=== PATIENT | female | born 1935 | race Caucasian/White ===

== ENCOUNTER 2017-11-13 00:43 | Emergency (ER) | payer MEDICARE, BC ==
[~2017-11-13] VITALS: Ht 162.6 cm; Wt 59.0 kg
[~2017-11-13 00:43] MED LIST: ALLOPURINOL100 MG PO; ALPRAZOLAM0.5 MG PO; AMLODIPINE BESYL5 MG PO; ARMOUR THYROID60 MG PO; ATORVASTATIN CA10 MG PO; CALCIUM ACETAT667 M1 PO; CALCIUM-MAGNES1 EACH PO; CARVEDILOL25 MG PO; COENZYME Q10 21 EACH PO; COLACE100 MG PO; COQ-10100 MG PO; FIBER SMART PO; FUROSEMIDE20 MG PO; HYDROCORTISONE10 MG PO; MAGNESIUM500 MG PO; MANGANESE PO; MELATONIN10 M1 PO; MULTIVITAMINS1 EAC6 PO; NIFEDIPINE10 MG PO; OS-CAL 500+D T1 EACH; POTASSIUM CHLO10 ME1 PO; POTASSIUM CHLOR8 MEQ PO; STEVIA; TRAMADOL HCL100 MG PO; TYLENOL WITH C1 EACH PO; ULTRAM50 MG PO; VITAMIN D250000 UNIT PO; [UNRECOGNIZED DRUG - OTHER]; [UNRECOGNIZED DRUG - OTHER]; [UNRECOGNIZED DRUG - OTHER]; colloidal silver PO; essential enzymes
--- OUTSIDE RECORDS SUMMARY | 2017-11-13 00:46 | XMS REPORT ---
Author Author [facility] Address Unknown Phone Unavailable Care Team Providers Care Knitter Helper Name Role Phone JENI JOYNER Unavailable Unavailable Problems This patient has no known problems. Allergies, Adverse Reactions, Alerts This patient has no known allergies or adverse reactions. Medications This patient has no known medications. Results Test Description Test Time Test Comments Text Results Atomic Results Result Comments CBC W/PLT COUNT & AUTO DIFFERENTIAL 2017-03-10 07:15:00 WHITE BLOOD CELL COUNT (BEAKER) (test mvbb=829) 8.0 K/ L 4.0-10.0 RED BLOOD CELL COUNT (BEAKER) (test reom=015) 3.84 M/ L 4.00-5.00 HEMOGLOBIN (BEAKER) (test wmba=064) 11.0 GM/DL 12.0-15.0 HEMATOCRIT (BEAKER) (test goet=868) 34.5 % 36.0-45.0 MEAN CORPUSCULAR VOLUME (BEAKER) (test gkoo=338) 89.7 fL 82.0-99.0 MEAN CORPUSCULAR HEMOGLOBIN (BEAKER) (test udpl=691) 28.8 pg 27.0-33.0 MEAN CORPUSCULAR HEMOGLOBIN CONC (BEAKER) (test fbob=561) 32.0 GM/DL 32.0- 36.0 RED CELL DISTRIBUTION WIDTH (BEAKER) (test edyx=848) 18.2 % 10.3-14.2 PLATELET COUNT (BEAKER) (test lxdm=126) 248 K/CU MM 150-430 MEAN PLATELET VOLUME (BEAKER) (test apch=632) 9.3 fL 6.5-10.5 NUCLEATED RED BLOOD CELLS (BEAKER) (test rssy=398) 0 /100 WBC 0-0 NEUTROPHILS RELATIVE PERCENT (BEAKER) (test wcfs=393) 53 % LYMPHOCYTES RELATIVE PERCENT (BEAKER) (test sehn=062) 33 % MONOCYTES RELATIVE PERCENT (BEAKER) (test itmr=876) 10 % EOSINOPHILS RELATIVE PERCENT (BEAKER) (test rrfk=010) 3 % BASOPHILS RELATIVE PERCENT (BEAKER) (test xrfb=716) 1 % NEUTROPHILS ABSOLUTE COUNT (BEAKER) (test ezgn=413) 4.21 K/ L 1.80-8.00 LYMPHOCYTES ABSOLUTE COUNT (BEAKER) (test kaqo=290) 2.63 K/ L 1.48-4.50 MONOCYTES ABSOLUTE COUNT (BEAKER) (test rwjc=524) 0.81 K/ L 0.00-1.30 EOSINOPHILS ABSOLUTE COUNT (BEAKER) (test laix=030) 0.28 K/ L 0.00-0.50 BASOPHILS ABSOLUTE COUNT (BEAKER) (test bafr=209) 0.07 K/ L 0.00-0.20 0.00BASIC METABOLIC [id number] 06:47:00* Test Item Value Reference Range Comments SODIUM (BEAKER) (test ahni=919) 139 meq/L 136-145 POTASSIUM (BEAKER) (test jhdm=889) 4.2 meq/L 3.5-5.1 Specimen slightly hemolyzed CHLORIDE (BEAKER) (test bgaa=304) 103 meq/L 98-107 CO2 (BEAKER) (test wozo=154) 26 meq/L 22-29 BLOOD UREA NITROGEN (BEAKER) (test gikz=729) 48 mg/dL 7-21 CREATININE (BEAKER) (test cgrj=835) 2.10 mg/dL 0.57-1.25 Specimen slightly hemolyzed GLUCOSE RANDOM (BEAKER) (test ekfi=071) 91 mg/dL 70-105 CALCIUM (BEAKER) (test eybq=912) 10.3 mg/dL 8.4-10.2 EGFR (BEAKER) (test hynw=0473) 23 mL/min/1.73 sq m ESTIMATED GFR IS NOT ACCURATE CREATININE CLEARANCE IN PREDICTING GLOMERULAR FILTRATION RATE. ESTIMATED GFR IS NOT APPLICABLE FOR DIALYSIS PATIENTS. [id number] 06:44:00* Test Item Value Reference Range Comments MAGNESIUM (BEAKER) (test yrgp=890) 2.0 mg/dL 1.6-2.6 Specimen slightly hemolyzed BASIC METABOLIC [id number] 14:46:00* Test Item Value Reference Range Comments SODIUM (BEAKER) (test jnsw=185) 139 meq/L 136-145 POTASSIUM (BEAKER) (test kbgi=204) 4.4 meq/L 3.5-5.1 CHLORIDE (BEAKER) (test iqtu=461) 103 meq/L 98-107 CO2 (BEAKER) (test xmoo=018) 23 meq/L 22-29 BLOOD UREA NITROGEN (BEAKER) (test hcyd=637) 49 mg/dL 7-21 CREATININE (BEAKER) (test cmdu=909) 1.98 mg/dL 0.57-1.25 GLUCOSE RANDOM (BEAKER) (test yjyp=626) 101 mg/dL 70-105 CALCIUM (BEAKER) (test brmd=618) 10.7 mg/dL 8.4-10.2 EGFR (BEAKER) (test rwmz=1404) 24 mL/min/1.73 sq m ESTIMATED GFR IS NOT ACCURATE CREATININE CLEARANCE IN PREDICTING GLOMERULAR FILTRATION RATE. ESTIMATED GFR IS NOT APPLICABLE FOR DIALYSIS PATIENTS. [id number] 14:46:00* Test Item Value Reference Range Comments MAGNESIUM (BEAKER) (test ddhv=705) 2.0 mg/dL 1.6-2.6 CBC W/PLT COUNT & AUTO [id number] 09:09:00* Test Item Value Reference Range Comments WHITE BLOOD CELL COUNT (BEAKER) (test acjx=539) 10.4 K/ L 4.0-10.0 RED BLOOD CELL COUNT (BEAKER) (test oqqn=575) 4.44 M/ L 4.00-5.00 HEMOGLOBIN (BEAKER) (test smrl=956) 12.3 GM/DL 12.0-15.0 HEMATOCRIT (BEAKER) (test ygss=373) 40.1 % 36.0-45.0 MEAN CORPUSCULAR VOLUME (BEAKER) (test ivzc=590) 90.4 fL 82.0-99.0 MEAN CORPUSCULAR HEMOGLOBIN (BEAKER) (test jlde=921) 27.6 pg 27.0-33.0 MEAN CORPUSCULAR HEMOGLOBIN CONC (BEAKER) (test jajj=694) 30.5 GM/DL 32.0- 36.0 RED CELL DISTRIBUTION WIDTH (BEAKER) (test xera=402) 17.6 % 10.3-14.2 PLATELET COUNT (BEAKER) (test sjjc=913) 278 K/CU MM 150-430 MEAN PLATELET VOLUME (BEAKER) (test bwgu=319) 10.2 fL 6.5-10.5 NUCLEATED RED BLOOD CELLS (BEAKER) (test hgsu=590) 0 /100 WBC 0-0 NEUTROPHILS RELATIVE PERCENT (BEAKER) (test lkuk=469) 53 % LYMPHOCYTES RELATIVE PERCENT (BEAKER) (test zgwx=843) 36 % MONOCYTES RELATIVE PERCENT (BEAKER) (test nvkr=227) 7 % EOSINOPHILS RELATIVE PERCENT (BEAKER) (test aeym=800) 3 % BASOPHILS RELATIVE PERCENT (BEAKER) (test sxjd=267) 1 % NEUTROPHILS ABSOLUTE COUNT (BEAKER) (test pcug=661) 5.52 K/ L 1.80-8.00 LYMPHOCYTES ABSOLUTE COUNT (BEAKER) (test nsnn=599) 3.68 K/ L 1.48-4.50 MONOCYTES ABSOLUTE COUNT (BEAKER) (test jjwa=914) 0.75 K/ L 0.00-1.30 EOSINOPHILS ABSOLUTE COUNT (BEAKER) (test ozfk=580) 0.34 K/ L 0.00-0.50 BASOPHILS ABSOLUTE COUNT (BEAKER) (test ulmf=419) 0.06 K/ L 0.00-0.20 CBC W/PLT COUNT & AUTO [id number] 05:40:00* Test Item Value Reference Range Comments WHITE BLOOD CELL COUNT (BEAKER) (test gmdc=311) 7.5 K/ L 4.0-10.0 RED BLOOD CELL COUNT (BEAKER) (test xmno=246) 3.78 M/ L 4.00-5.00 HEMOGLOBIN (BEAKER) (test bjva=799) 10.9 GM/DL 12.0-15.0 HEMATOCRIT (BEAKER) (test sgvz=035) 34.3 % 36.0-45.0 MEAN CORPUSCULAR VOLUME (BEAKER) (test ydlx=612) 90.8 fL 82.0-99.0 MEAN CORPUSCULAR HEMOGLOBIN (BEAKER) (test obco=111) 28.9 pg 27.0-33.0 MEAN CORPUSCULAR HEMOGLOBIN CONC (BEAKER) (test cixv=266) 31.8 GM/DL 32.0- 36.0 RED CELL DISTRIBUTION WIDTH (BEAKER) (test gkka=324) 16.1 % 10.3-14.2 PLATELET COUNT (BEAKER) (test huls=697) 249 K/CU MM 150-430 MEAN PLATELET VOLUME (BEAKER) (test ickx=706) 8.7 fL 6.5-10.5 NUCLEATED RED BLOOD CELLS (BEAKER) (test vlnb=718) 0 /100 WBC 0-0 NEUTROPHILS RELATIVE PERCENT (BEAKER) (test abqo=515) 57 % LYMPHOCYTES RELATIVE PERCENT (BEAKER) (test nmff=524) 29 % MONOCYTES RELATIVE PERCENT (BEAKER) (test ysxc=891) 10 % EOSINOPHILS RELATIVE PERCENT (BEAKER) (test ppph=981) 4 % BASOPHILS RELATIVE PERCENT (BEAKER) (test mtqn=545) 1 % NEUTROPHILS ABSOLUTE COUNT (BEAKER) (test sgbf=040) 4.22 K/ L 1.80-8.00 LYMPHOCYTES ABSOLUTE COUNT (BEAKER) (test gkdk=145) 2.16 K/ L 1.48-4.50 MONOCYTES ABSOLUTE COUNT (BEAKER) (test cseu=506) 0.74 K/ L 0.00-1.30 EOSINOPHILS ABSOLUTE COUNT (BEAKER) (test rqtb=732) 0.29 K/ L 0.00-0.50 BASOPHILS ABSOLUTE COUNT (BEAKER) (test txgw=376) 0.06 K/ L 0.00-0.20 0.00BASIC METABOLIC [id number] 05:32:00* Test Item Value Reference Range Comments SODIUM (BEAKER) (test yadq=751) 140 meq/L 136-145 POTASSIUM (BEAKER) (test qnuo=325) 4.2 meq/L 3.5-5.1 CHLORIDE (BEAKER) (test gexv=424) 107 meq/L 98-107 CO2 (BEAKER) (test ouxh=023) 24 meq/L 22-29 BLOOD UREA NITROGEN (BEAKER) (test xqgv=486) 46 mg/dL 7-21 CREATININE (BEAKER) (test svju=362) 1.93 mg/dL 0.57-1.25 GLUCOSE RANDOM (BEAKER) (test nrxa=302) 115 mg/dL 70-105 CALCIUM (BEAKER) (test vnxy=919) 9.5 mg/dL 8.4-10.2 EGFR (BEAKER) (test ripf=4010) 25 mL/min/1.73 sq m ESTIMATED GFR IS NOT ACCURATE CREATININE CLEARANCE IN PREDICTING GLOMERULAR FILTRATION RATE. ESTIMATED GFR IS NOT APPLICABLE FOR DIALYSIS PATIENTS. [id number] 05:31:00* Test Item Value Reference Range Comments MAGNESIUM (BEAKER) (test zuve=663) 2.1 mg/dL 1.6-2.6 CBC W/PLT COUNT & AUTO [id number] 08:33:00* Test Item Value Reference Range Comments WHITE BLOOD CELL COUNT (BEAKER) (test caor=139) 7.0 K/ L 4.0-10.0 RED BLOOD CELL COUNT (BEAKER) (test zoyn=242) 4.05 M/ L 4.00-5.00 HEMOGLOBIN (BEAKER) (test jxht=366) 11.2 GM/DL 12.0-15.0 HEMATOCRIT (BEAKER) (test ehob=996) 36.5 % 36.0-45.0 MEAN CORPUSCULAR VOLUME (BEAKER) (test ifuh=466) 90.0 fL 82.0-99.0 MEAN CORPUSCULAR HEMOGLOBIN (BEAKER) (test ydua=647) 27.6 pg 27.0-33.0 MEAN CORPUSCULAR HEMOGLOBIN CONC (BEAKER) (test mnpq=898) 30.7 GM/DL 32.0- 36.0 RED CELL DISTRIBUTION WIDTH (BEAKER) (test zjtw=174) 16.2 % 10.3-14.2 PLATELET COUNT (BEAKER) (test fwwn=987) 273 K/CU MM 150-430 MEAN PLATELET VOLUME (BEAKER) (test ivba=352) 9.0 fL 6.5-10.5 NUCLEATED RED BLOOD CELLS (BEAKER) (test vtpr=709) 0 /100 WBC 0-0 NEUTROPHILS RELATIVE PERCENT (BEAKER) (test ofoz=538) 50 % LYMPHOCYTES RELATIVE PERCENT (BEAKER) (test zyzu=432) 35 % MONOCYTES RELATIVE PERCENT (BEAKER) (test qzrf=691) 11 % EOSINOPHILS RELATIVE PERCENT (BEAKER) (test spvd=045) 4 % BASOPHILS RELATIVE PERCENT (BEAKER) (test vqoy=113) 1 % NEUTROPHILS ABSOLUTE COUNT (BEAKER) (test qeay=534) 3.45 K/ L 1.80-8.00 LYMPHOCYTES ABSOLUTE COUNT (BEAKER) (test pavi=013) 2.46 K/ L 1.48-4.50 MONOCYTES ABSOLUTE COUNT (BEAKER) (test wdku=569) 0.75 K/ L 0.00-1.30 EOSINOPHILS ABSOLUTE COUNT (BEAKER) (test hrgm=582) 0.26 K/ L 0.00-0.50 BASOPHILS ABSOLUTE COUNT (BEAKER) (test vile=529) 0.04 K/ L 0.00-0.20 [id number] 06:50:00* Test Item Value Reference Range Comments MAGNESIUM (BEAKER) (test hoiu=123) 2.0 mg/dL 1.6-2.6 BASIC METABOLIC [id number] 06:50:00* Test Item Value Reference Range Comments SODIUM (BEAKER) (test lhrz=678) 139 meq/L 136-145 POTASSIUM (BEAKER) (test zpci=831) 4.1 meq/L 3.5-5.1 CHLORIDE (BEAKER) (test xrov=541) 107 meq/L 98-107 CO2 (BEAKER) (test fznh=587) 23 meq/L 22-29 BLOOD UREA NITROGEN (BEAKER) (test oqdq=944) 41 mg/dL 7-21 CREATININE (BEAKER) (test sseb=671) 2.04 mg/dL 0.57-1.25 GLUCOSE RANDOM (BEAKER) (test vvhr=733) 92 mg/dL 70-105 CALCIUM (BEAKER) (test piie=838) 9.3 mg/dL 8.4-10.2 EGFR (BEAKER) (test ougq=1865) 23 mL/min/1.73 sq m ESTIMATED GFR IS NOT ACCURATE CREATININE CLEARANCE IN PREDICTING GLOMERULAR FILTRATION RATE. ESTIMATED GFR IS NOT APPLICABLE FOR DIALYSIS PATIENTS. DIGOXIN [id number] 06:45:00* Test Item Value Reference Range Comments DIGOXIN LEVEL (BEAKER) (test dmmi=892) 1.6 ng/mL 0.8-2.0 BASIC METABOLIC [id number] 23:57:00* Test Item Value Reference Range Comments SODIUM (BEAKER) (test mgnp=567) 137 meq/L 136-145 POTASSIUM (BEAKER) (test jxgl=737) 4.6 meq/L 3.5-5.1 CHLORIDE (BEAKER) (test ucxm=112) 102 meq/L 98-107 CO2 (BEAKER) (test gihx=862) 24 meq/L 22-29 BLOOD UREA NITROGEN (BEAKER) (test amnl=559) 44 mg/dL 7-21 CREATININE (BEAKER) (test mgkg=245) 2.47 mg/dL 0.57-1.25 GLUCOSE RANDOM (BEAKER) (test fvaj=125) 118 mg/dL 70-105 CALCIUM (BEAKER) (test hxzi=785) 9.6 mg/dL 8.4-10.2 EGFR (BEAKER) (test afpt=1405) 19 mL/min/1.73 sq m ESTIMATED GFR IS NOT ACCURATE CREATININE CLEARANCE IN PREDICTING GLOMERULAR FILTRATION RATE. ESTIMATED GFR IS NOT APPLICABLE FOR DIALYSIS PATIENTS. [id number] 23:36:00* Test Item Value Reference Range Comments MAGNESIUM (BEAKER) (test naei=360) 2.1 mg/dL 1.6-2.6 CBC W/PLT COUNT & AUTO [id number] 23:14:00* Test Item Value Reference Range Comments WHITE BLOOD CELL COUNT (BEAKER) (test aibx=504) 8.1 K/ L 4.0-10.0 RED BLOOD CELL COUNT (BEAKER) (test ckgl=351) 4.26 M/ L 4.00-5.00 HEMOGLOBIN (BEAKER) (test cdmw=898) 12.5 GM/DL 12.0-15.0 HEMATOCRIT (BEAKER) (test lhnj=131) 38.3 % 36.0-45.0 MEAN CORPUSCULAR VOLUME (BEAKER) (test gbvi=416) 90.1 fL 82.0-99.0 MEAN CORPUSCULAR HEMOGLOBIN (BEAKER) (test aukx=616) 29.4 pg 27.0-33.0 MEAN CORPUSCULAR HEMOGLOBIN CONC (BEAKER) (test pbrr=729) 32.6 GM/DL 32.0- 36.0 RED CELL DISTRIBUTION WIDTH (BEAKER) (test cvao=233) 15.9 % 10.3-14.2 PLATELET COUNT (BEAKER) (test oloo=661) 318 K/CU MM 150-430 MEAN PLATELET VOLUME (BEAKER) (test oemj=607) 8.1 fL 6.5-10.5 NUCLEATED RED BLOOD CELLS (BEAKER) (test ypvj=399) 0 /100 WBC 0-0 NEUTROPHILS RELATIVE PERCENT (BEAKER) (test ntvd=118) 54 % LYMPHOCYTES RELATIVE PERCENT (BEAKER) (test qpxe=712) 32 % MONOCYTES RELATIVE PERCENT (BEAKER) (test yqxi=509) 12 % EOSINOPHILS RELATIVE PERCENT (BEAKER) (test uudt=580) 2 % BASOPHILS RELATIVE PERCENT (BEAKER) (test umxz=261) 0 % NEUTROPHILS ABSOLUTE COUNT (BEAKER) (test qaap=342) 4.32 K/ L 1.80-8.00 LYMPHOCYTES ABSOLUTE COUNT (BEAKER) (test cegv=039) 2.55 K/ L 1.48-4.50 MONOCYTES ABSOLUTE COUNT (BEAKER) (test xhve=633) 0.98 K/ L 0.00-1.30 EOSINOPHILS ABSOLUTE COUNT (BEAKER) (test tgac=684) 0.18 K/ L 0.00-0.50 BASOPHILS ABSOLUTE COUNT (BEAKER) (test mgxd=943) 0.04 K/ L 0.00-0.20 0.00BASIC METABOLIC [id number] 01:29:00* Test Item Value Reference Range Comments SODIUM (BEAKER) (test zuqa=142) 140 meq/L 136-145 POTASSIUM (BEAKER) (test inlb=536) 3.9 meq/L 3.5-5.1 CHLORIDE (BEAKER) (test gjjn=287) 104 meq/L 98-107 CO2 (BEAKER) (test rank=987) 25 meq/L 22-29 BLOOD UREA NITROGEN (BEAKER) (test kmkw=941) 38 mg/dL 7-21 CREATININE (BEAKER) (test aspm=106) 1.69 mg/dL 0.57-1.25 GLUCOSE RANDOM (BEAKER) (test cbpv=983) 199 mg/dL 70-105 CALCIUM (BEAKER) (test orbm=302) 9.4 mg/dL 8.4-10.2 EGFR (BEAKER) (test pilc=3181) 29 mL/min/1.73 sq m ESTIMATED GFR IS NOT ACCURATE CREATININE CLEARANCE IN PREDICTING GLOMERULAR FILTRATION RATE. ESTIMATED GFR IS NOT APPLICABLE FOR DIALYSIS PATIENTS. [id number] 01:22:00* Test Item Value Reference Range Comments MAGNESIUM (BEAKER) (test eljq=430) 2.3 mg/dL 1.6-2.6 CBC W/PLT COUNT & AUTO [id number] 01:00:00* Test Item Value Reference Range Comments WHITE BLOOD CELL COUNT (BEAKER) (test mmar=099) 7.9 K/ L 4.0-10.0 RED BLOOD CELL COUNT (BEAKER) (test uofi=553) 4.13 M/ L 4.00-5.00 HEMOGLOBIN (BEAKER) (test jowd=574) 11.5 GM/DL 12.0-15.0 HEMATOCRIT (BEAKER) (test zrie=556) 36.7 % 36.0-45.0 MEAN CORPUSCULAR VOLUME (BEAKER) (test tdqx=858) 88.8 fL 82.0-99.0 MEAN CORPUSCULAR HEMOGLOBIN (BEAKER) (test rduo=336) 27.9 pg 27.0-33.0 MEAN CORPUSCULAR HEMOGLOBIN CONC (BEAKER) (test grem=181) 31.4 GM/DL 32.0- 36.0 RED CELL DISTRIBUTION WIDTH (BEAKER) (test chmv=206) 17.3 % 10.3-14.2 PLATELET COUNT (BEAKER) (test piry=290) 267 K/CU MM 150-430 MEAN PLATELET VOLUME (BEAKER) (test bpbk=827) 8.3 fL 6.5-10.5 NUCLEATED RED BLOOD CELLS (BEAKER) (test tpis=606) 0 /100 WBC 0-0 NEUTROPHILS RELATIVE PERCENT (BEAKER) (test blry=227) 66 % LYMPHOCYTES RELATIVE PERCENT (BEAKER) (test ybrh=263) 22 % MONOCYTES RELATIVE PERCENT (BEAKER) (test lnio=795) 9 % EOSINOPHILS RELATIVE PERCENT (BEAKER) (test ooxv=645) 2 % BASOPHILS RELATIVE PERCENT (BEAKER) (test fdlb=805) 1 % NEUTROPHILS ABSOLUTE COUNT (BEAKER) (test zemm=104) 5.19 K/ L 1.80-8.00 LYMPHOCYTES ABSOLUTE COUNT (BEAKER) (test errx=270) 1.72 K/ L 1.48-4.50 MONOCYTES ABSOLUTE COUNT (BEAKER) (test bwpa=798) 0.75 K/ L 0.00-1.30 EOSINOPHILS ABSOLUTE COUNT (BEAKER) (test ypir=191) 0.18 K/ L 0.00-0.50 BASOPHILS ABSOLUTE COUNT (BEAKER) (test gavi=054) 0.07 K/ L 0.00-0.20 0.00CBC W/PLT COUNT & AUTO [id number] 07:01:00* Test Item Value Reference Range Comments WHITE BLOOD CELL COUNT (BEAKER) (test bxvx=975) 6.8 K/ L 4.0-10.0 RED BLOOD CELL COUNT (BEAKER) (test zzzj=677) 3.77 M/ L 4.00-5.00 HEMOGLOBIN (BEAKER) (test homi=062) 11.1 GM/DL 12.0-15.0 HEMATOCRIT (BEAKER) (test oolw=096) 33.7 % 36.0-45.0 MEAN CORPUSCULAR VOLUME (BEAKER) (test tfnj=934) 89.5 fL 82.0-99.0 MEAN CORPUSCULAR HEMOGLOBIN (BEAKER) (test bttg=227) 29.4 pg 27.0-33.0 MEAN CORPUSCULAR HEMOGLOBIN CONC (BEAKER) (test lbvo=410) 32.9 GM/DL 32.0- 36.0 RED CELL DISTRIBUTION WIDTH (BEAKER) (test kmmy=639) 17.0 % 10.3-14.2 PLATELET COUNT (BEAKER) (test jcxc=251) 261 K/CU MM 150-430 MEAN PLATELET VOLUME (BEAKER) (test aplb=988) 8.5 fL 6.5-10.5 NUCLEATED RED BLOOD CELLS (BEAKER) (test zjfs=628) 0 /100 WBC 0-0 NEUTROPHILS RELATIVE PERCENT (BEAKER) (test nsaf=942) 51 % LYMPHOCYTES RELATIVE PERCENT (BEAKER) (test okki=526) 34 % MONOCYTES RELATIVE PERCENT (BEAKER) (test ykpi=165) 10 % EOSINOPHILS RELATIVE PERCENT (BEAKER) (test pvuy=464) 5 % BASOPHILS RELATIVE PERCENT (BEAKER) (test nkit=820) 1 % NEUTROPHILS ABSOLUTE COUNT (BEAKER) (test xatq=902) 3.49 K/ L 1.80-8.00 LYMPHOCYTES ABSOLUTE COUNT (BEAKER) (test mznx=357) 2.31 K/ L 1.48-4.50 MONOCYTES ABSOLUTE COUNT (BEAKER) (test sewf=631) 0.66 K/ L 0.00-1.30 EOSINOPHILS ABSOLUTE COUNT (BEAKER) (test sndo=729) 0.31 K/ L 0.00-0.50 BASOPHILS ABSOLUTE COUNT (BEAKER) (test vtiq=006) 0.07 K/ L 0.00-0.20 0.00BASI METABOLIC [id number] 06:04:00* Test Item Value Reference Range Comments SODIUM (BEAKER) (test wcmt=017) 140 meq/L 136-145 POTASSIUM (BEAKER) (test nakg=113) 3.8 meq/L 3.5-5.1 CHLORIDE (BEAKER) (test ieqt=549) 107 meq/L 98-107 CO2 (BEAKER) (test tecq=673) 22 meq/L 22-29 BLOOD UREA NITROGEN (BEAKER) (test oneb=597) 41 mg/dL 7-21 CREATININE (BEAKER) (test oszy=502) 1.76 mg/dL 0.57-1.25 GLUCOSE RANDOM (BEAKER) (test dhdz=982) 95 mg/dL 70-105 CALCIUM (BEAKER) (test umny=360) 8.9 mg/dL 8.4-10.2 EGFR (BEAKER) (test pfkj=4526) 28 mL/min/1.73 sq m ESTIMATED GFR IS NOT ACCURATE CREATININE CLEARANCE IN PREDICTING GLOMERULAR FILTRATION RATE. ESTIMATED GFR IS NOT APPLICABLE FOR DIALYSIS PATIENTS. [id number] 05:57:00* Test Item Value Reference Range Comments MAGNESIUM (BEAKER) (test txoq=606) 1.6 mg/dL 1.6-2.6 [id number] 05:36:00* Test Item Value Reference Range Comments MAGNESIUM (BEAKER) (test ehwd=215) 1.9 mg/dL 1.6-2.6 BASIC METABOLIC [id number] 05:36:00* Test Item Value Reference Range Comments SODIUM (BEAKER) (test aurw=004) 140 meq/L 136-145 POTASSIUM (BEAKER) (test nlkm=574) 3.8 meq/L 3.5-5.1 CHLORIDE (BEAKER) (test peef=292) 108 meq/L 98-107 CO2 (BEAKER) (test zjux=489) 23 meq/L 22-29 BLOOD UREA NITROGEN (BEAKER) (test qrad=503) 35 mg/dL 7-21 CREATININE (BEAKER) (test zkwp=283) 1.60 mg/dL 0.57-1.25 GLUCOSE RANDOM (BEAKER) (test pylq=686) 91 mg/dL 70-105 CALCIUM (BEAKER) (test igpd=324) 8.4 mg/dL 8.4-10.2 EGFR (BEAKER) (test ulyb=6103) 31 mL/min/1.73 sq m ESTIMATED GFR IS NOT ACCURATE CREATININE CLEARANCE IN PREDICTING GLOMERULAR FILTRATION RATE. ESTIMATED GFR IS NOT APPLICABLE FOR DIALYSIS PATIENTS. [id number] 05:36:00* Test Item Value Reference Range Comments ALBUMIN (BEAKER) (test ypis=7830) 3.1 g/dL 3.5-5.0 CBC W/PLT COUNT & AUTO [id number] 05:35:00* Test Item Value Reference Range Comments WHITE BLOOD CELL COUNT (BEAKER) (test doso=468) 6.6 K/ L 4.0-10.0 RED BLOOD CELL COUNT (BEAKER) (test paii=706) 3.82 M/ L 4.00-5.00 HEMOGLOBIN (BEAKER) (test bhee=697) 10.7 GM/DL 12.0-15.0 HEMATOCRIT (BEAKER) (test zkfq=822) 34.2 % 36.0-45.0 MEAN CORPUSCULAR VOLUME (BEAKER) (test rygl=146) 89.4 fL 82.0-99.0 MEAN CORPUSCULAR HEMOGLOBIN (BEAKER) (test aqfr=254) 27.9 pg 27.0-33.0 MEAN CORPUSCULAR HEMOGLOBIN CONC (BEAKER) (test pigj=241) 31.2 GM/DL 32.0- 36.0 RED CELL DISTRIBUTION WIDTH (BEAKER) (test mxok=260) 17.1 % 10.3-14.2 PLATELET COUNT (BEAKER) (test pmmg=044) 252 K/CU MM 150-430 MEAN PLATELET VOLUME (BEAKER) (test zntg=459) 8.3 fL 6.5-10.5 NUCLEATED RED BLOOD CELLS (BEAKER) (test ghsn=432) 0 /100 WBC 0-0 NEUTROPHILS RELATIVE PERCENT (BEAKER) (test obob=920) 48 % LYMPHOCYTES RELATIVE PERCENT (BEAKER) (test sisy=768) 37 % MONOCYTES RELATIVE PERCENT (BEAKER) (test dvtw=032) 9 % EOSINOPHILS RELATIVE PERCENT (BEAKER) (test gtix=687) 5 % BASOPHILS RELATIVE PERCENT (BEAKER) (test hufe=058) 1 % NEUTROPHILS ABSOLUTE COUNT (BEAKER) (test wixr=095) 3.15 K/ L 1.80-8.00 LYMPHOCYTES ABSOLUTE COUNT (BEAKER) (test xocr=784) 2.44 K/ L 1.48-4.50 MONOCYTES ABSOLUTE COUNT (BEAKER) (test zwfi=072) 0.60 K/ L 0.00-1.30 EOSINOPHILS ABSOLUTE COUNT (BEAKER) (test ocby=615) 0.32 K/ L 0.00-0.50 BASOPHILS ABSOLUTE COUNT (BEAKER) (test qqjw=124) 0.06 K/ L 0.00-0.20 0.00BASIC METABOLIC [id number] 04:23:00* Test Item Value Reference Range Comments SODIUM (BEAKER) (test lbgs=609) 143 meq/L 136-145 POTASSIUM (BEAKER) (test hbmj=781) 3.7 meq/L 3.5-5.1 CHLORIDE (BEAKER) (test wcrm=823) 108 meq/L 98-107 CO2 (BEAKER) (test oxbb=745) 24 meq/L 22-29 BLOOD UREA NITROGEN (BEAKER) (test juys=806) 39 mg/dL 7-21 CREATININE (BEAKER) (test agxd=420) 1.75 mg/dL 0.57-1.25 GLUCOSE RANDOM (BEAKER) (test tccq=132) 100 mg/dL 70-105 CALCIUM (BEAKER) (test ccmf=231) 8.2 mg/dL 8.4-10.2 EGFR (BEAKER) (test mouf=5931) 28 mL/min/1.73 sq m ESTIMATED GFR IS NOT ACCURATE CREATININE CLEARANCE IN PREDICTING GLOMERULAR FILTRATION RATE. ESTIMATED GFR IS NOT APPLICABLE FOR DIALYSIS PATIENTS. [id number] 03:33:00* Test Item Value Reference Range Comments MAGNESIUM (BEAKER) (test ucpl=887) 1.9 mg/dL 1.6-2.6 CBC W/PLT COUNT & AUTO [id number] 03:00:00* Test Item Value Reference Range Comments WHITE BLOOD CELL COUNT (BEAKER) (test uvdb=722) 6.9 K/ L 4.0-10.0 RED BLOOD CELL COUNT (BEAKER) (test vnpo=001) 3.88 M/ L 4.00-5.00 HEMOGLOBIN (BEAKER) (test lzit=615) 11.6 GM/DL 12.0-15.0 HEMATOCRIT (BEAKER) (test usyv=898) 34.8 % 36.0-45.0 MEAN CORPUSCULAR VOLUME (BEAKER) (test cmgn=906) 89.9 fL 82.0-99.0 MEAN CORPUSCULAR HEMOGLOBIN (BEAKER) (test rvzn=235) 29.9 pg 27.0-33.0 MEAN CORPUSCULAR HEMOGLOBIN CONC (BEAKER) (test jtlk=267) 33.2 GM/DL 32.0- 36.0 RED CELL DISTRIBUTION WIDTH (BEAKER) (test xnca=727) 15.3 % 10.3-14.2 PLATELET COUNT (BEAKER) (test nssj=603) 251 K/CU MM 150-430 MEAN PLATELET VOLUME (BEAKER) (test cagh=074) 8.1 fL 6.5-10.5 NUCLEATED RED BLOOD CELLS (BEAKER) (test aymy=912) 0 /100 WBC 0-0 NEUTROPHILS RELATIVE PERCENT (BEAKER) (test qiqi=091) 51 % LYMPHOCYTES RELATIVE PERCENT (BEAKER) (test wqav=088) 34 % MONOCYTES RELATIVE PERCENT (BEAKER) (test ybtn=357) 10 % EOSINOPHILS RELATIVE PERCENT (BEAKER) (test wbse=419) 5 % BASOPHILS RELATIVE PERCENT (BEAKER) (test okol=537) 1 % NEUTROPHILS ABSOLUTE COUNT (BEAKER) (test ouad=375) 3.51 K/ L 1.80-8.00 LYMPHOCYTES ABSOLUTE COUNT (BEAKER) (test pefc=742) 2.32 K/ L 1.48-4.50 MONOCYTES ABSOLUTE COUNT (BEAKER) (test ddrn=746) 0.69 K/ L 0.00-1.30 EOSINOPHILS ABSOLUTE COUNT (BEAKER) (test nckf=905) 0.32 K/ L 0.00-0.50 BASOPHILS ABSOLUTE COUNT (BEAKER) (test uunl=516) 0.05 K/ L 0.00-0.20 0.00T4, [id number] 06:23:00* Test Item Value Reference Range Comments FREE T4 (BEAKER) (test modr=532) 0.61 ng/dL 0.70-1.48 TSH/FREE T4 IF [id number] 04:35:00* Test Item Value Reference Range Comments THYROID STIMULATING HORMONE (BEAKER) (test cvmo=565) 14.13 uIU/mL 0.35-4.94 BASIC METABOLIC [id number] 01:35:00* Test Item Value Reference Range Comments SODIUM (BEAKER) (test apae=961) 142 meq/L 136-145 POTASSIUM (BEAKER) (test ylge=338) 3.6 meq/L 3.5-5.1 CHLORIDE (BEAKER) (test bktj=057) 104 meq/L 98-107 CO2 (BEAKER) (test eyim=867) 30 meq/L 22-29 BLOOD UREA NITROGEN (BEAKER) (test wkpl=182) 37 mg/dL 7-21 CREATININE (BEAKER) (test ipyk=622) 1.80 mg/dL 0.57-1.25 GLUCOSE RANDOM (BEAKER) (test udkk=164) 100 mg/dL 70-105 CALCIUM (BEAKER) (test ftyz=153) 7.6 mg/dL 8.4-10.2 EGFR (BEAKER) (test ntsu=5796) 27 mL/min/1.73 sq m ESTIMATED GFR IS NOT ACCURATE CREATININE CLEARANCE IN PREDICTING GLOMERULAR FILTRATION RATE. ESTIMATED GFR IS NOT APPLICABLE FOR DIALYSIS PATIENTS. [id number] 01:33:00* Test Item Value Reference Range Comments MAGNESIUM (BEAKER) (test adcf=298) 2.2 mg/dL 1.6-2.6 CBC W/PLT COUNT & AUTO [id number] 01:19:00* Test Item Value Reference Range Comments WHITE BLOOD CELL COUNT (BEAKER) (test womn=447) 5.9 K/ L 4.0-10.0 RED BLOOD CELL COUNT (BEAKER) (test ygbz=029) 3.78 M/ L 4.00-5.00 HEMOGLOBIN (BEAKER) (test lifa=840) 11.2 GM/DL 12.0-15.0 HEMATOCRIT (BEAKER) (test njny=598) 34.1 % 36.0-45.0 MEAN CORPUSCULAR VOLUME (BEAKER) (test rfpp=378) 90.4 fL 82.0-99.0 MEAN CORPUSCULAR HEMOGLOBIN (BEAKER) (test ggmz=475) 29.6 pg 27.0-33.0 MEAN CORPUSCULAR HEMOGLOBIN CONC (BEAKER) (test rjfm=116) 32.7 GM/DL 32.0- 36.0 RED CELL DISTRIBUTION WIDTH (BEAKER) (test lhdv=824) 15.2 % 10.3-14.2 PLATELET COUNT (BEAKER) (test cvbi=769) 215 K/CU MM 150-430 MEAN PLATELET VOLUME (BEAKER) (test wztl=176) 7.9 fL 6.5-10.5 NUCLEATED RED BLOOD CELLS (BEAKER) (test gyij=970) 0 /100 WBC 0-0 NEUTROPHILS RELATIVE PERCENT (BEAKER) (test acow=204) 51 % LYMPHOCYTES RELATIVE PERCENT (BEAKER) (test mear=267) 31 % MONOCYTES RELATIVE PERCENT (BEAKER) (test btly=490) 12 % EOSINOPHILS RELATIVE PERCENT (BEAKER) (test lnhq=847) 6 % BASOPHILS RELATIVE PERCENT (BEAKER) (test cegn=157) 0 % NEUTROPHILS ABSOLUTE COUNT (BEAKER) (test fbss=651) 3.05 K/ L 1.80-8.00 LYMPHOCYTES ABSOLUTE COUNT (BEAKER) (test wzjl=954) 1.82 K/ L 1.48-4.50 MONOCYTES ABSOLUTE COUNT (BEAKER) (test ecmz=599) 0.69 K/ L 0.00-1.30 EOSINOPHILS ABSOLUTE COUNT (BEAKER) (test tqac=994) 0.37 K/ L 0.00-0.50 BASOPHILS ABSOLUTE COUNT (BEAKER) (test mpgo=139) 0.03 K/ L 0.00-0.20 0.00BASI METABOLIC [id number] 05:08:00* Test Item Value Reference Range Comments SODIUM (BEAKER) (test ovkz=907) 143 meq/L 136-145 POTASSIUM (BEAKER) (test mamu=540) 3.6 meq/L 3.5-5.1 CHLORIDE (BEAKER) (test kcvi=817) 104 meq/L 98-107 CO2 (BEAKER) (test rybf=427) 29 meq/L 22-29 BLOOD UREA NITROGEN (BEAKER) (test gtbv=420) 35 mg/dL 7-21 CREATININE (BEAKER) (test szrf=882) 1.69 mg/dL 0.57-1.25 GLUCOSE RANDOM (BEAKER) (test tdci=949) 105 mg/dL 70-105 CALCIUM (BEAKER) (test hape=583) 7.4 mg/dL 8.4-10.2 EGFR (BEAKER) (test xjng=6252) 29 mL/min/1.73 sq m ESTIMATED GFR IS NOT ACCURATE CREATININE CLEARANCE IN PREDICTING GLOMERULAR FILTRATION RATE. ESTIMATED GFR IS NOT APPLICABLE FOR DIALYSIS PATIENTS. [id number] 04:41:00* Test Item Value Reference Range Comments MAGNESIUM (BEAKER) (test euuw=835) 1.8 mg/dL 1.6-2.6 CBC W/PLT COUNT & AUTO [id number] 04:19:00* Test Item Value Reference Range Comments WHITE BLOOD CELL COUNT (BEAKER) (test xxdv=285) 7.5 K/ L 4.0-10.0 RED BLOOD CELL COUNT (BEAKER) (test kial=096) 3.69 M/ L 4.00-5.00 HEMOGLOBIN (BEAKER) (test jbro=600) 10.8 GM/DL 12.0-15.0 HEMATOCRIT (BEAKER) (test kgat=135) 33.2 % 36.0-45.0 MEAN CORPUSCULAR VOLUME (BEAKER) (test cygn=902) 90.2 fL 82.0-99.0 MEAN CORPUSCULAR HEMOGLOBIN (BEAKER) (test roen=941) 29.3 pg 27.0-33.0 MEAN CORPUSCULAR HEMOGLOBIN CONC (BEAKER) (test hqpd=843) 32.4 GM/DL 32.0- 36.0 RED CELL DISTRIBUTION WIDTH (BEAKER) (test ymag=474) 16.9 % 10.3-14.2 PLATELET COUNT (BEAKER) (test ejpe=907) 202 K/CU MM 150-430 MEAN PLATELET VOLUME (BEAKER) (test tkhd=035) 8.6 fL 6.5-10.5 NUCLEATED RED BLOOD CELLS (BEAKER) (test iosu=900) 0 /100 WBC 0-0 NEUTROPHILS RELATIVE PERCENT (BEAKER) (test rahp=089) 53 % LYMPHOCYTES RELATIVE PERCENT (BEAKER) (test iyoy=944) 32 % MONOCYTES RELATIVE PERCENT (BEAKER) (test ftwg=250) 10 % EOSINOPHILS RELATIVE PERCENT (BEAKER) (test kgga=662) 5 % BASOPHILS RELATIVE PERCENT (BEAKER) (test sash=206) 1 % NEUTROPHILS ABSOLUTE COUNT (BEAKER) (test gtgt=291) 3.95 K/ L 1.80-8.00 LYMPHOCYTES ABSOLUTE COUNT (BEAKER) (test fcud=160) 2.38 K/ L 1.48-4.50 MONOCYTES ABSOLUTE COUNT (BEAKER) (test dnfn=469) 0.78 K/ L 0.00-1.30 EOSINOPHILS ABSOLUTE COUNT (BEAKER) (test ssbn=731) 0.35 K/ L 0.00-0.50 BASOPHILS ABSOLUTE COUNT (BEAKER) (test bjhh=782) 0.07 K/ L 0.00-0.20 0.00TROPONIN [id number] 12:18:00* Test Item Value Reference Range Comments TROPONIN I (BEAKER) (test lkkh=035) 0.03 ng/mL 0.00-0.03 Effective 08/16/2014: Reference Range ChangeNew: 0.00-0.03 Previous 0.00- 0.15Troponin I (TnI) levels must be interpreted in the context of the presenting symptoms and the clinical findings. Elevated TnI levels indicate myocardial damage, but are not specific for ischemic heart disease. Elevated TnI levels are seen in patients with other cardiac conditions (including myocarditis and congestive heart failure), and slight TnI elevations occur in patients with other conditions, including sepsis, renal failure, acidosis, acute neurological disease, and persistent tachyarrhythmia.CREATINE KINASE (CK) , TOTAL AND [id number] 07:05:00* Test Item Value Reference Range Comments CREATINE KINASE TOTAL (BEAKER) (test qkdg=873) 98 U/L 29-200 CREATINE KINASE-MB (BEAKER) (test nmca=588) 0.7 ng/mL 0.0-6.6 CREATINE KINASE-MB INDEX (BEAKER) (test htqq=945) 0.7 % Effective 08/16/2014: CK-MB Reference Range ChangeNew: 0.0-6.6 Previous: 0.0- 4.9CK-MB Reference Range:<6.7 Normal6.7-10.0 Borderline>10.0 AbnormalTROPONIN [id number] 07:00:00* Test Item Value Reference Range Comments TROPONIN I (BEAKER) (test lssw=070) 0.03 ng/mL 0.00-0.03 Effective 08/16/2014: Reference Range ChangeNew: 0.00-0.03 Previous 0.00- 0.15Troponin I (TnI) levels must be interpreted in the context of the presenting symptoms and the clinical findings. Elevated TnI levels indicate myocardial damage, but are not specific for ischemic heart disease. Elevated TnI levels are seen in patients with other cardiac conditions (including myocarditis and congestive heart failure), and slight TnI elevations occur in patients with other conditions, including sepsis, renal failure, acidosis, acute neurological disease, and persistent tachyarrhythmia.CREATINE KINASE (CK) , TOTAL AND [id number] 00:20:00* Test Item Value Reference Range Comments CREATINE KINASE TOTAL (BEAKER) (test dipj=115) 97 U/L 29-200 CREATINE KINASE-MB (BEAKER) (test riik=336) 0.8 ng/mL 0.0-6.6 CREATINE KINASE-MB INDEX (BEAKER) (test whed=441) 0.8 % Effective 08/16/2014: CK-MB Reference Range ChangeNew: 0.0-6.6 Previous: 0.0- 4.9CK-MB Reference Range:<6.7 Normal6.7-10.0 Borderline>10.0 AbnormalTROPONIN [id number] 00:20:00* Test Item Value Reference Range Comments TROPONIN I (BEAKER) (test ixtf=268) 0.02 ng/mL 0.00-0.03 Effective 08/16/2014: Reference Range ChangeNew: 0.00-0.03 Previous 0.00- 0.15Troponin I (TnI) levels must be interpreted in the context of the presenting symptoms and the clinical findings. Elevated TnI levels indicate myocardial damage, but are not specific for ischemic heart disease. Elevated TnI levels are seen in patients with other cardiac conditions (including myocarditis and congestive heart failure), and slight TnI elevations occur in patients with other conditions, including sepsis, renal failure, acidosis, acute neurological disease, and persistent tachyarrhythmia.B-TYPE NATRIURETIC FACTOR (BNP)2017-02-28 00:17:00* Test Item Value Reference Range Comments B-TYPE NATRIURETIC PEPTIDE (BEAKER) (test glmn=310) 233 pg/mL 0-100 BASIC METABOLIC [id number] 00:16:00* Test Item Value Reference Range Comments SODIUM (BEAKER) (test eadf=791) 141 meq/L 136-145 POTASSIUM (BEAKER) (test ugdq=752) 3.8 meq/L 3.5-5.1 CHLORIDE (BEAKER) (test qxcg=616) 103 meq/L 98-107 CO2 (BEAKER) (test jziy=611) 24 meq/L 22-29 BLOOD UREA NITROGEN (BEAKER) (test wfvp=072) 31 mg/dL 7-21 CREATININE (BEAKER) (test hoki=012) 1.79 mg/dL 0.57-1.25 GLUCOSE RANDOM (BEAKER) (test jzjx=004) 87 mg/dL 70-105 CALCIUM (BEAKER) (test mlkn=311) 8.1 mg/dL 8.4-10.2 EGFR (BEAKER) (test oibh=3590) mL/min/1.73 sq m INSUFFICIENT CLINICAL DATA TO CALCULATE ESTIMATED GFR. [id number] 00:13:00* Test Item Value Reference Range Comments MAGNESIUM (BEAKER) (test eiqa=710) 1.9 mg/dL 1.6-2.6 [id number] 00:00:00* Test Item Value Reference Range Comments PROTIME (BEAKER) (test mcmd=489) 15.5 seconds 11.7-14.7 INR (BEAKER) (test hckr=932) 1.2 <=5.9 PARTIAL THROMBOPLASTIN TIME (BEAKER) (test gywy=151) 36.5 seconds 22.5-36.0 RECOMMENDED COUMADIN/WARFARIN INR THERAPY RANGESSTANDARD DOSE: 2.0 - 3.0 Includes: PROPHYLAXIS for venous thrombosis, systemic embolization; TREATMENT for venous thrombosis and/or pulmonary embolus.HIGH RISK: Target INR is 2.5-3.5 for patients with mechanical heart valves.CBC W/PLT COUNT & AUTO [id number] 23:48:00* Test Item Value Reference Range Comments WHITE BLOOD CELL COUNT (BEAKER) (test edla=722) 8.5 K/ L 4.0-10.0 RED BLOOD CELL COUNT (BEAKER) (test ulxj=024) 4.19 M/ L 4.00-5.00 HEMOGLOBIN (BEAKER) (test marj=930) 12.1 GM/DL 12.0-15.0 HEMATOCRIT (BEAKER) (test spee=958) 37.7 % 36.0-45.0 MEAN CORPUSCULAR VOLUME (BEAKER) (test dqiv=630) 90.2 fL 82.0-99.0 MEAN CORPUSCULAR HEMOGLOBIN (BEAKER) (test ndwi=149) 29.0 pg 27.0-33.0 MEAN CORPUSCULAR HEMOGLOBIN CONC (BEAKER) (test aouv=751) 32.2 GM/DL 32.0- 36.0 RED CELL DISTRIBUTION WIDTH (BEAKER) (test nqyi=813) 15.8 % 10.3-14.2 PLATELET COUNT (BEAKER) (test ousp=787) 220 K/CU MM 150-430 MEAN PLATELET VOLUME (BEAKER) (test mwth=428) 8.4 fL 6.5-10.5 NUCLEATED RED BLOOD CELLS (BEAKER) (test krfx=663) 0 /100 WBC 0-0 NEUTROPHILS RELATIVE PERCENT (BEAKER) (test jctp=194) 62 % LYMPHOCYTES RELATIVE PERCENT (BEAKER) (test jvmw=431) 27 % MONOCYTES RELATIVE PERCENT (BEAKER) (test nlsv=633) 9 % EOSINOPHILS RELATIVE PERCENT (BEAKER) (test rlhz=551) 2 % BASOPHILS RELATIVE PERCENT (BEAKER) (test tmdo=008) 0 % NEUTROPHILS ABSOLUTE COUNT (BEAKER) (test ynxo=732) 5.29 K/ L 1.80-8.00 LYMPHOCYTES ABSOLUTE COUNT (BEAKER) (test otnq=428) 2.25 K/ L 1.48-4.50 MONOCYTES ABSOLUTE COUNT (BEAKER) (test qiab=991) 0.79 K/ L 0.00-1.30 EOSINOPHILS ABSOLUTE COUNT (BEAKER) (test nepp=021) 0.14 K/ L 0.00-0.50 BASOPHILS ABSOLUTE COUNT (BEAKER) (test snup=250) 0.03 K/ L 0.00-0.20 0.00
--- OUTSIDE RECORDS SUMMARY | 2017-11-13 00:46 | XMS REPORT | Clinical Summary ---
Author Author FÉLIX [facility] Address Unknown Phone Unavailable Care Team Providers Care Property Field Inspector Name Role Phone PCP Unavailable Allergies Active Allergy Reactions Severity Noted Date Comments Diltiazem Itching, Rash High 02/27/2017 Clarithromycin 02/28/2017 Patient couldn't remember the reaction. Diltiazem Hcl 02/28/2017 Patient doesn't remember what reaction. Codeine Nausea Only 02/28/2017 Lisinopril Nausea And Vomiting 02/28/2017 Cough all day long. Morphine Nausea Only 02/28/2017 Penicillins 02/28/2017 Patient doesn't remember the reaction. Prednisone Swelling 02/28/2017 Makes my legs swell. Cefpodoxime 02/28/2017 Patient doesn't remember the reaction. Current Medications Prescription Sig. Disp. Refills Start End Date Status Date atorvastatin (LIPITOR) 10 Take 10 mg by mouth Active MG tablet daily. allopurinol (ZYLOPRIM) Take 100 mg by mouth Active 100 MG tablet daily. calcium acetate (PHOSLO) Take 1,334 mg by mouth 3 Active 667 mg capsule (three) times daily with meals . ergocalciferol (VITAMIN Take 50,000 Units by Active D2) 50,000 unit capsule mouth once a week Every Friday. potassium chloride Take 8 mEq by mouth daily Active (KLOR-CON) 8 MEQ CR Only takes 5x/week. Skip tabletIndications: take every Fri and Friday.. dose 5 days out of the week calcium carbonate Take 600 mg by mouth 2 Active (OS-SYED) 600 mg (1,500 (two) times daily with mg) Tab breakfast and dinner. melatonin 10 mg Cap Take 10 mg by mouth every Active night as needed. thyroid, pork, 90 mg Tab Take 1 tablet (90 mg 30 tablet 1 03/10/20 Active total) by mouth daily 17 Brand necessary. flecainide (TAMBOCOR) 50 Take 1 tablet (50 mg 60 tablet 1 03/10/20 03/10/20 Active MG tablet total) by mouth every 12 17 18 (twelve) hours. metoprolol (TOPROL-XL) 25 Take 1 tablet (25 mg 30 tablet 1 03/10/20 03/10/20 Active MG 24 hr tablet total) by mouth nightly. 17 18 furosemide (LASIX) 20 MG Take 20 mg by mouth daily 03/05/20 Discontin tabletIndications: take Takes 5x/week. Skip every 17 ued medication 5 days out of Friday and Friday.. the week thyroid, pork, 60 mg Tab Take 60 mg by mouth 03/05/20 Discontin daily. 17 ued metoprolol (TOPROL-XL) 25 Take 25 mg by mouth 03/05/20 Discontin MG 24 hr tablet daily. 17 ued colchicine (COLCRYS) 0.6 Take 0.6 mg by mouth 3 03/10/20 Discontin mg tablet (three) times daily. 17 ued calcium carbonate-vitamin Take 1,000 mg by mouth 2 03/05/20 Discontin D3 (CALCIUM 500 WITH D) (two) times daily. 17 ued 500 mg(1,250mg) -400 unit Tab thyroid, pork, 90 mg Tab Take 1 tablet (90 mg 30 tablet 1 03/05/20 03/05/20 Discontin total) by mouth daily. 17 17 ued thyroid, pork, 90 mg Tab Take 1 tablet (90 mg 30 tablet 1 03/05/20 03/10/20 Discontin total) by mouth daily. 17 17 ued Active Problems Problem Noted Date Paroxysmal atrial tachycardia (HCC) 03/08/2017 First degree heart block 03/08/2017 Transient complete heart block (HCC) 03/08/2017 Dementia 03/08/2017 Orthostatic hypotension 03/08/2017 Autonomic dysfunction 03/08/2017 Hypertension 03/08/2017 Chest pain 02/28/2017 Encounters Date Type Specialty Care Team Description 02/28/2017 [facility] pain, unspecified - Encounter Quentin Ny MD type (Primary Dx);Chest 03/10/2017 pain on breathing 02/27/2017 Orders Only General Internal Medicine after 11/12/2016 Social History Tobacco Use Types Packs/Day Years Used Date Never Smoker Alcohol Use Drinks/Week oz/Week Comments No Sex Assigned at Date Recorded Not on file Last Filed Vital Signs Vital Sign Reading Time Taken Blood Pressure 141/69 03/10/2017 7:32 PM CDT Pulse 73 03/10/2017 7:32 PM CDT Temperature 36.6 C (97.9 F) 03/10/2017 3:50 PM CDT Respiratory Rate 18 03/10/2017 7:32 PM CDT Oxygen Saturation 96% 03/10/2017 7:32 PM CDT Inhaled Oxygen - - Concentration Weight 59.1 kg (130 lb 6.4 oz) 03/10/2017 7:26 AM CDT Height 162.6 cm (5' 4.02") 02/28/2017 5:00 AM CDT Body Mass Index 22.37 03/10/2017 7:26 AM CDT Plan of Treatment Not on file Results * RHYTHM STRIP - SCAN (03/12/2017 1:20 PM) Only the most recent of 2 results within the time period is included. * CBC with platelet count + automated diff (03/10/2017 6:06 AM) Only the most recent of 12 results within the time period is included. Component Value Ref Range WBC 8.0 4.0 - 10.0 K/ L RBC 3.84 (L) 4.00 - 5.00 M/ L Hemoglobin 11.0 (L) 12.0 - 15.0 GM/DL Hematocrit 34.5 (L) 36.0 - 45.0 % MCV 89.7 82.0 - 99.0 fL MCH 28.8 27.0 - 33.0 pg MCHC 32.0 32.0 - 36.0 GM/DL RDW 18.2 (H) 10.3 - 14.2 % Platelets 248 150 - 430 K/CU MM MPV 9.3 6.5 - 10.5 fL nRBC 0 0 - 0 /100 WBC % Neutros 53 % % Lymphs 33 % % Monos 10 % % Eos 3 % % Baso 1 % # Neutros 4.21 1.80 - 8.00 K/ L # Lymphs 2.63 1.48 - 4.50 K/ L # Monos 0.81 0.00 - 1.30 K/ L # Eos 0.28 0.00 - 0.50 K/ L # Baso 0.07 0.00 - 0.20 K/ L Specimen Performing Laboratory Blood - Arm, [address] [address] Narrative 0.00 * CBC with platelet count + automated diff (03/10/2017 6:06 AM) Only the most recent of 12 results within the time period is included. Specimen Performing Laboratory Blood Narrative The following orders were created for panel order CBC with platelet count + automated diff. Procedure Abnormality Status --------- - ------ CBC with platelet count ...[[id number]]AbnormalFinal result Please view results for these tests on the individual orders. * Magnesium (03/10/2017 6:06 AM) Only the most recent of 12 results within the time period is included. Component Value Ref Range Magnesium 2.0Comment: Specimen slightly hemolyzed 1.6 - 2.6 mg/dL Specimen Performing Laboratory Blood - Arm, [address] [address] * Basic Metabolic Panel (03/10/2017 6:06 AM) Only the most recent of 12 results within the time period is included. Component Value Ref Range Sodium 139 136 - 145 meq/L Potassium 4.2Comment: Specimen slightly hemolyzed 3.5 - 5.1 meq/L Chloride 103 98 - 107 meq/L CO2 26 22 - 29 meq/L BUN 48 (H) 7 - 21 mg/dL Creatinine 2.10 (H)Comment: Specimen slightly hemolyzed 0.57 - 1.25 mg/dL Glucose 91 70 - 105 mg/dL Calcium 10.3 (H) 8.4 - 10.2 mg/dL EGFR 23Comment: ESTIMATED GFR IS NOT ACCURATE mL/min/1.73 sq m CREATININE CLEARANCE IN PREDICTING GLOMERULAR FILTRATION RATE. ESTIMATED GFR IS NOT APPLICABLE FOR DIALYSIS PATIENTS. Specimen Performing Laboratory Blood - Arm, [address] [address] * Digoxin level (03/07/2017 5:53 AM) Component Value Ref Range Digoxin Lvl 1.6 0.8 - 2.0 ng/mL Specimen Performing Laboratory Blood [address] [address] * ECG 12 lead (03/06/2017 9:56 PM) Only the most recent of 6 results within the time period is included. Specimen Performing Laboratory [facility] MUSE Narrative Ventricular Rate 42 BPM Atrial Rate 75 BPM P-R Interval 326 ms QRS Duration 72 ms Q-T Interval 414 ms QTC Calculation(Bazett) 345 ms P [place] 62 degrees R [place] -2 degrees T [place] 257 degrees Complete heart block ST & T wave abnormality, consider inferolateral ischemia Abnormal ECG When compared with ECG of 05-MAR-2017 20:46, Serial changes of Septal infarct Present Confirmed by MD TATUM PATRICK J ([id number]) on 03/08/2017 10:29:14 AM Procedure Note Interface, External Ris In - 03/10/2017 4:40 AM CDT Ventricular Rate 42 BPM Atrial Rate 75 BPM P-R Interval 326 ms QRS Duration 72 ms Q-T Interval 414 ms QTC Calculation(Bazett) 345 ms P [place] 62 degrees R [place] -2 degrees T [place] 257 degrees Complete heart block ST & T wave abnormality, consider inferolateral ischemia Abnormal ECG When compared with ECG of 05-MAR-2017 20:46, Serial changes of Septal infarct Present Confirmed by MD TATUM PATRICK J ([id number]) on 03/08/2017 10:29:14 AM * CT brain without IV contrast (03/06/2017 1:21 PM) Specimen Performing Laboratory [facility] RIS Narrative FINAL REPORT CT head without contrast 03/06/2017 1:15 PM CLINICAL HISTORY: left arm numbness TECHNIQUE: Axial noncontrast CT images through the head were obtained. This examination was performed according to our departmental dose optimization program, which includes automated exposure control, adjustment of the mA and/or kV according to patient size, and/or use of iterated reconstruction technique. COMPARISON: None available FINDINGS: There is no hemorrhage, extra-axial collection, mass, hydrocephalus, or midline shift. There is mild microvascular ischemia in the supratentorial white matter and heather. 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 There is atherosclerotic calcification of the intracranial arterial vasculature. There is generalized parenchymal volume loss. The visualized paranasal sinuses and mastoid air cells are well aerated. The skull is intact. IMPRESSION: No intracranial hemorrhage or mass effect. Chronic appearing ischemic and involutional changes. If concern for acute pathology persists, further evaluation with MRI is recommended. Signed: Ryan Reyes MD Report Verified Date/Time:03/06/2017 13:28:05 Reading Location: [address] Neuro Reading Room Procedure Note Interface, External Ris In - 03/06/2017 1:30 PM CDT FINAL REPORT CT head without contrast 03/06/2017 1:15 PM CLINICAL HISTORY: left arm numbness TECHNIQUE: Axial noncontrast CT images through the head were obtained. This examination was performed according to our departmental dose optimization program, which includes automated exposure control, adjustment of the mA and/or kV according to patient size, and/or use of iterated reconstruction technique. COMPARISON: None available FINDINGS: There is no hemorrhage, extra-axial collection, mass, hydrocephalus, or midline shift. There is mild microvascular ischemia in the supratentorial white matter and heather. 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 There is atherosclerotic calcification of the intracranial arterial vasculature. There is generalized parenchymal volume loss. The visualized paranasal sinuses and mastoid air cells are well aerated. The skull is intact. IMPRESSION: No intracranial hemorrhage or mass effect. Chronic appearing ischemic and involutional changes. If concern for acute pathology persists, further evaluation with MRI is recommended. Signed: Ryan Reyes MD Report Verified Date/Time: 03/06/2017 13:28:05 Reading Location: [address] Neuro Reading Room * 2D Echo W/Doppler(CW/PW/Color) (03/04/2017 2:32 PM) Specimen Performing Laboratory DIGISONICS Narrative Echocardiography Laboratory [address] [place] [address] Voice:[phone] Transthoracic Echocardiogram Pat.Name:PATITO JAQUEZ.ID:[id number] .Date: 03/04/2017Refer.MD:SURINDER MONCADA Exam Time: 2:32:00 PMStudy Type:Echo Complete Height:64inWeight:131lb BSA: 1.64 m2 DOBAge:1935 ,81Y Sex: FEMALEBP: 144/65 HR:68 bpmSonogrphr: Max Pinzon [facility] [[email or web address]] Pat. Stat.:Inpatient Room:1447 Reason for Study:Routine F/U of significant valve regurgitation History / Clinical:Cancer, Hyperlipidemia, Hypertension, Mitral valve prolapse Procedures:2D ECHO W/ DOPPLER (CW/PW/COLOR) SUMMARY: Left ventricular chamber size (by PSLAX dimension) is normal (female - LVIDd 3.8-5.2 cm). Mild concentric LV hypertrophy. Global LV systolic function is hyperdynamic. LVEF by quantitative assessment is increased (>70%). Mitral Valve Systolic Anterior Motion (MIRIAM) is present. Resting dynamic LVOT obstructive gradient due to MIRIAM is in the range of 60 mmHg. Mild mitral regurgitation. MV gradients are moderately increased in part due to mitral annular calcification. Estimated Peak systolic pressure is at least 40-45 mmHg. Peak systolic PA pressure may be underestimated; partial TR signal. The pericardial effusion is circumferential. It is moderate ( 1.2cm) posteriorly and small elsewhere. FINDINGS: LV: All of the LV segments appear hyperkinetic. Global LV systolicfunction is hyperdynamic. Mild concentric LV hypertrophy.LVEF by quantitative assessment is increased (>70%).Left ventricular chamber size (by PSLAX dimension ) isnormal (female -LVIDd 3.8-5.2 cm). LA: LA size is severely enlarged. RV: The right ventricular chamber size and systolic function are withinnormal limits. RA: RA cavity size is normal. AV: Mild AoV cusp thickening. MV: Mild MV leaflet thickening. Mild mitral regurgitation. Uikkipqz-iu-okhhksucubry annular calcification. MV gradientsare moderately increased in part due to mitral annularcalcification. Mitral Valve Systolic Anterior Motion(MIRIAM) is present. Resting dynamic LVOT obstructive gradientdue to MIRIAM is in the range of 60 mmHg. TV: A trace of tricuspid regurgitation. Estimated Peak systolic pressureis at least 40-45 mmHg. Peak systolic PA pressure maybe underestimated; partial TR signal. PV: Normal PV structure appears normal by available views. AO: Aortic root size (Sinus of Valsalva diameter) is normal. Pericard: The pericardial effusion is circumferential. It is moderate (1.2cm) posteriorly and small elsewhere. Systemic Veins: The estimated RA pressure by IVC dynamics 5-10 mmHg. MEASUREMENTS: 2D LA Sng Plane LA Vol96 mlIndex 58.5 ml/m2 LA Area 26.1 cm2(8.8-23.4)* Parasternal Long [place] Ao An 1.91 cm (1.4-2.6) LV%fs 52.6 %(25-46)* Ao Rtd2.92 cmLVPWd 1.24 cm IVSd1.16 cm LA Ds 3.47 cm (2.3-3.8) LVIDd 3.44 cm (4.3-5.1)* LV Wmn 1.2 cm LVIDs 1.63 cm (2-4)* DOPPLER MV Forward Flow MV pkVel 181 cm/sMV VTI 63 cm (10-13)* MV mnVel 145 cm/sMV P1/2t 106 msec (30-60)* MV pkPG 13.1 mmHgMV AP1/2t 2.07 cm2(4-6)* MV mnPG8.9 mmHgMV DeTm 362 msec Velocity PG 59.1 mmHg Signed 03/04/2017 04:55 PM David Lujan M.D. Procedure Note Interface, External Ris In - 03/04/2017 4:55 PM CDT Echocardiography Laboratory [address] [place] [id number] Voice: [phone] Transthoracic Echocardiogram Pat.Name: PATITO JAQUEZ Pat.ID: [id number] .Date: 03/04/2017 Refer.MD: SURINDER MONCADA Exam Time: 2:32:00 PM Study Type:Echo Complete Height: 64in Weight: 131lb BSA: 1.64 m2 Age: 4 1935,81Y Sex: FEMALE BP: 144/65 HR: 68 bpm Sonogrphr: Mxa Pinzon [facility] [[email or web address]] Pat. Stat.:Inpatient Room: [facility] Reason for Study:Routine F/U of significant valve regurgitation History / Clinical:Cancer, Hyperlipidemia, Hypertension, Mitral valve prolapse Procedures:2D ECHO W/ DOPPLER (CW/PW/COLOR) SUMMARY: Left ventricular chamber size (by PSLAX dimension) is normal (female - LVIDd 3.8-5.2 cm). Mild concentric LV hypertrophy. Global LV systolic function is hyperdynamic. LVEF by quantitative assessment is increased (>70%). Mitral Valve Systolic Anterior Motion (MIRIAM) is present. Resting dynamic LVOT obstructive gradient due to MIRIAM is in the range of 60 mmHg. Mild mitral regurgitation. MV gradients are moderately increased in part due to mitral annular calcification. Estimated Peak systolic pressure is at least 40-45 mmHg. Peak systolic PA pressure may be underestimated; partial TR signal. The pericardial effusion is circumferential. It is moderate ( 1.2cm) posteriorly and small elsewhere. FINDINGS: LV: All of the LV segments appear hyperkinetic. Global LV systolic function is hyperdynamic. Mild concentric LV hypertrophy. LVEF by quantitative assessment is increased (>70%). Left ventricular chamber size (by PSLAX dimension) is normal (female - LVIDd 3.8-5.2 cm). LA: LA size is severely enlarged. RV: The right ventricular chamber size and systolic function are within normal limits. RA: RA cavity size is normal. AV: Mild AoV cusp thickening. MV: Mild MV leaflet thickening. Mild mitral regurgitation. Xmaovbja-qj-sumpnf mitral annular calcification. MV gradients are moderately increased in part due to mitral annular calcification. Mitral Valve Systolic Anterior Motion (MIRIAM) is present. Resting dynamic LVOT obstructive gradient due to MIRIAM is in the range of 60 mmHg. TV: A trace of tricuspid regurgitation. Estimated Peak systolic pressure is at least 40-45 mmHg. Peak systolic PA pressure may be underestimated; partial TR signal. PV: Normal PV structure appears normal by available views. AO: Aortic root size (Sinus of Valsalva diameter) is normal. Pericard: The pericardial effusion is circumferential. It is moderate ( 1.2cm) posteriorly and small elsewhere. Systemic Veins: The estimated RA pressure by IVC dynamics 5-10 mmHg. MEASUREMENTS: 2D LA Sng Plane LA Vol 96 ml Index 58.5 ml/m2 LA Area 26.1 cm2 (8.8-23.4)* Parasternal Long [place] Ao An 1.91 cm (1.4-2.6) LV%fs 52.6 % (25-46)* Ao Rtd 2.92 cm LVPWd 1.24 cm IVSd 1.16 cm LA Ds 3.47 cm (2.3-3.8) LVIDd 3.44 cm (4.3-5.1)* LV Wmn 1.2 cm LVIDs 1.63 cm (2-4)* DOPPLER MV Forward Flow MV pkVel 181 cm/s MV VTI 63 cm (10-13)* MV mnVel 145 cm/s MV P1/2t 106 msec (30-60)* MV pkPG 13.1 mmHg MV AP1/2t 2.07 cm2 (4-6)* MV mnPG 8.9 mmHg MV DeTm 362 msec Velocity PG 59.1 mmHg Signed 03/04/2017 04:55 PM David Lujan M.D. * Albumin (03/04/2017 4:54 AM) Component Value Ref Range Albumin 3.1 (L) 3.5 - 5.0 g/dL Specimen Performing Laboratory Blood - Arm, Right [address] [address] * TSH/Free T4 If Indicated (03/02/2017 1:10 AM) Component Value Ref Range TSH 14.13 (H) 0.35 - 4.94 uIU/mL Specimen Performing Laboratory Blood [address] [address] * T4, free (03/02/2017 1:10 AM) Component Value Ref Range Free T4 0.61 (L) 0.70 - 1.48 ng/dL Specimen Performing Laboratory Blood [address] [address] * Troponin I (02/28/2017 11:36 AM) Only the most recent of 3 results within the time period is included. Component Value Ref Range Troponin I 0.03 0.00 - 0.03 ng/mL Specimen Performing Laboratory Blood - Arm, Left [address] [address] Narrative Effective 08/16/2014: Reference Range Change New: 0.00-0.03 Previous 0.00-0.15 Troponin I (TnI) levels must be interpreted in [...] failure, acidosis, acute neurological disease, and persistent tachyarrhythmia. * Creatine Kinase (CK), Total and MB (02/28/2017 6:06 AM) Only the most recent of 2 results within the time period is included. Component Value Ref Range Total CK 98 29 - 200 U/L CK-MB 0.7 0.0 - 6.6 ng/mL MB Relative Index 0.7 % Specimen Performing Laboratory Blood - Arm, Right [address] [address] Narrative Effective 08/16/2014: CK-MB Reference Range Change New: 0.0-6.6Previous: 0.0-4.9 CK-MB Reference Range: <6.7Normal 6.7-10.0Borderline >10.0 Abnormal * ED ECG Interpretation (02/28/2017 3:35 AM) Narrative Jeni Joyner MD 02/28/20173:35 AM ECG/EKG Interpretation Date/Time: 02/28/2017 3:12 AM Performed by: JENI JOYNER Authorized by: JENI JOYNER The ECG was interpreted by ED physician. This ECG was not compared with previous ECG(s).The ECG is interpreted as sinus rhythm. Rate is normal rate. [place] is normal. Clinical Impression: non-specific ECGECG reviewed and does not meet STEMI criteria. Patient tolerance: Patient tolerated the procedure well with no immediate complications * PT/PTT (02/27/2017 11:35 PM) Component Value Ref Range Protime 15.5 (H) 11.7 - 14.7 seconds INR 1.2 <=5.9 PTT 36.5 (H) 22.5 - 36.0 seconds Specimen [place] [address] Narrative RECOMMENDED COUMADIN/WARFARIN INR THERAPY RANGES STANDARD DOSE: 2.0 - 3.0 Includes: PROPHYLAXIS for venous thrombosis, systemic embolization; TREATMENT for venous thrombosis and/or pulmonary embolus. HIGH RISK: Target INR is 2.5-3.5 for patients with mechanical heart valves. * B-type Natriuretic Factor (BNP) (02/27/2017 11:35 PM) Component Value Ref Range BNP 233 (H) 0 - 100 pg/mL Specimen Performing Laboratory Blood [address] [address] * XR chest 2 views (02/27/2017 8:30 PM) Specimen Performing Laboratory GE RIS Impressions : There are chronic appearing emphysematous and bronchiectatic changes in both lungs. There is no acute-appearing airspace opacity, pleural effusion, or pneumothorax. Cardiomediastinal contours are within normal limits. The central pulmonary vasculature is not engorged. There are no acute-appearing skeletal abnormalities. Signed: Ryan Reyes MD Report Verified Date/Time:02/27/2017 20:33:46 Reading Location: [address] Neuro Reading Room Narrative FINAL REPORT Chest 2 views 02/27/2017 8:33 PM CLINICAL HISTORY: SHORTNESS OF BREATH NEAR SYNCOPE COMPARISON: 10/15/2014 Procedure Note Interface, External Ris In - 02/27/2017 9:00 PM CDT FINAL REPORT Chest 2 views 02/27/2017 8:33 PM CLINICAL HISTORY: SHORTNESS OF BREATH NEAR SYNCOPE COMPARISON: 10/15/2014 IMPRESSION : There are chronic appearing emphysematous and bronchiectatic changes in both lungs. There is no acute-appearing airspace opacity, pleural effusion, or pneumothorax. Cardiomediastinal contours are within normal limits. The central pulmonary vasculature is not engorged. There are no acute-appearing skeletal abnormalities. Signed: Ryan Reyes MD Report Verified Date/Time: 02/27/2017 20:33:46 Reading Location: [address] Neuro Reading Room after 11/12/2016
[2017-11-13] MEDS ORDERED: ACETAMINOPHEN 325 MG TAB PO ONE (01:00)
[2017-11-13 01:18] LABS: BILIRUBIN,URINE NEGATIVE (NEGATIVE); CLARITY,URINE CLEAR (CLEAR); COLOR,URINE YELLOW (YELLOW); KETONES,URINE NEGATIVE (NEGATIVE); LEUKOCYTE ESTERASE ,URINE TRACE (NEGATIVE); NITRITE,URINE NEGATIVE (NEGATIVE); PROTEIN,URINE DIPSTICK 2+ (NEGATIVE); URINE UROBILINOGEN 0.2 mg/dL (0.2 - 1)
[2017-11-13 01:28] LABS: BACTERIA,URINE MODERATE /HPF; EPITHELIAL CELLS,URINE FEW /LPF
[2017-11-13] MEDS ORDERED: LEVOFLOXACIN 500 MG TAB PO ONE (02:00)
[2017-11-13 02:05] VITALS: BP 139/86
[2017-11-21] MEDS ORDERED: ISOSORBIDE DINI20 MG PO (06:26)
[2017-11-21] MEDS ORDERED: HYDRALAZINE HCL25 MG PO (06:26)
[2017-11-21] MEDS ORDERED: NITROFURANTOIN100 MG PO (06:26)
== END 2017-11-13 02:37 | disposition home or self-care (01) ==
LOC: ER 00:43
DX: R53.1 Weakness (principal); R30.0 Dysuria; N30.91 Cystitis, unspecified with hematuria; F03.90 Unspecified dementia, unspecified severity, without behavioral disturbance, psychotic disturbance, mood disturbance, and anxiety
CPT/HCPCS: 81001; 87086; 99283

== ENCOUNTER 2017-11-19 03:28 | Inpatient (IN) | payer MEDICARE, BC ==
[~2017-11-19] VITALS: Ht 162.6 cm; Wt 56.4 kg
--- OUTSIDE RECORDS SUMMARY | 2017-11-19 03:31 | XMS REPORT | Clinical Summary ---
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 Name Role Phone PCP Unavailable Allergies Active [...] Date Type Specialty Care Team Description 02/28/2017 [facility] Chest pain, unspecified - Encounter Quentin Ny MD type (Primary Dx);Chest 03/10/2017 pain on breathing 02/27/2017 Orders Only General Internal Medicine after 11/18/2016 Social History Tobacco Use Types Packs/Day Years [...] L Specimen Performing Laboratory Blood - Arm, [address] [address] Narrative 0.00 * CBC with platelet count + automated diff (03/10/2017 6:06 AM) Only the most recent of 12 results within the time period is included. Specimen Performing Laboratory Blood Narrative The following orders were created for panel order CBC with platelet count + automated diff. Procedure Abnormality Status --------- - ------ CBC with platelet count ...[[id number]]AbnormalFinal result Please view results for these tests on the individual orders. * Magnesium (03/10/2017 6:06 AM) Only the most recent of 12 results within the time period is included. Component Value Ref Range Magnesium 2.0Comment: Specimen slightly hemolyzed 1.6 - 2.6 mg/dL Specimen Performing Laboratory Blood - Arm, [address] [address] * Basic Metabolic Panel (03/10/2017 6:06 AM) [...] PATIENTS. Specimen Performing Laboratory Blood - Arm, [address] [address] * Digoxin level (03/07/2017 5:53 AM) Component Value Ref Range Digoxin Lvl 1.6 0.8 - 2.0 ng/mL Specimen Performing Laboratory Blood [address] [address] * ECG 12 lead (03/06/2017 9:56 PM) Only the most recent of 6 results within the time period is included. Specimen Performing Laboratory DLC MUSE Narrative Ventricular Rate 42 BPM Atrial Rate 75 BPM P-R Interval 326 ms QRS Duration 72 ms Q-T Interval 414 ms QTC Calculation(Bazett) 345 ms P [place] 62 degrees R [place] -2 degrees T [place] 257 degrees Complete heart block ST & [...] 414 ms QTC Calculation(Bazett) 345 ms P [place] 62 degrees R [place] -2 degrees T [place] 257 degrees Complete heart block ST & T wave abnormality, consider inferolateral ischemia Abnormal ECG When compared with ECG of 05-MAR-2017 20:46, Serial changes of Septal infarct Present Confirmed by MD TATUM PATRICK J ([id number]) on 03/08/2017 10:29:14 AM * CT brain without IV contrast (03/06/2017 1:21 PM) Specimen Performing Laboratory DLC RIS Narrative FINAL REPORT CT head without [...] MD Report Verified Date/Time:03/06/2017 13:28:05 Reading Location: [address] Neuro Reading Room Procedure Note Interface, [...] Report Verified Date/Time: 03/06/2017 13:28:05 Reading Location: [address] Neuro Reading Room * 2D Echo W/Doppler(CW/PW/Color) (03/04/2017 2:32 PM) Specimen Performing Laboratory DIGISONICS Narrative Echocardiography Laboratory [address] [place] [address] Voice:[phone] Transthoracic Echocardiogram Pat.Name:PATITO JAQUEZ.ID:[id number] .Date: 03/04/2017Refer.MD:SURINDER MONCADA Exam Time: 2:32:00 PMStudy Type:Echo Complete Height:64inWeight:131lb BSA: 1.64 m2 DOBAge:1935 ,81Y Sex: FEMALEBP: 144/65 HR:68 bpmSonogrphr: Max Pinzon RUST Pat. Stat.:Inpatient Room:1447 Reason for Study:Routine F/U [...] Mild MV leaflet thickening. Mild mitral regurgitation. Eurvchrg-mk-olqmpdibmmlf annular calcification. MV gradientsare moderately increased in [...] ml/m2 LA Area 26.1 cm2(8.8-23.4)* Parasternal Long [place] Ao An 1.91 cm (1.4-2.6) LV%fs 52.6 [...] - 03/04/2017 4:55 PM CDT Echocardiography Laboratory [address] [place] [address] Voice: [phone] Transthoracic Echocardiogram Pat.Name: PATITO JAQUEZ Pat.ID: [id number] .Date: 03/04/2017 Refer.MD: SURINDER MONCADA Exam Time: 2:32:00 PM Study Type:Echo Complete Height: 64in Weight: 131lb BSA: 1.64 m2 Age: 3 1935,81Y Sex: FEMALE BP: 144/65 HR: 68 bpm Sonogrphr: Max Pinzon RUST Pat. Stat.:Inpatient Room: [facility] Reason for Study:Routine F/U of significant valve [...] Mild MV leaflet thickening. Mild mitral regurgitation. Sutoihwn-ax-hxqyhs mitral annular calcification. MV gradients are moderately [...] LA Area 26.1 cm2 (8.8-23.4)* Parasternal Long [place] Ao An 1.91 cm (1.4-2.6) LV%fs 52.6 [...] Specimen Performing Laboratory Blood - Arm, Right [address] [address] * TSH/Free T4 If Indicated (03/02/2017 1:10 AM) Component Value Ref Range TSH 14.13 (H) 0.35 - 4.94 uIU/mL Specimen Performing Laboratory Blood [address] [address] * T4, free (03/02/2017 1:10 AM) Component Value Ref Range Free T4 0.61 (L) 0.70 - 1.48 ng/dL Specimen Performing Laboratory Blood [address] [address] * Troponin I (02/28/2017 11:36 AM) Only the most recent of 3 results within the time period is included. Component Value Ref Range Troponin I 0.03 0.00 - 0.03 ng/mL Specimen Performing Laboratory Blood - Arm, Left [address] [address] Narrative Effective 08/16/2014: Reference Range Change New: [...] Specimen Performing Laboratory Blood - Arm, Right [address] [address] Narrative Effective 08/16/2014: CK-MB Reference Range Change [...] as sinus rhythm. Rate is normal rate. [place] is normal. Clinical Impression: non-specific ECGECG reviewed and does not meet STEMI criteria. Patient tolerance: Patient tolerated the procedure well with no immediate complications * PT/PTT (02/27/2017 11:35 PM) Component Value Ref Range Protime 15.5 (H) 11.7 - 14.7 seconds INR 1.2 <=5.9 PTT 36.5 (H) 22.5 - 36.0 seconds Specimen [place] [address] Narrative RECOMMENDED COUMADIN/WARFARIN INR THERAPY RANGES STANDARD DOSE: 2.0 - 3.0 Includes: PROPHYLAXIS for venous thrombosis, systemic embolization; TREATMENT for venous thrombosis and/or pulmonary embolus. HIGH RISK: Target INR is 2.5-3.5 for patients with mechanical heart valves. * B-type Natriuretic Factor (BNP) (02/27/2017 11:35 PM) Component Value Ref Range BNP 233 (H) 0 - 100 pg/mL Specimen Performing Laboratory Blood [address] [address] * XR chest 2 views (02/27/2017 8:30 [...] MD Report Verified Date/Time:02/27/2017 20:33:46 Reading Location: [address] Neuro Reading Room Narrative FINAL REPORT [...] Report Verified Date/Time: 02/27/2017 20:33:46 Reading Location: [address] Neuro Reading Room after 11/18/2016
--- OUTSIDE RECORDS SUMMARY | 2017-11-19 03:32 | XMS REPORT | Continuity of Care Document ---
Author Author [facility] Organization [facility] Address [address] [place] [address] Phone Unavailable Care Team Providers Care Tufter Name Role Phone POLI HAMMONDS PCP Insurance Providers Guarantor Sergio Jaquez Address [address] [place] [address] Email NONE Payer Medicare A & B Policy Number [id number] Subscriber's Name Sergio Jaquez Relationship 18 Self / Same As Patient Group Name RETIRED Effective Date 01 Payer [facility] Policy Number [id number] Subscriber's Name Sergio Jaquez Relationship 18 Self / Same As Patient Group Number [id number] Group Name RETIRED Effective Date 01 Advance Directives Directive Response Recorded Date/Time Does the patient have an advance directive? No 02/25/17 3:13am If yes, is advance directive on file with [facility]? No 02/25/17 3:13am If not on file with [facility] will patient provide a copy? Yes 02/25/17 3:13am Do you have a Directive to Physician? No 11/13/17 2:10am Do you have a Medical Power of Air Pollution Inspector? No 11/13/17 2:10am Do you have an out of hospital Do Not Resuscitate Order? No 11/13/17 2:10am Do you have any special needs we should be aware of? No 11/13/17 2:10am Do you have a support person here with you today? Yes 11/13/17 2:10am Did patient receive Notice of Privacy Practices? Yes 11/13/17 2:10am Did patient receive patient rights and responsibilities? Yes 11/13/17 2:10am Problems Medical Problem Onset Date Status Back pain 04/01/2016 Acute CKD (chronic kidney disease) Unknown Chest pain Unknown Chronic renal disease 04/01/2016 Acute Elevated lipase 04/01/2016 Acute Elevated sedimentation rate Unknown Hyperglycemia 04/01/2016 Acute Hypocalcemia 04/01/2016 Acute Hypocalcemia Unknown SVT (supraventricular tachycardia) Unknown TIA (transient ischemic attack) Unknown UTI (urinary tract infection) 04/01/2016 Acute UTI (urinary tract infection) Unknown Medications Current Home Medications Medication Dose Units Route Directions Days Qty Instructions Start Date Alprazolam 0.5 Mg Tablet 0.5 Mg Oral Three Times A Day 90 Tab Atorvastatin Calcium 10 Mg Tablet 10 Mg Oral Today At 9:00PM 30 Tab Calcium Acetate 667 Mg Capsule 2 Cap Oral Three Times Daily With Meals Calcium Carbonate/Vitamin D3 (Os-Jarred 500+D Tablet) 1 Each Tablet 1 Tab Daily 30 Tab Calcium/Magnesium/Zinc (Ptbyxgd-Wsgihpmrz-Gafi Tab) 1 Each Tablet 1 Ea Oral As Needed Ergocalciferol (Vitamin D2) (Vitamin D2) 50,000 Unit Capsule 50,000 Units Oral Q7days Furosemide 20 Mg Tablet 20 Mg Oral Daily x5 days a week- fri,fri, ,fri,sun Hydrocortisone 10 Mg Tablet 10 Mg Oral Daily Magnesium Oxide (Magnesium) 500 Mg Capsule 500 Mg Oral Daily Melatonin 10 Mg Tablet 10 Mg Oral Bedtime Multivitamin With Minerals (Multivitamins With Minerals) 1 Each Tablet 1 Tab Oral Daily Potassium Chloride 8 Meq Capsule.er 8 Meq Oral Daily x5 days a week - fri,fri,th,fri,sun Thyroid,Pork ([place] Thyroid) 60 Mg Tablet 60 Mg Oral Daily 30 Tab Tramadol Hcl (Ultram) 50 Mg Tablet 50 Mg Oral Every 6 Hours as needed for Pain Ubidecarenone/Vitamin E Mixed (Coenzyme Q10 200 Mg Caps) 1 Each Capsule 1 Each Oral Daily takes at midday Past Home Medications Medication Directions Ordered Status Acetaminophen With Codeine (Tylenol With Codeine #3 Tablet) 1 Each Tablet, 300 Mg Oral Four Times Daily as needed for Pain Discontinued Allopurinol 100 Mg Tablet, 100 Mg Oral Daily Discontinued Bio Chem Tissue , Discontinued Colloidal Silver , 50 Mcg Oral Every 4 Hours Discontinued Leeds Cream , Use As Directed as needed for Pain Discontinued Cumerin , As Needed Discontinued Docusate Sodium (Colace) 100 Mg Cap, 100 Mg Oral Twice A Day 04/08/16 Discontinued Essential Enzymes , Discontinued Fiber Smart , 1 Tsp Oral Daily Discontinued Manganese Chloride (Manganese) 0.1 Mg/1 Ml Vial, 34 Mg Oral Daily Discontinued Nifedipine 10 Mg Cap, 30 Mg Oral Every 12 Hours 04/08/16 Discontinued Potassium Chloride 10 Meq Tab.er.prt, 8 Meq Oral Weekly Discontinued Stevioside (Stevia) 25 Gm Powder, Discontinued Tramadol Hcl 100 Mg Tab.er.24h, 50 Mg Oral Daily Discontinued Ubidecarenone (Coq-10) 100 Mg Capsule, 100 Mg Oral Daily Discontinued Social History Social History Problem Response Recorded Date/Time Onset Date Status Hx Psychiatric Problems Yes 02/25/2017 3:13am Not Applicable Not Applicable Hx Eating Disorder No 02/25/2017 3:13am Not Applicable Not Applicable Hx Substance Use Disorder No 02/25/2017 3:13am Not Applicable Not Applicable Hx Depression Yes 02/25/2017 3:13am Not Applicable Not Applicable Hx Alcohol Use Y - Quit 10+ years ago 02/25/2017 3:13am Not Applicable Not Applicable Hx Substance Use Treatment No 02/25/2017 3:13am Not Applicable Not Applicable Hx Physical Abuse No 02/25/2017 3:13am Not Applicable Not Applicable Smoking Status Start Date Stop Date Never Smoker Hospital Discharge Instructions No hospital discharge instruction information available. Plan of Care Discharge Date 11/13/17 2:37am Disposition HOME, SELF-CARE Condition at Discharge Stable Instructions/Education Provided Urinary Tract Infection - Women Forms Provided Work/School Excuse Prescriptions See Medication Section Additional Instructions/Education FOLLOW UP WITH PRIMARY CARE PHYSICIAN ON FRIDAY TAKE MEDICATIONS PRESCRIBED ALTERNATE TYLENOL AND MOTRIN FOR FEVER/PAIN PRESCRIBED Functional Status No functional status information available. Allergies, Adverse Reactions, Alerts Allergen Type Severity Reaction Status Last Updated Lisinopril Allergy Unknown Active 02/03/17 Morphine Allergy Unknown Active 02/03/17 Codeine Allergy Unknown Active 02/07/17 Prednisone Allergy Unknown Active 02/03/17 Clarithromycin Allergy Unknown Active 02/03/17 Cefpodoxime Allergy Unknown Active 02/03/17 Diltiazem Allergy Unknown Active 02/03/17 penicillin Allergy Unknown Active 02/03/17 Immunizations No immunization information available. Vital Signs Acute Vital Signs Vital Response Date/Time Temperature (Fahrenheit) 98.2 degrees F (97.6 - 99.5) 11/13/2017 2:05am Pulse Pulse Rate (adult) 67 bpm (60 - 90) 11/13/2017 2:05am Respiratory Rate 17 bpm (12 - 24) 11/13/2017 2:05am Blood Pressure 139/86 mm Hg 11/13/2017 2:05am Height 5 ft 4 in 11/13/2017 12:46am Weight 130 lb 11/13/2017 12:46am Body Mass Index 22.3 kg/m^2 11/13/2017 12:46am Results Laboratory Results Test Name Result Units Flags Reference Collection Date/Time Result Date/ Time Comments B-Type Natriuretic Peptide 181.1 pg/mL H 0-100 02/03/2017 8:37pm 2016 9:47pm Erythrocyte Sedimentation Rate 97 mm/hr H 0-20 02/06/2017 9:15pm 2016 10:11pm Urine Transitional Epithelial Cells FEW H NONE 02/06/2017 6:55pm 02/06 7:50pm Urine Renal Epithelial Cells FEW H NONE 02/06/2017 6:55pm 02/06/2017 7 :50pm Urine Mucus FEW H RARE 02/06/2017 6:55pm 02/06/2017 7:50pm Uric Acid 7.4 mg/dL H 2.6-6.0 02/07/2017 3:05am 02/07/2017 7:32am Magnesium Level 1.9 MG/DL 1.3-2.1 02/07/2017 3:05am 02/07/2017 3:38am Triglycerides Level 118 MG/DL 0-149 02/07/2017 3:05am 02/07/2017 3: 38am Cholesterol Level 160 MD/DL 0-199 02/07/2017 3:05am 02/07/2017 3:38am Less than 200 mg/dL Low Risk 201 - 239 mg/dL Borderline Risk 240 mg/dl and greater High Risk LDL Cholesterol 98 MG/DL 60-130 02/07/2017 3:02/07/2017 3:38am HDL Cholesterol 38 MG/DL L 40-60 02/07/2017 3:02/07/2017 3:38am Cholesterol/HDL Ratio 4.2 H 3.0-3.6 02/07/2017 3:02/07/2017 3: 38am Thyroid Stimulating Hormone (TSH) 8.182 uIU/mL H 0.350-4.940 02/06/2017 7 :10pm 02/06/2017 8:31pm White Blood Count 8.61 x10e3/uL 4.8-10.8 02/26/2017 6:02/26/2017 6 :27am Red Blood Count 3.77 x10e6/uL 3.6-5.1 02/26/2017 6:02/26/2017 6: 27am Hemoglobin 10.6 g/dL L 12.0-16.0 02/26/2017 6:02/26/2017 6:27am Hematocrit 33.0 % L 34.2-44.1 02/26/2017 6:02/26/2017 6:27am Mean Corpuscular Volume 87.5 fL # 81-99 02/26/2017 6:02/26/2017 6: 27am Mean Corpuscular Hemoglobin 28.1 pg 28-32 02/26/2017 6:02/26/2017 6:27am Mean Corpuscular Hemoglobin Concent 32.1 g/dL 31-35 02/26/2017 6:02/26/2017 6:27am Red Cell Distribution Width 16.5 % H 11.7-14.4 02/26/2017 6:2016 6:27am Platelet Count 214 x10e3/uL 140-360 02/26/2017 6:02/26/2017 6: 27am Neutrophils (%) (Auto) 59.0 % 38.7-80.0 02/26/2017 6:02/26/2017 6: 27am Lymphocytes (%) (Auto) 28.7 % 18.0-39.1 02/26/2017 6:02/26/2017 6: 27am Monocytes (%) (Auto) 8.7 % 4.4-11.3 02/26/2017 6:02/26/2017 6: 27am Eosinophils (%) (Auto) 3.1 % 0.0-6.0 02/26/2017 6:02/26/2017 6: 27am Basophils (%) (Auto) 0.3 % 0.0-1.0 02/26/2017 6:02/26/2017 6:27am IM GRANULOCYTES % 0.2 % 0.0-1.0 02/26/2017 6:02/26/2017 6:27am Neutrophils # (Auto) 5.1 2.1-6.9 02/26/2017 6:02/26/2017 6:27am Lymphocytes # (Auto) 2.5 1.0-3.2 02/26/2017 6:02/26/2017 6:27am Monocytes # (Auto) 0.8 0.2-0.8 02/26/2017 6:02/26/2017 6:27am Eosinophils # (Auto) 0.3 0.0-0.4 02/26/2017 6:02/26/2017 6:27am Basophils # (Auto) 0.0 0.0-0.1 02/26/2017 6:02/26/2017 6:27am Absolute Immature Granulocyte (auto 0.02 x10e3/uL 0-0.1 02/26/2017 6: 02/26/2017 6:27am Prothrombin Time 13.6 seconds 11.9-14.5 02/25/2017 1:02/25/2017 1: 40am Prothromb Time International Ratio 0.99 02/25/2017 1:2016 1:40am Oral Anticoagulant Therapy INR Values: 1. Low Intensity Therapy 1.5 - 2.0 2. Moderate Intensity Therapy 2.0 - 3.0 3. High Intensity Therapy(1) 2.5 - 3.5 4. High Intensity Therapy(2) 3.0 - 4.0 5. Panic Value INR > 5.0 Activated Partial Thromboplast Time 34.5 seconds 23.8-35.5 02/25/2017 1: 02/25/2017 1:40am Sodium Level 140 mmol/L 136-145 02/26/2017 6:02/26/2017 6:56am Potassium Level 3.3 mmol/L L 3.5-5.1 02/26/2017 6:02/26/2017 6: 56am Chloride Level 101 mmol/L 98-107 02/26/2017 6:02/26/2017 6:56am Carbon Dioxide Level 25 mmol/L 22-29 02/26/2017 6:02/26/2017 6: 56am Anion Gap 17.3 mmol/L H 8-16 02/26/2017 6:02/26/2017 6:56am Blood Urea Nitrogen 27 mg/dL H 7-02/26/2017 6:02/26/2017 6:56am Creatinine 1.60 mg/dL H 0.57-1.11 02/26/2017 6:02/26/2017 6:56am BUN/Creatinine Ratio 17 6-02/26/2017 6:02/26/2017 6:56am Estimat Glomerular Filtration Rate 31 ML/MIN L 60- 02/26/2017 6: 6:56am Ranges were taken from the National Kidney Disease Education Program and the National Kid[employer] Foundation literature. Reference ranges: 60 or greater: Normal 16-59 (for 3 consecutive months): Chronic kidney disease 15 or less: Kidney failure Glucose Level 99 mg/dL 74-118 02/26/2017 6:02/26/2017 6:56am Calcium Level 7.9 mg/dL # L 8.4-10.2 02/26/2017 6:02/26/2017 6:56am Bedside Glucose 89 mg/dL 70-120 02/25/2017 7:52am 02/25/2017 8:00am Meter ID: [id number] Total Bilirubin 0.6 mg/dL 0.2-1.2 02/26/2017 6:02/26/2017 6:56am Aspartate Amino Transf (AST/SGOT) 21 IU/L 5-34 02/26/2017 6:2016 6:56am Alanine Aminotransferase (ALT/SGPT) 20 IU/L 0-55 02/26/2017 6: 6:56am Total Protein 6.5 g/dL 6.5-8.1 02/26/2017 6:10am 02/26/2017 6:56am Albumin 2.8 g/dL L 3.5-5.0 02/26/2017 6:10am 02/26/2017 6:56am Globulin 3.7 g/dL H 2.3-3.5 02/26/2017 6:10am 02/26/2017 6:56am Albumin/Globulin Ratio 0.8 0.8-2.0 02/26/2017 6:10am 02/26/2017 6: 56am Alkaline Phosphatase 56 IU/L 40-150 02/26/2017 6:10am 02/26/2017 6: 56am Creatine Kinase 192 IU/L H 29-168 02/25/2017 6:25pm 02/25/2017 7:09pm Creatine Kinase MB 1.20 ng/mL 0.00-5.00 02/25/2017 6:25pm 02/25/2017 7: 19pm Troponin I 0.032 ng/mL 0-0.300 02/25/2017 6:25pm 02/25/2017 7:19pm Urine Color YELLOW YELLOW 11/13/2017 1:05am 11/13/2017 1:18am Urine Clarity CLEAR CLEAR 11/13/2017 1:0511/13/2017 1:18am Urine Specific [place] 1.010 1.010-1.025 11/13/2017 1:05am 2017 1:18am Urine pH 5 5 - 7 11/13/2017 1:05am 11/13/2017 1:18am Urine Leukocyte Esterase TRACE H NEGATIVE 11/13/2017 1:05am 2017 1:18am Urine Nitrite NEGATIVE NEGATIVE 11/13/2017 1:05am 11/13/2017 1:18am Urine Protein 2+ H NEGATIVE 11/13/2017 1:05am 11/13/2017 1:18am Urine Glucose (UA) NEGATIVE NEGATIVE 11/13/2017 1:05am 11/13/2017 1: 18am Urine Ketones NEGATIVE NEGATIVE 11/13/2017 1:05am 11/13/2017 1:18am Urine Urobilinogen 0.2 mg/dL 0.2 - 1 11/13/2017 1:05am 11/13/2017 1: 18am Urine Bilirubin NEGATIVE NEGATIVE 11/13/2017 1:05am 11/13/2017 1: 18am Urine Blood 3+ H NEGATIVE 11/13/2017 1:05am 11/13/2017 1:18am Urine WBC 11-20 /HPF H 0-5 11/13/2017 1:05am 11/13/2017 1:29am Urine RBC 6-10 /HPF H 0-5 11/13/2017 1:05am 11/13/2017 1:29am Urine Bacteria MODERATE /HPF H NONE 11/13/2017 1:05am 11/13/2017 1:29am Urine Epithelial Cells FEW /LPF NONE 11/13/2017 1:05am 11/13/2017 1: 29am Procedures Procedure Status Date Provider(s) Computed tomography of brain without radiopaque contrast Active 02/06/17 SHERRIE COPE MD Magnetic resonance imaging of brain without contrast Active 02/06/17 SHAWNEE FELICIANO MD Magnetic resonance angiography of head without contrast Active 02/06/17 SHAWNEE FELICIANO MD X-ray of chest, two views Active 02/24/17 KYREE HUERTA MD Encounters Encounter Location Arrival/Admit Date Discharge/Depart Date Attending Provider Departed Emergency Room [facility] 11/13/17 12:43am 11/13 2:37am SHAWNEE FELICIANO MD Discharged Inpatient (obs) [facility] 02/25/17 2:24am 9:55pm ÁNGELA LANTIGUA MD Departed Emergency Room [facility] 02/24/17 9:56pm 11:17pm KYREE HUERTA MD Discharged Inpatient [facility] 02/06/17 11:15pm 9:04pm ÁNGELA LANTIGUA MD Discharged Inpatient (obs) [facility] 02/03/17 11:22pm 8:48pm KALYN LOUIS MD
[2017-11-19 04:23] LABS: BASOPHILS % 0.4 % (0.0-1.0); EOSINOPHILS # (AUTO) 0.3 (0.0-0.4); EOSINOPHILS % 2.8 % (0.0-6.0); HEMATOCRIT 37.1 % (34.2-44.1); HEMOGLOBIN 11.7 g/dL (12.0-16.0); LYMPHOCYTES # (AUTO) 2.5 (1.0-3.2); LYMPHOCYTES % 24.5 % (18.0-39.1); MEAN CORPUSCULAR HGB CONC 31.5 g/dL (31-35); MEAN CORPUSCULAR VOLUME 88.8 fL (81-99); MONOCYTES % 9.8 % (4.4-11.3); NEUTROPHILS # (AUTO) 6.2 (2.1-6.9); NEUTROPHILS % 62.1 % (38.7-80.0); PLATELET COUNT 293 x10e3/uL (140-360); RED BLOOD COUNT 4.18 x10e6/uL (3.6-5.1); RED CELL DISTRIBUTION WIDTH 16.8 % (11.7-14.4)
[2017-11-19 04:31] LABS: INR 1.08; PROTHROMBIN TIME 13.2 seconds (11.9-14.5)
[2017-11-19 04:32] LABS: PARTIAL THROMBOPLASTIN TIME 31.9 seconds (23.8-35.5)
[2017-11-19 04:41] LABS: ALBUMIN 3.7 g/dL (3.5-5.0); ANION GAP 18.6 mmol/L (8-16); CALCIUM 7.5 mg/dL (8.4-10.2); CREATININE, SERUM 2.35 mg/dL (0.57-1.11); MAGNESIUM 2.1 MG/DL (1.3-2.1); POTASSIUM 4.6 mmol/L (3.5-5.1)
[2017-11-19 04:43] LABS: B-TYPE NATRIURETIC PEPTIDE2 433.9 pg/mL (0-100)
[2017-11-19 05:00] LABS: BILIRUBIN,URINE 1+ (NEGATIVE); KETONES,URINE TRACE (NEGATIVE); LEUKOCYTE ESTERASE ,URINE 1+ (NEGATIVE); NITRITE,URINE NEGATIVE (NEGATIVE); URINE UROBILINOGEN 1 mg/dL (0.2 - 1)
[2017-11-19 05:01] LABS: THYROID STIMULATING HORMONE 1.081 uIU/mL (0.350-4.940)
[2017-11-19 05:02] LABS: CLARITY,URINE CLEAR (CLEAR); COLOR,URINE YELLOW (YELLOW); PROTEIN,URINE DIPSTICK 2+ (NEGATIVE)
[2017-11-19 05:06] LABS: BACTERIA,URINE FEW /HPF; EPITHELIAL CELLS,URINE FEW /LPF; RBC,URINE 0-5 /HPF (0-5)
--- NOTE | 2017-11-19 05:17 | Diagnostic Imaging Report ---
EXAMINATION: CHEST SINGLE (PORTABLE) INDICATION: Bradycardia COMPARISON: None FINDINGS: TUBES and LINES: None. LUNGS: Lungs are well inflated. Lungs are clear. There is no evidence of pneumonia or pulmonary edema. PLEURA: No pleural effusion or pneumothorax. HEART AND MEDIASTINUM: The cardiomediastinal silhouette is unremarkable. There are atherosclerotic calcifications within the aorta. BONES AND SOFT TISSUES: No acute osseous lesion. Soft tissues are unremarkable. UPPER ABDOMEN: No free air under the diaphragm. IMPRESSION: No acute thoracic abnormality. Signed by: Dr. Ernie Gill M.D. on 11/19/2017 5:13 AM
--- NOTE | 2017-11-19 05:24 | Diagnostic Imaging Report ---
Exam: Head CT without contrast History: Headache Comparison studies: Head CT of 02/06/2017. Brain MRI 02/07/2017. Technique: Axial images were obtained from the skull base to the vertex. Coronal and sagittal images reconstructed from the axial data. Intravenous contrast: None Findings: Scalp: No abnormalities. Bones: No fractures, blastic or lytic lesions. Brain sulci: Moderately prominent. Ventricles: Moderate compensatory dilatation. No hydrocephalus. Extra-axial spaces: No masses, no fluid collection. Parenchyma: No mass, acute hemorrhage or acute cortical vascular insults. Scattered hypodensities in the supratentorial white matter are nonspecific and most compatible with chronic small vessel ischemic changes. There are chronic lacunar infarcts in the right ventral thalamus and left rohdes radiata. Sellar/suprasellar region: No abnormalities. Craniocervical junction: Patent foramen magnum. No Chiari one malformation. Incidental findings: Atherosclerotic calcifications in the carotid siphons. Chronic inflammatory changes in the left mastoids which are partially opacified. IMPRESSION: No acute intracranial abnormalities. No changes from the previous head CT of 02/06/2017. Chronic findings: 1. Moderate generalized volume loss. 2. Mild chronic microvascular ischemic changes. 3. Chronic lacunar infarcts in the right thalamus and left frontal centrum semiovale. Signed by: Dr. Liban Smalls M.D. on 11/19/2017 5:20 AM
[2017-11-19] MEDS ORDERED: MEROPENEM 500MG 500 MG in SODIUM CHLORIDE 0.9% 50ML 50 ML IV SCH (06:15)
[2017-11-19] MEDS: MEROPENEM 500 MG VIAL IV SCH ×2 (06:25→18:30)
[2017-11-19] MEDS ORDERED: FAMOTIDINE 20 MG/2 ML VIAL IV SCH (06:45)
[2017-11-19] MEDS ORDERED: ONDANSETRON HCL INJ 2 MG/ML VIAL IV PRN (06:45)
--- OUTSIDE RECORDS SUMMARY | 2017-11-19 07:04 | XMS REPORT | Clinical Summary ---
Author Author FÉLIX [facility] Address Unknown Phone Unavailable Care Team Providers Care Trouble Operator Name Role Phone PCP Unavailable Allergies Active [...] Description 02/28/2017 [facility] Chest pain, unspecified - Encounter [...] L Specimen Performing Laboratory Blood - Arm, [address] [address] Narrative 0.00 * CBC with platelet count + automated diff (03/10/2017 6:06 AM) Only the most recent of 12 results within the time period is included. Specimen Performing Laboratory Blood Narrative The following orders were created for panel order CBC with platelet count + automated diff. Procedure Abnormality Status --------- - ------ CBC with platelet count ...[[id number]]AbnormalFinal result Please view results for these tests on the individual orders. * Magnesium (03/10/2017 6:06 AM) Only the most recent of 12 results within the time period is included. Component Value Ref Range Magnesium 2.0Comment: Specimen slightly hemolyzed 1.6 - 2.6 mg/dL Specimen Performing Laboratory Blood - Arm, [address] [address] * Basic Metabolic Panel (03/10/2017 6:06 AM) [...] PATIENTS. Specimen Performing Laboratory Blood - Arm, [address] [address] * Digoxin level (03/07/2017 5:53 AM) Component Value Ref Range Digoxin Lvl 1.6 0.8 - 2.0 ng/mL Specimen Performing Laboratory Blood [address] [address] * ECG 12 lead (03/06/2017 9:56 PM) Only the most recent of 6 results within the time period is included. Specimen Performing Laboratory [facility] MUSE Narrative Ventricular Rate 42 BPM Atrial Rate 75 BPM P-R Interval 326 ms QRS Duration 72 ms Q-T Interval 414 ms QTC Calculation(Bazett) 345 ms P O'Brien 62 degrees R O'Brien -2 degrees T O'Brien 257 degrees Complete heart block ST & [...] 414 ms QTC Calculation(Bazett) 345 ms P O'Brien 62 degrees R O'Brien -2 degrees T O'Brien 257 degrees Complete heart block ST & T wave abnormality, consider inferolateral ischemia Abnormal ECG When compared with ECG of 05-MAR-2017 20:46, Serial changes of Septal infarct Present Confirmed by MD TATUM PATRICK J ([id number]) on 03/08/2017 10:29:14 AM * CT brain without IV contrast (03/06/2017 1:21 PM) Specimen Performing Laboratory [facility] RIS Narrative FINAL REPORT CT head without [...] MD Report Verified Date/Time:03/06/2017 13:28:05 Reading Location: [address] Neuro Reading Room Procedure Note Interface, [...] Report Verified Date/Time: 03/06/2017 13:28:05 Reading Location: [address] Neuro Reading Room * 2D Echo W/Doppler(CW/PW/Color) (03/04/2017 2:32 PM) Specimen Performing Laboratory [facility] Narrative Echocardiography Laboratory [address] [place] [address] Voice:[phone] Transthoracic Echocardiogram Pat.Name:PATITO JAQUEZ.ID:[id number] .Date: 03/04/2017Refer.MD:SURINDER MONCADA Exam Time: 2:32:00 PMStudy Type:Echo Complete Height:64inWeight:131lb BSA: 1.64 m2 DOBAge:1935 ,81Y Sex: FEMALEBP: 144/65 HR:68 bpmSonogrphr: Max Pinzon [facility] Pat. Stat.:Inpatient Room:1447 Reason for Study:Routine F/U [...] Mild MV leaflet thickening. Mild mitral regurgitation. Unextvkb-zu-olpounlxncre annular calcification. MV gradientsare moderately increased in [...] ml/m2 LA Area 26.1 cm2(8.8-23.4)* Parasternal Long O'Brien Ao An 1.91 cm (1.4-2.6) LV%fs 52.6 [...] - 03/04/2017 4:55 PM CDT Echocardiography Laboratory [address] [place] [address] Voice: [phone] Transthoracic Echocardiogram Pat.Name: PATITO JAQUEZ Pat.ID: [id number] .Date: 03/04/2017 Refer.MD: SURINDER MONCADA Exam Time: 2:32:00 PM Study Type:Echo Complete Height: 64in Weight: 131lb BSA: 1.64 m2 Age: 4 1935,81Y Sex: FEMALE BP: 144/65 HR: 68 bpm Sonogrphr: Max Pinzon [facility] Pat. Stat.:Inpatient Room: [facility] Reason for Study:Routine F/U of significant [...] Mild MV leaflet thickening. Mild mitral regurgitation. Ocbchcgk-cp-lmokym mitral annular calcification. MV gradients are moderately [...] LA Area 26.1 cm2 (8.8-23.4)* Parasternal Long O'Brien Ao An 1.91 cm (1.4-2.6) LV%fs 52.6 [...] Specimen Performing Laboratory Blood - Arm, Right [address] [address] * TSH/Free T4 If Indicated (03/02/2017 1:10 AM) Component Value Ref Range TSH 14.13 (H) 0.35 - 4.94 uIU/mL Specimen Performing Laboratory Blood [address] [address] * T4, free (03/02/2017 1:10 AM) Component Value Ref Range Free T4 0.61 (L) 0.70 - 1.48 ng/dL Specimen Performing Laboratory Blood [address] [address] * Troponin I (02/28/2017 11:36 AM) Only the most recent of 3 results within the time period is included. Component Value Ref Range Troponin I 0.03 0.00 - 0.03 ng/mL Specimen Performing Laboratory Blood - Arm, Left [address] [address] Narrative Effective 08/16/2014: Reference Range Change New: [...] Specimen Performing Laboratory Blood - Arm, Right [address] [address] Narrative Effective 08/16/2014: CK-MB Reference Range Change [...] as sinus rhythm. Rate is normal rate. O'Brien is normal. Clinical Impression: non-specific ECGECG reviewed and does not meet STEMI criteria. Patient tolerance: Patient tolerated the procedure well with no immediate complications * PT/PTT (02/27/2017 11:35 PM) Component Value Ref Range Protime 15.5 (H) 11.7 - 14.7 seconds INR 1.2 <=5.9 PTT 36.5 (H) 22.5 - 36.0 seconds Specimen [place] [address] Narrative RECOMMENDED COUMADIN/WARFARIN INR THERAPY RANGES STANDARD DOSE: 2.0 - 3.0 Includes: PROPHYLAXIS for venous thrombosis, systemic embolization; TREATMENT for venous thrombosis and/or pulmonary embolus. HIGH RISK: Target INR is 2.5-3.5 for patients with mechanical heart valves. * B-type Natriuretic Factor (BNP) (02/27/2017 11:35 PM) Component Value Ref Range BNP 233 (H) 0 - 100 pg/mL Specimen Performing Laboratory Blood [address] [address] * XR chest 2 views (02/27/2017 8:30 [...] MD Report Verified Date/Time:02/27/2017 20:33:46 Reading Location: [address] Neuro Reading Room Narrative FINAL REPORT [...] Report Verified Date/Time: 02/27/2017 20:33:46 Reading Location: [address] Neuro Reading Room after 11/18/2016
[2017-11-19] MEDS ORDERED: TRAMADOL HCL 50 MG TAB PO PRN (07:45)
[2017-11-19 07:48] VITALS: BP 178/75
[2017-11-19 08:18] LABS: CHOL/HDL RATIO 4.5 (3.0-3.6)
[2017-11-19] MEDS: HYDROCORTISONE 10 MG TAB PO SCH (09:00)
[2017-11-19] MEDS: THYROID 60 MG TAB PO SCH (09:00)
[2017-11-19] MEDS: FUROSEMIDE 20 MG TAB PO SCH (09:00)
[2017-11-19] MEDS: ALPRAZOLAM 0.5 MG TAB PO SCH ×3 (09:00→21:00)
[2017-11-19] MEDS: MULTIVITAMINS/MINERALS TAB PO SCH (09:00)
[2017-11-19] MEDS: FAMOTIDINE 20 MG/2 ML VIAL IV SCH ×2 (09:00→20:00)
[2017-11-19] MEDS: HEPARIN SOD (PORCINE) 5,000 UNIT/ML VIAL SC SCH ×2 (09:01→21:00)
[2017-11-19 09:19] VITALS: BP 178/75
[2017-11-19 12:14] LABS: CREATINE KINASE MB 0.8 ng/mL (0-5.0)
--- NOTE | 2017-11-19 12:22 | History and Physical ---
PRIMARY CARE PHYSICIAN: Dr. Rubaclava WATCH MANUFACTURING SUPERVISOR: Dr. Moe FEED RESEARCH TECHNICIAN: Dr. Rose CHIEF COMPLAINT: Dizziness and chest palpitations. HISTORY OF PRESENT ILLNESS: This is an 81-year-old woman with a history of supraventricular tachycardia, now developing chest palpitations at home. The patient was attempting to get out of bed to go to the bathroom when she became dizzy. She sat down again. Again, getting up she started with chest palpitations, dizziness and fatigue. Therefore, daughter checked her heart rate. It was 29. She called the facility and was asked to come to the hospital. She denies any chest pain. Denies any shortness of breath. She has been having intermittent cough. PAST MEDICAL HISTORY: Supraventricular tachycardia, moderate aortic stenosis, prediabetes, chronic kidney disease, stage 4, dementia, bone disease, hypertension, hyperlipidemia, mitral valve prolapse, thyroid cancer in 1960, status post radical neck dissection and radiation therapy, congestive heart failure, type unknown, likely adrenal insufficiency, on hydrocortisone. PAST SURGICAL HISTORY: Radical neck dissection in 1960 for thyroid cancer, kidney stone management, appendectomy, heel bone spur. ALLERGIES: PER ELECTRONIC MEDICAL RECORDS. FAMILY HISTORY/SOCIAL HISTORY: Patient is . She has 3 children. Remote history of smoking. No alcohol or illicits. MEDICATIONS: Per electronic medical records. REVIEW OF SYSTEMS: Denies any chest pain. PHYSICAL EXAMINATION VITAL SIGNS: Have been reviewed. GENERAL: A tired-appearing woman resting in bed. HEENT: Anicteric. Pupils respond to light. No oral lesions. She has an older surgical scar. CARDIOVASCULAR: Normal S1 and S2. Normal heart rate. LUNGS: Moderate breath sounds. ABDOMEN: Soft, nontender and nondistended. EXTREMITIES: No edema or calf tenderness. NEUROLOGICAL: She is alert and oriented times 3. She moves all extremities. SKIN: Dry. PSYCHIATRIC: Flat affect. LABS: Reviewed. MEDICATIONS: Reviewed. ASSESSMENT AND PLAN: An 81-year-old woman with: 1. Bradyarrhythmia: Will admit to telemetry here. Cardiology consultation. She does have a history of supraventricular tachycardia. At home, the patient apparently was not on intravenous blocking agents based on the MAR. Will continue with telemetry. The patient will benefit from an echocardiogram. 2. History of moderate aortic stenosis: Defer to cardiology. 3. Urinary tract infection: Will treat with antibiotics and follow up cultures. Patient has multiple allergies. Therefore, she has been placed on meropenem. Will follow up cultures. 4. Chronic kidney disease, stage 4: GFR here is 20. She appears to be at baseline. Will monitor closely. Consult nephrology if needed. 5. Elevated BNP of 433: The patient also mentions she has been told she has a history of seizure. Will obtain a 2-D echocardiogram. 6. Imaging shows chronic lacunar infarcts in the right thalamus and left frontal semi-ovale. 7. Hypothyroidism: Will continue Synthroid. TSH is normal. 8. Normocytic anemia, mild: Will follow. 9. Anxiety disorder: Continue alprazolam. 10. Hyperlipidemia: Continue statin. Obtain lipid panel. 11. Likely adrenal insufficiency: On hydrocortisone. Will resume hydrocortisone. 12. Prophylaxis: Will use heparin and Pepcid. 13. Disposition: Follow up echocardiogram. Follow up cardiology recommendations. Job#: [id number] BRIDGET
[2017-11-19 16:00] VITALS: BP 161/70
[2017-11-19] MEDS: FAMOTIDINE 20 MG TAB PO SCH (16:30)
--- NOTE | 2017-11-19 19:45 | Consultation ---
DATE OF CONSULTATION: November 19, 2017 REQUESTING PHYSICIAN: Dr. Wellington Stewart. REASON FOR CONSULTATION: Bradycardia. HISTORY OF PRESENT ILLNESS: This is an 81-year-old woman with history of supraventricular tachycardia, hypertension, hyperlipidemia, prediabetes, moderate aortic stenosis, chronic kidney disease, stage 4, and thyroid cancer, status post thyroidectomy who presented with complaints of palpitations and weakness. The patient reports that she has been having palpitations and weakness for the last few days. This morning when she stood up to go to the bathroom she felt like she was about to pass out. The daughter checked her vitals and noted that the patient's heart rate was 29. They were, therefore, instructed to come to the ER for further evaluation. The patient denies chest pain, shortness of breath, orthopnea or PND. She does endorse lower extremity edema at the ankles, which is longstanding. PAST MEDICAL HISTORY: 1. History of supraventricular tachycardia. 2. Moderate aortic stenosis. 3. Hypertension. 4. Hyperlipidemia. 5. Chronic kidney disease stage 4. 6. Thyroid cancer, status post radical neck dissection and radiation therapy in 195. 7. History of mitral valve prolapse. PAST SURGICAL HISTORY: 1. Radical neck dissection. 2. Hysterectomy. 3. Thyroidectomy. 4. Back surgery. 5. Lumbar laminectomy. 6. Tonsillectomy. SOCIAL HISTORY: No tobacco, alcohol or illicit drugs. FAMILY HISTORY: Pertinent for father who of a myocardial infarction at the age of 93. MEDICATIONS: Please see medication list. PHYSICAL EXAMINATION VITAL SIGNS: Temperature 97.4 degrees, pulse 66, respiratory rate 18, blood pressure 178/75, oxygen saturation 93% on room air. GENERAL: An elderly woman in no acute distress. . HEENT: Normocephalic, atraumatic. Pupils are equal. No scleral icterus. NECK: Supple. No thyromegaly or cervical lymphadenopathy. No carotid bruits. LUNGS: Clear to auscultation bilaterally. No wheezes or crackles. CARDIOVASCULAR: Normal rate, regular rhythm. A 2/6 systolic murmur at the left sternal border. ABDOMEN: Soft and nontender. EXTREMITIES: No edema. NEUROLOGIC: Nonfocal exam. LABORATORY DATA: WBC 10.03, hemoglobin 11.7, hematocrit 37.1, platelets 293,000, sodium 146, potassium 4.6, chloride 102, CO2 of 30, BUN 36, creatinine 2.35. BNP 434. Troponin 0.015. EKG: Sinus bradycardia. IMPRESSION 1. Symptomatic sinus bradycardia. 2. History of moderate aortic stenosis. 3. History of supraventricular tachycardia. 4. Chronic kidney disease, stage 4. 5. Hypertension. 6. Hyperlipidemia. 7. History of thyroid cancer, status post radical neck dissection and radiation therapy. 8. Urinary tract infection based on urinalysis. RECOMMENDATIONS: In view of the patient's EKG demonstrates significant sinus bradycardia, suspect her symptoms are due to this. Will consult electrophysiology for permanent pacemaker placement. There is no evidence of reversible etiologies. The patient was not on any AV verónica blocking agents at home, and her TSH is normal. Ejection fraction is normal. However, it appears she does have moderate mitral stenosis. Continue home cardiac medications otherwise. Will have the patient follow up with her primary line pilot regarding her valvular disease. Stress test done less than 1 year prior was without evidence of ischemia. Thank you for this consult. We will continue to follow. Job#: [id number]
[2017-11-19 20:00] VITALS: BP 125/60
[2017-11-19] MEDS: ATORVASTATIN 10 MG TAB PO SCH (21:37)
[2017-11-19 21:56] LABS: CREATINE KINASE MB 0.6 ng/mL (0-5.0)
[2017-11-20] VITALS: BP 164/72
[2017-11-20 04:00] VITALS: BP 160/77
[2017-11-20] MEDS: MEROPENEM 500 MG VIAL IV SCH ×2 (06:39→18:33)
[2017-11-20 06:50] LABS: BASOPHILS % 0.4 % (0.0-1.0); EOSINOPHILS # (AUTO) 0.3 (0.0-0.4); EOSINOPHILS % 3.6 % (0.0-6.0); HEMATOCRIT 32.3 % (34.2-44.1); HEMOGLOBIN 10.5 g/dL (12.0-16.0); LYMPHOCYTES # (AUTO) 2.8 (1.0-3.2); LYMPHOCYTES % 28.9 % (18.0-39.1); MEAN CORPUSCULAR HEMOGLOBIN 28.2 pg (28-32); MEAN CORPUSCULAR HGB CONC 32.5 g/dL (31-35); MEAN CORPUSCULAR VOLUME 86.6 fL (81-99); MONOCYTES # (AUTO) 0.9 (0.2-0.8); MONOCYTES % 9.5 % (4.4-11.3); NEUTROPHILS # (AUTO) 5.5 (2.1-6.9); NEUTROPHILS % 57.2 % (38.7-80.0); PLATELET COUNT 287 x10e3/uL (140-360); RED BLOOD COUNT 3.73 x10e6/uL (3.6-5.1); RED CELL DISTRIBUTION WIDTH 16.5 % (11.7-14.4)
[2017-11-20 07:13] LABS: ALBUMIN 2.9 g/dL (3.5-5.0); ALBUMIN/GLOBULIN RATIO 0.9 (0.8-2.0); ANION GAP 15.1 mmol/L (8-16); CHOL/HDL RATIO 4.5 (3.0-3.6); CREATININE, SERUM 2.08 mg/dL (0.57-1.11); POTASSIUM 4.1 mmol/L (3.5-5.1)
[2017-11-20] MEDS: FAMOTIDINE 20 MG TAB PO SCH ×2 (07:30→15:24)
[2017-11-20] MEDS: HYDRALAZINE HCL 25 MG TAB PO SCH ×3 (07:30→22:24)
[2017-11-20 07:32] LABS: CALCIUM 6.9 mg/dL (8.4-10.2)
--- NOTE | 2017-11-20 07:43 | Progress Note ---
DATE: November 20, 2017 TIME: 6:40 a.m. OVERNIGHT: Feeling a little better. REVIEW OF SYSTEMS: Denies any dizziness or chest pain. PHYSICAL EXAMINATION VITAL SIGNS: Have been reviewed. GENERAL: A tired-appearing woman resting in bed. HEENT: Anicteric. CARDIOVASCULAR: Normal S1 and S2. LUNGS: Moderate breath sounds. ABDOMEN: Soft, nontender and nondistended. EXTREMITIES: No edema or calf tenderness. NEUROLOGICAL: Alert and oriented times 3. Moving all extremities. SKIN: Dry. PSYCHIATRIC: Flat affect. LABS: Reviewed. MEDICATIONS: Reviewed. ASSESSMENT: An 81-year-old woman with: 1. Bradyarrhythmia. 2. History of mild aortic stenosis. 3. Urinary tract infection. 4. Chronic kidney disease, stage 4. 5. Elevated BNP. 6. Chronic lacunar infarction in the right thalamus and left frontal semi-ovale. 7. Hypothyroidism. 8. Normocytic anemia, mild. 9. Anxiety disorder. 10. Likely adrenal insufficiency. 11. Pericardial effusion. PLAN 1. Echocardiogram showed normal left ventricular ejection fraction, but did show a pericardial effusion. 2. Renal function remaining stable. 3. LDL is 115 and triglycerides 174. 4. Continue antibiotics for urinary tract infection. Blood cultures remain negative. 5. Heart rate currently controlled. Heart rate is somewhat low at 57. 6. Elevated blood pressure. Will add hydralazine to improve the blood pressure. Avoid MARIA DOLORES inhibitor and ARB in the setting of chronic kidney disease. Job#: [id number] BRIDGET
[2017-11-20] MEDS: FAMOTIDINE 20 MG/2 ML VIAL IV SCH (08:00)
[2017-11-20] MEDS: HEPARIN SOD (PORCINE) 5,000 UNIT/ML VIAL SC SCH ×2 (08:49→21:00)
[2017-11-20] MEDS: ALPRAZOLAM 0.5 MG TAB PO SCH ×3 (08:49→21:00)
[2017-11-20] MEDS ORDERED: CALCIUM GLUCONATE 10% INJ 9.3 MEQ in SODIUM CHLORIDE 0.9% 100 ML 100 ML IV ONE (09:00)
[2017-11-20 09:15] VITALS: BP 171/70
[2017-11-20] MEDS: MULTIVITAMINS/MINERALS TAB PO SCH (09:22)
[2017-11-20] MEDS: FUROSEMIDE 20 MG TAB PO SCH (09:22)
[2017-11-20] MEDS: HYDROCORTISONE 10 MG TAB PO SCH (09:22)
[2017-11-20] MEDS: THYROID 60 MG TAB PO SCH (09:22)
[2017-11-20 12:00] VITALS: BP 135/65
[2017-11-20] MEDS ORDERED: AMLODIPINE BESYL5 MG PO (14:36)
[2017-11-20] MEDS ORDERED: METOPROLOL SUCC50 MG PO (14:36)
--- NOTE | 2017-11-20 15:39 | Consultation ---
DATE OF CONSULTATION: November 19, 2017 REFERRING PHYSICIAN: Dr. Goldman REASON FOR CONSULT: Bradycardia, consider pacemaker. HISTORY OF PRESENT ILLNESS: This is an 81-year-old woman with history of hypertension, history of dementia, who presented with episodes of weakness and near-syncope, also lightheadedness, she was found to be very bradycardic with the heart rate in the 30s and 40s with significant sinus bradycardia, episodes of junctional rhythm, she is currently having heart rate mostly in the 50s; however, the heart rate drops to the 35-40 and is when she feels more lightheaded, she feels more somnolent. There is no syncope, no chest pain. The patient lives with daughter and a sitter and she has had these episodes frequently over the last 6-8 months. REVIEW OF SYSTEMS: Unable to obtain at this time. Patient is slightly somnolent and due to dementia, she does not answer to any questions specifically. PAST MEDICAL HISTORY: Hypertension. SURGICAL HISTORY: Negative. FAMILY HISTORY: No premature coronary artery disease. SOCIAL HISTORY: No smoking, alcohol. PHYSICAL EXAM VITAL SIGNS: Blood pressure 100/60, pulse 48, respirations 20, O2 sat 98%. GENERAL: In no acute distress. HEENT: Moist mucous membranes. CARDIOVASCULAR: Regular rhythm. RESPIRATORY: Clear to auscultation. GASTROINTESTINAL: Abdomen soft, nontender. MUSCULOSKELETAL: 2+ distal pulses. NEUROLOGIC: No focal deficits. SKIN: No lesions. PSYCHIATRIC: Not oriented. EKG: Sinus bradycardia, long 1st-degree AV block. IMPRESSION: Sinus node dysfunction with symptomatic bradycardia, near-syncope episodes and profound bradycardia down to the 30s with some junctional escape rhythm. No reversible causes. RECOMMENDATIONS: I had a long discussion with patient and the patient's daughter. Explained that she will benefit from a pacemaker. The procedure was explained in detail with benefits and risks. Also discussed the possible alternatives of being conservative, however this time recommendation is clear to undergo pacemaker placement. The patient's daughter states she voices understanding. However, she declines the procedure for her mother at this time. She would like to hold off and wait until she does follow up with her primary cripple cutter, we provided with our office contact information should she develop any questions or she wants to follow up with us. Thank you for letting us participate in Mrs. Jean's health care. Job#: [id number] CQ MTDD
[2017-11-20 15:52] VITALS: BP 138/62
--- NOTE | 2017-11-20 17:39 | Progress Note ---
DATE: November 20, 2017 CARDIOLOGY PROGRESS NOTE SUBJECTIVE: Patient denies chest pain or shortness of breath. After extensive discussion with the patient and her daughter, they do not wish to proceed with pacemaker implantation at this time. Risks and benefits of pacemaker were discussed including risk of fall and injury if she were to have symptomatic bradycardia again. They understand but would wish to speak to their outpatient unbundler first. OBJECTIVE VITAL SIGNS: Temperature 98.7 degrees, pulse 59, respiratory rate 20, blood pressure 135/65, oxygen saturation 95% on room air. GENERAL: Elderly woman in no acute distress. LUNGS: Clear to auscultation bilaterally. No wheezes or crackles. CARDIOVASCULAR: Normal rate, regular rhythm. A 2/6 systolic murmur at the left sternal border. ABDOMEN: Soft, nontender. EXTREMITIES: No edema. CARDIAC MEDICATIONS 1. Hydralazine 20 mg p.o. q.8 h. 2. Furosemide 20 mg p.o. daily. 3. Atorvastatin 10 mg p.o. nightly. LABS: WBC 9.57, hemoglobin 10.5, hematocrit 32.3, platelets 287. Sodium 145, potassium 4.1, chloride 106, CO2 28, BUN 36, creatinine 2.08. TELEMETRY: Sinus bradycardia. IMPRESSION 1. Symptomatic sinus bradycardia. 2. History of moderate aortic stenosis. 3. Moderate mitral stenosis on echocardiogram. 4. History of supraventricular tachycardia. 5. Chronic kidney disease stage 4. 6. Hypertension. 7. Hyperlipidemia. 8. History of thyroid cancer status post radical neck dissection and radiation therapy. 9. Urinary tract infection based on urinalysis. RECOMMENDATIONS: Discussed risks and benefits of pacemaker implantation with the patient and her daughter. They do not wish to proceed at this time. Hold all AV verónica blocking agents. The patient's TSH is normal. Continue current cardiac medications. No further cardiac evaluation is indicated at this time. Thank you for this consult. We will continue to follow. Job#: [id number] HASEEB
[2017-11-20 20:00] VITALS: BP 150/68
[2017-11-20] MEDS: ATORVASTATIN 10 MG TAB PO SCH (22:23)
[2017-11-21] VITALS: BP 180/77
[2017-11-21 04:00] VITALS: BP 163/71
[2017-11-21] MEDS: MEROPENEM 500 MG VIAL IV SCH (05:56)
[2017-11-21] MEDS ORDERED: HYDRALAZINE HCL 25 MG TAB PO SCH (06:00)
[2017-11-21] MEDS ORDERED: HYDRALAZINE HCL25 MG PO (06:26)
[2017-11-21] MEDS ORDERED: ISOSORBIDE DINI20 MG PO (06:26)
[2017-11-21] MEDS ORDERED: NITROFURANTOIN100 MG PO (06:26)
[2017-11-21] MEDS: FAMOTIDINE 20 MG TAB PO SCH (07:30)
[2017-11-21 07:55] VITALS: BP 163/71
[2017-11-21 08:28] VITALS: BP 153/71
[2017-11-21] MEDS ORDERED: ISOSORBIDE DINITRATE 20 MG TAB PO SCH (09:00)
[2017-11-21] MEDS: ALPRAZOLAM 0.5 MG TAB PO SCH (09:00)
[2017-11-21] MEDS: HEPARIN SOD (PORCINE) 5,000 UNIT/ML VIAL SC SCH (09:00)
[2017-11-21] MEDS: THYROID 60 MG TAB PO SCH (09:23)
[2017-11-21] MEDS: MULTIVITAMINS/MINERALS TAB PO SCH (09:23)
[2017-11-21] MEDS: HYDROCORTISONE 10 MG TAB PO SCH (09:23)
[2017-11-21] MEDS: FUROSEMIDE 20 MG TAB PO SCH (09:23)
[2017-11-21 11:24] VITALS: BP 14/51
--- NOTE | 2017-11-21 12:11 | Discharge Summary ---
PRINCIPAL DIAGNOSES 1. Bradyarrhythmia secondary to atrioventricular blocking agents. 2. Urinary tract infection. 3. Anxiety disorder. 4. Pericardial effusion. SECONDARY DIAGNOSES 1. Aortic stenosis, which is mild. 2. Chronic kidney disease, stage 4. CHIEF COMPLAINT: Chest palpitation. HISTORY OF PRESENT ILLNESS: This is an 81-year-old woman with chest palpitation. Please refer to the H and P for further details. HOSPITAL COURSE: The patient had chest palpitation and found to have severe bradyrhythmia. Calcium channel kev and beta-kev were discontinued. Patient had elevated blood pressure, started on hydralazine and also added isosorbide dinitrate. Heart rate has improved. Blood pressure is improved and patient is doing good. She was evaluated by cardiology. Patient is currently appropriate for discharge. DISCHARGE MEDICATIONS: Per electronic medical record. CONDITION ON DISCHARGE: Stable and improving. DISCHARGE LOCATION: Home. FOLLOW-UP 1. Primary care doctor in 1 week. 2. Cardiology in 2 weeks. BRENT KELLEY MD Job#: [id number] VAS
--- NOTE | 2017-11-21 19:39 | Progress Note ---
DATE: November 21, 2017 CARDIOLOGY PROGRESS NOTE SUBJECTIVE: The patient denies chest pain, shortness of breath or lightheadedness. Review of her home medications reveals that she was on flecainide. OBJECTIVE VITAL SIGNS: Temperature 98.3 degrees, pulse 64, respiratory rate 16, blood pressure 153/71, oxygen saturation 94% on room air. GENERAL: Elderly woman in no acute distress. LUNGS: Clear to auscultation bilaterally. No wheezes or crackles. CARDIOVASCULAR: Normal rate, regular rhythm. A 2/6 systolic murmur at the left sternal border. ABDOMEN: Soft, nontender. EXTREMITIES: No edema. CARDIAC MEDICATIONS 1. Isosorbide dinitrate 10 mg p.o. t.i.d. 1. Hydralazine 50 mg p.o. q.8 h. 2. Furosemide 20 mg p.o. daily. 3. Atorvastatin 10 mg p.o. nightly. LABS: None today. TELEMETRY: Normal sinus rhythm. IMPRESSION 1. Symptomatic sinus bradycardia. 2. History of moderate aortic stenosis. 3. Moderate mitral stenosis on echocardiogram. 4. History of supraventricular tachycardia. 5. Chronic kidney disease stage 4. 6. Hypertension. 7. Hyperlipidemia. 8. History of thyroid cancer status post radical neck dissection and radiation therapy. 9. Urinary tract infection. RECOMMENDATIONS: The patient and her daughter do not wish to proceed with permanent pacemaker placement. Review of a hand written list of medications reveals that the patient was actually on flecainide as an outpatient. Suspect this explains her symptomatic sinus bradycardia. Hold flecainide upon discharge. They will follow up with outpatient veneer slicing machine operator, Dr. Moe, for further management given her symptomatic sinus bradycardia as well as history of SVT. Continue current cardiac medications otherwise. No further cardiac evaluation is indicated at this time. Thank you for this consult. We will continue to follow. Job#: [id number]
--- NOTE | 2017-11-27 14:38 | Consultation ---
DATE OF CONSULTATION: November 27, 2017 CARDIOLOGY CONSULTATION REQUESTING PHYSICIAN: Dr. Wellington Stewart. REASON FOR CONSULTATION: Chest pain. HISTORY OF PRESENT ILLNESS: This is an 81-year-old woman with history of supraventricular tachycardia, hypertension, hyperlipidemia, moderate aortic and mitral stenosis, chronic kidney disease stage 4, and thyroid cancer, status post thyroidectomy, who presented with complaints of chest pain. The patient reports that she developed chest pain/tightness yesterday that was associated with shortness of breath. The pain was described as constricting and 10/10 in severity. There was no nausea, diaphoresis, or radiation. The pain lasted approximately 10 minutes and the daughter brought the patient to the ER for further evaluation. The pain had resolved by the time she arrived to ER. REVIEW OF SYSTEMS: Negative except as per HPI. PAST MEDICAL HISTORY 1. History of supraventricular tachycardia. 2. Recent admission for bradycardia, likely iatrogenic due to medications. 3. Hypertension. 4. Hyperlipidemia. 5. Chronic kidney disease stage 4. 6. Thyroid cancer, status post radical neck dissection and radiation therapy in 195. 7. Moderate aortic and mitral stenosis. PAST SURGICAL HISTORY: 1. Radical neck dissection. 2. Hysterectomy. 3. Thyroidectomy. 4. Back surgery. 5. Lumbar laminectomy. 6. Tonsillectomy. SOCIAL HISTORY: No tobacco, alcohol, or illicit drugs. FAMILY HISTORY: Pertinent for father who of a myocardial infarction at the age of 93. ALLERGIES: PLEASE SEE EMR. MEDICATIONS: Please see medication list. PHYSICAL EXAMINATION VITAL SIGNS: Temperature 98.5 degrees, pulse 83, respiratory rate 16, blood pressure 143/66, and oxygen saturation 94% on room air. GENERAL: An elderly woman, in no acute distress, thin, but well developed. HEENT: Normocephalic, atraumatic. Pupils are equal. No scleral icterus. NECK: Supple. No thyromegaly or cervical lymphadenopathy. Prior neck dissection. LUNGS: Clear to auscultation bilaterally. No wheezes or crackles. CARDIOVASCULAR: Normal rate. Regular rhythm. A 3/6 systolic murmur. ABDOMEN: Soft and nontender. EXTREMITIES: No edema. NEUROLOGIC: Nonfocal exam. LABORATORY DATA: WBC 8.4, hemoglobin 12, hematocrit 38.3, and platelets 356. Sodium 144, potassium 4.3, chloride 103, CO2 27, BUN 41, and creatinine 1.99. BNP 392. Creatinine 0.034. Cholesterol 177, LDL 115, HDL 47, and triglycerides 77. DIAGNOSTIC DATA: EKG: Sinus arrhythmia with first-degree AV block, possible anteroseptal infarct, age undetermined. IMPRESSION 1. Chest pain. 2. History of supraventricular tachycardia. 3. Recent admission for symptomatic bradycardia secondary to antiarrhythmic therapy. 4. Moderate mitral and aortic stenosis. 5. Chronic kidney stage 4. 6. Hypertension. 7. Hyperlipidemia. 8. History of thyroid cancer, status post radical neck dissection and radiation therapy. RECOMMENDATIONS: Patient has ruled out for myocardial infarction with serial cardiac biomarkers. Her last nuclear stress test was in January 2017 and was without evidence of ischemia. Given patient's comorbid conditions and family reluctance to pursue invasive evaluation, we recommend medical therapy. They do not wish to go on to aspirin. We will increase the patient's atorvastatin. No further cardiac evaluation is indicated at this time. If she continues to have chest pain, we would proceed with repeat nuclear stress test at that time. Thank you for this consult. We will continue to follow. Job#: [id number] BRANDY CASTELLON
[2018-06-01] MEDS ORDERED: CLONIDINE HCL0.1 MG PO (04:57)
[2018-06-01] MEDS ORDERED: ALLOPURINOL100 MG PO (04:57)
[2018-06-01] MEDS ORDERED: METOPROLOL SUCC50 MG PO (04:57)
[2018-06-01] MEDS ORDERED: RANEXA500 MG PO (04:57)
[2018-06-01] MEDS ORDERED: NITROGLYCERIN0.4 MG SL (04:57)
[2018-06-01] MEDS ORDERED: CALCITRIOL0.25 MCG PO (04:57)
== END 2017-11-21 14:30 | disposition home or self-care (01) | DRG 309 ==
LOC: ER 03:28 → MED/SURG 07:01
PROVIDERS: ADMIT Internal Medicine; ATTEND Internal Medicine
DX: I49.8 Other specified cardiac arrhythmias (principal); N39.0 Urinary tract infection, site not specified; N18.4 Chronic kidney disease, stage 4 (severe); I31.3 Pericardial effusion (noninflammatory); E11.22 Type 2 diabetes mellitus with diabetic chronic kidney disease; I13.10 Hypertensive heart and chronic kidney disease without heart failure, with stage 1 through stage 4 chronic kidney disease, or unspecified chronic kidney disease; E27.40 Unspecified adrenocortical insufficiency; T46.1X5A Adverse effect of calcium-channel blockers, initial encounter; Z53.29 Procedure and treatment not carried out because of patient's decision for other reasons; I08.0 Rheumatic disorders of both mitral and aortic valves; F41.9 Anxiety disorder, unspecified; R94.09 Abnormal results of other function studies of central nervous system
CPT/HCPCS: 36415; 51700; 70450; 71045; 80053; 80061; 81001; 82550; 82553; 83605; 83735; 83880; 84443; 84484; 85025; 85610; 85730; 87040; 87086; 93005; 93306; 96374; 97139; 99284; J0610; J1644; J2185

== ENCOUNTER 2017-11-22 23:36 | Emergency (ER) | payer MEDICARE, BC ==
[~2017-11-22] VITALS: Ht 162.6 cm; Wt 56.2 kg
[~2017-11-22 23:36] MED LIST changes: +HYDRALAZINE HCL25 MG PO; +ISOSORBIDE DINI20 MG PO; +METOPROLOL SUCC50 MG PO; +NITROFURANTOIN100 MG PO
--- OUTSIDE RECORDS SUMMARY | 2017-11-22 23:39 | XMS REPORT | Continuity of Care Document ---
Author Author [facility] Organization [facility] Address [address] [place] [address] Phone Unavailable Care Team Providers Care Petal Shaper Hand Name Role Phone POLI HAMMONDS PCP Insurance Providers Guarantor Sergio Jaquez Address [address] [place] [address] Email [email or web address] Payer Medicare A & B Policy Number [id number] Subscriber's Name Sergio Jaquez Relationship 18 Self / Same As Patient Group Name RETIRED Effective Date 01 [facility] Policy Number [id number] Subscriber's Name Sergio Jaquez Relationship 18 Self / Same As Patient Group Number [id number] Group Name RETIRED Effective Date 01 Advance Directives Directive Response Recorded Date/Time Does the patient have an advance directive? Yes 11/19/17 7:48am If yes, is advance directive on file with [facility]? No 11/19/17 7:48am If not on file with [facility] will patient provide a copy? No 11/19/17 7:48am Do you have a Directive to Physician? No 11/19/17 5:30am Do you have a Medical Power of Building Construction Teacher? No 11/19/17 5:30am Do you have an out of hospital Do Not Resuscitate Order? No 11/19/17 5:30am Do you have any special needs we should be aware of? No 11/19/17 5:30am Do you have a support person here with you today? Yes 11/19/17 5:30am Did patient receive Notice of Privacy Practices? Yes 11/19/17 5:30am Did patient receive patient rights and responsibilities? Yes 11/19/17 5:30am Problems Medical Problem Onset Date Status Back pain 04/01/2016 Acute Bradycardia Unknown CKD (chronic kidney disease) Unknown Chest pain Unknown Chronic renal disease 04/01/2016 Acute Elevated lipase 04/01/2016 Acute Elevated sedimentation rate Unknown Hyperglycemia 04/01/2016 Acute Hypocalcemia 04/01/2016 Acute Hypocalcemia Unknown SVT (supraventricular tachycardia) Unknown TIA (transient ischemic attack) Unknown UTI (urinary tract infection) 04/01/2016 Acute UTI (urinary tract infection) Unknown UTI (urinary tract infection) Unknown Weakness Unknown Medications Current Home Medications Medication Dose [...] Tablet 1 Tab Daily 30 Tab Calcium/Magnesium/Zinc (Zsuspjs-Fyqhyoblc-Qopa Tab) 1 Each Tablet 1 Ea Oral As Needed Ergocalciferol (Vitamin D2) (Vitamin D2) 50,000 Unit Capsule 50,000 Units Oral Q7days Furosemide 20 Mg Tablet 20 Mg Oral Daily x5 days a week- mon,wed, th,fri,sun Hydralazine Hcl 25 Mg Tab 50 Mg Oral Every 8 Hours 30 Days 11/21/17 Hydrocortisone 10 Mg Tablet 10 Mg Oral Daily Isosorbide Dinitrate 20 Mg Tablet 10 Mg Oral Three Times A Day 30 Days 11/21/17 Magnesium Oxide (Magnesium) 500 Mg Capsule 500 Mg Oral Daily Melatonin 10 Mg Tablet 10 Mg Oral Bedtime Multivitamin With Minerals (Multivitamins With Minerals) 1 Each Tablet 1 Tab Oral Daily Nitrofurantoin Macrocrystal (Nitrofurantoin) 100 Mg Capsule 100 Mg Oral Twice A Day 3 Days 11/21/17 Potassium Chloride 8 Meq Capsule.er 8 Meq Oral Daily x5 days a week - mon,wed,thurs,fri,sun Thyroid,Pork ([place] Thyroid) 60 Mg Tablet 60 Mg Oral [...] Mg Tablet, 100 Mg Oral Daily Discontinued Amlodipine Besylate 5 Mg Tablet, 5 Mg Oral Bedtime Discontinued Bio Chem Tissue , Discontinued Colloidal Silver , 50 Mcg Oral Every 4 Hours Discontinued Harmony Cream , Use As Directed as needed for Pain Discontinued Cumerin , As Needed Discontinued Docusate Sodium (Colace) 100 Mg Cap, 100 Mg Oral Twice A Day 04/08/16 Discontinued Essential Enzymes , Discontinued Fiber Smart , 1 Tsp Oral Daily Discontinued Manganese Chloride (Manganese) 0.1 Mg/1 Ml Vial, 34 Mg Oral Daily Discontinued Metoprolol Succinate 50 Mg Tab.er.24h, 50 Mg Oral Daily Discontinued Nifedipine 10 Mg [...] Date/Time Onset Date Status Hx Psychiatric Problems No 11/19/2017 7:48am Not Applicable Not Applicable Hx Eating Disorder No 11/19/2017 7:48am Not Applicable Not Applicable Hx Substance Use Disorder No 11/19/2017 7:48am Not Applicable Not Applicable Hx Depression Yes 11/19/2017 7:48am Not Applicable Not Applicable Hx Alcohol Use No 11/19/2017 7:48am Not Applicable Not Applicable Hx Substance Use Treatment No 11/19/2017 7:48am Not Applicable Not Applicable Hx Physical Abuse No 11/19/2017 7:48am Not Applicable Not Applicable Smoking Status Start Date Stop Date Never Smoker Hospital Discharge Instructions No hospital discharge instruction information available. Plan of Care Discharge Date 11/21/17 2:30pm Disposition HOME, SELF-CARE Instructions/Education Provided Bradycardia Urinary Tract Infection - Women Prescriptions See Medication Section Referrals pcp (Internal Medicine) Order Date: 5-7 Days Entered Date: 11/21/2017 6:27am HERNANDEZ ROMAN MD (Cardiology) Order Date: 2 Weeks Entered Date: 11/21/2017 6:27am Address: [address] [place] [id number] Additional Instructions/Education Please do Not take: 1.Metoprolol 2.Amlodipine 3.Flecainide Functional Status Query Response Date Recorded Assistive Devices Straight Cane Standard Walker November 19, 2017 7:48am Ambulation Ability Standby Assistance November 19, 2017 7:48am Toileting Ability Minimum Assistance November 21, 2017 12:11pm Allergies, Adverse Reactions, Alerts Allergen Type Severity [...] Vital Signs Vital Response Date/Time Temperature (Fahrenheit) 97.1 degrees F (97.6 - 99.5) 11/21/2017 11:24am Pulse Pulse Rate (adult) 67 bpm (60 - 90) 11/21/2017 11:24am Respiratory Rate 16 bpm (12 - 24) 11/21/2017 11:24am Blood Pressure 14/51 mm Hg 11/21/2017 11:24am Height 5 ft 4 in 11/19/2017 3:36am Weight 124.44 lb 11/21/2017 8:29am Body Mass Index 21.4 kg/m^2 11/21/2017 8:29am Results Laboratory Results Test Name Result Units Flags Reference Collection Date/Time Result Date/ Time Comments Erythrocyte Sedimentation Rate 97 mm/hr H 0-20 02/06/2017 9:15pm 2016 10:11pm Urine Transitional Epithelial Cells FEW H NONE 02/06/2017 6:55pm 02/06 7:50pm Urine Renal Epithelial Cells FEW H NONE 02/06/2017 6:55pm 02/06/2017 7 :50pm Urine Mucus FEW H RARE 02/06/2017 6:55pm 02/06/2017 7:50pm Uric Acid 7.4 mg/dL H 2.6-6.0 02/07/2017 3:05am 02/07/2017 7:32am Bedside Glucose 89 mg/dL 70-120 02/25/2017 7:52am 02/25/2017 8:00am Meter ID: [id number] White Blood Count 9.57 x10e3/uL 4.8-10.8 11/20/2017 6:40am 11/20/2017 6 :56am Red Blood Count 3.73 x10e6/uL 3.6-5.1 11/20/2017 6:40am 11/20/2017 6: 56am Hemoglobin 10.5 g/dL L 12.0-16.0 11/20/2017 6:40am 11/20/2017 6:56am Hematocrit 32.3 % L 34.2-44.1 11/20/2017 6:40am 11/20/2017 6:56am Mean Corpuscular Volume 86.6 fL 81-99 11/20/2017 6:40am 11/20/2017 6: 56am Mean Corpuscular Hemoglobin 28.2 pg 28-32 11/20/2017 6:40am 11/20/2017 6:56am Mean Corpuscular Hemoglobin Concent 32.5 g/dL 31-35 11/20/2017 6:40am 11/20/2017 6:56am Red Cell Distribution Width 16.5 % H 11.7-14.4 11/20/2017 6:40am 2017 6:56am Platelet Count 287 x10e3/uL 140-360 11/20/2017 6:40am 11/20/2017 6: 56am Neutrophils (%) (Auto) 57.2 % 38.7-80.0 11/20/2017 6:40am 11/20/2017 6: 56am Lymphocytes (%) (Auto) 28.9 % 18.0-39.1 11/20/2017 6:40am 11/20/2017 6: 56am Monocytes (%) (Auto) 9.5 % 4.4-11.3 11/20/2017 6:40am 11/20/2017 6: 56am Eosinophils (%) (Auto) 3.6 % 0.0-6.0 11/20/2017 6:40am 11/20/2017 6: 56am Basophils (%) (Auto) 0.4 % 0.0-1.0 11/20/2017 6:40am 11/20/2017 6:56am IM GRANULOCYTES % 0.4 % 0.0-1.0 11/20/2017 6:40am 11/20/2017 6:56am Neutrophils # (Auto) 5.5 2.1-6.9 11/20/2017 6:40am 11/20/2017 6:56am Lymphocytes # (Auto) 2.8 1.0-3.2 11/20/2017 6:40am 11/20/2017 6:56am Monocytes # (Auto) 0.9 H 0.2-0.8 11/20/2017 6:40am 11/20/2017 6:56am Eosinophils # (Auto) 0.3 0.0-0.4 11/20/2017 6:40am 11/20/2017 6:56am Basophils # (Auto) 0.0 0.0-0.1 11/20/2017 6:40am 11/20/2017 6:56am Absolute Immature Granulocyte (auto 0.04 x10e3/uL 0-0.1 11/20/2017 6: 40am 11/20/2017 6:56am Prothrombin Time 13.2 seconds 11.9-14.5 11/19/2017 3:51am 11/19/2017 4: 32am Prothromb Time International Ratio 1.08 11/19/2017 3:51am 2017 4:32am Oral Anticoagulant Therapy INR Values: 1. Low Intensity Therapy 1.5 - 2.0 2. Moderate Intensity Therapy 2.0 - 3.0 3. High Intensity Therapy(1) 2.5 - 3.5 4. High Intensity Therapy(2) 3.0 - 4.0 5. Panic Value INR > 5.0 Activated Partial Thromboplast Time 31.9 seconds 23.8-35.5 11/19/2017 3: 51am 11/19/2017 4:34am Urine Color YELLOW YELLOW 11/19/2017 3:51am 11/19/2017 5:02am Urine Clarity CLEAR CLEAR 11/19/2017 3:51am 11/19/2017 5:02am Urine Specific [place] 1.005 L 1.010-1.025 11/19/2017 3:51am 2017 5:02am Urine pH 7 5 - 7 11/19/2017 3:51am 11/19/2017 5:02am Urine Leukocyte Esterase 1+ H NEGATIVE 11/19/2017 3:51am 11/19/2017 5: 02am Urine Nitrite NEGATIVE NEGATIVE 11/19/2017 3:51am 11/19/2017 5:02am Urine Protein 2+ H NEGATIVE 11/19/2017 3:51am 11/19/2017 5:02am Urine Glucose (UA) NEGATIVE NEGATIVE 11/19/2017 3:51am 11/19/2017 5: 02am Urine Ketones TRACE H NEGATIVE 11/19/2017 3:51am 11/19/2017 5:02am Urine Urobilinogen 1 mg/dL 0.2 - 1 11/19/2017 3:51am 11/19/2017 5:02am Urine Bilirubin 1+ H NEGATIVE 11/19/2017 3:51am 11/19/2017 5:02am Urine Blood NEGATIVE NEGATIVE 11/19/2017 3:51am 11/19/2017 5:02am Urine WBC 11-20 /HPF H 0-5 11/19/2017 3:51am 11/19/2017 5:06am Urine RBC 0-5 /HPF 0-5 11/19/2017 3:51am 11/19/2017 5:06am Urine Bacteria FEW /HPF NONE 11/19/2017 3:51am 11/19/2017 5:06am Urine Epithelial Cells FEW /LPF NONE 11/19/2017 3:51am 11/19/2017 5: 06am Sodium Level 145 mmol/L 136-145 11/20/2017 6:40am 11/20/2017 7:15am Potassium Level 4.1 mmol/L 3.5-5.1 11/20/2017 6:40am 11/20/2017 7:15am Chloride Level 106 mmol/L 98-107 11/20/2017 6:40am 11/20/2017 7:15am Carbon Dioxide Level 28 mmol/L -11/20/2017 6:40am 11/20/2017 7: 15am Anion Gap 15.1 mmol/L 8-16 11/20/2017 6:40am 11/20/2017 7:15am Blood Urea Nitrogen 36 mg/dL H 7-11/20/2017 6:40am 11/20/2017 7:15am Creatinine 2.08 mg/dL H 0.57-1.11 11/20/2017 6:40am 11/20/2017 7:15am BUN/Creatinine Ratio 17 6-11/20/2017 6:40am 11/20/2017 7:15am Estimat Glomerular Filtration Rate 23 ML/MIN L 60- 11/20/2017 6:40am 7:15am Ranges were taken from the National Kidney Disease Education Program and the National Kidney Foundation literature. Reference ranges: 60 or greater: Normal 16-59 (for 3 consecutive months): Chronic kidney disease 15 or less: Kidney failure Glucose Level 85 mg/dL 74-118 11/20/2017 6:40am 11/20/2017 7:15am Calcium Level 6.9 mg/dL *L 8.4-10.2 11/20/2017 6:40am 11/20/2017 7:32am Results called to nina theodore at 0731 on 11/20/17 by Augustine Waldrop. RB OK. Lactic Acid Level 12.9 MG/DL 4.5-19.8 11/19/2017 3:51am 11/19/2017 4: 37am Magnesium Level 2.1 MG/DL 1.3-2.1 11/19/2017 3:51am 11/19/2017 4:43am Total Bilirubin 0.4 mg/dL 0.2-1.2 11/20/2017 6:40am 11/20/2017 7:15am Aspartate Amino Transf (AST/SGOT) 35 IU/L H 5-34 11/20/2017 6:40am 11/20 7:15am Alanine Aminotransferase (ALT/SGPT) 38 IU/L 0-55 11/20/2017 6:40am 7:15am Total Protein 6.1 g/dL L 6.5-8.1 11/20/2017 6:40am 11/20/2017 7:15am Albumin 2.9 g/dL L 3.5-5.0 11/20/2017 6:40am 11/20/2017 7:15am Globulin 3.2 g/dL 2.3-3.5 11/20/2017 6:40am 11/20/2017 7:15am Albumin/Globulin Ratio 0.9 0.8-2.0 11/20/2017 6:40am 11/20/2017 7: 15am Alkaline Phosphatase 82 IU/L 40-150 11/20/2017 6:40am 11/20/2017 7: 15am Triglycerides Level 165 MG/DL H 0-149 11/20/2017 6:40am 11/20/2017 7: 15am Cholesterol Level 165 MD/DL 0-199 11/20/2017 6:40am 11/20/2017 7:15am Less than 200 mg/dL Low Risk 201 - 239 mg/dL Borderline Risk 240 mg/dl and greater High Risk LDL Cholesterol 95 MG/DL 60-130 11/20/2017 6:40am 11/20/2017 7:15am HDL Cholesterol 37 MG/DL L 40-60 11/20/2017 6:40am 11/20/2017 7:15am Cholesterol/HDL Ratio 4.5 H 3.0-3.6 11/20/2017 6:40am 11/20/2017 7: 15am B-Type Natriuretic Peptide 433.9 pg/mL H 0-100 11/19/2017 3:51am 2017 4:47am Creatine Kinase 101 IU/L 29-168 11/19/2017 8:35pm 11/19/2017 9:47pm Creatine Kinase MB 0.60 ng/mL 0-5.0 11/19/2017 8:35pm 11/19/2017 10: 00pm Troponin I 0.015 ng/mL 0-0.300 11/19/2017 8:35pm 11/19/2017 10:00pm Thyroid Stimulating Hormone (TSH) 1.081 uIU/mL 0.350-4.940 11/19/2017 3: 51am 11/19/2017 5:01am Microbiology Results Procedure Source Organism/Result Collection Date/Time Result Date/Time Result Status Blood Culture Blood NO GROWTH AFTER 48 HOURS 3:51am 11/21/2017 4:20am Preliminary Procedures Procedure Status Date Provider(s) Computed tomography of brain without radiopaque contrast Active 02/06/17 SHERRIE COPE MD Magnetic resonance imaging of brain without contrast Active 02/06/17 SHAWNEE FELICIANO MD Magnetic resonance angiography of head without contrast Active 02/06/17 SHAWNEE FELICIANO MD X-ray of chest, two views Active 02/24/17 KYREE HUERTA MD Computed tomography of brain without radiopaque contrast Active 11/19/17 SHAWNEE FELICIANO MD Encounters Encounter Location Arrival/Admit Date Discharge/Depart Date Attending Provider Discharged Inpatient [facility] 11/19/17 7:01am 11/21/17 2:30pm BRENT KELLEY MD Departed Emergency Room [facility] 11/13/17 12:43am 11/13 2:37am SHAWNEE FELICIANO MD Discharged Inpatient (obs) [facility] 02/25/17 2:24am 9:55pm ÁNGELA LANTIGUA MD Departed Emergency Room [facility] 02/24/17 9:56pm 11:17pm KYREE UHERTA MD Discharged Inpatient [facility] 02/06/17 11:15pm 9:04pm ÁNGELA LANTIGUA MD Discharged Inpatient (obs) [facility] 02/03/17 11:22pm 8:48pm KALYN LOUIS MD
[2017-11-23 01:42] LABS: ALANINE AMINOTRANSFERASE 34 IU/L (0-55); ALBUMIN 3.4 g/dL (3.5-5.0); ALBUMIN/GLOBULIN RATIO 0.9 (0.8-2.0); ALKALINE PHOSPHATASE 83 IU/L (40-150); ANION GAP 20.4 mmol/L (8-16); BLOOD UREA NITROGEN 44 mg/dL (7-26); BUN/CREATININE RATIO 20 (6-25); CALCIUM 7.6 mg/dL (8.4-10.2); CARBON DIOXIDE 25 mmol/L (22-29); CHLORIDE 101 mmol/L (98-107); CREATINE KINASE 121 IU/L (29-168); CREATININE, SERUM 2.15 mg/dL (0.57-1.11); EST GLOMERULAR FILTRATION RATE 22 ML/MIN (60-); GLUCOSE 92 mg/dL (74-118); POTASSIUM 4.4 mmol/L (3.5-5.1); SODIUM 142 mmol/L (136-145)
[2017-11-23 01:47] LABS: BASOPHILS # (AUTO) 0.1 (0.0-0.1); BASOPHILS % 0.5 % (0.0-1.0); EOSINOPHILS # (AUTO) 0.2 (0.0-0.4); EOSINOPHILS % 1.2 % (0.0-6.0); HEMATOCRIT 36.2 % (34.2-44.1); HEMOGLOBIN 11.6 g/dL (12.0-16.0); LYMPHOCYTES # (AUTO) 2.5 (1.0-3.2); LYMPHOCYTES % 19.2 % (18.0-39.1); MEAN CORPUSCULAR HEMOGLOBIN 28.2 pg (28-32); MEAN CORPUSCULAR VOLUME 88.1 fL (81-99); MONOCYTES # (AUTO) 1.3 (0.2-0.8); MONOCYTES % 9.8 % (4.4-11.3); NEUTROPHILS # (AUTO) 8.8 (2.1-6.9); NEUTROPHILS % 68.7 % (38.7-80.0); PLATELET COUNT 361 x10e3/uL (140-360); RED BLOOD COUNT 4.11 x10e6/uL (3.6-5.1)
--- NOTE | 2017-11-23 02:49 | Diagnostic Imaging Report ---
EXAMINATION: CHEST 2 VIEWS INDICATION: Chest pain. COMPARISON: 11/19/2017 FINDINGS: TUBES and LINES: None. LUNGS: Lungs are well inflated. Lungs are clear. There is no evidence of pneumonia or pulmonary edema. PLEURA: No pleural effusion or pneumothorax. HEART AND MEDIASTINUM: The cardiomediastinal silhouette is unremarkable. BONES AND SOFT TISSUES: No acute osseous lesion. Soft tissues are unremarkable. UPPER ABDOMEN: No free air under the diaphragm. IMPRESSION: No acute thoracic abnormality. Signed by: Dr. Ernie Gill M.D. on 11/23/2017 2:45 AM
== END 2017-11-23 02:52 | disposition home or self-care (01) ==
LOC: ER 23:36
DX: R07.89 Other chest pain (principal); I10 Essential (primary) hypertension; Z82.49 Family history of ischemic heart disease and other diseases of the circulatory system
CPT/HCPCS: 36415; 71046; 80053; 82550; 82553; 84484; 85025; 93005; 99283

== ENCOUNTER 2017-11-26 15:02 | Observation (INO) | payer MEDICARE, BC ==
[~2017-11-26] VITALS: Ht 162.6 cm; Wt 56.2 kg
--- OUTSIDE RECORDS SUMMARY | 2017-11-26 15:04 | XMS REPORT | Clinical Summary ---
Author Author [facility] Address Unknown Phone Unavailable Care Team Providers Care Barrel Bander Name Role Phone PCP Unavailable Allergies Active [...] Date Type Specialty Care Team Description 02/28/2017 [facility] pain, unspecified - Encounter Quentin Ny MD type (Primary Dx);Chest 03/10/2017 pain on breathing 02/27/2017 Orders Only General Internal Medicine after 11/25/2016 Social History Tobacco Use Types Packs/Day Years [...] L Specimen Performing Laboratory Blood - Arm, [address] [address] Narrative 0.00 * CBC with platelet count + automated diff (03/10/2017 6:06 AM) Only the most recent of 12 results within the time period is included. Specimen Performing Laboratory Blood Narrative The following orders were created for panel order CBC with platelet count + automated diff. Procedure Abnormality Status --------- - ------ CBC with platelet count ...[[id number]]AbnormalFinal result Please view results for these tests on the individual orders. * Magnesium (03/10/2017 6:06 AM) Only the most recent of 12 results within the time period is included. Component Value Ref Range Magnesium 2.0Comment: Specimen slightly hemolyzed 1.6 - 2.6 mg/dL Specimen Performing Laboratory Blood - Arm, [address] [address] * Basic Metabolic Panel (03/10/2017 6:06 AM) [...] PATIENTS. Specimen Performing Laboratory Blood - Arm, [address] [address] * Digoxin level (03/07/2017 5:53 AM) Component Value Ref Range Digoxin Lvl 1.6 0.8 - 2.0 ng/mL Specimen Performing Laboratory Blood [address] [address] * ECG 12 lead (03/06/2017 9:56 PM) Only the most recent of 6 results within the time period is included. Specimen Performing Laboratory [facility] MUSE Narrative Ventricular Rate 42 BPM Atrial Rate 75 BPM P-R Interval 326 ms QRS Duration 72 ms Q-T Interval 414 ms QTC Calculation(Bazett) 345 ms P [place] 62 degrees R [place] -2 degrees T [place] 257 degrees Complete heart block ST & [...] 414 ms QTC Calculation(Bazett) 345 ms P [place] 62 degrees R [place] -2 degrees T [place] 257 degrees Complete heart block ST & T wave abnormality, consider inferolateral ischemia Abnormal ECG When compared with ECG of 05-MAR-2017 20:46, Serial changes of Septal infarct Present Confirmed by MD TATUM PATRICK J ([id number]) on 03/08/2017 10:29:14 AM * CT brain without IV contrast (03/06/2017 1:21 PM) Specimen Performing Laboratory [facility] RIS Narrative FINAL REPORT CT head without [...] MD Report Verified Date/Time:03/06/2017 13:28:05 Reading Location: [address] Neuro Reading Room Procedure Note Interface, [...] Report Verified Date/Time: 03/06/2017 13:28:05 Reading Location: [address] Neuro Reading Room * 2D Echo W/Doppler(CW/PW/Color) (03/04/2017 2:32 PM) Specimen Performing Laboratory [facility] Narrative Echocardiography Laboratory [address] [place] [address] Voice:[phone] Transthoracic Echocardiogram Pat.Name:PATITO JAQUEZ.ID:[id number] .Date: 03/04/2017Refer.MD:SURINDER MONCADA Exam Time: 2:32:00 PMStudy Type:Echo Complete Height:64inWeight:131lb BSA: 1.64 m2 DOBAge:1935 ,81Y Sex: FEMALEBP: 144/65 HR:68 bpmSonogrphr: Max Pinzon [facility] Pat. Stat.:Inpatient Room:1447 Reason for Study:Routine F/U [...] Mild MV leaflet thickening. Mild mitral regurgitation. Zoijeoon-fg-qsqsuqnpgrqz annular calcification. MV gradientsare moderately increased in [...] ml/m2 LA Area 26.1 cm2(8.8-23.4)* Parasternal Long [place] Ao An 1.91 cm (1.4-2.6) LV%fs 52.6 [...] - 03/04/2017 4:55 PM CDT Echocardiography Laboratory [address] [place] [address] Voice: [phone] Transthoracic Echocardiogram Pat.Name: PATITO JAQUEZ Pat.ID: [id number] .Date: 03/04/2017 Refer.MD: SURINDER MONCADA Exam Time: 2:32:00 PM Study Type:Echo Complete Height: 64in Weight: 131lb BSA: 1.64 m2 Age: 4 1935,81Y Sex: FEMALE BP: 144/65 HR: 68 bpm Sonogrphr: Max Pinzon [facility] Pat. Stat.:Inpatient Room: [facility] Reason for Study:Routine F/U of significant valve [...] Mild MV leaflet thickening. Mild mitral regurgitation. Vezvwzqy-ye-hiuudw mitral annular calcification. MV gradients are moderately [...] LA Area 26.1 cm2 (8.8-23.4)* Parasternal Long [place] Ao An 1.91 cm (1.4-2.6) LV%fs 52.6 [...] Specimen Performing Laboratory Blood - Arm, Right [address] [address] * TSH/Free T4 If Indicated (03/02/2017 1:10 AM) Component Value Ref Range TSH 14.13 (H) 0.35 - 4.94 uIU/mL Specimen Performing Laboratory Blood [address] [address] * T4, free (03/02/2017 1:10 AM) Component Value Ref Range Free T4 0.61 (L) 0.70 - 1.48 ng/dL Specimen Performing Laboratory Blood [address] [address] * Troponin I (02/28/2017 11:36 AM) Only the most recent of 3 results within the time period is included. Component Value Ref Range Troponin I 0.03 0.00 - 0.03 ng/mL Specimen Performing Laboratory Blood - Arm, Left [address] [address] Narrative Effective 08/16/2014: Reference Range Change New: [...] Specimen Performing Laboratory Blood - Arm, Right [address] [address] Narrative Effective 08/16/2014: CK-MB Reference Range Change [...] as sinus rhythm. Rate is normal rate. [place] is normal. Clinical Impression: non-specific ECGECG reviewed and does not meet STEMI criteria. Patient tolerance: Patient tolerated the procedure well with no immediate complications * PT/PTT (02/27/2017 11:35 PM) Component Value Ref Range Protime 15.5 (H) 11.7 - 14.7 seconds INR 1.2 <=5.9 PTT 36.5 (H) 22.5 - 36.0 seconds Specimen [place] [address] Narrative RECOMMENDED COUMADIN/WARFARIN INR THERAPY RANGES STANDARD DOSE: 2.0 - 3.0 Includes: PROPHYLAXIS for venous thrombosis, systemic embolization; TREATMENT for venous thrombosis and/or pulmonary embolus. HIGH RISK: Target INR is 2.5-3.5 for patients with mechanical heart valves. * B-type Natriuretic Factor (BNP) (02/27/2017 11:35 PM) Component Value Ref Range BNP 233 (H) 0 - 100 pg/mL Specimen Performing Laboratory Blood [address] [address] * XR chest 2 views (02/27/2017 8:30 [...] MD Report Verified Date/Time:02/27/2017 20:33:46 Reading Location: [address] Neuro Reading Room Narrative FINAL REPORT [...] Report Verified Date/Time: 02/27/2017 20:33:46 Reading Location: [address] Neuro Reading Room after 11/25/2016
--- OUTSIDE RECORDS SUMMARY | 2017-11-26 15:04 | XMS REPORT | Continuity of Care Document ---
Author Author [facility] Organization [facility] Address [address] [place] [address] Phone Unavailable Care Team Providers Care Lease Operator Name Role Phone POLI HAMMONDS PCP Insurance Providers Guarantor Sergio Jaquez Address [address] [place] [address] Email [email or web address] Payer Medicare A & B Policy Number [id number] Subscriber's Name Sergio Jaquze Relationship 18 Self / Same As Patient Group Name RETIRED Effective Date 01 [facility] Policy Number [id number] Subscriber's Name Sergio Jaquez Relationship 18 Self / Same As Patient Group Number [id number] Group Name RETIRED Effective Date 01 Advance Directives Directive Response Recorded Date/Time Does the patient have an advance directive? Yes 11/19/17 7:48am If yes, is advance directive on file with [facility]? No 11/19/17 7:48am If not on file with [facility] will patient provide a copy? Yes 11/22/17 11:38pm Do you have a Directive to Physician? No 11/22/17 11:38pm Do you have a Medical Power of Rotor Pilot? No 11/22/17 11:38pm Do you have an out of hospital Do Not Resuscitate Order? No 11/22/17 11:38pm Do you have any special needs we should be aware of? No 11/22/17 11:38pm Do you have a support person here with you today? Yes 11/22/17 11:38pm Did patient receive Notice of Privacy Practices? Yes 11/22/17 11:38pm Did patient receive patient rights and responsibilities? Yes 11/22/17 11:38pm Problems Medical Problem Onset Date Status Back [...] Tablet 1 Tab Daily 30 Tab Calcium/Magnesium/Zinc (Almlezs-Akypxaere-Twuq Tab) 1 Each Tablet 1 Ea Oral As Needed Ergocalciferol (Vitamin D2) (Vitamin D2) 50,000 Unit Capsule 50,000 Units Oral Q7days Furosemide 20 Mg Tablet 20 Mg Oral Daily x5 days a week- fri,fri, ,fri,fri Hydralazine Hcl 25 Mg Tab 50 Mg [...] x5 days a week - mon,wed,thurs,fri,sun Thyroid,Pork ([place] Thyroid) 60 Mg Tablet 60 Mg Oral [...] 50 Mcg Oral Every 4 Hours Discontinued [place] Cream , Use As Directed as needed [...] information available. Plan of Care Discharge Date 11/23/17 2:52am Disposition HOME, SELF-CARE Condition at Discharge Stable Instructions/Education Provided Chest Pain - Noncardiac Forms Provided Work/School Excuse Prescriptions See Medication Section Additional Instructions/Education FOLLOW UP WITH HYDRO GENERATION SUPERVISOR AND PRIMARY CARE ON FRIDAY CALL FOR APPT Functional Status No functional status information available. [...] 11/21/2017 11:24am Height 5 ft 4 in 11/22/2017 11:38pm Weight 124 lb 11/22/2017 11:38pm Body Mass Index 21.3 kg/m^2 11/22/2017 11:38pm Results Laboratory Results Test Name Result Units [...] 70-120 02/25/2017 7:52am 02/25/2017 8:00am Meter ID: [id number] Prothrombin Time 13.2 seconds 11.9-14.5 11/19/2017 3:51am [...] CLEAR 11/19/2017 3:51am 11/19/2017 5:02am Urine Specific [place] 1.005 L 1.010-1.025 11/19/2017 3:51am 2017 5:02am [...] /LPF NONE 11/19/2017 3:51am 11/19/2017 5: 06am Lactic Acid Level 12.9 MG/DL 4.5-19.8 11/19/2017 3:51am 11/19/2017 4: 37am Magnesium Level 2.1 MG/DL 1.3-2.1 11/19/2017 3:51am 11/19/2017 4:43am Triglycerides Level 165 MG/DL H 0-149 11/20/2017 [...] pg/mL H 0-100 11/19/2017 3:51am 2017 4:47am Thyroid Stimulating Hormone (TSH) 1.081 uIU/mL 0.350-4.940 11/19/2017 3: 51am 11/19/2017 5:01am White Blood Count 12.85 x10e3/uL H 4.8-10.8 11/23/2017 12:05am 2017 1:50am Red Blood Count 4.11 x10e6/uL 3.6-5.1 11/23/2017 12:05am 11/23/2017 1: 50am Hemoglobin 11.6 g/dL L 12.0-16.0 11/23/2017 12:05am 11/23/2017 1:50am Hematocrit 36.2 % 34.2-44.1 11/23/2017 12:05am 11/23/2017 1:50am Mean Corpuscular Volume 88.1 fL 81-99 11/23/2017 12:0511/23/2017 1: 50am Mean Corpuscular Hemoglobin 28.2 pg 28-32 11/23/2017 12:052017 1:50am Mean Corpuscular Hemoglobin Concent 32.0 g/dL 31-35 11/23/2017 12:0511/23/2017 1:50am Red Cell Distribution Width 17.0 % H 11.7-14.4 11/23/2017 12:052017 1:50am Platelet Count 361 x10e3/uL H 140-360 11/23/2017 12:0511/23/2017 1: 50am Neutrophils (%) (Auto) 68.7 % 38.7-80.0 11/23/2017 12:11/23/2017 1 :50am Lymphocytes (%) (Auto) 19.2 % 18.0-39.1 11/23/2017 12:0511/23/2017 1 :50am Monocytes (%) (Auto) 9.8 % 4.4-11.3 11/23/2017 12:0511/23/2017 1: 50am Eosinophils (%) (Auto) 1.2 % 0.0-6.0 11/23/2017 12:11/23/2017 1: 50am Basophils (%) (Auto) 0.5 % 0.0-1.0 11/23/2017 12:0511/23/2017 1: 50am IM GRANULOCYTES % 0.6 % 0.0-1.0 11/23/2017 12:0511/23/2017 1:50am Neutrophils # (Auto) 8.8 H 2.1-6.9 11/23/2017 12:0511/23/2017 1: 50am Lymphocytes # (Auto) 2.5 1.0-3.2 11/23/2017 12:0511/23/2017 1: 50am Monocytes # (Auto) 1.3 H 0.2-0.8 11/23/2017 12:0511/23/2017 1:50am Eosinophils # (Auto) 0.2 0.0-0.4 11/23/2017 12:0511/23/2017 1: 50am Basophils # (Auto) 0.1 0.0-0.1 11/23/2017 12:05am 11/23/2017 1:50am Absolute Immature Granulocyte (auto 0.08 x10e3/uL 0-0.1 11/23/2017 12: 0511/23/2017 1:50am Sodium Level 142 mmol/L 136-145 11/23/2017 12:05am 11/23/2017 1:53am Potassium Level 4.4 mmol/L 3.5-5.1 11/23/2017 12:0511/23/2017 1: 53am Chloride Level 101 mmol/L 98-107 11/23/2017 12:05am 11/23/2017 1:53am Carbon Dioxide Level 25 mmol/L 22-29 11/23/2017 12:05am 11/23/2017 1: 53am Anion Gap 20.4 mmol/L H 8-16 11/23/2017 12:05am 11/23/2017 1:53am Blood Urea Nitrogen 44 mg/dL H 7-26 11/23/2017 12:05am 11/23/2017 1: 53am Creatinine 2.15 mg/dL H 0.57-1.11 11/23/2017 12:05am 11/23/2017 1:53am BUN/Creatinine Ratio 20 6-25 11/23/2017 12:05am 11/23/2017 1:53am Estimat Glomerular Filtration Rate 22 ML/MIN L 60- 11/23/2017 12:05am 1:53am Ranges were taken from the National Kidney Disease Education Program and the National Kidney Foundation literature. Reference ranges: 60 or greater: Normal 16-59 (for 3 consecutive months): Chronic kidney disease 15 or less: Kidney failure Glucose Level 92 mg/dL 74-118 11/23/2017 12:05am 11/23/2017 1:53am Calcium Level 7.6 mg/dL L 8.4-10.2 11/23/2017 12:05am 11/23/2017 1:53am Total Bilirubin 0.4 mg/dL 0.2-1.2 11/23/2017 12:05am 11/23/2017 1:53am Aspartate Amino Transf (AST/SGOT) 39 IU/L H 5-34 11/23/2017 12:05 1:53am Alanine Aminotransferase (ALT/SGPT) 34 IU/L 0-55 11/23/2017 12:05am 1:53am Total Protein 7.1 g/dL 6.5-8.1 11/23/2017 12:05am 11/23/2017 1:53am Albumin 3.4 g/dL L 3.5-5.0 11/23/2017 12:05am 11/23/2017 1:53am Globulin 3.7 g/dL H 2.3-3.5 11/23/2017 12:05am 11/23/2017 1:53am Albumin/Globulin Ratio 0.9 0.8-2.0 11/23/2017 12:05am 11/23/2017 1: 53am Alkaline Phosphatase 83 IU/L 40-150 11/23/2017 12:05am 11/23/2017 1: 53am Creatine Kinase 121 IU/L 29-168 11/23/2017 12:05am 11/23/2017 1:53am Creatine Kinase MB 2.40 ng/mL 0-4.3 11/23/2017 12:05am 11/23/2017 1: 53am Troponin I < 0.05 ng/mL 0.0-0.40 11/23/2017 12:05am 11/23/2017 1:53am Microbiology Results Procedure Source Organism/Result Collection Date/Time Result Date/Time Result Status Blood Culture Blood NO GROWTH AFTER 72 HOURS 3:51am 11/22/2017 4:20am Preliminary Procedures Procedure Status Date Provider(s) [...] radiopaque contrast Active 11/19/17 SHAWNEE FELICIANO MD X-ray of chest, two views Active 11/23/17 SHAWNEE FELICIANO MD Encounters Encounter Location Arrival/Admit Date Discharge/Depart Date Attending Provider Departed Emergency Room [facility] 11/22/17 11:36pm 11/23 2:52am SHAWNEE FELICIANO MD Discharged Inpatient [facility] 11/19/17 7:01am 11/21/17 2:30pm BRENT KELLEY MD Departed Emergency Room [facility] 11/13/17 12:43am 11/13 2:37am SHAWNEE FELICIANO MD Discharged Inpatient (obs) [facility] 02/25/17 2:24am 9:55pm ÁNGELA LANTIGUA MD Departed Emergency Room [facility] 02/24/17 9:56pm 11:17pm KYREE HUERTA MD Discharged Inpatient [facility] 02/06/17 11:15pm 9:04pm ÁNGELA LANTIGUA MD Discharged Inpatient (obs) [facility] 02/03/17 11:22pm 8:48pm KALYN LOUIS MD
[2017-11-26] MEDS ORDERED: ASPIRIN 81 MG CHEW TAB PO ONE ×2 (16:00→21:15)
--- NOTE | 2017-11-26 16:31 | Diagnostic Imaging Report ---
PROCEDURE:X-RAY CHEST, ONE VIEW COMPARISON:11/23/17. INDICATIONS:Chest pain. FINDINGS: Lungs/tubes: None. Cardiomediastinal silhouette is normal and stable in morphology. Calcifications of the aortic arch are stable. The lungs are clear. Costophrenic angles are sharp. No pneumothorax. Diffuse costochondral calcifications are stable. No focal osseous lesions. Degenerative changes of the right shoulder are stable. CONCLUSION: No acute cardiopulmonary process. Dictated by: Lo Nguyen M.D. on 11/26/2017 at 16:32 Electronically approved by: Lo Nguyen M.D. on 11/26/2017 at 16:32
[2017-11-26 18:47] LABS: BASOPHILS # (AUTO) 0.1 (0.0-0.1); BASOPHILS % 0.8 % (0.0-1.0); EOSINOPHILS # (AUTO) 0.2 (0.0-0.4); EOSINOPHILS % 2.8 % (0.0-6.0); HEMATOCRIT 38.3 % (34.2-44.1); LYMPHOCYTES # (AUTO) 2.1 (1.0-3.2); LYMPHOCYTES % 24.3 % (18.0-39.1); MEAN CORPUSCULAR HEMOGLOBIN 27.7 pg (28-32); MEAN CORPUSCULAR HGB CONC 31.3 g/dL (31-35); MEAN CORPUSCULAR VOLUME 88.5 fL (81-99); MONOCYTES # (AUTO) 0.9 (0.2-0.8); MONOCYTES % 11.1 % (4.4-11.3); NEUTROPHILS # (AUTO) 5.1 (2.1-6.9); NEUTROPHILS % 60.6 % (38.7-80.0); PLATELET COUNT 356 x10e3/uL (140-360); RED BLOOD COUNT 4.33 x10e6/uL (3.6-5.1); RED CELL DISTRIBUTION WIDTH 16.7 % (11.7-14.4)
[2017-11-26 18:58] LABS: INR 1.09; PROTHROMBIN TIME 13.3 seconds (11.9-14.5)
[2017-11-26 18:59] LABS: PARTIAL THROMBOPLASTIN TIME 33.3 seconds (23.8-35.5)
[2017-11-26 19:07] LABS: ALBUMIN 3.7 g/dL (3.5-5.0); ANION GAP 18.3 mmol/L (8-16); CALCIUM 7.8 mg/dL (8.4-10.2); CREATININE, SERUM 1.99 mg/dL (0.57-1.11); POTASSIUM 4.3 mmol/L (3.5-5.1)
[2017-11-26 19:15] LABS: CREATINE KINASE MB 2.3 ng/mL (0-5.0)
[2017-11-26 20:44] LABS: BILIRUBIN,URINE NEGATIVE (NEGATIVE); CLARITY,URINE CLEAR (CLEAR); COLOR,URINE YELLOW (YELLOW); KETONES,URINE NEGATIVE (NEGATIVE); LEUKOCYTE ESTERASE ,URINE NEGATIVE (NEGATIVE); NITRITE,URINE NEGATIVE (NEGATIVE); URINE UROBILINOGEN 0.2 mg/dL (0.2 - 1)
[2017-11-26 20:46] LABS: PROTEIN,URINE DIPSTICK 1+ (NEGATIVE)
[2017-11-26 20:56] LABS: BACTERIA,URINE RARE /HPF; MUCUS,URINE RARE (RARE); RBC,URINE 0-5 /HPF (0-5); WBC,URINE (MAN) 0-5 /HPF (0-5)
[2017-11-26] MEDS ORDERED: ONDANSETRON HCL INJ 2 MG/ML VIAL IV PRN (21:15)
[2017-11-26] MEDS ORDERED: TRAMADOL HCL 50 MG TAB PO PRN (21:15)
[2017-11-26] MEDS ORDERED: ZINC PO SCH (21:15)
[2017-11-26] MEDS ORDERED: SODIUM CHLORIDE FLUSH 10 ML SYR INJ PRN (21:15)
[2017-11-26] MEDS ORDERED: CALCIUM PO SCH (21:15)
[2017-11-26] MEDS ORDERED: MAGNESIUM PO SCH (21:15)
[2017-11-26] MEDS: HYDRALAZINE HCL 25 MG TAB PO SCH (21:38)
[2017-11-26] MEDS ORDERED: ASPIRIN 81 MG ENTERIC COATED PO ONE (21:39)
[2017-11-26] MEDS ORDERED: OYST-CAL-D 500MG TABLET PO PRN (21:45)
--- OUTSIDE RECORDS SUMMARY | 2017-11-26 21:49 | XMS REPORT | Clinical Summary ---
Author Author [facility] Address Unknown Phone Unavailable Care Team Providers Care Stencil Maker Name Role Phone PCP Unavailable Allergies Active [...] Date Type Specialty Care Team Description 02[facility]28[facility]2017 [facility] Chest pain, unspecified - Encounter [...] L Specimen Performing Laboratory Blood - Arm, [address] [address] Narrative 0.00 * CBC with platelet count + automated diff (03/10/2017 6:06 AM) Only the most recent of 12 results within the time period is included. Specimen Performing Laboratory Blood Narrative The following orders were created for panel order CBC with platelet count + automated diff. Procedure Abnormality Status --------- - ------ CBC with platelet count ...[[id number]]AbnormalFinal result Please view results for these tests on the individual orders. * Magnesium (03/10/2017 6:06 AM) Only the most recent of 12 results within the time period is included. Component Value Ref Range Magnesium 2.0Comment: Specimen slightly hemolyzed 1.6 - 2.6 mg/dL Specimen Performing Laboratory Blood - Arm, [address] [address] * Basic Metabolic Panel (03/10/2017 6:06 AM) [...] PATIENTS. Specimen Performing Laboratory Blood - Arm, [address] [address] * Digoxin level (03/07/2017 5:53 AM) Component Value Ref Range Digoxin Lvl 1.6 0.8 - 2.0 ng/mL Specimen Performing Laboratory Blood [address] [address] * ECG 12 lead (03/06/2017 9:56 PM) Only the most recent of 6 results within the time period is included. Specimen Performing Laboratory [facility] MUSE Narrative Ventricular Rate 42 BPM Atrial Rate 75 BPM P-R Interval 326 ms QRS Duration 72 ms Q-T Interval 414 ms QTC Calculation(Bazett) 345 ms P [place] 62 degrees R [place] -2 degrees T [place] 257 degrees Complete heart block ST & [...] 414 ms QTC Calculation(Bazett) 345 ms P [place] 62 degrees R [place] -2 degrees T [place] 257 degrees Complete heart block ST & T wave abnormality, consider inferolateral ischemia Abnormal ECG When compared with ECG of 05-MAR-2017 20:46, Serial changes of Septal infarct Present Confirmed by MD TATUM PATRICK J ([id number]) on 03/08/2017 10:29:14 AM * CT brain without IV contrast (03/06/2017 1:21 PM) Specimen Performing Laboratory [facility] RIS Narrative FINAL REPORT CT head without [...] MD Report Verified Date/Time:03/06/2017 13:28:05 Reading Location: [address] Neuro Reading Room Procedure Note Interface, [...] Report Verified Date/Time: 03/06/2017 13:28:05 Reading Location: [address] Neuro Reading Room * 2D Echo W/Doppler(CW/PW/Color) (03/04/2017 2:32 PM) Specimen Performing Laboratory [facility] Narrative Echocardiography Laboratory [address] [place] [address] Voice:[phone] Transthoracic Echocardiogram Pat.Name:PATITO JAQUEZ.ID:[id number] .Date: 03/04/2017Refer.MD:SURINDER MONCADA Exam Time: 2:32:00 PMStudy Type:Echo Complete Height:64inWeight:131lb BSA: 1.64 m2 DOBAge:1935 ,81Y Sex: FEMALEBP: 144/65 HR:68 bpmSonogrphr: Max Pinzon [facility] Pat. Stat.:Inpatient Room:1447 Reason for Study:Routine F/U [...] Mild MV leaflet thickening. Mild mitral regurgitation. Vyjcgejm-gx-agtxvdqtgvkp annular calcification. MV gradientsare moderately increased in [...] ml/m2 LA Area 26.1 cm2(8.8-23.4)* Parasternal Long [place] Ao An 1.91 cm (1.4-2.6) LV%fs 52.6 [...] - 03/04/2017 4:55 PM CDT Echocardiography Laboratory [address] [place] [id number] Voice: [phone] Transthoracic Echocardiogram Pat.Name: PATITO JAQUEZ Pat.ID: [id number] .Date: 03/04/2017 Refer.MD: SURINDER MONCADA Exam Time: 2:32:00 PM Study Type:Echo Complete Height: 64in Weight: 131lb BSA: 1.64 m2 Age: 4 1935,81Y Sex: FEMALE BP: 144/65 HR: 68 bpm Sonogrphr: Max Pinzon [facility] Pat. Stat.:Inpatient Room: [facility] Reason for Study:Routine F/U of significant [...] Mild MV leaflet thickening. Mild mitral regurgitation. Gjdjdsgb-ag-ygywpj mitral annular calcification. MV gradients are moderately [...] LA Area 26.1 cm2 (8.8-23.4)* Parasternal Long [place] Ao An 1.91 cm (1.4-2.6) LV%fs 52.6 [...] Specimen Performing Laboratory Blood - Arm, Right [address] [address] * TSH/Free T4 If Indicated (03/02/2017 1:10 AM) Component Value Ref Range TSH 14.13 (H) 0.35 - 4.94 uIU/mL Specimen Performing Laboratory Blood [address] [address] * T4, free (03/02/2017 1:10 AM) Component Value Ref Range Free T4 0.61 (L) 0.70 - 1.48 ng/dL Specimen Performing Laboratory Blood [address] [address] * Troponin I (02/28/2017 11:36 AM) Only the most recent of 3 results within the time period is included. Component Value Ref Range Troponin I 0.03 0.00 - 0.03 ng/mL Specimen Performing Laboratory Blood - Arm, Left [address] [address] Narrative Effective 08/16/2014: Reference Range Change New: [...] Specimen Performing Laboratory Blood - Arm, Right [address] [address] Narrative Effective 08/16/2014: CK-MB Reference Range Change [...] as sinus rhythm. Rate is normal rate. [place] is normal. Clinical Impression: non-specific ECGECG reviewed and does not meet STEMI criteria. Patient tolerance: Patient tolerated the procedure well with no immediate complications * PT/PTT (02/27/2017 11:35 PM) Component Value Ref Range Protime 15.5 (H) 11.7 - 14.7 seconds INR 1.2 <=5.9 PTT 36.5 (H) 22.5 - 36.0 seconds Specimen Performing [place] [address] Narrative RECOMMENDED COUMADIN/WARFARIN INR THERAPY RANGES STANDARD DOSE: 2.0 - 3.0 Includes: PROPHYLAXIS for venous thrombosis, systemic embolization; TREATMENT for venous thrombosis and/or pulmonary embolus. HIGH RISK: Target INR is 2.5-3.5 for patients with mechanical heart valves. * B-type Natriuretic Factor (BNP) (02/27/2017 11:35 PM) Component Value Ref Range BNP 233 (H) 0 - 100 pg/mL Specimen Performing Laboratory Blood [address] [address] * XR chest 2 views (02/27/2017 8:30 [...] MD Report Verified Date/Time:02/27/2017 20:33:46 Reading Location: [address] Neuro Reading Room Narrative FINAL REPORT [...] Report Verified Date/Time: 02/27/2017 20:33:46 Reading Location: [address] Neuro Reading Room after 11/25/2016
[2017-11-27] VITALS (7 sets, daily range): BP systolic 143–156; BP diastolic 63–71
[2017-11-27] MEDS: NITROGLYCERIN 2% OINT 1 GM PKT TOP SCH ×3 (00:11→12:13)
[2017-11-27] MEDS: HYDRALAZINE HCL 25 MG TAB PO SCH ×2 (05:00→15:17)
[2017-11-27 06:43] LABS: CHOL/HDL RATIO 3.8 (3.0-3.6)
[2017-11-27 06:53] LABS: CREATINE KINASE MB 1.6 ng/mL (0-5.0)
--- NOTE | 2017-11-27 06:56 | History and Physical ---
PRIMARY CARE PHYSICIAN: Dr. Rubalcava CHIEF COMPLAINT: Chest pain. HISTORY OF PRESENT ILLNESS: This is an 81-year-old woman, recently discharged from the hospital after bradyarrhythmia due to medications, now developing chest pain. Patient had just eaten a large meal, when she subsequently developed chest discomfort described as having discomfort, which was severe. I told her to order that, she would not need to go to the hospital. There was no radiation of the pain. Pain was really in the precordial region. There was some mild shortness of breath and mild dizziness, but the dizziness has been chronic. She denies any nausea, vomiting. Here, when she came to the hospital, the patient's chest pain resolved spontaneously without medications and she has remained chest pain free. Her 1st cardiac enzymes is negative. 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 PAST SURGICAL HISTORY: Radical neck dissection in 1960 for thyroid cancer, kidney stone management, appendectomy, heel bone spur. ALLERGIES: PER ELECTRONIC MEDICAL RECORD. FAMILY HISTORY/SOCIAL HISTORY: Patient is . She has 3 children. Remote history of smoking. No alcohol or illicits. MEDICATIONS: Per electronic medical record. REVIEW OF SYSTEMS: Denies any dizziness or chest pain at this time. PHYSICAL EXAMINATION VITAL SIGNS: Reviewed. GENERAL: A tired-appearing man resting in bed. HEENT: Anicteric. Pupils respond to light. No oral lesions. CARDIOVASCULAR: Normal S1 and S2. She has a 3/6 systolic murmur. LUNGS: Noted breath sounds. ABDOMEN: Soft, nontender, nondistended. EXTREMITIES: No edema or calf tenderness. NEUROLOGIC: Alert, oriented time 3 and moves all extremities. MUSCULOSKELETAL: No tenderness in the chest wall or epigastric region. SKIN: Dry. PSYCHIATRIC: Flat affect. LABS: Reviewed. MEDICATIONS: Reviewed. ASSESSMENT AND PLAN: This is an 81-year-old woman. 1. Chest pain. First cardiac enzymes negative. Will get a 2nd cardiac enzymes. Patient's last stress test was "a long time ago". 2. Chronic kidney disease, stage 4. Currently at baseline. 3. Gastroesophageal reflux disease. Will utilize proton pump inhibitor. 4. Systolic ejection murmur. She does have a history of mitral valve prolapse. 5. Hypothyroidism. She is on Synthroid. Her last thyroid-stimulating hormone early in October of this year was normal at 1.081. 6. Elevated brain natriuretic peptide. Brain natriuretic peptide is 392. 7. Elevated creatine kinase. Will recheck. 8. Hyperlipidemia. Continue atorvastatin. In October low-density lipoprotein was 95 and triglyceride was 165. 9. Prophylaxis. Will utilize heparin and Pepcid, as well as pantoprazole. 10. Disposition. Cardiology evaluation. Job#: [id number] CQ
[2017-11-27] MEDS ORDERED: PANTOPRAZOLE SOD 40 MG TABEC PO SCH (07:30)
[2017-11-27] MEDS: ISOSORBIDE DINITRATE 20 MG TAB PO SCH ×2 (08:34→15:17)
[2017-11-27] MEDS: FAMOTIDINE 20 MG TAB PO SCH ×2 (08:34→16:34)
[2017-11-27] MEDS: NITROFURANTOIN MACROCRYSTALS 100 MG CAP PO SCH ×2 (08:34→16:34)
[2017-11-27] MEDS ORDERED: FUROSEMIDE 20 MG TAB PO SCH (09:00)
[2017-11-27] MEDS ORDERED: THYROID 60 MG TAB PO SCH (09:00)
[2017-11-27] MEDS ORDERED: UBIDECARENONE PO SCH (09:00)
[2017-11-27] MEDS ORDERED: ALPRAZOLAM 0.5 MG TAB PO SCH (09:00)
[2017-11-27] MEDS ORDERED: HEPARIN SOD (PORCINE) 5,000 UNIT/ML VIAL SC SCH (09:00)
[2017-11-27] MEDS ORDERED: POTASSIUM CHLORIDE 10 MEQ TABCR PO SCH (09:00)
[2017-11-27] MEDS ORDERED: NON-FORMULARY MEDICATION (Magnesium Oxide (Magnesium) 500 MG) PO SCH (09:00)
[2017-11-27] MEDS ORDERED: HYDROCORTISONE 10 MG TAB PO SCH (09:00)
[2017-11-27] MEDS ORDERED: [UNRECOGNIZED DRUG - OTHER] PO SCH (09:00)
[2017-11-27] MEDS ORDERED: NON-FORMULARY MEDICATION (Potassium Chloride 8 MEQ) PO SCH (09:00)
[2017-11-27] MEDS ORDERED: ALPRAZOLAM 0.5 MG TAB PO PRN (09:00)
[2017-11-27] MEDS ORDERED: VITAMIN E MIXED PO SCH (09:00)
[2017-11-27] MEDS ORDERED: ASPIRIN 81 MG ENTERIC COATED PO SCH (09:00)
[2017-11-27] MEDS ORDERED: MULTIVITAMINS/MINERALS TAB PO SCH (09:00)
[2017-11-27] MEDS ORDERED: MAGNESIUM OXIDE 400 MG TAB PO SCH (09:00)
[2017-11-27 12:21] LABS: CREATINE KINASE MB 1.6 ng/mL (0-5.0)
[2017-11-27] MEDS ORDERED: NON-FORMULARY MEDICATION (Melatonin 10 MG) PO SCH (21:00)
[2017-11-27] MEDS ORDERED: MELATONIN 5 MG TABLET PO SCH (21:00)
[2017-11-27] MEDS ORDERED: ATORVASTATIN 20 MG TAB PO SCH (21:00)
[2017-11-27] MEDS ORDERED: ATORVASTATIN 10 MG TAB PO SCH ×2 (21:00)
== END 2017-11-27 18:44 | disposition home or self-care (01) ==
LOC: ER 15:02 → EDBEDREQ 21:30 → ERHOLD 21:45 → IMCU 22:59
PROVIDERS: ADMIT Internal Medicine; ATTEND Internal Medicine
DX: R07.2 Precordial pain (principal); N18.4 Chronic kidney disease, stage 4 (severe); E03.9 Hypothyroidism, unspecified; I38 Endocarditis, valve unspecified; E78.5 Hyperlipidemia, unspecified; R94.39 Abnormal result of other cardiovascular function study
CPT/HCPCS: 36415 ×2; 71045; 80053; 80061; 81001; 82550 ×2; 82553 ×2; 83880; 84484 ×2; 85025; 85610; 85730; 93005; 99284; G0378 ×2; J1644

== ENCOUNTER 2018-05-14 22:12 | Emergency (ER) | payer MEDICARE, BC ==
[~2018-05-14] VITALS: Ht 162.6 cm; Wt 56.2 kg
--- NOTE | 2018-05-14 23:03 | Diagnostic Imaging Report ---
Exam: Head CT without contrast History: Status post fall Comparison studies: Head CT of 02/06/2017. Brain MRI 02/07/2017. Technique: Axial images were obtained from the skull base to the vertex. Coronal and sagittal images reconstructed from the axial data. Intravenous contrast: None Findings: Scalp: No abnormalities. Bones: No fractures, blastic or lytic lesions. Brain sulci: Moderately prominent. Ventricles: Moderate compensatory dilatation. No hydrocephalus. Extra-axial spaces: No masses, no fluid collection. Parenchyma: No mass, acute hemorrhage or acute cortical vascular insults. Scattered small hypodensities in the supratentorial white matter are nonspecific and most compatible with chronic small vessel ischemic changes. Stable chronic lacunar infarcts in the right ventral thalamus and left rhodes radiata. Sellar/suprasellar region: No abnormalities. Craniocervical junction: Patent foramen magnum. No Chiari one malformation. Incidental findings: Atherosclerotic calcifications in the carotid siphons. Stable chronic inflammatory changes in the left mastoids which are partially opacified. IMPRESSION: No acute intracranial abnormalities. Chronic findings: 1. Moderate generalized volume loss. 2. Mild chronic microvascular ischemic changes. 3. Chronic lacunar infarcts in the right thalamus and left frontal centrum semiovale. Signed by: DR Rock Balderas M.D. on 05/14/2018 10:59 PM
--- NOTE | 2018-05-14 23:10 | Diagnostic Imaging Report ---
History: Fall Comparison studies: None Technique: Axial images were obtained through the cervical region.. Coronal and sagittal images reconstructed from the axial data.. Intravenous contrast: None Findings: . Fractures: None. Soft tissues: No gross acute abnormalities. Surgical changes in the right neck. Atherosclerotic changes of the carotid bulbs prominent on the left side where heavy plaque seen. Atlantoaxial articulation: No acute abnormality. Degenerative changes. Alignment: Normal lordosis. No scoliosis. Cervicomedullary junction: No abnormalities. The foramen magnum is patent. Vertebrae: No infection or neoplasm. Degenerative changes: Anterior flowing osteophytes from C3 through T1, most likely related to DISH Uncinate process hypertrophy and facet hypertrophy results in mild multilevel foraminal narrowing at the mid cervical spine. IMPRESSION: 1. No acute cervical spine abnormalities. Degenerative changes as described above. 2. Cannot exclude ligament, spinal cord and or vascular abnormalities on the basis of this examination. Signed by: DR Rock Balderas M.D. on 05/14/2018 11:07 PM
== END 2018-05-15 01:04 | disposition home or self-care (01) ==
LOC: ER 22:12
DX: S00.83XA Contusion of other part of head, initial encounter (principal); R51 Headache; W18.39XA Other fall on same level, initial encounter; Y92.008 Other place in unspecified non-institutional (private) residence as the place of occurrence of the external cause; F03.90 Unspecified dementia, unspecified severity, without behavioral disturbance, psychotic disturbance, mood disturbance, and anxiety; E78.5 Hyperlipidemia, unspecified; M10.9 Gout, unspecified; Z85.850 Personal history of malignant neoplasm of thyroid
CPT/HCPCS: 70450; 72125; 99283

== ENCOUNTER 2018-06-21 18:53 | Emergency (ER) | payer MEDICARE, BC ==
[~2018-06-21] VITALS: Ht 162.6 cm; Wt 67.6 kg
[~2018-06-21 18:53] MED LIST changes: +ASPIRIN EC81 MG PO; +CALCITRIOL0.25 MCG PO; +CALCIUM CARBON500 MG PO; +CLONIDINE HCL0.1 MG PO; +MELATONIN 5 MG1 EACH PO; +METOCLOPRAMIDE10 MG PO; +NITROGLYCERIN0.4 MG SL; +NORVASC10 MG PO; +PROTONIX40 MG/ML PO; +RANEXA500 MG PO; +UBIQUINOL100 MG PO; +ULTRAM 50MG50 MG PO
[2018-06-21] MEDS ORDERED: ASPIRIN 81 MG CHEW TAB PO ONE (19:30)
[2018-06-21 19:44] LABS: BILIRUBIN,URINE NEGATIVE (NEGATIVE); CLARITY,URINE CLEAR (CLEAR); COLOR,URINE YELLOW (YELLOW); KETONES,URINE NEGATIVE (NEGATIVE); LEUKOCYTE ESTERASE ,URINE NEGATIVE (NEGATIVE); NITRITE,URINE NEGATIVE (NEGATIVE); PROTEIN,URINE DIPSTICK 2+ (NEGATIVE); URINE UROBILINOGEN 0.2 mg/dL (0.2 - 1)
[2018-06-21 19:47] LABS: EPITHELIAL CELLS,URINE FEW /LPF; MUCUS,URINE FEW (RARE); RBC,URINE 0-5 /HPF (0-5); WBC,URINE (MAN) 0-5 /HPF (0-5)
[2018-06-21 19:59] LABS: ALBUMIN 3.8 g/dL (3.5-5.0); ALBUMIN/GLOBULIN RATIO 1.2 (0.8-2.0); ANION GAP 17.5 mmol/L (8-16); CREATININE, SERUM 2.33 mg/dL (0.57-1.11); POTASSIUM 3.5 mmol/L (3.5-5.1)
[2018-06-21 20:05] LABS: CREATINE KINASE MB 1.7 ng/mL (0-5.0)
--- NOTE | 2018-06-21 20:11 | Diagnostic Imaging Report ---
EXAM: CHEST SINGLE (NOT PORTABLE), AP 1 view INDICATION: Shortness of breath COMPARISON: AP view of the chest June 14, 2018 FINDINGS: LINES/TUBES: None LUNGS: No consolidations or edema. PLEURA: No effusions or pneumothorax. HEART AND MEDIASTINUM: Normal size and contour. BONES AND SOFT TISSUES: No acute findings. IMPRESSION: No evidence of pneumonia. Signed by: Dr. Cindy Win M.D. on 06/21/2018 8:06 PM
[2018-06-21 21:34] LABS: BASOPHILS # (AUTO) 0.1 (0.0-0.1); BASOPHILS % 0.7 % (0.0-1.0); EOSINOPHILS # (AUTO) 0.2 (0.0-0.4); EOSINOPHILS % 2.4 % (0.0-6.0); HEMATOCRIT 36.5 % (34.2-44.1); HEMOGLOBIN 11.4 g/dL (12.0-16.0); LYMPHOCYTES # (AUTO) 1.5 (1.0-3.2); LYMPHOCYTES % 16.9 % (18.0-39.1); MEAN CORPUSCULAR HEMOGLOBIN 29.8 pg (28-32); MEAN CORPUSCULAR HGB CONC 31.2 g/dL (31-35); MEAN CORPUSCULAR VOLUME 95.3 fL (81-99); MONOCYTES % 12.1 % (4.4-11.3); NEUTROPHILS # (AUTO) 5.8 (2.1-6.9); NEUTROPHILS % 67.6 % (38.7-80.0); PLATELET COUNT 247 x10e3/uL (140-360); RED BLOOD COUNT 3.83 x10e6/uL (3.6-5.1); RED CELL DISTRIBUTION WIDTH 17.4 % (11.7-14.4)
== END 2018-06-22 00:30 | disposition home or self-care (01) ==
LOC: ER 18:53
DX: R06.09 Other forms of dyspnea (principal); I10 Essential (primary) hypertension; F03.90 Unspecified dementia, unspecified severity, without behavioral disturbance, psychotic disturbance, mood disturbance, and anxiety; E78.5 Hyperlipidemia, unspecified; M10.9 Gout, unspecified; Z85.850 Personal history of malignant neoplasm of thyroid; Z87.891 Personal history of nicotine dependence
CPT/HCPCS: 36415; 71045; 80053; 81001; 82550; 82553; 83735; 84484; 85025; 93005; 99284

== ENCOUNTER 2018-07-18 03:41 | Observation (INO) | payer MEDICARE, BC ==
[~2018-07-18] VITALS: Ht 162.6 cm; Wt 57.8 kg
--- OUTSIDE RECORDS SUMMARY | 2018-07-18 03:44 | XMS REPORT | Clinical Summary ---
Author Author FÉLIX [facility] Address Unknown Phone Unavailable Care Team Providers Care [employer] Attendant Name Role Phone PCP Unavailable Allergies Active [...] by mouth Active 100 MG tablet daily. ergocalciferol (VITAMIN Take 50,000 Units by Active D2) 50,000 unit capsule mouth once a week Every Friday. melatonin 10 mg Cap Take 10 mg by mouth every Active night as needed. thyroid, pork, (ARMOUR Take 120 mg by mouth Active THYROID) 120 mg Tab daily. amLODIPine (NORVASC) 10 Take 10 mg by mouth Active MG tablet daily. ranolazine (RANEXA) 500 Take 500 mg by mouth 2 Active MG 12 hr tablet (two) times daily. calcitriol (ROCALTROL) Take 0.25 mcg by mouth Active 0.25 MCG capsule daily . furosemide (LASIX) 20 MG Take 20 mg by mouth daily Active tablet Takes only on Friday, Friday, Friday, , and Vitaliy . pantoprazole (PROTONIX) Take 40 mg by mouth 2 Active 40 MG tablet (two) times daily before meals. aspirin 81 MG EC tablet Take 81 mg by mouth Active daily. nitroglycerin (NITROSTAT) Place 0.3 mg under the Active 0.3 MG SL tablet tongue every 5 (five) minutes as needed for Chest pain Put 1 pill under tongue every 5min as needed for chest pain.No more than 3 doses in 15min.Call 911 if pain is unrelieved 5min after 1st dose . cloNIDine HCl (CATAPRES) Take 0.1 mg by mouth Active 0.1 MG tablet every 4 (four) hours as needed (for sbp > 160). metoprolol (LOPRESSOR) 25 Take 0.5 tablets (12.5 mg 30 tablet 0 06/25/20 06/25/20 Active MG tablet total) by mouth 2 (two) 18 19 times daily. sevelamer (RENVELA) 800 Take 1 tablet (800 mg 90 tablet 0 06/25/20 06/25/20 Active mg tablet total) by mouth 3 (three) 18 19 times daily with meals. calcium acetate (PHOSLO) Take 1,334 mg by mouth 3 06/23/20 Discontin 667 mg capsule (three) times daily with 18 ued meals . potassium chloride Take 8 mEq by mouth daily 06/25/20 Discontin (KLOR-CON) 8 MEQ CR Only takes 5x/week. Skip 18 ued tabletIndications: take every Fri and Friday.. dose 5 days out of the week calcium carbonate Take 600 mg by mouth 2 06/25/20 Discontin (OS-SYED) 600 mg (1,500 (two) times daily with 18 ued mg) Tab breakfast and dinner. thyroid, pork, 90 mg Tab Take 1 tablet (90 mg 30 tablet 1 03/10/20 06/23/20 Discontin total) by mouth daily 17 18 ued Brand necessary. flecainide (TAMBOCOR) 50 Take 1 tablet (50 mg 60 tablet 1 03/10/20 03/10/20 MG tablet total) by mouth every 12 17 18 (twelve) hours. metoprolol (TOPROL-XL) 25 Take 1 tablet (25 mg 30 tablet 1 03/10/20 03/10/20 MG 24 hr tablet total) by mouth nightly. 17 18 metoclopramide HCl Take 10 mg by mouth 4 06/25/20 Discontin (REGLAN) 10 MG tablet (four) times daily before 18 ued meals and nightly. cloNIDine HCl (CATAPRES) Take 0.1 mg by mouth 06/25/20 Discontin 0.1 MG tablet every 6 (six) hours as 18 ued needed For sbp >160 . coenzyme Q10 100 mg Take 100 mg by mouth 06/25/20 Discontin capsule daily. 18 ued metoprolol (TOPROL-XL) 50 Take 50 mg by mouth 06/25/20 Discontin MG 24 hr tablet daily. 18 ued metoclopramide HCl Take 10 mg by mouth 4 06/25/20 Discontin (REGLAN) 10 MG tablet (four) times daily. 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) - Encounter Pedro Luis Ya MD (Primary Dx) 06/25/2018 06/23/2018 Orders Only General Internal Medicine after 07/17/2017 Social History Tobacco Use Types Packs/Day Years Used Date Never Smoker Alcohol Use Drinks/Week oz/Week Comments No Sex Assigned at Date Recorded Not on file Last Filed Vital Signs Vital Sign Reading Time Taken Blood Pressure 157/67 06/25/2018 3:14 PM CDT Pulse 65 06/25/2018 3:14 PM CDT Temperature 36.5 C (97.7 F) 06/25/2018 3:14 PM CDT Respiratory Rate 18 06/25/2018 3:14 PM CDT Oxygen Saturation 98% 06/25/2018 3:14 PM CDT Inhaled Oxygen - - Concentration Weight 51.6 kg (113 lb 11.2 oz) 06/25/2018 7:35 AM CDT Height - - Body Mass Index 19.51 06/25/2018 7:35 AM CDT Plan of Treatment Not on file Results * RHYTHM STRIP - SCAN (06/26/2018 2:40 PM) * ECHOCARDIOGRAM REPORT - SCAN (06/25/2018 9:00 AM) * CBC with platelet count + automated diff (06/25/2018 6:24 AM) Only the most recent of 3 results within the time period is included. Component Value Ref Range WBC 8.2 3.5 - 10.5 K/L RBC 3.22 (L) 3.93 - 5.22 M/L Hemoglobin 9.6 (L) 11.2 - 15.7 GM/DL Hematocrit 30.9 (L) 34.1 - 44.9 % MCV 96.0 (H) 79.4 - 94.8 fL MCH 29.8 25.6 - 32.2 pg MCHC 31.1 (L) 32.2 - 35.5 GM/DL RDW 16.8 (H) 11.7 - 14.4 % Platelets 208 150 - 450 K/CU MM MPV 11.1 9.4 - 12.3 fL nRBC 0 0 - 0 /100 WBC % Neutros 65 % % Lymphs 22 % % Monos 10 % % Eos 2 % % Baso 0 % # Neutros 5.34 1.56 - 6.13 K/L # Lymphs 1.82 1.18 - 3.74 K/L # Monos 0.84 (H) 0.24 - 0.36 K/L # Eos 0.19 0.04 - 0.36 K/L # Baso 0.02 0.01 - 0.08 K/L Immature 0 0 - 1 % Granulocytes-Relative Specimen Performing Laboratory Blood - Arm, Right [address] [address] * CBC with platelet count + automated diff (06/25/2018 6:24 AM) Only the most recent of 3 results within the time period is included. Specimen Performing Laboratory Blood Narrative The following orders were created for panel order CBC with platelet count + automated diff. Procedure Abnormality Status --------- ------ CBC with platelet count ...[[id number]]AbnormalFinal result Please view results for these tests on the individual orders. * Basic Metabolic Panel (06/25/2018 6:24 AM) Only the most recent of 2 results within the time period is included. Component Value Ref Range Sodium 142 136 - 145 meq/L Potassium 3.0 (L) 3.5 - 5.1 meq/L Chloride 103 98 - 107 meq/L CO2 29 22 - 29 meq/L BUN 34 (H) 7 - 21 mg/dL Creatinine 1.87 (H) 0.57 - 1.25 mg/dL Glucose 157 (H) 70 - 105 mg/dL Calcium 7.5 (L) 8.4 - 10.2 mg/dL EGFR 26Comment: ESTIMATED GFR IS NOT ACCURATE mL/min/1.73 sq m CREATININE CLEARANCE IN PREDICTING GLOMERULAR FILTRATION RATE. ESTIMATED GFR IS NOT APPLICABLE FOR DIALYSIS PATIENTS. 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 Physician MD Le FellowAlexandTONY Johnson Procedure Type of Study TTE procedure:2DECHO W DOPPLER(CW/PW/COLOR) (EJ) Indications:Acute Chest Pain/ Suspected CAD. Clinical History DEMENTIA;CANCER;HLD;MVP;SUPRA VENT TACHY HGB 9.9 HCT 31.5 % Height: 64 inches Weight: 50.35 kg (111 lbs) BSA: 1.52 m^2 BMI: 19.05 kg/m^2 HR: 67 bpm BP: 155/66 mmHg Summary The left ventricle is chamber size (by vol index) is normal. Clwq-ah-ygvydbrb concentric LV hypertrophy. All of the LV segments contract normally . LVEF by Wallace's method of disk assessment is normal (>60%) . Diastolic function is indeterminate given MAC. There is an intracavitary gradient of up to 70 mmHg. Mild MIRIAM was noted. Moderate aortic stenosis (pkvel 2.8 m/s, mngrad 17 mmHg, BRIGETTE 1.4 cm2, DI 0.51 - small LVOT). There is moderate leaflet thickening. Mean pressure gradient across the MV is approximately 10 mmHg at 60 HR. The gradients are increased at least in part due to MAC. MVA by PHT and planimetry is approximately 1.5 cm2, consistent with moderate to severe mitral stenosis. Gradients across AoV and MV contributed by dynamic state of LV. Estimated peak systolic PA pressure is approximately 45 mmHg. A small pericardial effusion is noted. Previous Study In comparison with the prior exam 03/04/2017 the following changes are noted: gradients across the MV have increased. The size of the pericardial effusion has decreased. Signature Findings Rhythm/BPRegular rhythm during the exam. Left Ventricle The left ventricle is chamber size (by vol index) is normal. Zktg-kz-tytdmewr concentric LV hypertrophy. All of the LV segments contract normally . LVEF by Wallace's method of disk assessment is normal (>60%) . Diastolic function is indeterminate given MAC. There is an intracavitary gradient of up to 70 mmHg. Mild MIRIAM was noted. Left AtriumLA size is severely enlarged (>48 ml/m2) . Right VentricleThe right ventricular chamber size and systolic function are within normal limits. Right Atrium RA size is normal. Aortic Valve Aortic annular calcification noted. Moderate leaflet thickening. Trace-mild AR. Moderate aortic stenosis (pkvel 2.8 m/s, mngrad 17 mmHg, BRIGETTE 1.44 cm2, DI 0.51 - small LVOT). Mitral Valve There is moderate to severe mitral annular calcification (MAC). There is moderate leaflet thickening. Mean pressure gradient across the MV is approximately 10 mmHg at 60 HR. The gradients are increased at least in part due to MAC. MVA by PHT and planimetry is approximately 1.5 cm2, consistent with moderate to severe mitral stenosis. Tricuspid ValveTV structure is normal. A trace of tricuspid regurgitation. Estimated peak systolic PA pressure is approximately 45 mmHg. Pulmonic Valve Mild MD. AortaAortic root size (Sinus of Valsalva di ameter) is normal . PericardiumA small pericardial effusion is noted. IVC/SVC/PA/PV/PleuralThe inferior vena cava size is small . The estimated RA pressure by IVC dynamics 0-5mmHg . Chambers/Structures Left Atrium LA Volume: 75.21 ml LA Area: 23.44 cm^2 LA Vol. Index: 49 ml/m^2 Left Ventricle LVIDd: 3.13 cm LVEDV:43.11 ml LVIDs: 2.54 cm LVESV:15.46 ml LV Septum Diastolic: 1.28 cm LVEF 2D Cube: 55.7 % LV Septum Systolic: 1.84 cm LV PW Diastolic: 1.28 cm LV FS: 18.9 % LV PW Systolic: 1.36 cm LVEDV Wallace's:49.48 ml LVEDVI: 33 ml/m^2 LVESV Wallace's:16.49 ml LVESVI: 11 ml/m^2 LVEF Wallace's: 66.7 % LVOT Diameter: 1.9 cm LVEF: 64.1 % Aorta Ao Root S of Asya.: 2.65 cm Doppler/Quantitative Measurements Mitral Valve MV Peak E-Wave: 1.99 m/s MV Peak A-Wave: 1.47 m/s P1/2t: 147 msecE/A Ratio: 1.35 Peak Gradient: 15.77 mmHg Deceleration Time: 415.3 msec MV Area (PHT): 1.5 cm^2 MV Abel. Peak: Aortic Valve Peak Velocity: 2.79 m/sMean Velocity: 1.86 m/s Peak Gradient: 31.19 mmHgMean Gradient: 16.55 mmHg AV Area (continuity): 1.44 cm^2 AV VTI: 64.94 cm AV DVI: 0.51 LVOT Peak Velocity: 1.45 m/s Peak Gradient: 8.38 mmHg Mean Velocity: 0.86 m/s Mean Gradient: 3.8 mmHg LVOT Diameter: 1.9 cm LVOT VTI: 33.06 cm LVOT Area: 2.84 cm^2LVOT SV:93.69 ml LVOT CO: 6.28 l/min LVOT CI: 4.13 l/min/m^2 Tricuspid Valve TR Velocity: 3.29 m/s TR Gradient: 43.2 mmHg Procedure Note Interface, External Ris In - 06/25/2018 8:17 AM CDT Transthoracic Echocardiography Report (TTE) Demographics Patient Name PATITO JAQUEZ Date of Study 06/24/2018 Gender Female Visit Number [id number] Race Unknown Room Number 1455 Number Date of 1935 Referring SG CARRILLO Physician Age 82 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 Clinical History DEMENTIA;CANCER;HLD;MVP;SUPRA VENT TACHY HGB 9.9 HCT 31.5 % Height: 64 inches Weight: 50.35 kg (111 lbs) BSA: 1.52 m^2 BMI: 19.05 kg/m^2 HR: 67 bpm BP: 155/66 mmHg Summary The left ventricle is chamber size (by vol index) is normal. Nuqy-nw-iswqvaed concentric LV hypertrophy. All of the LV segments contract normally . LVEF by Wallace's method of disk assessment is normal (>60%) . Diastolic function is indeterminate given MAC. There is an intracavitary gradient of up to 70 mmHg. Mild MIRIAM was noted. Moderate aortic stenosis (pkvel 2.8 m/s, mngrad 17 mmHg, BRIGETTE 1.4 cm2, DI 0.51 - small LVOT). There is moderate leaflet thickening. Mean pressure gradient across the MV is approximately 10 mmHg at 60 HR. The gradients are increased at least in part due to MAC. MVA by PHT and planimetry is approximately 1.5 cm2, consistent with moderate to severe mitral stenosis. Gradients across AoV and MV contributed by dynamic state of LV. Estimated peak systolic PA pressure is approximately 45 mmHg. A small pericardial effusion is noted. Previous Study In comparison with the prior exam 03/04/2017 the following changes are noted: gradients across the MV have increased. The size of the pericardial effusion has decreased. Signature Findings Rhythm/BP Regular rhythm during the exam. Left Ventricle The left ventricle is chamber size (by vol index) is normal. Yksl-zr-sklbawzs concentric LV hypertrophy. All of the LV segments contract normally . LVEF by Wallace's method of disk assessment is normal (>60%) . Diastolic function is indeterminate given MAC. There is an intracavitary gradient of up to 70 mmHg. Mild MIRIAM was noted. Left Atrium LA size is severely enlarged (>48 ml/m2) . Right Ventricle The right ventricular chamber size and systolic function are within normal limits. Right Atrium RA size is normal. Aortic Valve Aortic annular calcification noted. Moderate leaflet thickening. Trace-mild AR. Moderate aortic stenosis (pkvel 2.8 m/s, mngrad 17 mmHg, BRIGETTE 1.44 cm2, DI 0.51 - small LVOT). Mitral Valve There is moderate to severe mitral annular calcification (MAC). There is moderate leaflet thickening. Mean pressure gradient across the MV is approximately 10 mmHg at 60 HR. The gradients are increased at least in part due to MAC. MVA by PHT and planimetry is approximately 1.5 cm2, consistent with moderate to severe mitral stenosis. Tricuspid Valve TV structure is normal. A trace of tricuspid regurgitation. Estimated peak systolic PA pressure is approximately 45 mmHg. Pulmonic Valve Mild MD. Aorta Aortic root size (Sinus of Valsalva diameter) is normal . Pericardium A small pericardial effusion is noted. IVC/SVC/PA/PV/Pleural The inferior vena cava size is small . The estimated RA pressure by IVC dynamics 0-5mmHg . Chambers/Structures Left Atrium LA Volume: 75.21 ml LA Area: 23.44 cm^2 LA Vol. Index: 49 ml/m^2 Left Ventricle LVIDd: 3.13 cm LVEDV:43.11 ml LVIDs: 2.54 cm LVESV:15.46 ml LV Septum Diastolic: 1.28 cm LVEF 2D Cube: 55.7 % LV Septum Systolic: 1.84 cm LV PW Diastolic: 1.28 cm LV FS: 18.9 % LV PW Systolic: 1.36 cm LVEDV Wallace's:49.48 ml LVEDVI: 33 ml/m^2 LVESV Wallace's:16.49 ml LVESVI: 11 ml/m^2 LVEF Wallace's: 66.7 % LVOT Diameter: 1.9 cm LVEF: 64.1 % Aorta Ao Root S of Asya.: 2.65 cm Doppler/Quantitative Measurements Mitral Valve MV Peak E-Wave: 1.99 m/s MV Peak A-Wave: 1.47 m/s P1/2t: 147 msec E/A Ratio: 1.35 Peak Gradient: 15.77 mmHg Deceleration Time: 415.3 msec MV Area (PHT): 1.5 cm^2 MV Abel. Peak: Aortic Valve Peak Velocity: 2.79 m/s Mean Velocity: 1.86 m/s Peak Gradient: 31.19 mmHg Mean Gradient: 16.55 mmHg AV Area (continuity): 1.44 cm^2 AV VTI: 64.94 cm AV DVI: 0.51 LVOT Peak Velocity: 1.45 m/s Peak Gradient: 8.38 mmHg Mean Velocity: 0.86 m/s Mean Gradient: 3.8 mmHg LVOT Diameter: 1.9 cm LVOT VTI: 33.06 cm LVOT Area: 2.84 cm^2 LVOT SV:93.69 ml LVOT CO: 6.28 l/min LVOT CI: 4.13 l/min/m^2 Tricuspid Valve TR Velocity: 3.29 m/s TR Gradient: 43.2 mmHg * XR chest 1 view portable / bedside (06/24/2018 7:00 AM) Specimen Performing Laboratory GE RIS Narrative FINAL REPORT CLINICAL HISTORY: sob TECHNIQUE: 1 view of the chest. COMPARISON: 02/27/2017 IMPRESSION: There are no focal infiltrates or effusions. The cardiomediastinal silhouette is magnified by technique. The visualized bones are intact. Signed: Tristan Su MD Report Verified Date/Time:06/24/2018 08:03:40 Reading Location: [facility] Radiology Reading Room Procedure Note Interface, External Ris In - 06/24/2018 8:05 AM CDT FINAL REPORT CLINICAL HISTORY: sob TECHNIQUE: 1 view of the chest. COMPARISON: 02/27/2017 IMPRESSION: There are no focal infiltrates or effusions. The cardiomediastinal silhouette is magnified by technique. The visualized bones are intact. Signed: Tristan Su MD Report Verified Date/Time: 06/24/2018 08:03:40 Reading Location: [facility] Radiology Reading Room * Troponin I (06/24/2018 3:25 AM) Only the most recent of 2 results within the time period is included. Component Value Ref Range Troponin I 0.07 (H) 0.00 - 0.03 ng/mL Specimen Performing Laboratory Blood - Arm, [place] [address] Narrative Troponin I (TnI) levels must be interpreted [...] acute neurological disease, and persistent tachyarrhythmia. * Phosphorus (06/24/2018 2:12 AM) Only the most recent of 2 results within the time period is included. Component Value Ref Range Phosphorus 5.2 (H) 2.3 - 4.7 mg/dL Specimen Performing Laboratory Blood - Line, Venous [address] [address] * Magnesium (06/24/2018 2:12 AM) Only the most recent of 2 results within the time period is included. Component Value Ref Range Magnesium 1.7 1.6 - 2.6 mg/dL Specimen Performing Laboratory Blood - Line, Venous [facility] [address] [address] * ECG 12 lead (06/23/2018 11:14 PM) Specimen Performing Laboratory [employer] MUSE Narrative Ventricular Rate 70 BPM Atrial Rate 70 BPM P-R Interval 262 ms QRS Duration 86 ms Q-T Interval 434 ms QTC Calculation(Bazett) 468 ms P [place] 77 degrees R [place] -24 degrees T [place] 60 degrees Sinus rhythm with 1st degree A-V block Poor R wave progression Cannot rule out Possible Anterior infarct , age undetermined Prolonged QT Abnormal ECG When compared with ECG of 23-JUN-2018 23:07, Sinus rhythm with first degree AV block has replaced complete heart block Confirmed by Daniela MITTAL BASANT ([id number]) on 06/24/2018 10:52:11 AM Procedure Note Interface, External Ris In - 06/24/2018 10:52 AM CDT Ventricular Rate 70 BPM Atrial Rate 70 BPM P-R Interval 262 ms QRS Duration 86 ms Q-T Interval 434 ms QTC Calculation(Bazett) 468 ms P [place] 77 degrees R [place] -24 degrees T [place] 60 degrees Sinus rhythm with 1st degree A-V block Poor R wave progression Cannot rule out Possible Anterior infarct , age undetermined Prolonged QT Abnormal ECG When compared with ECG of 23-JUN-2018 23:07, Sinus rhythm with first degree AV block has replaced complete heart block Confirmed by Daniela MITTAL BASANT ([id number]) on 06/24/2018 10:52:11 AM * CT brain without IV contrast (06/23/2018 9:45 PM) Specimen Performing Laboratory [employer] RIS Narrative FINAL REPORT CT, BRAIN, WITHOUT CONTRAST INDICATION: headache TECHNIQUE: Noncontrast axial imaging was obtained from the vertex to the skull base. Axial images were reconstructed using a bone algorithm. DOSE REDUCTION: Dose modulation, iterative reconstruction, and/or weight-based adjustment of the mA/kV was utilized to reduce the radiation dose to as low as reasonably achievable. COMPARISON: March 06, 2017 FINDINGS: Cerebral parenchyma: Moderate to severe volume loss. Stable deep white matter changes and lacunar infarct in the right basal ganglia. Calcifications in the basal ganglia are likely metabolic/physiologic. No infarct or hemorrhage. Midline structures: Normally positioned. Cerebellum and brainstem: Commensurate volume loss. Ventricles: Passive expansion. Extra-axial spaces: Opacification. Calvarium and skull base: Intact. Paranasal sinuses and mastoid air cells: Visible chambers are clear. Orbital contents: Included portions unremarkable. Additional findings: None. IMPRESSION: Chronic involutional changes without acute intracranial abnormality. If there is persistent clinical concern for intracranial pathology, MR examination is recommended for further characterization. Signed: JR Malcolm Robert MD Report Verified Date/Time:06/23/2018 22:03:44 Reading Location: [facility] C013Y CT Body Reading Room Procedure Note Interface, External Ris In - 06/23/2018 10:08 PM CDT FINAL REPORT CT, BRAIN, WITHOUT CONTRAST INDICATION: headache TECHNIQUE: Noncontrast axial imaging was obtained from the vertex to the skull base. Axial images were reconstructed using a bone algorithm. DOSE REDUCTION: Dose modulation, iterative reconstruction, and/or weight-based adjustment of the mA/kV was utilized to reduce the radiation dose to as low as reasonably achievable. COMPARISON: March 06, 2017 FINDINGS: Cerebral parenchyma: Moderate to severe volume loss. Stable deep white matter changes and lacunar infarct in the right basal ganglia. Calcifications in the basal ganglia are likely metabolic/physiologic. No infarct or hemorrhage. Midline structures: Normally positioned. Cerebellum and brainstem: Commensurate volume loss. Ventricles: Passive expansion. Extra-axial spaces: Opacification. Calvarium and skull base: Intact. Paranasal sinuses and mastoid air cells: Visible chambers are clear. Orbital contents: Included portions unremarkable. Additional findings: None. IMPRESSION: Chronic involutional changes without acute intracranial abnormality. If there is persistent clinical concern for intracranial pathology, MR examination is recommended for further characterization. Signed: JR Malcolm Robert MD Report Verified Date/Time: 06/23/2018 22:03:44 Reading Location: [facility] B1 C013Y CT Body Reading Room * CT chest without IV contrast (06/23/2018 9:45 PM) Specimen Performing Laboratory GE RIS Narrative FINAL REPORT CT of the Chest, abdomen and pelvis dated 06/23/2018 Clinical information: abdominal pain, decreased po intake Comment:Axial images of the chest, abdomen, and pelvis were obtained from thoracic inlet to the pubic symphysis without GI or intravenous contrast. This exam was performed according to our departmental dose-optimization program, which includes automated exposure control, adjustment of the mA and/or kV according to patient size and/or use of interactive reconstruction technique. Heart is normal in size. Atherosclerotic calcification seen in the thoracic aorta and coronary arteries. There is calcification of the mitral valve. Great vessels are unremarkable. No adenopathy in the mediastinum or perihilar region. Trachea and mainstem bronchi are patent. There is ossification of the trachea and bilateral mainstem bronchi. Subsegmental atelectasis is seen in the right lower lobe. The rest of the lungs are clear.No nodular, mass lesion or airspace disease is noted.No interstitial disease or bronchiectasis is present. Areas pleural effusion seen on the right. Liver and spleen are normal in size. A 9 mm calcification granuloma is seen in the segment 4 of the liver. A 3 mm calcified granuloma is seen in the segment 2 of the liver. Gallbladder is contracted. No gallstone or biliary dilatation is noted. Pancreas and adrenals are unremarkable. Both kidneys are normal in size.No hydronephrosis, hydroureter, or urolithiasis is noted. The opacified small and large bowel are suboptimally evaluated secondary to lack of GI and intravenous contrast. No small or large bowel dilatation is seen. Appendix is not visualized. Vascular calcification is seen in the abdominal aorta, splenic, hepatic, superior mesenteric, and bilateral iliac arteries. Degenerative changes are seen in the dorsal spine. No mass, adenopathy or ascites is present in the abdomen or pelvis. Impression: 1. Trace right pleural effusion with right lower lobe subsegmental atelectasis. 2. Vascular calcification in the thoracic and abdominal aorta and branch vessels. 3. No mass or adenopathy in the chest, abdomen, pelvis. 4. No mechanical obstruction or ileus. 5. Degenerative changes in the dorsal spine. Signed: Allie Estrella MD Report Verified Date/Time:06/23/2018 22:41:25 Reading Location: [facility] C0[facility] Consult Reading Room Procedure Note Interface, External Ris In - 06/25/2018 5:21 PM CDT FINAL REPORT CT of the Chest, abdomen and pelvis dated 06/23/2018 Clinical information: abdominal pain, decreased po intake Comment: Axial images of the chest, abdomen, and pelvis were obtained from thoracic inlet to the pubic symphysis without GI or intravenous contrast. This exam was performed according to our departmental dose-optimization program, which includes automated exposure control, adjustment of the mA and/or kV according to patient size and/or use of interactive reconstruction technique. Heart is normal in size. Atherosclerotic calcification seen in the thoracic aorta and coronary arteries. There is calcification of the mitral valve. Great vessels are unremarkable. No adenopathy in the mediastinum or perihilar region. Trachea and mainstem bronchi are patent. There is ossification of the trachea and bilateral mainstem bronchi. Subsegmental atelectasis is seen in the right lower lobe. The rest of the lungs are clear. No nodular, mass lesion or airspace disease is noted. No interstitial disease or bronchiectasis is present. Areas pleural effusion seen on the right. Liver and spleen are normal in size. A 9 mm calcification granuloma is seen in the segment 4 of the liver. A 3 mm calcified granuloma is seen in the segment 2 of the liver. Gallbladder is contracted. No gallstone or biliary dilatation is noted. Pancreas and adrenals are unremarkable. Both kidneys are normal in size. No hydronephrosis, hydroureter, or urolithiasis is noted. The opacified small and large bowel are suboptimally evaluated secondary to lack of GI and intravenous contrast. No small or large bowel dilatation is seen. Appendix is not visualized. Vascular calcification is seen in the abdominal aorta, splenic, hepatic, superior mesenteric, and bilateral iliac arteries. Degenerative changes are seen in the dorsal spine. No mass, adenopathy or ascites is present in the abdomen or pelvis. Impression: 1. Trace right pleural effusion with right lower lobe subsegmental atelectasis. 2. Vascular calcification in the thoracic and abdominal aorta and branch vessels. 3. No mass or adenopathy in the chest, abdomen, pelvis. 4. No mechanical obstruction or ileus. 5. Degenerative changes in the dorsal spine. Signed: Allie Estrella MD Report Verified Date/Time: 06/23/2018 22:41:25 Reading Location: [facility] B1 C013W Consult Reading Room * CT abdomen/pelvis without iv contrast (06/23/2018 9:45 PM) Specimen Performing Laboratory [facility] RIS Narrative FINAL REPORT CT of the Chest, abdomen and pelvis dated 06/23/2018 Clinical information: abdominal pain, decreased po intake Comment:Axial images of the chest, abdomen, and pelvis were obtained from thoracic inlet to the pubic symphysis without GI or intravenous contrast. This exam was performed according to our departmental dose-optimization program, which includes automated exposure control, adjustment of the mA and/or kV according to patient size and/or use of interactive reconstruction technique. Heart is normal in size. Atherosclerotic calcification seen in the thoracic aorta and coronary arteries. There is calcification of the mitral valve. Great vessels are unremarkable. No adenopathy in the mediastinum or perihilar region. Trachea and mainstem bronchi are patent. There is ossification of the trachea and bilateral mainstem bronchi. Subsegmental atelectasis is seen in the right lower lobe. The rest of the lungs are clear.No nodular, mass lesion or airspace disease is noted.No interstitial disease or bronchiectasis is present. Areas pleural effusion seen on the right. Liver and spleen are normal in size. A 9 mm calcification granuloma is seen in the segment 4 of the liver. A 3 mm calcified granuloma is seen in the segment 2 of the liver. Gallbladder is contracted. No gallstone or biliary dilatation is noted. Pancreas and adrenals are unremarkable. Both kidneys are normal in size.No hydronephrosis, hydroureter, or urolithiasis is noted. The opacified small and large bowel are suboptimally evaluated secondary to lack of GI and intravenous contrast. No small or large bowel dilatation is seen. Appendix is not visualized. Vascular calcification is seen in the abdominal aorta, splenic, hepatic, superior mesenteric, and bilateral iliac arteries. Degenerative changes are seen in the dorsal spine. No mass, adenopathy or ascites is present in the abdomen or pelvis. Impression: 1. Trace right pleural effusion with right lower lobe subsegmental atelectasis. 2. Vascular calcification in the thoracic and abdominal aorta and branch vessels. 3. No mass or adenopathy in the chest, abdomen, pelvis. 4. No mechanical obstruction or ileus. 5. Degenerative changes in the dorsal spine. Signed: Allie Estrella MD Report Verified Date/Time:06/23/2018 22:41:25 Reading Location: [facility] C013W Consult Reading Room Procedure Note Interface, External Ris In - 06/23/2018 10:43 PM CDT FINAL REPORT CT of the Chest, abdomen and pelvis dated 06/23/2018 Clinical information: abdominal pain, decreased po intake Comment: Axial images of the chest, abdomen, and pelvis were obtained from thoracic inlet to the pubic symphysis without GI or intravenous contrast. This exam was performed according to our departmental dose-optimization program, which includes automated exposure control, adjustment of the mA and/or kV according to patient size and/or use of interactive reconstruction technique. Heart is normal in size. Atherosclerotic calcification seen in the thoracic aorta and coronary arteries. There is calcification of the mitral valve. Great vessels are unremarkable. No adenopathy in the mediastinum or perihilar region. Trachea and mainstem bronchi are patent. There is ossification of the trachea and bilateral mainstem bronchi. Subsegmental atelectasis is seen in the right lower lobe. The rest of the lungs are clear. No nodular, mass lesion or airspace disease is noted. No interstitial disease or bronchiectasis is present. Areas pleural effusion seen on the right. Liver and spleen are normal in size. A 9 mm calcification granuloma is seen in the segment 4 of the liver. A 3 mm calcified granuloma is seen in the segment 2 of the liver. Gallbladder is contracted. No gallstone or biliary dilatation is noted. Pancreas and adrenals are unremarkable. Both kidneys are normal in size. No hydronephrosis, hydroureter, or urolithiasis is noted. The opacified small and large bowel are suboptimally evaluated secondary to lack of GI and intravenous contrast. No small or large bowel dilatation is seen. Appendix is not visualized. Vascular calcification is seen in the abdominal aorta, splenic, hepatic, superior mesenteric, and bilateral iliac arteries. Degenerative changes are seen in the dorsal spine. No mass, adenopathy or ascites is present in the abdomen or pelvis. Impression: 1. Trace right pleural effusion with right lower lobe subsegmental atelectasis. 2. Vascular calcification in the thoracic and abdominal aorta and branch vessels. 3. No mass or adenopathy in the chest, abdomen, pelvis. 4. No mechanical obstruction or ileus. 5. Degenerative changes in the dorsal spine. Signed: Allie Estrella MD Report Verified Date/Time: 06/23/2018 22:41:25 Reading Location: [facility] B1 C013W Consult Reading Room * TSH/Free T4 If Indicated (06/23/2018 8:55 PM) Component Value Ref Range TSH 2.21 0.35 - 4.94 uIU/mL Specimen Performing Laboratory Blood [address] [address] * Comprehensive metabolic panel (06/23/2018 8:55 PM) Component Value Ref Range Protein, Total 6.5 6.0 - 8.3 gm/dL Albumin 3.7 3.5 - 5.0 g/dL Alkaline Phosphatase 57 40 - 150 U/L Total Bilirubin 0.3 0.2 - 1.2 mg/dL Sodium 144 136 - 145 meq/L Potassium 3.3 (L) 3.5 - 5.1 meq/L Chloride 103 98 - 107 meq/L CO2 29 22 - 29 meq/L BUN 42 (H) 7 - 21 mg/dL Creatinine 2.40 (H) 0.57 - 1.25 mg/dL Glucose 135 (H) 70 - 105 mg/dL Calcium 8.2 (L) 8.4 - 10.2 mg/dL AST 20 5 - 34 U/L ALT 14 6 - 55 U/L EGFR 19Comment: ESTIMATED GFR IS NOT ACCURATE mL/min/1.73 sq m CREATININE CLEARANCE IN PREDICTING GLOMERULAR FILTRATION RATE. ESTIMATED GFR IS NOT APPLICABLE FOR DIALYSIS PATIENTS. Specimen Performing Laboratory Blood [address] [address] after 07/17/2017
[2018-07-18 04:22] LABS: BASOPHILS % 0.2 % (0.0-1.0); EOSINOPHILS # (AUTO) 0.2 (0.0-0.4); EOSINOPHILS % 2.5 % (0.0-6.0); HEMATOCRIT 28.8 % (34.2-44.1); LYMPHOCYTES # (AUTO) 1.5 (1.0-3.2); LYMPHOCYTES % 16.5 % (18.0-39.1); MEAN CORPUSCULAR HGB CONC 31.3 g/dL (31-35); MEAN CORPUSCULAR VOLUME 92.9 fL (81-99); MONOCYTES % 11.3 % (4.4-11.3); NEUTROPHILS # (AUTO) 6.3 (2.1-6.9); PLATELET COUNT 353 x10e3/uL (140-360); RED CELL DISTRIBUTION WIDTH 15.2 % (11.7-14.4)
[2018-07-18 04:37] LABS: INR 1.05; PROTHROMBIN TIME 14.7 seconds (11.9-14.5)
[2018-07-18 04:38] LABS: PARTIAL THROMBOPLASTIN TIME 32.9 seconds (23.8-35.5)
[2018-07-18 04:44] LABS: ALBUMIN 3.3 g/dL (3.5-5.0); ALBUMIN/GLOBULIN RATIO 1.1 (0.8-2.0); ANION GAP 20.3 mmol/L (8-16); CREATININE, SERUM 2.08 mg/dL (0.57-1.11); POTASSIUM 3.3 mmol/L (3.5-5.1)
--- NOTE | 2018-07-18 04:49 | Diagnostic Imaging Report ---
EXAMINATION: CHEST SINGLE (PORTABLE) INDICATION: Shortness of breath COMPARISON: 06/21/2018 FINDINGS: TUBES and LINES: None. LUNGS: Lungs are not well inflated. There are bibasilar atelectasis right greater than left. There is mild prominence of the central pulmonary vasculature, consistent with pulmonary venous congestion. Diffuse interlobular septal thickening PLEURA: Small bilateral pleural effusions HEART AND MEDIASTINUM: The cardiomediastinal silhouette is unremarkable. There are atherosclerotic calcifications within the aorta. BONES AND SOFT TISSUES: No acute osseous lesion. Soft tissues are unremarkable. UPPER ABDOMEN: No free air under the diaphragm. IMPRESSION: 1. Development of central vascular congestion, edema and bilateral pleural effusions suggestive of fluid overload. 2. Right lower lobe with airspace opacity may represent atelectasis or early development of pneumonia Signed by: Dr. Ernie Gill M.D. on 07/18/2018 4:45 AM
[2018-07-18] MEDS ORDERED: FUROSEMIDE INJ 10 MG/ML 4 ML VIAL IV ONE (05:30)
[2018-07-18] MEDS ORDERED: SODIUM CHLORIDE FLUSH 10 ML SYR INJ PRN (06:00)
--- OUTSIDE RECORDS SUMMARY | 2018-07-18 08:13 | XMS REPORT | Clinical Summary ---
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 Specimen Performing Laboratory Blood Narrative The following orders were created for panel order CBC with platelet count + automated diff. Procedure Abnormality Status --------- ------ CBC with platelet count ...[[id number]]AbnormalFinal result Please view results for these tests [...] PATIENTS. 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 Physician MD Le FellowAlexandTONY Johnson Procedure Type of Study TTE procedure:2DECHO W DOPPLER(CW/PW/COLOR) (EJ) Indications:Acute Chest Pain/ Suspected CAD. Clinical History DEMENTIA;CANCER;HLD;MVP;SUPRA VENT TACHY HGB 9.9 HCT 31.5 % Height: 64 inches Weight: 50.35 kg (111 lbs) BSA: 1.52 m^2 BMI: 19.05 kg/m^2 HR: 67 bpm BP: 155/66 mmHg Summary The left ventricle is chamber size (by vol index) is normal. Dgeq-wp-jrnqaejo concentric LV hypertrophy. All of the LV [...] chamber size (by vol index) is normal. Qesy-tn-wupjcbls concentric LV hypertrophy. All of the LV [...] is approximately 45 mmHg. Pulmonic Valve Mild CA. 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 Goku-zk-swaptipb concentric LV hypertrophy. All of the LV [...] chamber size (by vol index) is normal. Xvks-qx-zhfbmqea concentric LV hypertrophy. All of the LV [...] is approximately 45 mmHg. Pulmonic Valve Mild CA. Aorta Aortic root size (Sinus of Valsalva [...] MD Report Verified Date/Time:06/24/2018 08:03:40 Reading Location: [facility] Radiology Reading Room Procedure Note Interface, External Ris In - 06/24/2018 8:05 AM CDT FINAL REPORT CLINICAL HISTORY: sob TECHNIQUE: 1 view of the chest. COMPARISON: 02/27/2017 IMPRESSION: There are no focal infiltrates or effusions. The cardiomediastinal silhouette is magnified by technique. The visualized bones are intact. Signed: Tristan Su MD Report Verified Date/Time: 06/24/2018 08:03:40 Reading Location: [facility] Radiology Reading Room * Troponin I (06/24/2018 3:25 AM) Only the most recent of 2 results within the time period is included. Component Value Ref Range Troponin I 0.07 (H) 0.00 - 0.03 ng/mL Specimen Performing Laboratory Blood - Arm, [place] [address] Narrative Troponin I (TnI) levels must be [...] Specimen Performing Laboratory Blood - Line, Venous [address] [address] * Magnesium (06/24/2018 2:12 AM) Only the most recent of 2 results within the time period is included. Component Value Ref Range Magnesium 1.7 1.6 - 2.6 mg/dL Specimen Performing Laboratory Blood - Line, Venous [facility] [address] [address] * ECG 12 lead (06/23/2018 11:14 PM) Specimen Performing Laboratory [facility] MUSE Narrative Ventricular Rate 70 BPM Atrial Rate 70 BPM P-R Interval 262 ms QRS Duration 86 ms Q-T Interval 434 ms QTC Calculation(Bazett) 468 ms P [place] 77 degrees R [place] -24 degrees T [place] 60 degrees Sinus rhythm with 1st degree [...] 434 ms QTC Calculation(Bazett) 468 ms P [place] 77 degrees R [place] -24 degrees T [place] 60 degrees Sinus rhythm with 1st degree [...] contrast (06/23/2018 9:45 PM) Specimen Performing Laboratory [facility] RIS Narrative FINAL REPORT CT, BRAIN, WITHOUT [...] MD Report Verified Date/Time:06/23/2018 22:03:44 Reading Location: [facility] C013Y CT Body Reading Room Procedure Note [...] Report Verified Date/Time: 06/23/2018 22:03:44 Reading Location: [facility] B1 C013Y CT Body Reading Room * [...] MD Report Verified Date/Time:06/23/2018 22:41:25 Reading Location: [facility] C0[facility] Consult Reading Room Procedure Note Interface, [...] Report Verified Date/Time: 06/23/2018 22:41:25 Reading Location: [facility] B1 C013W Consult Reading Room * CT abdomen/pelvis without iv contrast (06/23/2018 9:45 PM) Specimen Performing Laboratory [facility] RIS Narrative FINAL REPORT CT of the [...] MD Report Verified Date/Time:06/23/2018 22:41:25 Reading Location: [facility] C013W Consult Reading Room Procedure Note Interface, [...] Report Verified Date/Time: 06/23/2018 22:41:25 Reading Location: [facility] B1 C013W Consult Reading Room * TSH/Free T4 If Indicated (06/23/2018 8:55 PM) Component Value Ref Range TSH 2.21 0.35 - 4.94 uIU/mL Specimen Performing Laboratory Blood [address] [address] * Comprehensive metabolic panel (06/23/2018 8:55 PM) [...] FOR DIALYSIS PATIENTS. Specimen Performing Laboratory Blood [address] [address] after 07/17/2017
[2018-07-18] MEDS ORDERED: METOPROLOL TARTRATE 50 MG TAB PO SCH (09:00)
[2018-07-18] MEDS ORDERED: FUROSEMIDE INJ 10 MG/ML 4 ML VIAL IV SCH (09:00)
[2018-07-18] MEDS ORDERED: CLONIDINE HCL 0.1 MG TAB PO PRN ×2 (09:45→10:30)
[2018-07-18] MEDS ORDERED: TRAMADOL HCL 50 MG TAB PO PRN (09:45)
[2018-07-18] MEDS ORDERED: NITROGLYCERIN 0.4 MG SUBL SL PRN (09:45)
[2018-07-18] MEDS ORDERED: ACETAMINOPHEN 325 MG TAB PO PRN (10:00)
[2018-07-18] MEDS ORDERED: ENALAPRILAT IV INJ 1.25 MG/ML VIAL IV PRN (10:00)
[2018-07-18] MEDS ORDERED: ONDANSETRON HCL INJ 2 MG/ML VIAL IV PRN (10:00)
[2018-07-18] MEDS ORDERED: CALCIUM GLUCONATE 10% INJ 9.3 MEQ in SODIUM CHLORIDE 0.9% 100 ML 100 ML IV ONE (10:15)
[2018-07-18] MEDS ORDERED: POTASSIUM CHLORIDE 20 MEQ TAB CR PO NR (10:30)
[2018-07-18] MEDS: METOCLOPRAMIDE HCL 10 MG TAB PO SCH ×3 (12:04→21:00)
[2018-07-18 15:10] VITALS: BP 146/65
[2018-07-18 15:24] VITALS: BP 146/65
[2018-07-18 15:59] VITALS: BP 146/65
[2018-07-18] MEDS ORDERED: CLONIDINE 0.1MG PO PRN ×2 (16:00)
[2018-07-18 16:01] LABS: CREATINE KINASE MB 2.3 ng/mL (0-5.0)
[2018-07-18] MEDS: PANTOPRAZOLE 40MG PO SCH (16:30)
[2018-07-18] MEDS ORDERED: NON-FORMULARY MEDICATION (Pantoprazole Sod (Protonix) 40 MG) PO SCH (16:30)
[2018-07-18] MEDS ORDERED: CALCITRIOL 0.25 MCG CAP PO SCH (17:00)
[2018-07-18] MEDS: METOPROLOL 50MG PO SCH (17:00)
[2018-07-18] MEDS ORDERED: OYST-CAL-D 500MG TABLET PO SCH (17:00)
[2018-07-18] MEDS: CALCITRIOL 0.25 MCG PO SCH (17:00)
[2018-07-18] MEDS: FERROUS SULFATE 325 MG TAB PO SCH (17:50)
[2018-07-18] MEDS: OYST-CAL-D 500MG TABLET PO SCH (17:51)
[2018-07-18] MEDS: FUROSEMIDE INJ 10 MG/ML 4 ML VIAL IV SCH (17:51)
[2018-07-18] MEDS: RANOLAZINE 500 MG TABSR PO SCH (17:51)
[2018-07-18 19:30] VITALS: BP 144/64
[2018-07-18 20:00] VITALS: BP 144/64
[2018-07-18] MEDS ORDERED: ATORVASTATIN 10MG PO SCH (21:00)
[2018-07-18] MEDS ORDERED: AMLODIPINE 10MG PO SCH (21:00)
[2018-07-18] MEDS ORDERED: ATORVASTATIN 10 MG TAB PO SCH (21:00)
[2018-07-18] MEDS ORDERED: MELATONIN PO SCH (21:00)
[2018-07-18] MEDS ORDERED: PYRIDOXINE PO SCH (21:00)
[2018-07-19] VITALS: BP 120/59
[2018-07-19 03:45] VITALS: BP 127/58
[2018-07-19 05:15] LABS: BASOPHILS % 0.2 % (0.0-1.0); EOSINOPHILS # (AUTO) 0.2 (0.0-0.4); EOSINOPHILS % 2.7 % (0.0-6.0); HEMATOCRIT 27.6 % (34.2-44.1); HEMOGLOBIN 8.8 g/dL (12.0-16.0); LYMPHOCYTES # (AUTO) 1.7 (1.0-3.2); LYMPHOCYTES % 21.3 % (18.0-39.1); MEAN CORPUSCULAR HEMOGLOBIN 28.9 pg (28-32); MEAN CORPUSCULAR HGB CONC 31.9 g/dL (31-35); MEAN CORPUSCULAR VOLUME 90.5 fL (81-99); MONOCYTES # (AUTO) 0.8 (0.2-0.8); MONOCYTES % 10.3 % (4.4-11.3); NEUTROPHILS # (AUTO) 5.3 (2.1-6.9); NEUTROPHILS % 65.3 % (38.7-80.0); PLATELET COUNT 319 x10e3/uL (140-360); RED BLOOD COUNT 3.05 x10e6/uL (3.6-5.1); RED CELL DISTRIBUTION WIDTH 14.9 % (11.7-14.4)
--- NOTE | 2018-07-19 05:19 | Consultation ---
DATE OF CONSULTATION: July 18, 2018 CARDIOLOGY CONSULTATION REASON FOR CONSULTATION: Lower extremity swelling and shortness of breath. HISTORY OF PRESENT ILLNESS: Patient is an 82-year-old female who is known to our service. She has history of diastolic heart failure, moderate aortic and mitral stenoses, chronic lower extremity edema, who presents with worsening lower extremity edema and shortness of breath, found to have zhory-[id number]-[id number] diastolic heart failure exacerbation, now feeling better after IV Lasix, had chest pain on admission, however, this chest pain has now resolved. Of note, patient has had several admissions and hospitalizations in the past several months including [facility] where she had a full cardiac workup including a stress test which showed normal perfusion. Patient has never had cardiac catheterization, however, given her frailty and family's reluctance. PAST MEDICAL HISTORY 1. Hypertension. 2. Chronic diastolic heart failure. 3. Moderate aortic stenosis. 4. Moderate mitral stenosis. 5. Thyroid cancer, status post resection. REVIEW OF SYSTEMS: As above. Otherwise, negative. SOCIAL HISTORY: Does not smoke, drink or use illicit drugs. FAMILY HISTORY: No family history of early CAD or sudden cardiac . OUTPATIENT MEDICATIONS: Reviewed. PHYSICAL EXAMINATION VITALS: Temperature 96.4, pulse 70, respiratory rate 18, blood pressure 146/65, satting 95% on 2 liters nasal cannula. GENERAL: Elderly thin white female, in no acute distress. Chronically ill-appearing. CARDIOVASCULAR: Regular rate and rhythm. A 2/6 systolic murmur right upper sternal border. A 1/6 diastolic murmur at the apex. Palpable carotid pulses. Palpable radial pulses. EXTREMITIES: A 3+ lower extremity edema without ulcerations. LUNGS: Clear to auscultation bilaterally. ABDOMEN: Soft, nontender. No masses. NEURO AND PSYCH: Alert and oriented to person, place, and time. Normal affect. INPATIENT MEDICATIONS: Reviewed. LABORATORY DATA: Reviewed. Cardiac enzymes negative times 3. BNP was 461. IMAGING DATA: Reviewed. Chest x-ray shows some pulmonary edema and pleural effusions, right lower lobe atelectasis versus pneumonia. EKG shows normal sinus rhythm with nonspecific ST-T changes in inferior leads, possibly unchanged from previous. ASSESSMENT 1. Gtowl-hi-wgjjhuc diastolic heart failure. 2. Moderate aortic stenosis. 3. Moderate mitral stenosis. 4. Hypertension. 5. History of supraventricular tachycardia. PLAN: Continue IV diuretics. Patient's lungs are not clear to auscultation and feels much better. Can change to oral diuretics starting tomorrow morning. Patient has had a recent cardiac workup including normal stress test at [facility] within the last month or so. Given her frailty and poor renal function, not a good candidate for invasive cardiac studies. We will add beta kev to her regimen if heart rate tolerates. Otherwise, continue her outpatient cardiovascular medicines. Replace potassium p.r.n. Thank you for this consult. We will continue to follow. Job#: [id number] VAS
[2018-07-19 05:34] LABS: ANION GAP 18.3 mmol/L (8-16); CALCIUM 7.1 mg/dL (8.4-10.2); CREATININE, SERUM 1.99 mg/dL (0.57-1.11); MAGNESIUM 1.5 MG/DL (1.3-2.1); POTASSIUM 3.3 mmol/L (3.5-5.1)
[2018-07-19 05:55] LABS: FERRITIN 97.19 ng/mL (4.63-204.00)
[2018-07-19 06:33] LABS: FOLATE 8.4 ng/mL (7.0-15.4)
[2018-07-19] MEDS: FUROSEMIDE INJ 10 MG/ML 4 ML VIAL IV SCH (06:50)
[2018-07-19 06:53] LABS: CREATINE KINASE MB 1.3 ng/mL (0-5.0)
[2018-07-19] MEDS: PANTOPRAZOLE 40MG PO SCH (07:30)
[2018-07-19 08:15] VITALS: BP 118/59
[2018-07-19] MEDS: FERROUS SULFATE 325 MG TAB PO SCH (08:24)
[2018-07-19] MEDS ORDERED: CALCIUM GLUCONATE 10% INJ 9.3 MEQ in SODIUM CHLORIDE 0.9% 100 ML 100 ML IV ONE (08:30)
[2018-07-19] MEDS ORDERED: POTASSIUM CHLORIDE 20 MEQ TAB CR PO SCH ×2 (08:30→09:00)
[2018-07-19] MEDS ORDERED: DEXTROSE 5%/0.225% SOD CHL 1,000 ML IV ONE (08:30)
[2018-07-19] MEDS ORDERED: DEXTROSE 5%/0.225% SOD CHL 1,000 ML IV SCH (08:30)
[2018-07-19] MEDS: METOPROLOL 50MG PO SCH (08:36)
[2018-07-19] MEDS: CALCITRIOL 0.25 MCG PO SCH (08:36)
[2018-07-19] MEDS ORDERED: POTASSIUM CHLORIDE 20 MEQ TAB CR PO NR (08:45)
[2018-07-19] MEDS ORDERED: Calcium Carbonate PO (08:50)
[2018-07-19] MEDS ORDERED: K DUR10 MEQ PO (08:50)
[2018-07-19] MEDS ORDERED: ASCORBIC ACID500 MG PO (08:50)
[2018-07-19] MEDS ORDERED: FERROUS SULFAT325 MG PO (08:50)
[2018-07-19] MEDS ORDERED: FUROSEMIDE20 MG PO (08:50)
[2018-07-19] MEDS ORDERED: CARVEDILOL 3.125 MG TAB PO SCH (09:00)
[2018-07-19] MEDS ORDERED: ASPIRIN 81MG PO SCH (09:00)
[2018-07-19] MEDS ORDERED: ALLOPURINOL 100MG PO SCH (09:00)
[2018-07-19] MEDS ORDERED: UBIQUINOL 100 MG PO SCH (09:00)
[2018-07-19] MEDS ORDERED: METOPROLOL SUCCINATE 50 MG TAB XL PO SCH (09:00)
[2018-07-19] MEDS ORDERED: ASPIRIN 81 MG ENTERIC COATED PO SCH (09:00)
[2018-07-19] MEDS ORDERED: THYROID 60 MG TAB PO SCH (09:00)
[2018-07-19] MEDS ORDERED: FUROSEMIDE 20 MG TAB PO SCH (09:00)
[2018-07-19] MEDS: RANOLAZINE 500 MG TABSR PO SCH (09:20)
[2018-07-19] MEDS: OYST-CAL-D 500MG TABLET PO SCH (09:20)
[2018-07-19 10:23] VITALS: BP 110/59
[2018-07-19 12:38] VITALS: BP 115/56
[2018-07-19] MEDS ORDERED: FUROSEMIDE40 MG PO (13:41)
[2018-07-19] MEDS ORDERED: POTASSIUM CHLO10 ME1 PO (13:45)
--- NOTE | 2018-07-20 02:14 | Discharge Summary ---
ADMISSION DIAGNOSES 1. Congestive heart failure exacerbation with fluid overload. 2. Chronic kidney disease, stage 4. 3. Hypothyroidism. 4. Hypertension. 5. Insomnia. 6. Gout. 7. Hyperlipidemia. 8. Gastroesophageal reflux disease. 9. Hypokalemia. 10. Hypocalcemia. 11. Anemia. 12. Ambulatory dysfunction. DISCHARGE DIAGNOSES 1. Congestive heart failure exacerbation with fluid overload. 2. Chronic kidney disease, stage 4. 3. Hypothyroidism. 4. Hypertension. 5. Insomnia. 6. Gout. 7. Hyperlipidemia. 8. Gastroesophageal reflux disease. 9. Hypokalemia. 10. Hypocalcemia. 11. Anemia. 12. Ambulatory dysfunction. 13. Hypernatremia. 14. Rule out deep venous thrombosis. HISTORY: Patient has a history of chronic kidney disease stage 4; systolic heart murmur, hypothyroidism, hypertension, hyperlipidemia, insomnia, gout, dementia, bladder and bowel incontinence, bone disease, leaky heart disease, and gastroesophageal reflux disease. PAST SURGICAL HISTORY: Patient has a surgical history of radical neck dissection with thyroidectomy, bilateral heel spur removal, appendectomy, hysterectomy, and back surgery. FAMILY HISTORY: Patient's mom had cancer. SOCIAL HISTORY: Patient denies tobacco, alcohol, and illicit drug use. HOSPITAL COURSE: An 82-year-old female who complains of bilateral lower extremity swelling that began 2 days ago. She denies pain, fever, and redness. She also denies recent travel. History and HPI pulled from ER records as the patient has intermittent confusion due to dementia. On admission, patient's BNP was 461. Patient was started on Lasix b.i.d. A venous Doppler was done which was negative. Cardiology was consulted. Patient's chronic kidney disease stage 4 appears to be at baseline on admission. She was resumed on home medicines. After 24 hours of IV Lasix, the patient's legs improved. Chest x-ray was done that showed central vascular congestion, edema, and bilateral pleural effusion. Per cardiology, patient can discharge home. She will increase the Lasix to 40 mg daily and resume all other home medicines. She will also be started on iron, vitamin C, and calcium. She will follow up with Dr. Workman and primary care as discussed. She will discharge home with daughter and have PT at home. Patient and daughter understand discharge instructions and agree to plan. Dictated by: Maria Luz Sullivan NP RANDA SALVADOR MD Job#: [id number] LPA
== END 2018-07-19 14:31 | disposition home or self-care (01) ==
LOC: ER 03:41 → ERHOLD 08:10 → INTOOBSV 08:10 → MED/SURG 14:36
PROVIDERS: ADMIT Internal Medicine; ATTEND Internal Medicine
DX: I13.0 Hypertensive heart and chronic kidney disease with heart failure and stage 1 through stage 4 chronic kidney disease, or unspecified chronic kidney disease (principal); I50.33 Acute on chronic diastolic (congestive) heart failure; N18.4 Chronic kidney disease, stage 4 (severe); E03.9 Hypothyroidism, unspecified; E78.5 Hyperlipidemia, unspecified; M10.9 Gout, unspecified; G47.00 Insomnia, unspecified; K21.9 Gastro-esophageal reflux disease without esophagitis; E87.6 Hypokalemia; E83.51 Hypocalcemia; D64.9 Anemia, unspecified; I08.0 Rheumatic disorders of both mitral and aortic valves; Z85.850 Personal history of malignant neoplasm of thyroid; E87.0 Hyperosmolality and hypernatremia
CPT/HCPCS: 36415 ×2; 51700; 71045; 80048; 80053; 82550 ×2; 82553 ×2; 82607; 82728; 82746; 83540; 83735; 83880; 84466; 84484 ×2; 85025 ×2; 85610; 85730; 93005; 93306; 93970; 96374; 96376; 97116; 97162; 99285; G0378 ×2; J0610 ×2; J1940 ×2

== ENCOUNTER 2018-08-15 00:54 | Observation (INO) | payer MEDICARE, BC ==
[~2018-08-15] VITALS: Ht 162.6 cm; Wt 58.5 kg
[2018-08-15] VITALS (7 sets, daily range): BP systolic 128–154; BP diastolic 63–73
[~2018-08-15 00:54] MED LIST changes: +ASCORBIC ACID500 MG PO; +Calcium Carbonate PO; +FERROUS SULFAT325 MG PO; +FUROSEMIDE40 MG PO; +K DUR10 MEQ PO
--- OUTSIDE RECORDS SUMMARY | 2018-08-15 00:57 | XMS REPORT | Clinical Summary ---
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 Clarithromycin 02/28/2017 Patient doesn't remember what reaction. Diltiazem Hcl 02/28/2017 Codeine Nausea Only 02/28/2017 Diltiazem Itching, Rash High 02/27/2017 Cough all day long. Lisinopril Nausea And 02/28/2017 Vomiting Morphine Nausea Only 02/28/2017 Patient doesn't remember the reaction. Penicillins 02/28/2017 Makes my legs swell. Prednisone Swelling 02/28/2017 Patient doesn't remember the reaction. Cefpodoxime 02/28/2017 Medications End Date Status Medication Sig Dispensed Refills Start Date Active atorvastatin (LIPITOR) 10 Take 10 mg by 0 MG tablet mouth daily. Active allopurinol (ZYLOPRIM) Take 100 mg 0 100 MG tablet by mouth daily. Active ergocalciferol (VITAMIN Take 50,000 0 D2) 50,000 unit capsule Units by mouth once a week Every Friday. Active melatonin 10 mg Cap Take 10 mg by 0 mouth every night as needed. Active thyroid, pork, (ARMOUR Take 120 mg 0 THYROID) 120 mg Tab by mouth daily. Active amLODIPine (NORVASC) 10 Take 10 mg by 0 MG tablet mouth daily. Active ranolazine (RANEXA) 500 Take 500 mg 0 MG 12 hr tablet by mouth 2 (two) times daily. Active calcitriol (ROCALTROL) Take 0.25 mcg 0 0.25 MCG capsule by mouth daily . Active furosemide (LASIX) 20 MG Take 20 mg by 0 tablet mouth daily Takes only on Friday, Friday, Friday, , and Friday . Active pantoprazole (PROTONIX) Take 40 mg by 0 40 MG tablet mouth 2 (two) times daily before meals. Active aspirin 81 MG EC tablet Take 81 mg by 0 mouth daily. Active nitroglycerin (NITROSTAT) Place 0.3 mg 0 0.3 MG SL tablet under the tongue every 5 (five) minutes as needed for Chest pain Put 1 pill under tongue every 5min as needed for chest pain.No more than 3 doses in 15min.Call 911 if pain is unrelieved 5min after 1st dose . Active cloNIDine HCl (CATAPRES) Take 0.1 mg 0 0.1 MG tablet by mouth every 4 (four) hours as needed (for sbp > 160). 06/25/2019 Active metoprolol (LOPRESSOR) 25 Take 0.5 30 tablet 0 06/25/201 MG tablet tablets (12.5 8 mg total) by mouth 2 (two) times daily. 06/25/2019 Active sevelamer (RENVELA) 800 Take 1 tablet 90 tablet 0 mg tablet (800 mg 8 total) by mouth 3 (three) times daily with meals. 06/23/2018 Discontinued calcium acetate (PHOSLO) Take 1,334 mg 0 667 mg capsule by mouth 3 (three) times daily with meals . 06/25/2018 Discontinued potassium chloride Take 8 mEq by 0 (KLOR-CON) 8 MEQ CR mouth daily tabletIndications: take Only takes dose 5 days out of the 5x/week. Skip week every Fri and Friday.. 06/25/2018 Discontinued calcium carbonate Take 600 mg 0 (OS-SYED) 600 mg (1,500 by mouth 2 mg) Tab (two) times daily with breakfast and dinner. 06/23/2018 Discontinued thyroid, pork, 90 mg Tab Take 1 tablet 30 tablet 1 (90 mg total) 7 by mouth daily Brand necessary. 03/10/2018 flecainide (TAMBOCOR) 50 Take 1 tablet 60 tablet 1 MG tablet (50 mg total) 7 by mouth every 12 (twelve) hours. 03/10/2018 metoprolol (TOPROL-XL) 25 Take 1 tablet 30 tablet 1 MG 24 hr tablet (25 mg total) 7 by mouth nightly. 06/25/2018 Discontinued metoclopramide HCl Take 10 mg by 0 (REGLAN) 10 MG tablet mouth 4 (four) times daily before meals and nightly. 06/25/2018 Discontinued cloNIDine HCl (CATAPRES) Take 0.1 mg 0 0.1 MG tablet by mouth every 6 (six) hours as needed For sbp >160 . 06/25/2018 Discontinued coenzyme Q10 100 mg Take 100 mg 0 capsule by mouth daily. 06/25/2018 Discontinued metoprolol (TOPROL-XL) 50 Take 50 mg by 0 MG 24 hr tablet mouth daily. 06/25/2018 Discontinued metoclopramide HCl Take 10 mg by 0 (REGLAN) 10 MG tablet mouth 4 (four) times daily. 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 Last Filed Vital Signs Time Taken Vital Sign Reading 06/25/2018 3:14 PM CDT Blood Pressure 157/67 06/25/2018 3:14 PM CDT Pulse 65 06/25/2018 3:14 PM CDT Temperature 36.5 C (97.7 F) 06/25/2018 3:14 PM CDT Respiratory Rate 18 06/25/2018 3:14 PM CDT Oxygen Saturation 98% - Inhaled Oxygen - Concentration 06/25/2018 7:35 AM CDT Weight 51.6 kg (113 lb 11.2 oz) - Height - 06/25/2018 7:35 AM CDT Body Mass Index 19.51 Plan of Treatment Not on file Procedures Comments Procedure Name Priority Date/Time Associated Diagnosis RHYTHM STRIP - SCAN 06/26/2018 2:40 PM CDT ECHOCARDIOGRAM REPORT - 06/25/2018 SCAN 9:00 AM CDT CBC W/PLT COUNT & AUTO Routine 06/25/2018 DIFFERENTIAL 6:24 AM CDT BASIC METABOLIC PANEL (7) Routine 06/25/2018 6:24 AM CDT CBC W/PLT COUNT & AUTO Routine 06/25/2018 DIFFERENTIAL 6:24 AM CDT 2D ECHO W/ DOPPLER EJ 06/24/2018 (CW/PW/COLOR) 1:48 PM CDT XR CHEST 1 VIEW Routine 06/24/2018 PORTABLE/BEDSIDE 7:00 AM CDT TROPONIN I Routine 06/24/2018 3:25 AM CDT CBC W/PLT COUNT & AUTO Routine 06/24/2018 DIFFERENTIAL 2:12 AM CDT PHOSPHORUS Routine 06/24/2018 2:12 AM CDT MAGNESIUM Routine 06/24/2018 2:12 AM CDT BASIC METABOLIC PANEL (7) Routine 06/24/2018 2:12 AM CDT CBC W/PLT COUNT & AUTO Routine 06/24/2018 DIFFERENTIAL 2:12 AM CDT TROPONIN I Routine 06/24/2018 2:12 AM CDT ECG 12-LEAD Routine 06/23/2018 11:14 PM CDT Procedure Note - Interface, External Ris In - 06/23/2018 11:27 PM CDT Ventricula r Rate 70 BPM Atrial Rate 70 BPM P-R Interval 262 ms QRS Duration 86 ms Q-T Interval 434 ms QTC Calculatio n(Bazett) 468 ms P [place] 77 degrees R [place] -24 degrees T [place] 60 degrees Sinus rhythm with 1st degree A-V block Possible Anterior infarct , age undetermin ed Abnormal ECG When compared with ECG of 8 23:07, Previous ECG has undetermin ed rhythm, needs review ECG 12-LEAD Routine 06/23/2018 11:14 PM CDT ECG 12-LEAD Routine 06/23/2018 11:07 PM CDT Procedure Note - Interface, External Ris In - 06/23/2018 11:27 PM CDT Ventricula r Rate 0 BPM Atrial Rate 0 BPM QRS Duration 0 ms Q-T Interval 0 ms QTC Calculatio n(Bazett) 0 ms R [place] 0 degrees T [place] 0 degrees No QRS complexes found, no ECG analysis possible When compared with ECG of 7 21:56, Current undetermin ed rhythm precludes rhythm comparison , needs review CT ABDOMEN/PELVIS WITHOUT EJ 06/23/2018 IV CONTRAST 9:[address] CHEST WITHOUT IV EJ 06/23/2018 CONTRAST 9:[address] BRAIN WITHOUT IV EJ 06/23/2018 CONTRAST 9:45 PM CDT CBC W/PLT COUNT & AUTO Routine 06/23/2018 DIFFERENTIAL 8:55 PM CDT TSH/FREE T4 IF INDICATED Routine 06/23/2018 8:55 PM CDT PHOSPHORUS Routine 06/23/2018 8:55 PM CDT MAGNESIUM Routine 06/23/2018 8:55 PM CDT COMPREHENSIVE METABOLIC Routine 06/23/2018 PANEL 8:55 PM CDT CBC W/PLT COUNT & AUTO Routine 06/23/2018 DIFFERENTIAL 8:55 PM CDT after 08/14/2017 Results * RHYTHM STRIP - SCAN (06/26/2018 2:40 PM CDT) Narrative Performed At * ECHOCARDIOGRAM REPORT - SCAN (06/25/2018 9:00 AM CDT) Narrative Performed At * CBC with platelet count + automated diff (06/25/2018 6:24 AM CDT) Only the most recent of 3 results within the time period is included. WBC 8.2 3.5 - 10.5 K/L [facility] RBC 3.22 (L) 3.93 - 5.22 M/L [facility] Hemoglobin 9.6 (L) 11.2 - 15.7 GM/DL [facility] Hematocrit 30.9 (L) 34.1 - 44.9 % [facility] MCV 96.0 (H) 79.4 - 94.8 fL [facility] MCH 29.8 25.6 - 32.2 pg [facility] MCHC 31.1 (L) 32.2 - 35.5 GM/DL [facility] RDW 16.8 (H) 11.7 - 14.4 % [facility] Platelets 208 150 - 450 K/CU MM [facility] MPV 11.1 9.4 - 12.3 fL [facility] nRBC 0 0 - 0 /100 WBC [facility] % Neutros 65 % [facility] % Lymphs 22 % [facility] % Monos 10 % [facility] % Eos 2 % [facility] % Baso 0 % [facility] # Neutros 5.34 1.56 - 6.13 K/L [facility] # Lymphs 1.82 1.18 - 3.74 K/L [facility] # Monos 0.84 (H) 0.24 - 0.36 K/L [facility] # Eos 0.19 0.04 - 0.36 K/L [facility] # Baso 0.02 0.01 - 0.08 K/L [facility] Immature 0 0 - 1 % [facility] Granulocytes-Relative [facility] Specimen Blood - Arm, Right Performing Organization Address City/[facility]/Zipcode Phone Number [facility] [address] [place] [address] [facility] * Basic Metabolic Panel (06/25/2018 6:24 AM CDT) Only the most recent of 2 results within the time period is included. Sodium 142 136 - 145 meq/L [facility] Potassium 3.0 (L) 3.5 - 5.1 meq/L [facility] Chloride 103 98 - 107 meq/L [facility] CO2 29 22 - 29 meq/L [facility] BUN 34 (H) 7 - 21 mg/dL [facility] Creatinine 1.87 (H) 0.57 - 1.25 mg/dL [facility] Glucose 157 (H) 70 - 105 mg/dL [facility] Calcium 7.5 (L) 8.4 - 10.2 mg/dL [facility] EGFR 26Comment: ESTIMATED GFR IS mL/min/1.73 sq m [facility] NOT ACCURATE CREATININE [facility] CLEARANCE IN PREDICTING GLOMERULAR FILTRATION RATE. ESTIMATED GFR IS NOT APPLICABLE FOR DIALYSIS PATIENTS. Specimen Blood - Arm, Right Performing Organization Address City/[facility]/Zipcode Phone Number [place] [phone] [place] [address] [facility] * 2D Echo W/Doppler(CW/PW/Color) (06/24/2018 1:48 PM CDT) Ejection Fraction [facility] Narrative Performed At Transthoracic Echocardiography Report (TTE) [facility] Demographics [facility] Patient NameSALSER, PATITO PANTOJADate of Study 06/24/2018 Visit [id number] Unknown Room Number 1455 Number Date of 1935Referring SG CARRILLO 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 Clinical History DEMENTIA;CANCER;HLD;MVP;SUPRA VENT TACHY HGB 9.9 HCT 31.5 % Height: 64 inches Weight: 50.35 kg (111 lbs) BSA: 1.52 m^2 BMI: 19.05 kg/m^2 HR: 67 bpm BP: 155/66 mmHg Summary The left ventricle is chamber size (by vol index) is normal. Jqpz-nt-yprpzxmo concentric LV hypertrophy. All of the LV [...] chamber size (by vol index) is normal. Jdjm-pz-zqcotzup concentric LV hypertrophy. All of the LV [...] is approximately 45 mmHg. Pulmonic Valve Mild NE. AortaAortic root size (Sinus of Valsalva diameter) is normal . 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 Clinical History DEMENTIA;CANCER;HLD;MVP;SUPRA VENT TACHY HGB 9.9 HCT 31.5 % Height: 64 inches Weight: 50.35 kg (111 lbs) BSA: 1.52 m^2 BMI: 19.05 kg/m^2 HR: 67 bpm BP: 155/66 mmHg Summary The left ventricle is chamber size (by vol index) is normal. Xazf-ru-ecdpkbnj concentric LV hypertrophy. All of the LV [...] chamber size (by vol index) is normal. Shsx-ac-wwwvibht concentric LV hypertrophy. All of the LV [...] is approximately 45 mmHg. Pulmonic Valve Mild NE. Aorta Aortic root size (Sinus of Valsalva [...] Velocity: 3.29 m/s TR Gradient: 43.2 mmHg Performing Organization Address [facility] Phone Number [facility] * XR chest 1 view portable / bedside (06/24/2018 7:00 AM CDT) Narrative Performed At FINAL REPORT [employer] CLINICAL HISTORY: sob TECHNIQUE: 1 view of the chest. COMPARISON: 02/27/2017 IMPRESSION: There are no focal infiltrates or effusions. The cardiomediastinal silhouette is magnified by technique. The visualized bones are intact. Signed: Tristan Su MD Report Verified Date/Time:06/24/2018 08:03:40 Reading Location: [facility] Radiology Reading Room Procedure Note Interface, External Ris In - 06/24/2018 8:05 AM CDT FINAL REPORT CLINICAL HISTORY: sob TECHNIQUE: 1 view of the chest. COMPARISON: 02/27/2017 IMPRESSION: There are no focal infiltrates or effusions. The cardiomediastinal silhouette is magnified by technique. The visualized bones are intact. Signed: Tristan Su MD Report Verified Date/Time: 06/24/2018 08:03:40 Reading Location: [facility] Radiology Reading Room Performing Organization Address [facility]/State/Zipcode Phone Number [facility] * Troponin I (06/24/2018 3:25 AM CDT) Only the most recent of 2 results within the time period is included. Troponin I 0.07 (H) 0.00 - 0.03 ng/mL [facility] Specimen Blood - Arm, Right Narrative Performed At Troponin I (TnI) levels must be interpreted in the context of the presenting [facility] symptoms and the clinical findings. Elevated TnI levels indicate myocardial [facility] damage, but are not specific for ischemic heart disease. Elevated TnI levels are seen in patients with other cardiac conditions (including myocarditis and congestive heart failure), and slight TnI elevations occur in patients with other conditions, including sepsis, renal failure, acidosis, acute neurological disease, and persistent tachyarrhythmia. Performing Organization Address [facility]rie Tingley Hospitalcode Phone Number [place] [phone] * Phosphorus (06/24/2018 2:12 AM CDT) Only the most recent of 2 results within the time period is included. Phosphorus 5.2 (H) 2.3 - 4.7 mg/dL [facility] Specimen Blood - Line, Venous Performing Organization Address [facility] [place] [address] [phone] * Magnesium (06/24/2018 2:12 AM CDT) Only the most recent of 2 results within the time period is included. Magnesium 1.7 1.6 - 2.6 mg/dL [facility] Specimen Blood - Line, Venous Performing Organization Address [facility] Phone Number [address] [address] [phone] [place] [address] * ECG 12 lead (06/23/2018 11:14 PM CDT) Narrative Performed At Ventricular Rate 70 BPM [facility] Atrial Rate 70 BPM P-R Interval 262 ms QRS Duration 86 ms Q-T Interval 434 ms QTC Calculation(Bazett) 468 ms P [place] 77 degrees R [place] -24 degrees T [place] 60 degrees Sinus rhythm with 1st degree A-V block Poor R wave progression Cannot rule out Possible Anterior infarct , age undetermined Prolonged QT Abnormal ECG When compared with ECG of 23-JUN-2018 23:07, Sinus rhythm with first degree AV block has replaced complete heart block Confirmed by Daniela MITTAL BASANT ([id number]) on 06/24/2018 10:52:11 AM Procedure Note Interface, External Ris In - 06/24/2018 10:52 AM CDT Ventricular Rate 70 BPM Atrial Rate 70 BPM P-R Interval 262 ms QRS Duration 86 ms Q-T Interval 434 ms QTC Calculation(Bazett) 468 ms P [place] 77 degrees R [place] -24 degrees T [place] 60 degrees Sinus rhythm with 1st degree A-V block Poor R wave progression Cannot rule out Possible Anterior infarct , age undetermined Prolonged QT Abnormal ECG When compared with ECG of 23-JUN-2018 23:07, Sinus rhythm with first degree AV block has replaced complete heart block Confirmed by Daniela MITTAL BASANT ([id number]) on 06/24/2018 10:52:11 AM Performing Organization Address City/State/Zipcode Phone Number [employer] MUSE * CT brain without IV contrast (06/23/2018 9:45 PM CDT) Narrative Performed At FINAL REPORT [employer] CT, BRAIN, WITHOUT CONTRAST INDICATION: headache TECHNIQUE: [...] MD Report Verified Date/Time:06/23/2018 22:03:44 Reading Location: [facility] B1 C013Y CT Body Reading Room Procedure Note [...] Report Verified Date/Time: 06/23/2018 22:03:44 Reading Location: [facility] B1 C013Y CT Body Reading Room Performing Organization Address City/State/Zipcode Phone Number [facility] * CT chest without IV contrast (06/23/2018 9:45 PM CDT) Narrative Performed At FINAL REPORT [employer] CT of the Chest, abdomen and pelvis [...] MD Report Verified Date/Time:06/23/2018 22:41:25 Reading Location: [facility] B1 C013W Consult Reading Room Procedure Note Interface, [...] Report Verified Date/Time: 06/23/2018 22:41:25 Reading Location: [facility] B1 C013W Consult Reading Room Performing Organization Address City/State/Zipcode Phone Number [employer] * CT abdomen/pelvis without iv contrast (06/23/2018 9:45 PM CDT) Narrative Performed At FINAL REPORT [employer] CT of the Chest, abdomen and pelvis [...] MD Report Verified Date/Time:06/23/2018 22:41:25 Reading Location: [facility] B1 C013W Consult Reading Room Procedure Note Interface, [...] Report Verified Date/Time: 06/23/2018 22:41:25 Reading Location: [facility] C013W Consult Reading Room Performing Organization Address City/State/Zipcode Phone Number [facility] * TSH/Free T4 If Indicated (06/23/2018 8:55 PM CDT) TSH 2.21 0.35 - 4.94 uIU/mL [facility] Specimen Blood Performing Organization Address City/State/Zipcode Phone Number [facility] [address] [place] [address] [facility] * Comprehensive metabolic panel (06/23/2018 8:55 PM CDT) Protein, Total 6.5 6.0 - 8.3 gm/dL [facility] Albumin 3.7 3.5 - 5.0 g/dL [facility] Alkaline Phosphatase 57 40 - 150 U/L [facility] Total Bilirubin 0.3 0.2 - 1.2 mg/dL [facility] Sodium 144 136 - 145 meq/L [facility] Potassium 3.3 (L) 3.5 - 5.1 meq/L [facility] Chloride 103 98 - 107 meq/L [facility] CO2 29 22 - 29 meq/L [facility] BUN 42 (H) 7 - 21 mg/dL [facility] Creatinine 2.40 (H) 0.57 - 1.25 mg/dL [facility] Glucose 135 (H) 70 - 105 mg/dL [facility] Calcium 8.2 (L) 8.4 - 10.2 mg/dL [facility] AST 20 5 - 34 U/L [facility] ALT 14 6 - 55 U/L [facility] EGFR 19Comment: ESTIMATED GFR IS mL/min/1.73 sq m [facility] NOT ACCURATE CREATININE [facility] CLEARANCE IN PREDICTING GLOMERULAR FILTRATION RATE. ESTIMATED GFR IS NOT APPLICABLE FOR DIALYSIS PATIENTS. Specimen Blood Performing Organization Address City/State/Zipcode Phone Number [facility] [address] [place], [place] [phone] [facility] after 08/14/2017 Insurance Payer Benefit Subscriber ID Type Phone Address Plan / Group MEDICARE MEDICARE A xxxxxxxxxxx Medicare B BLUE CROSS/BLUE SHIELD BCBS xxxxxxxxxxxx PPO [phone] [address] [place] [address] [place] Advance Directives For more information, please contact: [facility] [address] [place], [place] [phone] Date Inactivated Comments Code Status Date Activated 06/25/2018 9:33 PM Full Code 06/23/2018 6:53 PM This code status was determined by: Patient 06/23/2018 6:53 PM Full Code 06/23/2018 5:18 PM This code status was determined by: Patient 03/10/2017 10:05 PM Full Code 02/28/2017 5:40 AM This code status was determined by: Patient
[2018-08-15 02:13] LABS: BASOPHILS # (AUTO) 0.1 (0.0-0.1); BASOPHILS % 0.3 % (0.0-1.0); EOSINOPHILS # (AUTO) 0.2 (0.0-0.4); EOSINOPHILS % 1.3 % (0.0-6.0); HEMATOCRIT 34.8 % (34.2-44.1); LYMPHOCYTES # (AUTO) 1.6 (1.0-3.2); LYMPHOCYTES % 10.7 % (18.0-39.1); MEAN CORPUSCULAR HGB CONC 31.6 g/dL (31-35); MEAN CORPUSCULAR VOLUME 91.8 fL (81-99); MONOCYTES # (AUTO) 1.4 (0.2-0.8); MONOCYTES % 9.7 % (4.4-11.3); NEUTROPHILS # (AUTO) 11.3 (2.1-6.9); NEUTROPHILS % 77.5 % (38.7-80.0); PLATELET COUNT 375 x10e3/uL (140-360); RED BLOOD COUNT 3.79 x10e6/uL (3.6-5.1); RED CELL DISTRIBUTION WIDTH 15.7 % (11.7-14.4)
[2018-08-15 02:18] LABS: CLARITY,URINE CLEAR (CLEAR); COLOR,URINE YELLOW (YELLOW); LEUKOCYTE ESTERASE ,URINE NEGATIVE (NEGATIVE); NITRITE,URINE NEGATIVE (NEGATIVE)
[2018-08-15 02:19] LABS: BILIRUBIN,URINE NEGATIVE (NEGATIVE); EPITHELIAL CELLS,URINE FEW /LPF; KETONES,URINE NEGATIVE (NEGATIVE); PROTEIN,URINE DIPSTICK TRACE (NEGATIVE); RBC,URINE 0-5 /HPF (0-5); URINE UROBILINOGEN 0.2 mg/dL (0.2 - 1); WBC,URINE (MAN) 0-5 /HPF (0-5)
[2018-08-15 02:22] LABS: INR 0.93; PROTHROMBIN TIME 13.3 seconds (11.9-14.5)
[2018-08-15 02:23] LABS: PARTIAL THROMBOPLASTIN TIME 32.5 seconds (23.8-35.5)
[2018-08-15 02:29] LABS: ALBUMIN 3.7 g/dL (3.5-5.0); ALBUMIN/GLOBULIN RATIO 1.2 (0.8-2.0); ANION GAP 19.1 mmol/L (8-16); CALCIUM 7.5 mg/dL (8.4-10.2); CREATININE, SERUM 2.17 mg/dL (0.57-1.11); POTASSIUM 3.1 mmol/L (3.5-5.1)
[2018-08-15 02:36] LABS: CREATINE KINASE MB 3.4 ng/mL (0-5.0)
[2018-08-15] MEDS ORDERED: POTASSIUM CHLORIDE 20MEQ/100ML 50 ML IV ONE (02:45)
--- NOTE | 2018-08-15 03:00 | Diagnostic Imaging Report ---
EXAM: CHEST 2 VIEWS, PA and lateral INDICATION: Shortness of breath COMPARISON: AP view of the chest July 18, 2018 FINDINGS: LINES/TUBES: None LUNGS: Emphysematous changes and bibasilar atelectasis. PLEURA: Small right and trace left pleural effusion. HEART AND MEDIASTINUM: Normal size and contour. BONES AND SOFT TISSUES: No acute findings. IMPRESSION: Stable appearance of the chest with small right and trace left pleural effusions. Signed by: Dr. Cindy Win M.D. on 08/15/2018 2:57 AM
[2018-08-15] MEDS: FUROSEMIDE INJ 10 MG/ML 4 ML VIAL IV ONE ×2 (03:45→04:18)
[2018-08-15] MEDS ORDERED: MELATONIN3 MG PO (03:54)
[2018-08-15] MEDS ORDERED: NITROSTAT0.3 MG SL (03:56)
[2018-08-15] MEDS ORDERED: RANEXA500 MG PO (03:59)
[2018-08-15] MEDS ORDERED: POTASSIUM CHLORIDE 20MEQ/15ML UDC ONE (04:00)
[2018-08-15] MEDS ORDERED: POTASSIUM CHLORIDE 20MEQ/15ML UDC PO ONE (04:00)
[2018-08-15] MEDS ORDERED: ARICEPT5 MG PO (04:01)
--- OUTSIDE RECORDS SUMMARY | 2018-08-15 05:20 | XMS REPORT | Clinical Summary ---
Author Author FÉLIX [facility] Address Unknown Phone Unavailable Care Team Providers Care Patient Support Associate Name Role Phone Sharpless PCP Allergies Comments [...] ms QTC Calculatio n(Bazett) 468 ms P Morton 77 degrees R Morton -24 degrees T Morton 60 degrees Sinus rhythm with 1st degree [...] ms QTC Calculatio n(Bazett) 0 ms R Morton 0 degrees T Morton 0 degrees No QRS complexes found, no [...] included. WBC 8.2 3.5 - 10.5 K/L [facility] RBC 3.22 (L) 3.93 - 5.22 M/L [facility] Hemoglobin 9.6 (L) 11.2 - 15.7 GM/DL [facility] Hematocrit 30.9 (L) 34.1 - 44.9 % [facility] MCV 96.0 (H) 79.4 - 94.8 fL [facility] MCH 29.8 25.6 - 32.2 pg [facility] MCHC 31.1 (L) 32.2 - 35.5 GM/DL [facility] RDW 16.8 (H) 11.7 - 14.4 % [facility] Platelets 208 150 - 450 K/CU MM [facility] MPV 11.1 9.4 - 12.3 fL [facility] nRBC 0 0 - 0 /100 WBC [facility] % Neutros 65 % [facility] % Lymphs 22 % [facility] % Monos 10 % [facility] % Eos 2 % [facility] % Baso 0 % [facility] # Neutros 5.34 1.56 - 6.13 K/L [facility] # Lymphs 1.82 1.18 - 3.74 K/L [facility] # Monos 0.84 (H) 0.24 - 0.36 K/L [facility] # Eos 0.19 0.04 - 0.36 K/L [facility] # Baso 0.02 0.01 - 0.08 K/L [facility] Immature 0 0 - 1 % [facility] Granulocytes-Relative [facility] Specimen Blood - Arm, Right Performing Organization Address City/[facility]/Zipcode Phone Number [facility] [address] [place] [address] [facility] * Basic Metabolic Panel (06/25/2018 6:24 AM CDT) Only the most recent of 2 results within the time period is included. Sodium 142 136 - 145 meq/L [facility] Potassium 3.0 (L) 3.5 - 5.1 meq/L [facility] Chloride 103 98 - 107 meq/L [facility] CO2 29 22 - 29 meq/L [facility] BUN 34 (H) 7 - 21 mg/dL [facility] Creatinine 1.87 (H) 0.57 - 1.25 mg/dL [facility] Glucose 157 (H) 70 - 105 mg/dL [facility] Calcium 7.5 (L) 8.4 - 10.2 mg/dL [facility] EGFR 26Comment: ESTIMATED GFR IS mL/min/1.73 sq m [facility] NOT ACCURATE CREATININE [facility] CLEARANCE IN PREDICTING GLOMERULAR FILTRATION RATE. ESTIMATED GFR IS NOT APPLICABLE FOR DIALYSIS PATIENTS. Specimen Blood - Arm, Right Performing Organization Address City/[facility]/Zipcode Phone Number [place] [phone] [place] [address] [facility] * 2D Echo W/Doppler(CW/PW/Color) (06/24/2018 1:48 PM CDT) Ejection Fraction [facility] Narrative Performed At Transthoracic Echocardiography Report (TTE) 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 Clinical History DEMENTIA;CANCER;HLD;MVP;SUPRA VENT TACHY HGB 9.9 HCT 31.5 % Height: 64 inches Weight: 50.35 kg (111 lbs) BSA: 1.52 m^2 BMI: 19.05 kg/m^2 HR: 67 bpm BP: 155/66 mmHg Summary The left ventricle is chamber size (by vol index) is normal. Axlh-kw-grlpwscs concentric LV hypertrophy. All of the LV [...] chamber size (by vol index) is normal. Ehxo-wi-fdekpyqb concentric LV hypertrophy. All of the LV [...] is approximately 45 mmHg. Pulmonic Valve Mild OK. 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 Clinical History DEMENTIA;CANCER;HLD;MVP;SUPRA VENT TACHY HGB 9.9 HCT 31.5 % Height: 64 inches Weight: 50.35 kg (111 lbs) BSA: 1.52 m^2 BMI: 19.05 kg/m^2 HR: 67 bpm BP: 155/66 mmHg Summary The left ventricle is chamber size (by vol index) is normal. Oqlc-oc-idoqabev concentric LV hypertrophy. All of the LV [...] chamber size (by vol index) is normal. Hkxw-nf-oamdnzzq concentric LV hypertrophy. All of the LV [...] is approximately 45 mmHg. Pulmonic Valve Mild OK. Aorta Aortic root size (Sinus of Valsalva [...] TR Gradient: 43.2 mmHg Performing Organization Address [facility] [place] Number [facility] MKCKESSON CPACS * XR chest 1 view portable / bedside (06/24/2018 7:00 AM CDT) Narrative Performed At FINAL REPORT [facility] CLINICAL HISTORY: sob TECHNIQUE: 1 view of the chest. COMPARISON: 02/27/2017 IMPRESSION: There are no focal infiltrates or effusions. The cardiomediastinal silhouette is magnified by technique. The visualized bones are intact. Signed: Tristan Su MD Report Verified Date/Time:06/24/2018 08:03:40 Reading Location: [facility] Radiology Reading Room Procedure Note Interface, External Ris In - 06/24/2018 8:05 AM CDT FINAL REPORT CLINICAL HISTORY: sob TECHNIQUE: 1 view of the chest. COMPARISON: 02/27/2017 IMPRESSION: There are no focal infiltrates or effusions. The cardiomediastinal silhouette is magnified by technique. The visualized bones are intact. Signed: Tristan Su MD Report Verified Date/Time: 06/24/2018 08:03:40 Reading Location: [facility] Radiology Reading Room Performing Organization Address [facility]/State/Zipcode Phone Number GE RIS * Troponin I (06/24/2018 3:25 AM CDT) Only the most recent of 2 results within the time period is included. Troponin I 0.07 (H) 0.00 - 0.03 ng/mL [facility] Specimen Blood - Arm, Right Narrative Performed At Troponin I (TnI) levels must be interpreted in the context of the presenting [facility] symptoms and the clinical findings. Elevated TnI levels indicate myocardial [facility] damage, but are not specific for ischemic heart disease. Elevated TnI levels are seen in patients with other cardiac conditions (including myocarditis and congestive heart failure), and slight TnI elevations occur in patients with other conditions, including sepsis, renal failure, acidosis, acute neurological disease, and persistent tachyarrhythmia. Performing Organization Address [facility] Centercode Phone Number [place] [phone] * Phosphorus (06/24/2018 2:12 AM CDT) Only the most recent of 2 results within the time period is included. Phosphorus 5.2 (H) 2.3 - 4.7 mg/dL [facility] Specimen Blood - Line, Venous Performing Organization Address [facility] [place] [address] [phone] [address] * Magnesium (06/24/2018 2:12 AM CDT) Only the most recent of 2 results within the time period is included. Magnesium 1.7 1.6 - 2.6 mg/dL [facility] Specimen Blood - Line, Venous Performing Organization Address [facility] Phone Number [address] [address] [phone] [place] [address] * ECG 12 lead (06/23/2018 11:14 PM CDT) Narrative Performed At Ventricular Rate 70 BPM GE MUSE Atrial Rate 70 BPM P-R Interval 262 ms QRS Duration 86 ms Q-T Interval 434 ms QTC Calculation(Bazett) 468 ms P Morton 77 degrees R Morton -24 degrees T Morton 60 degrees Sinus rhythm with 1st degree [...] 434 ms QTC Calculation(Bazett) 468 ms P Morton 77 degrees R Morton -24 degrees T Morton 60 degrees Sinus rhythm with 1st degree A-V block Poor R wave progression Cannot rule out Possible Anterior infarct , age undetermined Prolonged QT Abnormal ECG When compared with ECG of 23-JUN-2018 23:07, Sinus rhythm with first degree AV block has replaced complete heart block Confirmed by Daniela MITTAL BASANT ([id number]) on 06/24/2018 10:52:11 AM Performing Organization Address City/State/Zipcode Phone Number [facility] * CT brain without IV contrast (06/23/2018 9:45 PM CDT) Narrative Performed At FINAL REPORT [facility] CT, BRAIN, WITHOUT CONTRAST INDICATION: headache TECHNIQUE: [...] MD Report Verified Date/Time:06/23/2018 22:03:44 Reading Location: [facility] B1 C013Y CT Body Reading Room Procedure [...] Report Verified Date/Time: 06/23/2018 22:03:44 Reading Location: [facility] B1 C013Y CT Body Reading Room Performing Organization Address City/State/Zipcode Phone Number GE RIS * CT chest without IV contrast (06/23/2018 9:45 PM CDT) Narrative Performed At FINAL REPORT [facility] CT of the Chest, abdomen and pelvis [...] MD Report Verified Date/Time:06/23/2018 22:41:25 Reading Location: [facility] B1 C013W Consult Reading Room Procedure Note [...] Report Verified Date/Time: 06/23/2018 22:41:25 Reading Location: [facility] B1 C013W Consult Reading Room Performing Organization Address City/State/Zipcode Phone Number [facility] * CT abdomen/pelvis without iv contrast (06/23/2018 9:45 PM CDT) Narrative Performed At FINAL REPORT [facility] CT of the Chest, abdomen and pelvis [...] MD Report Verified Date/Time:06/23/2018 22:41:25 Reading Location: [facility] B1 C013W Consult Reading Room Procedure Note [...] Report Verified Date/Time: 06/23/2018 22:41:25 Reading Location: [facility] C013W Consult Reading Room Performing Organization Address City/State/Zipcode Phone Number GE RIS * TSH/Free T4 If Indicated (06/23/2018 8:55 PM CDT) TSH 2.21 0.35 - 4.94 uIU/mL [facility] Specimen Blood Performing Organization Address City/State/Zipcode Phone Number [facility] [address] [place] [address] [facility] * Comprehensive metabolic panel (06/23/2018 8:55 PM CDT) Protein, Total 6.5 6.0 - 8.3 gm/dL [facility] Albumin 3.7 3.5 - 5.0 g/dL [facility] Alkaline Phosphatase 57 40 - 150 U/L [facility] Total Bilirubin 0.3 0.2 - 1.2 mg/dL [facility] Sodium 144 136 - 145 meq/L [facility] Potassium 3.3 (L) 3.5 - 5.1 meq/L [facility] Chloride 103 98 - 107 meq/L [facility] CO2 29 22 - 29 meq/L [facility] BUN 42 (H) 7 - 21 mg/dL [facility] Creatinine 2.40 (H) 0.57 - 1.25 mg/dL [facility] Glucose 135 (H) 70 - 105 mg/dL [facility] Calcium 8.2 (L) 8.4 - 10.2 mg/dL [facility] AST 20 5 - 34 U/L [facility] ALT 14 6 - 55 U/L [facility] EGFR 19Comment: ESTIMATED GFR IS mL/min/1.73 sq m [facility] NOT ACCURATE CREATININE [facility] CLEARANCE IN PREDICTING GLOMERULAR FILTRATION RATE. ESTIMATED GFR IS NOT APPLICABLE FOR DIALYSIS PATIENTS. Specimen Blood Performing Organization Address City/State/Zipcode Phone Number [facility] [address] [place], [place] [phone] [facility] after 08/14/2017 Insurance Payer Benefit Subscriber ID Type Phone Address Plan / Group MEDICARE MEDICARE A xxxxxxxxxxx Medicare B BLUE CROSS/BLUE SHIELD BCBS xxxxxxxxxxxx PPO [phone] [address] [place] [address] [place] Advance Directives For more information, please contact: [facility] [address] [place], [place] [phone] Date Inactivated Comments Code Status Date Activated 06/25/2018 9:33 PM Full Code 06/23/2018 6:53 PM This code status was determined by: Patient 06/23/2018 6:53 PM Full Code 06/23/2018 5:18 PM This code status was determined by: Patient 03/10/2017 10:05 PM Full Code 02/28/2017 5:40 AM This code status was determined by: Patient
[2018-08-15] MEDS ORDERED: METOPROLOL TARTRATE 25 MG TAB PO SCH (09:00)
[2018-08-15] MEDS ORDERED: FUROSEMIDE INJ 10 MG/ML 4 ML VIAL IV SCH ×2 (09:00→14:30)
[2018-08-15 10:10] LABS: CREATINE KINASE MB 3.2 ng/mL (0-5.0)
[2018-08-15] MEDS ORDERED: ONDANSETRON HCL INJ 2 MG/ML VIAL IV PRN (14:30)
[2018-08-15] MEDS: POTASSIUM CHLORIDE 20 MEQ TAB CR PO SCH ×2 (14:40→16:40)
[2018-08-15] MEDS ORDERED: MELATONIN 1 MG PO PRN (14:45)
--- NOTE | 2018-08-15 16:29 | History and Physical ---
DATE OF SERVICE: August 15, 2018 CHIEF COMPLAINT: Shortness of breath. HPI: This is an 82-year-old female who was here in June of 2018 with underlying shortness of breath and treated for acute exacerbation of CHF, who now presents with similar complaints of orthopnea, dyspnea on exertion, and worsening anasarca. Patient follows up with a dry wall installer [facility], but lives around this area. She reports over the last several days, she has had significant amount of lower extremity edema. She was instructed by her dry wall installer to take diuretic 5 times per week only. She was also instructed by her ammunition and explosives handler to do the same. Patient denies any chest pain, palpitations, nausea, or vomiting. She reports having some shortness of breath as described and her underlying anasarca. Patient was seen and evaluated at bedside on the medical floor, currently doing well with no other complaints at this time. REVIEW OF SYSTEMS: Pertinent positive: Shortness of breath, orthopnea, dyspnea on exertion. Pertinent negative: Denies any chest pain, palpitation, nausea, vomiting, diarrhea, dysuria, hematuria, frequency, urgency, lightheadedness, dizziness, abdominal pain, headache, cough, congestion, fever, or any other complaints. The rest of the 14-point review of systems have been reviewed with the patient and are negative. ALLERGIES: CEFPODOXIME, CLARITHROMYCIN, CODEINE, DILTIAZEM, HYDRALAZINE, ISOSORBIDE MONONITRATE, LISINOPRIL, MORPHINE, PENICILLIN, AND PREDNISONE. HOME MEDICATIONS 1. Allopurinol 100 mg. 2. Amlodipine 10 mg daily. 3. 5 mg p.o. b.i.d. 4. Aspirin 81 mg daily. 5. Lipitor 10 mg at bedtime. 6. Calcitriol 0.25 mcg daily. 7. Clonidine 0.1 mg p.o. b.i.d. p.r.n. systolic blood pressure greater than 160. 8. Vitamin D2 50,000 p.o. weekly. 9. Ferrous sulfate 325 mg p.o. b.i.d. 10. Lasix 40 mg daily. 11. Melatonin 3 mg at bedtime for sleep. 12. Metoprolol 50 mg extended-release daily. 13. Ranexa 500 mg p.o. b.i.d. 14. Thyroid Gridley 120 mg p.o. daily. PAST MEDICAL HISTORY 1. Hypertension. 2. Chronic diastolic heart failure. 3. Moderate aortic stenosis and moderate mitral stenosis. 4. History of thyroid cancer, status post resection. SURGICAL HISTORY: Thyroid cancer, status post resection. FAMILY HISTORY: Hypertension and diabetes. SOCIAL HISTORY: No drugs, No alcohol. Does not smoke. Good social support. LABORATORY FINDINGS: Show white count is 14.6, hemoglobin 11, hematocrit 35, platelets of 375. Coagulation: PT 13.3, INR 0.93, PTT 32. Chemistry: Sodium 143, potassium 3.1, chloride 105, bicarb 25, anion gap of 19, BUN is 43, creatinine is 2.17, glucose 135, calcium 7.5. LFTs were normal. CK is 213, troponins 0.091 and then 0.106, BNP 930. Total protein 6.8, albumin 3.7. Urinalysis was negative. MICROBIOLOGY: None. IMAGING STUDIES: Chest x-ray shows stable appearance of the chest with small right and trace left pleural effusions. PHYSICAL EXAMINATION VITAL SIGNS: Temperature is 96.4, pulse 81, respiratory rate is 16, blood pressure is 136/63, pulse ox 97% on room air. GENERAL: In no acute distress, alert and oriented x3. Cooperative on examination. HEENT: Head; normocephalic, atraumatic. Eyes; pupils are equal, round and reactive to light bilaterally. Extraocular movements are intact bilaterally. Throat; no evidence of any erythema or exudate in the posterior pharynx. Has poor dentition. NECK: Supple with range of motion. PULMONARY: Positive rales. Good inspiratory effort. Positive fine crackles. CARDIOVASCULAR: Positive S1 and S2. No rubs, murmurs, or gallops appreciated. ABDOMEN: Soft, nondistended, and nontender to palpation. Bowel sounds present. MUSCULOSKELETAL: Strength is 5/5 throughout. No evidence of any musculoskeletal deficit on examination. No weakness appreciated. NEUROLOGIC: Cranial nerves II through XII are grossly intact. No evidence of any neurological deficit on exam. SKIN: Intact. Warm to touch. Good cap refill. PSYCHIATRIC: Normal affect and mood. EXTREMITIES: Right lower extremity is more swollen than the left, but also has significant extremity edema. IMPRESSION 1. Chronic diastolic heart failure. 2. Moderate aortic stenosis. 3. Moderate mitral stenosis. 4. History of hypertension. 5. History of thyroid cancer, status post resection. 6. Chronic kidney disease, stage 4. 7. History of supraventricular tachycardia. PLAN: At this time, continue with IV diuretics. Replace potassium. Cardiology consulted. We are going to get a venous Doppler of the right lower extremity as it is actually much more swollen than the left side. We are going to get a.m. labs. Resume same home medications. Get PT and OT to eval. Patient will also be on Lovenox for DVT prophylaxis. Cardiology consulted. Discussed plan of care with nursing staff. Job#: [id number] RAY
[2018-08-15] MEDS: FERROUS SULFATE 325 MG TAB PO SCH (16:40)
[2018-08-15] MEDS: RANOLAZINE 500 MG TABSR PO SCH (16:40)
[2018-08-15] MEDS ORDERED: ENOXAPARIN SOD INJ 40 MG/0.4 ML SYR SC SCH (17:00)
--- NOTE | 2018-08-15 17:22 | Consultation ---
DATE OF CONSULTATION: August 15, 2018 CARDIOLOGY CONSULTATION NOTE INDICATION: Heart failure. HISTORY OF PRESENT ILLNESS: Ms. Jean is well known to our service. She has had a recent admission to this hospital in June as well as multiple prior admissions to [facility]. She comes in with shortness of breath that is progressively worsened. She has had a complete cardiac workup in the recent past including normal perfusion on her stress test as well as moderate aortic and mitral valve stenosis. PAST MEDICAL HISTORY: Hypertension, chronic diastolic heart failure, moderate aortic valve stenosis, moderate mitral valve stenosis, thyroid cancer. SOCIAL HISTORY: Patient does not smoke or drink. She is accompanied by her daughter. FAMILY HISTORY: Not significant. REVIEW OF SYSTEMS: Negative except as dictated in the history of present illness. PHYSICAL EXAMINATION VITAL SIGNS: Afebrile. Heart rate 81, blood pressure is 136/63, O2 sat is 94% on 2 liters nasal cannula. CARDIOVASCULAR: Regular rhythm. Systolic murmur. LUNGS: Fine crackles bilaterally in both lung bases. NECK: Jugular venous pressure is in excess of 15. ABDOMEN: Soft. EXTREMITIES: Trace edema. LABS: WBC count is 14,600, hemoglobin 11, serum creatinine is 2.17. Cardiac enzymes are negative. BNP level is 930. IMAGING: Chest x-ray shows bilateral pleural effusions with pulmonary edema consistent with congestive heart failure. Recent echocardiogram was reviewed, done in June 2018, showing normal LV function and valvular disease as described above. ASSESSMENT: Xnnic-gw-nxqmgxi diastolic heart failure with moderate mitral stenosis as well as aortic valve stenosis. RECOMMENDATIONS: Continue diuresis. Re-initiation of beta-kev. Conservative therapy for now given her frailty as well as comorbid conditions. I thank Dr. Rand for this consultation. Job#: [id number] LPA
[2018-08-15] MEDS: FUROSEMIDE INJ 10 MG/ML 4 ML VIAL IV SCH (17:45)
[2018-08-15 18:27] LABS: CREATINE KINASE MB 2.6 ng/mL (0-5.0)
[2018-08-15] MEDS: ATORVASTATIN 10 MG TAB PO SCH (19:56)
[2018-08-15] MEDS: ACETAMINOPHEN 325 MG TAB PO PRN (21:12)
[2018-08-16] VITALS (8 sets, daily range): BP systolic 99–151; BP diastolic 51–83
[2018-08-16] MEDS: FUROSEMIDE INJ 10 MG/ML 4 ML VIAL IV SCH ×3 (03:06→21:00)
[2018-08-16 04:59] LABS: BASOPHILS % 0.4 % (0.0-1.0); EOSINOPHILS # (AUTO) 0.3 (0.0-0.4); EOSINOPHILS % 3.8 % (0.0-6.0); HEMATOCRIT 31.2 % (34.2-44.1); HEMOGLOBIN 9.9 g/dL (12.0-16.0); LYMPHOCYTES # (AUTO) 1.8 (1.0-3.2); LYMPHOCYTES % 20.2 % (18.0-39.1); MEAN CORPUSCULAR HEMOGLOBIN 28.6 pg (28-32); MEAN CORPUSCULAR HGB CONC 31.7 g/dL (31-35); MEAN CORPUSCULAR VOLUME 90.2 fL (81-99); MONOCYTES % 10.6 % (4.4-11.3); NEUTROPHILS # (AUTO) 5.8 (2.1-6.9); NEUTROPHILS % 64.7 % (38.7-80.0); PLATELET COUNT 290 x10e3/uL (140-360); RED BLOOD COUNT 3.46 x10e6/uL (3.6-5.1); RED CELL DISTRIBUTION WIDTH 15.9 % (11.7-14.4)
[2018-08-16 05:16] LABS: ANION GAP 18.5 mmol/L (8-16); CREATININE, SERUM 2.07 mg/dL (0.57-1.11); POTASSIUM 3.5 mmol/L (3.5-5.1)
[2018-08-16 05:29] LABS: CALCIUM 6.9 mg/dL (8.4-10.2)
[2018-08-16 05:33] LABS: CHOL/HDL RATIO 3.6 (3.0-3.6)
[2018-08-16] MEDS: THYROID 60 MG TAB PO SCH (05:35)
[2018-08-16 05:53] LABS: THYROID STIMULATING HORMONE 14.324 uIU/mL (0.350-4.940)
[2018-08-16] MEDS ORDERED: OYST-CAL-D 500MG TABLET PO ONE (06:00)
[2018-08-16] MEDS: FERROUS SULFATE 325 MG TAB PO SCH ×2 (08:00→16:27)
[2018-08-16] MEDS: CALCITRIOL 0.25 MCG CAP PO SCH (08:40)
[2018-08-16] MEDS: METOPROLOL SUCCINATE 50 MG TAB XL PO SCH (08:40)
[2018-08-16] MEDS: RANOLAZINE 500 MG TABSR PO SCH ×2 (08:40→16:28)
[2018-08-16] MEDS ORDERED: ASPIRIN 81 MG CHEW TAB PO ONE (09:00)
[2018-08-16] MEDS ORDERED: POTASSIUM CHLORIDE 20 MEQ TAB CR PO SCH (10:30)
[2018-08-16] MEDS: POTASSIUM CHLORIDE 20 MEQ TAB CR PO SCH (10:42)
--- NOTE | 2018-08-16 11:31 | Progress Note ---
DATE: August 16, 2018 CARDIOLOGY PROGRESS NOTE SUBJECTIVE: Ms. Jean's symptoms have improved. She has less shortness of breath. She is able to lie flat in bed. OBJECTIVE VITAL SIGNS: Afebrile. Heart rate 64, blood pressure 138/62, O2 sat is 98% on 2 liters nasal cannula. CARDIOVASCULAR: Regular rhythm. Systolic and diastolic murmur are heard. LUNGS: Decreased breath sounds. Occasional fine crackles at both lung bases. LABS: Hemoglobin is 9.9. TSH is 14, creatinine 2.07. TELEMETRY: Shows sinus rhythm as well as paroxysmal atrial fibrillation. ASSESSMENT 1. Fsmer-lf-gghhpwg diastolic heart failure with multivalvular heart disease. 2. New-onset atrial fibrillation. RECOMMENDATIONS: Anticoagulation with renal dose adjusted Eliquis along with continuation of beta kev. We will stop her Lovenox. Overall prognosis is guarded. No evidence of DVT by ultrasound. Job#: [id number] KEI
[2018-08-16] MEDS: ACETAMINOPHEN 325 MG TAB PO PRN (12:05)
[2018-08-16] MEDS: CALCIUM CARBONATE 500 MG CHEWABLE TABS PO SCH (13:45)
--- NOTE | 2018-08-16 14:52 | Progress Note ---
DATE: August 16, 2018 MEDICINE PROGRESS NOTE SUBJECTIVE: Patient is doing much better today. She is on very minimal oxygen. She states she is breathing much better. She is able to lay flat now. She has had significant amount of urine output. LABORATORY FINDINGS: Show white count is 9, hemoglobin 9.9, hematocrit 31, and platelets of 290. Sodium 146, potassium 3.5, chloride 129, anion gap of 80, BUN is 40, creatinine is 2.07, glucose is 99, calcium is 6.9, and TSH is 14. LDL of 96, albumin is 3.7. Urinalysis was negative. MICROBIOLOGY: None. IMAGING STUDIES: Venous Doppler of lower extremity was negative for DVT. PHYSICAL EXAMINATION VITAL SIGNS: Temperature is 98.1, pulse 66, respiratory rate is 16, blood pressure is 121/59, pulse ox is 96% on approximately 1 liter nasal cannula. GENERAL: Not in acute distress, alert and oriented x3, cooperative on examination. HEENT: Head; normocephalic, atraumatic. Eyes: Pupils are equal, round, and reactive to light bilaterally. Extraocular movements intact bilaterally. Throat; no evidence of any erythema or exudates in the posterior pharynx. Has poor dentition. NECK: Supple. PULMONARY: Clear to auscultation bilaterally. No wheezing, no rales, no rhonchi, no crackles appreciated. CARDIOVASCULAR: Positive S1, S2. No murmurs, rubs or gallops appreciated. ABDOMEN: Soft, nondistended, nontender to palpation. Bowel sounds present. MUSCULOSKELETAL: Strength is 5/5 throughout. No evidence of any musculoskeletal deficit on examination. No weakness appreciated. NEUROLOGIC: Cranial nerves II through XII are grossly intact. No evidence of any neurological deficit on exam. SKIN: Intact. Warm to touch. Good capillary refill. PSYCHIATRIC: Normal affect and mood. EXTREMITIES: No edema. Good range of motion throughout. IMPRESSION 1. . 2. Moderate aortic stenosis. 3. Moderate mitral valve stenosis. 4. Hypertension. 5. History of thyroid cancer status post resection. 6. Chronic kidney disease stage 4. 7. History of supraventricular tachycardia. 8. Hypocalcemia. 9. Hypothyroidism. PLAN: Continue with IV diuretics. Cardiology is following. Continue with cardioprotective meds. Venous Doppler was negative for DVT. We will do a.m. labs. We will continue PT and OT. Give Tums 1000 mg p.o. daily x3 days due to hypocalcemia and started on Synthroid 50 mcg daily. We will wean her off of oxygen and I have discussed this with the nursing staff. If she does well, likely discharge tomorrow. To put on Lasix 40 mg b.i.d. Job#: [id number] DODIE
[2018-08-16] MEDS: APIXAB 2.5 MG TABLET PO SCH (16:29)
[2018-08-16] MEDS: ATORVASTATIN 10 MG TAB PO SCH (21:00)
[2018-08-16] MEDS ORDERED: LOPERAMIDE HCL 2 MG CAP PO PRN (22:30)
[2018-08-17] VITALS: BP 150/67
[2018-08-17 04:00] VITALS: BP 141/65
[2018-08-17 04:48] LABS: BASOPHILS % 0.3 % (0.0-1.0); EOSINOPHILS # (AUTO) 0.3 (0.0-0.4); EOSINOPHILS % 2.8 % (0.0-6.0); HEMATOCRIT 33.2 % (34.2-44.1); HEMOGLOBIN 10.8 g/dL (12.0-16.0); LYMPHOCYTES # (AUTO) 1.8 (1.0-3.2); LYMPHOCYTES % 15.8 % (18.0-39.1); MEAN CORPUSCULAR HGB CONC 32.5 g/dL (31-35); MEAN CORPUSCULAR VOLUME 89.2 fL (81-99); MONOCYTES # (AUTO) 1.3 (0.2-0.8); MONOCYTES % 10.8 % (4.4-11.3); NEUTROPHILS # (AUTO) 8.1 (2.1-6.9); NEUTROPHILS % 69.9 % (38.7-80.0); PLATELET COUNT 288 x10e3/uL (140-360); RED BLOOD COUNT 3.72 x10e6/uL (3.6-5.1); RED CELL DISTRIBUTION WIDTH 15.5 % (11.7-14.4)
[2018-08-17 05:06] LABS: ANION GAP 18.6 mmol/L (8-16); CALCIUM 7.1 mg/dL (8.4-10.2); CREATININE, SERUM 2.19 mg/dL (0.57-1.11); POTASSIUM 3.6 mmol/L (3.5-5.1)
[2018-08-17] MEDS: THYROID 60 MG TAB PO SCH (05:39)
[2018-08-17] MEDS ORDERED: LEVOTHYROXINE SODIUM 50 MCG TAB PO SCH (06:00)
[2018-08-17 08:23] VITALS: BP 139/60
[2018-08-17] MEDS: FERROUS SULFATE 325 MG TAB PO SCH (08:52)
[2018-08-17] MEDS: FUROSEMIDE INJ 10 MG/ML 4 ML VIAL IV SCH (08:52)
[2018-08-17] MEDS: METOPROLOL SUCCINATE 50 MG TAB XL PO SCH (08:52)
[2018-08-17] MEDS: APIXAB 2.5 MG TABLET PO SCH (08:52)
[2018-08-17] MEDS: CALCITRIOL 0.25 MCG CAP PO SCH (08:52)
[2018-08-17] MEDS: RANOLAZINE 500 MG TABSR PO SCH (08:52)
[2018-08-17] MEDS: CALCIUM CARBONATE 500 MG CHEWABLE TABS PO SCH (08:53)
[2018-08-17 10:35] VITALS: BP 139/60
[2018-08-17 11:42] VITALS: BP 133/64
[2018-08-17] MEDS ORDERED: SYNTHROID50 MCG PO (15:07)
[2018-08-17] MEDS ORDERED: BUMETANIDE1 MG PO (15:08)
[2018-08-17] MEDS ORDERED: ALDACTONE25 MG PO (15:09)
--- NOTE | 2018-08-17 15:12 | Progress Note ---
DATE: August 17, 2018 CARDIOLOGY PROGRESS NOTE SUBJECTIVE: Patient feels overall better. She is not short of breath or having any chest pain. OBJECTIVE VITAL SIGNS: Temperature is 98.3, heart rate is 69, respiratory rate is 18, blood pressure is 133/64, oxygen saturation 96% on 2 L nasal cannula. GENERAL: She is a well-appearing elderly woman lying comfortably in bed. No apparent distress. CARDIOVASCULAR: She is regular rate and rhythm. Systolic and diastolic murmur heard best at the left lower sternal border. LUNGS: Diminished breath sounds at bilateral bases. ABDOMEN: Soft, nontender and nondistended. EXTREMITIES: No edema. Telemetry monitoring revealed normal sinus rhythm with premature atrial complexes. IMPRESSION AND RECOMMENDATIONS 1. Srphi-wx-ewvuktm diastolic heart failure. 2. Mitral valve stenosis. 3. Aortic valve stenosis. 4. Paroxysmal atrial fibrillation. RECOMMENDATIONS: Anticoagulation with Eliquis has been started and dosed appropriately. She is hemodynamically stable and back into a regular rhythm. Continue metoprolol succinate at current doses. She is otherwise hemodynamically stable from a cardiovascular standpoint. Job#: [id number] PA
[2018-08-17 15:51] VITALS: BP 114/58
--- NOTE | 2018-08-17 16:22 | Discharge Summary ---
FINAL DISCHARGE DIAGNOSES 1. 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 2. Moderate aortic stenosis. 3. Moderate mitral valve stenosis. 4. Hypertension. 5. History of thyroid cancer, status post resection. 6. Chronic kidney disease, stage 4. 7. History of supraventricular tachycardia. 8. Hypocalcemia. 9. Hypothyroidism. 10. Atrial fibrillation. 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 VITAL SIGNS: Temperature 98.3. Pulse 69. Respiratory rate 18. Blood pressure 133/64. Pulse ox 96% on room air. LAB FINDINGS: White count 11.6, hemoglobin 10.8, hematocrit 33, platelets 288. Coagulations are normal. Sodium 142, potassium 3.6, chloride 97, bicarb 30, anion gap 18, BUN 43, creatinine 2.19 at baseline. Hemoglobin A1c is 5.6. Urinalysis was found to be negative. MICROBIOLOGY: None. IMAGING STUDIES: Chest x-ray showed some mild pulmonary effusion. Lower extremity venous Doppler was negative for DVT. HOSPITAL COURSE: This is an 82-year-old female with known history of heart failure and valvular disease who comes in with complaints of shortness of breath and significant anasarca. Patient was admitted, and cardiology was consulted. Patient was started on IV diuretics with much improvement in terms of breathing. She was weaned off oxygen prior to discharge home. The patient was also found to have new onset of AFib in which the patient's rate is controlled and will be discharged on oral Eliquis. The patient improved throughout the hospital course with no other issues. The patient was stable for discharge by cardiology and ready for discharge. On the day of discharge, vital signs are stable. Labs reviewed and stable. Patient seen and evaluated and examined thoroughly on the day of discharge with no other complaints. Patient verbalized understanding and agreed with the plan of care, to follow up accordingly as an outpatient with the primary care physician in 1 week and the manager mobility in 2 weeks' time. MEDICATIONS: See medication reconciliation form. DISPOSITION: To home. CONDITION: Stable. DIET: Heart healthy. In the event of any worsening symptoms, the patient is advised to come back to the ED for further evaluation. Discharge summary took greater than 35 minutes. PARVEZ LOPEZ MD Job#: [id number] LYLE
[2018-08-17] MEDS ORDERED: ONDANSETRON HCL 4 MG ORAL DISINTEGRATING TAB PO ONE (18:00)
== END 2018-08-17 18:39 | disposition home or self-care (01) ==
LOC: ER 00:54 → ERHOLD 03:37 → IMCU 07:02 → ERHOLD 07:04 → IMCU 07:07
PROVIDERS: ADMIT Internal Medicine; ATTEND Internal Medicine
DX: I13.0 Hypertensive heart and chronic kidney disease with heart failure and stage 1 through stage 4 chronic kidney disease, or unspecified chronic kidney disease (principal); I50.33 Acute on chronic diastolic (congestive) heart failure; N18.4 Chronic kidney disease, stage 4 (severe); Z85.850 Personal history of malignant neoplasm of thyroid; I08.0 Rheumatic disorders of both mitral and aortic valves; I48.0 Paroxysmal atrial fibrillation; E83.51 Hypocalcemia; E03.9 Hypothyroidism, unspecified; Z88.1 Allergy status to other antibiotic agents; Z88.5 Allergy status to narcotic agent; Z88.0 Allergy status to penicillin; Z88.8 Allergy status to other drugs, medicaments and biological substances
CPT/HCPCS: 36415 ×3; 51700; 71046; 80048 ×2; 80053; 80061; 81001; 82550; 82553; 83036; 83880; 84443; 84484; 85025 ×3; 85610; 85730; 93005; 93970; 97116; 97161; 99284; G0378 ×3; G8978; G8979; J1650; J1940 ×3; J2405; Q0162; J3480

== ENCOUNTER 2018-09-04 03:02 | Observation (INO) | payer MEDICARE, BC ==
[~2018-09-04] VITALS: Ht 162.6 cm; Wt 56.3 kg
[~2018-09-04 03:02] MED LIST changes: +ALDACTONE25 MG PO; +ARICEPT5 MG PO; +BUMETANIDE1 MG PO; +MELATONIN3 MG PO; +NITROSTAT0.3 MG SL; +SYNTHROID50 MCG PO
--- OUTSIDE RECORDS SUMMARY | 2018-09-04 03:05 | XMS REPORT | Clinical Summary ---
Author Author FÉLIX [facility] Address Unknown Phone Unavailable Care Team Providers Care Projection Printer Name Role Phone Sharpless PCP Allergies Comments [...] 06/23/2018 Orders Only General Internal Medicine after 09/03/2017 Social History Date Tobacco Use Types Packs/Day [...] ms QTC Calculatio n(Bazett) 468 ms P [place] 77 degrees R [place] -24 degrees T [place] 60 degrees Sinus rhythm with 1st degree [...] ms QTC Calculatio n(Bazett) 0 ms R [place] 0 degrees T [place] 0 degrees No QRS complexes found, no [...] Routine 06/23/2018 DIFFERENTIAL 8:55 PM CDT after 09/03/2017 Results * RHYTHM STRIP - SCAN (06/26/2018 2:40 PM CDT) Narrative Performed At * ECHOCARDIOGRAM REPORT - SCAN (06/25/2018 9:00 AM CDT) Narrative Performed At * CBC with platelet count + automated diff (06/25/2018 6:24 AM CDT) Only the most recent of 3 results within the time period is included. WBC 8.2 3.5 - 10.5 K/L [facility] RBC 3.22 (L) 3.93 - 5.22 M/L [facility] Hemoglobin 9.6 (L) 11.2 - 15.7 GM/DL [facility] Hematocrit 30.9 (L) 34.1 - 44.9 % [facility] MCV 96.0 (H) 79.4 - 94.8 fL [facility] MCH 29.8 25.6 - 32.2 pg [facility] MCHC 31.1 (L) 32.2 - 35.5 GM/DL [facility] RDW 16.8 (H) 11.7 - 14.4 % [facility] Platelets 208 150 - 450 K/CU MM [facility] MPV 11.1 9.4 - 12.3 fL [facility] nRBC 0 0 - 0 /100 WBC [facility] % Neutros 65 % [facility] % Lymphs 22 % [facility] % Monos 10 % [facility] % Eos 2 % [facility] % Baso 0 % [facility] # Neutros 5.34 1.56 - 6.13 K/L [facility] # Lymphs 1.82 1.18 - 3.74 K/L [facility] # Monos 0.84 (H) 0.24 - 0.36 K/L [facility] # Eos 0.19 0.04 - 0.36 K/L [facility] # Baso 0.02 0.01 - 0.08 K/L [facility] Immature 0 0 - 1 % [facility] Granulocytes-Relative [facility] Specimen Blood - Arm, Right Performing Organization Address City/[facility]/Zipcode Phone Number [facility] [address] [place] [address] [facility] * Basic Metabolic Panel (06/25/2018 6:24 AM CDT) Only the most recent of 2 results within the time period is included. Sodium 142 136 - 145 meq/L [facility] Potassium 3.0 (L) 3.5 - 5.1 meq/L [facility] Chloride 103 98 - 107 meq/L [facility] CO2 29 22 - 29 meq/L [facility] BUN 34 (H) 7 - 21 mg/dL [facility] Creatinine 1.87 (H) 0.57 - 1.25 mg/dL [facility] Glucose 157 (H) 70 - 105 mg/dL [facility] Calcium 7.5 (L) 8.4 - 10.2 mg/dL [facility] EGFR 26Comment: ESTIMATED GFR IS mL/min/1.73 sq m [facility] NOT ACCURATE CREATININE [facility] CLEARANCE IN PREDICTING GLOMERULAR FILTRATION RATE. ESTIMATED GFR IS NOT APPLICABLE FOR DIALYSIS PATIENTS. Specimen Blood - Arm, Right Performing Organization Address City/[facility]/Zipcode Phone Number [place] [phone] [place] [address] [facility] * 2D Echo W/Doppler(CW/PW/Color) (06/24/2018 1:48 PM CDT) Ejection Fraction [facility] Narrative Performed At Transthoracic Echocardiography Report (TTE) [facility] Demographics [facility] Patient NameSALSER, PATITO PANTOJADate of Study 06/24/2018 Visit [id number] Unknown Room Number 1455 Number Date of 1935Referring SG CARRILLO Physician Age 82 year(s)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 Clinical History DEMENTIA;CANCER;HLD;MVP;SUPRA VENT TACHY HGB 9.9 HCT 31.5 % Height: 64 inches Weight: 50.35 kg (111 lbs) BSA: 1.52 m^2 BMI: 19.05 kg/m^2 HR: 67 bpm BP: 155/66 mmHg Summary The left ventricle is chamber size (by vol index) is normal. Dizd-ch-lmggqmwy concentric LV hypertrophy. All of the LV [...] chamber size (by vol index) is normal. Klfq-bh-eufekwju concentric LV hypertrophy. All of the LV [...] is approximately 45 mmHg. Pulmonic Valve Mild DC. 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 Clinical History DEMENTIA;CANCER;HLD;MVP;SUPRA VENT TACHY HGB 9.9 HCT 31.5 % Height: 64 inches Weight: 50.35 kg (111 lbs) BSA: 1.52 m^2 BMI: 19.05 kg/m^2 HR: 67 bpm BP: 155/66 mmHg Summary The left ventricle is chamber size (by vol index) is normal. Fckh-hr-tbwaetlw concentric LV hypertrophy. All of the LV [...] chamber size (by vol index) is normal. Yzbb-ev-zfiudkza concentric LV hypertrophy. All of the LV [...] is approximately 45 mmHg. Pulmonic Valve Mild DC. Aorta Aortic root size (Sinus of Valsalva [...] TR Gradient: 43.2 mmHg Performing Organization Address [facility] Phone Number [facility] MKCKESSON CPACS * XR chest 1 view portable / bedside (06/24/2018 7:00 AM CDT) Narrative Performed At FINAL REPORT [facility] CLINICAL HISTORY: sob TECHNIQUE: 1 view of the chest. COMPARISON: 02/27/2017 IMPRESSION: There are no focal infiltrates or effusions. The cardiomediastinal silhouette is magnified by technique. The visualized bones are intact. Signed: Tristan Su MD Report Verified Date/Time:06/24/2018 08:03:40 Reading Location: [facility] Radiology Reading Room Procedure Note Interface, External Ris In - 06/24/2018 8:05 AM CDT FINAL REPORT CLINICAL HISTORY: sob TECHNIQUE: 1 view of the chest. COMPARISON: 02/27/2017 IMPRESSION: There are no focal infiltrates or effusions. The cardiomediastinal silhouette is magnified by technique. The visualized bones are intact. Signed: Tristan Su MD Report Verified Date/Time: 06/24/2018 08:03:40 Reading Location: [facility] Radiology Reading Room Performing Organization Address [facility]/State/Zipcode Phone Number [facility] * Troponin I (06/24/2018 3:25 AM CDT) Only the most recent of 2 results within the time period is included. Troponin I 0.07 (H) 0.00 - 0.03 ng/mL [facility] Specimen Blood - Arm, Right Narrative Performed At Troponin I (TnI) levels must be interpreted in the context of the presenting [facility] symptoms and the clinical findings. Elevated TnI levels indicate myocardial [facility] damage, but are not specific for ischemic heart disease. Elevated TnI levels are seen in patients with other cardiac conditions (including myocarditis and congestive heart failure), and slight TnI elevations occur in patients with other conditions, including sepsis, renal failure, acidosis, acute neurological disease, and persistent tachyarrhythmia. Performing Organization Address [facility] Cent[facility]ode Phone Number [place] [phone] * Phosphorus (06/24/2018 2:12 AM CDT) Only the most recent of 2 results within the time period is included. Phosphorus 5.2 (H) 2.3 - 4.7 mg/dL [facility] Specimen Blood - Line, Venous Performing Organization Address [facility] [place] [address] [phone] * Magnesium (06/24/2018 2:12 AM CDT) Only the most recent of 2 results within the time period is included. Magnesium 1.7 1.6 - 2.6 mg/dL [facility] Specimen Blood - Line, Venous Performing Organization Address [facility] Phone Number [address] [address] [phone] [place] [address] * ECG 12 lead (06/23/2018 11:14 PM CDT) Narrative Performed At Ventricular Rate 70 BPM [facility] Atrial Rate 70 BPM P-R Interval 262 ms QRS Duration 86 ms Q-T Interval 434 ms QTC Calculation(Bazett) 468 ms P [place] 77 degrees R [place] -24 degrees T [place] 60 degrees Sinus rhythm with 1st degree [...] 434 ms QTC Calculation(Bazett) 468 ms P [place] 77 degrees R [place] -24 degrees T [place] 60 degrees Sinus rhythm with 1st degree A-V block Poor R wave progression Cannot rule out Possible Anterior infarct , age undetermined Prolonged QT Abnormal ECG When compared with ECG of 23-JUN-2018 23:07, Sinus rhythm with first degree AV block has replaced complete heart block Confirmed by Daniela MITTAL BASANT ([id number]) on 06/24/2018 10:52:11 AM Performing Organization Address City/State/Zipcode Phone Number [employer] MUSE * CT brain without IV contrast (06/23/2018 9:45 PM CDT) Narrative Performed At FINAL REPORT mSnap CT, BRAIN, WITHOUT CONTRAST INDICATION: headache TECHNIQUE: [...] MD Report Verified Date/Time:06/23/2018 22:03:44 Reading Location: [facility] B1 C013Y CT Body Reading Room [...] Report Verified Date/Time: 06/23/2018 22:03:44 Reading Location: [facility] B1 C013Y CT Body Reading Room Performing Organization Address City/State/Zipcode Phone Number [facility] * CT chest without IV contrast (06/23/2018 9:45 PM CDT) Narrative Performed At FINAL REPORT mSnap CT of the Chest, abdomen and pelvis [...] MD Report Verified Date/Time:06/23/2018 22:41:25 Reading Location: [facility] B1 C013W Consult Reading Room Procedure [...] Report Verified Date/Time: 06/23/2018 22:41:25 Reading Location: [facility] B1 C013W Consult Reading Room Performing Organization Address City/State/Zipcode Phone Number [facility]Snap * CT abdomen/pelvis without iv contrast (06/23/2018 9:45 PM CDT) Narrative Performed At FINAL REPORT mSnap CT of the Chest, abdomen and pelvis [...] MD Report Verified Date/Time:06/23/2018 22:41:25 Reading Location: [facility] B1 C013W Consult Reading Room Procedure [...] Report Verified Date/Time: 06/23/2018 22:41:25 Reading Location: [facility] C013W Consult Reading Room Performing Organization Address City/State/Zipcode Phone Number [facility] * TSH/Free T4 If Indicated (06/23/2018 8:55 PM CDT) TSH 2.21 0.35 - 4.94 uIU/mL [facility] Specimen Blood Performing Organization Address City/State/Zipcode Phone Number [facility] [address] [place] [address] [facility] * Comprehensive metabolic panel (06/23/2018 8:55 PM CDT) Protein, Total 6.5 6.0 - 8.3 gm/dL [facility] Albumin 3.7 3.5 - 5.0 g/dL [facility] Alkaline Phosphatase 57 40 - 150 U/L [facility] Total Bilirubin 0.3 0.2 - 1.2 mg/dL [facility] Sodium 144 136 - 145 meq/L [facility] Potassium 3.3 (L) 3.5 - 5.1 meq/L [facility] Chloride 103 98 - 107 meq/L [facility] CO2 29 22 - 29 meq/L [facility] BUN 42 (H) 7 - 21 mg/dL [facility] Creatinine 2.40 (H) 0.57 - 1.25 mg/dL [facility] Glucose 135 (H) 70 - 105 mg/dL [facility] Calcium 8.2 (L) 8.4 - 10.2 mg/dL [facility] AST 20 5 - 34 U/L [facility] ALT 14 6 - 55 U/L [facility] EGFR 19Comment: ESTIMATED GFR IS mL/min/1.73 sq m [facility] NOT ACCURATE CREATININE [facility] CLEARANCE IN PREDICTING GLOMERULAR FILTRATION RATE. ESTIMATED GFR IS NOT APPLICABLE FOR DIALYSIS PATIENTS. Specimen Blood Performing Organization Address City/State/Zipcode Phone Number [facility] [address] [place], [place] [phone] [facility] after 09/03/2017 Insurance Payer Benefit Subscriber ID Type Phone Address Plan / Group MEDICARE MEDICARE A xxxxxxxxxxx Medicare B BLUE CROSS/BLUE SHIELD BCBS xxxxxxxxxxxx PPO [phone] [address] [place] [address] [place] Advance Directives For more information, please contact: [facility] [address] [place], [place] [phone] Date Inactivated Comments Code Status Date Activated 06/25/2018 9:33 PM Full Code 06/23/2018 6:53 PM This code status was determined by: Patient 06/23/2018 6:53 PM Full Code 06/23/2018 5:18 PM This code status was determined by: Patient 03/10/2017 10:05 PM Full Code 02/28/2017 5:40 AM This code status was determined by: Patient
[2018-09-04 04:01] LABS: BASOPHILS % 0.4 % (0.0-1.0); EOSINOPHILS # (AUTO) 0.2 (0.0-0.4); EOSINOPHILS % 1.8 % (0.0-6.0); HEMATOCRIT 37.3 % (34.2-44.1); HEMOGLOBIN 11.5 g/dL (12.0-16.0); LYMPHOCYTES # (AUTO) 1.5 (1.0-3.2); LYMPHOCYTES % 13.7 % (18.0-39.1); MEAN CORPUSCULAR HEMOGLOBIN 28.5 pg (28-32); MEAN CORPUSCULAR HGB CONC 30.8 g/dL (31-35); MEAN CORPUSCULAR VOLUME 92.6 fL (81-99); MONOCYTES # (AUTO) 0.9 (0.2-0.8); MONOCYTES % 8.5 % (4.4-11.3); NEUTROPHILS # (AUTO) 8.1 (2.1-6.9); NEUTROPHILS % 75.2 % (38.7-80.0); PLATELET COUNT 500 x10e3/uL (140-360); RED BLOOD COUNT 4.03 x10e6/uL (3.6-5.1); RED CELL DISTRIBUTION WIDTH 16.2 % (11.7-14.4)
[2018-09-04 04:17] LABS: ALBUMIN 3.9 g/dL (3.5-5.0); ANION GAP 19.2 mmol/L (8-16); CALCIUM 9.8 mg/dL (8.4-10.2); CREATININE, SERUM 2.75 mg/dL (0.57-1.11); POTASSIUM 4.2 mmol/L (3.5-5.1)
[2018-09-04 04:25] LABS: CREATINE KINASE MB 2.4 ng/mL (0-5.0)
--- NOTE | 2018-09-04 04:44 | Diagnostic Imaging Report ---
CHEST SINGLE (PORTABLE), 09/04/2018 3:12 AM Technique: CHEST SINGLE (PORTABLE) Comparison: 08/15/2018 Clinical history: Chest pain, shortness of breath Findings: Stable cardiomediastinal silhouette. Central peribronchial cuffing/thickening again noted. Stable to slight increase in moderate right pleural effusion with associated opacity and trace left effusion. Impression: Stable to slight increase in moderate right effusion. Trace left effusion. Signed by: Dr Crissy Diaz MD on 09/04/2018 4:41 AM
[2018-09-04] MEDS ORDERED: ONDANSETRON HCL INJ 2 MG/ML VIAL IV PRN ×2 (05:00→09:00)
[2018-09-04] MEDS ORDERED: NITROGLYCERIN 0.4 MG SUBL SL PRN (05:00)
[2018-09-04] MEDS ORDERED: SODIUM CHLORIDE FLUSH 10 ML SYR INJ PRN (05:00)
--- OUTSIDE RECORDS SUMMARY | 2018-09-04 05:00 | XMS REPORT | Clinical Summary ---
Author Author FÉLIX [facility] Address Unknown Phone Unavailable Care Team Providers Care Supervisor Laboratory Animal Facility Name Role Phone Sharpless PCP Allergies Comments [...] ms QTC Calculatio n(Bazett) 468 ms P [place] 77 degrees R [place] -24 degrees T [place] 60 degrees Sinus rhythm with 1st degree [...] ms QTC Calculatio n(Bazett) 0 ms R [place] 0 degrees T [place] 0 degrees No QRS complexes found, no [...] included. WBC 8.2 3.5 - 10.5 K/L [facility] RBC 3.22 (L) 3.93 - 5.22 M/L [facility] Hemoglobin 9.6 (L) 11.2 - 15.7 GM/DL [facility] Hematocrit 30.9 (L) 34.1 - 44.9 % [facility] MCV 96.0 (H) 79.4 - 94.[address] [facility] MCH 29.8 25.6 - 32.[address] [facility] MCHC 31.1 (L) 32.2 - 35.5 GM/DL [facility] RDW 16.8 (H) 11.7 - 14.4 % [facility] Platelets 208 150 - 450 K/CU MM [facility] MPV 11.1 9.4 - 12.[address] [facility] nRBC 0 0 - 0 /[address] [facility] % Neutros 65 % [facility] % Lymphs 22 % [facility] % Monos 10 % [facility] % Eos 2 % [facility] % Baso 0 % [facility] # Neutros 5.34 1.56 - 6.13 K/L [facility] # Lymphs 1.82 1.18 - 3.74 K/L [facility] # Monos 0.84 (H) 0.24 - 0.36 K/L [facility] # Eos 0.19 0.04 - 0.36 K/L [facility] # Baso 0.02 0.01 - 0.08 K/L [facility] Immature 0 0 - 1 % [facility] Granulocytes-Relative [facility] Specimen Blood - Arm, Right Performing Organization Address City/[facility]/Zipcode Phone Number [facility] [address] [place] [address] [facility] * Basic Metabolic Panel (06/25/2018 6:24 AM CDT) Only the most recent of 2 results within the time period is included. Sodium 142 136 - 145 meq/L [facility] Potassium 3.0 (L) 3.5 - 5.1 meq/L [facility] Chloride 103 98 - 107 meq/L [facility] CO2 29 22 - 29 meq/L [facility] BUN 34 (H) 7 - 21 mg/dL [facility] Creatinine 1.87 (H) 0.57 - 1.25 mg/dL [facility] Glucose 157 (H) 70 - 105 mg/dL [facility] Calcium 7.5 (L) 8.4 - 10.2 mg/dL [facility] EGFR 26Comment: ESTIMATED GFR IS mL/min/1.73 sq m [facility] NOT ACCURATE CREATININE [facility] CLEARANCE IN PREDICTING GLOMERULAR FILTRATION RATE. ESTIMATED GFR IS NOT APPLICABLE FOR DIALYSIS PATIENTS. Specimen Blood - Arm, Right Performing Organization Address City/[facility]/Zipcode Phone Number [place] [phone] [place] [address] [facility] * 2D Echo W/Doppler(CW/PW/Color) (06/24/2018 1:48 PM CDT) Ejection Fraction [facility] Narrative Performed At Transthoracic Echocardiography Report (TTE) [facility] Demographics [facility] Patient NameSALSER, PATITO PANTOJADate of Study 06/24/2018 Visit [id number] Unknown Room Number 1455 Number Date of 1935Referring SG CARRILLO 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 Clinical History DEMENTIA;CANCER;HLD;MVP;SUPRA VENT TACHY HGB 9.9 HCT 31.5 % Height: 64 inches Weight: 50.35 kg (111 lbs) BSA: 1.52 m^2 BMI: 19.05 kg/m^2 HR: 67 bpm BP: 155/66 mmHg Summary The left ventricle is chamber size (by vol index) is normal. Enno-dt-ttimqgcr concentric LV hypertrophy. All of the LV [...] chamber size (by vol index) is normal. Aaey-dv-kisihiob concentric LV hypertrophy. All of the LV [...] is approximately 45 mmHg. Pulmonic Valve Mild FL. 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 Dbjb-iq-zvbajggt concentric LV hypertrophy. All of the LV [...] chamber size (by vol index) is normal. Raga-ls-xmhcxrfp concentric LV hypertrophy. All of the LV [...] is approximately 45 mmHg. Pulmonic Valve Mild FL. Aorta Aortic root size (Sinus of Valsalva [...] TR Gradient: 43.2 mmHg Performing Organization Address [facility] Phone Number [facility] * XR chest 1 view portable / bedside (06/24/2018 7:00 AM CDT) Narrative Performed At FINAL REPORT [employer] CLINICAL HISTORY: sob TECHNIQUE: 1 view of the chest. COMPARISON: 02/27/2017 IMPRESSION: There are no focal infiltrates or effusions. The cardiomediastinal silhouette is magnified by technique. The visualized bones are intact. Signed: Tristan Su MD Report Verified Date/Time:06/24/2018 08:03:40 Reading Location: [facility] Reading Room Procedure Note Interface, External Ris In - 06/24/2018 8:05 AM CDT FINAL REPORT CLINICAL HISTORY: sob TECHNIQUE: 1 view of the chest. COMPARISON: 02/27/2017 IMPRESSION: There are no focal infiltrates or effusions. The cardiomediastinal silhouette is magnified by technique. The visualized bones are intact. Signed: Tristan Su MD Report Verified Date/Time: 06/24/2018 08:03:40 Reading Location: [facility] Reading Room Performing Organization Address [facility]/State/Zipcode Phone Number GE RIS * Troponin I (06/24/2018 3:25 AM CDT) Only the most recent of 2 results within the time period is included. Troponin I 0.07 (H) 0.00 - 0.03 ng/mL [facility] Specimen Blood - Arm, Right Narrative Performed At Troponin I (TnI) levels must be interpreted in the context of the presenting [facility] symptoms and the clinical findings. Elevated TnI levels indicate myocardial [facility] damage, but are not specific for ischemic heart disease. Elevated TnI levels are seen in patients with other cardiac conditions (including myocarditis and congestive heart failure), and slight TnI elevations occur in patients with other conditions, including sepsis, renal failure, acidosis, acute neurological disease, and persistent tachyarrhythmia. Performing Organization Address [facility] Cent[facility]ode Phone Number [place] [phone] * Phosphorus (06/24/2018 2:12 AM CDT) Only the most recent of 2 results within the time period is included. Phosphorus 5.2 (H) 2.3 - 4.7 mg/dL [facility] Specimen Blood - Line, Venous Performing Organization Address [facility] [place] [address] [phone] * Magnesium (06/24/2018 2:12 AM CDT) Only the most recent of 2 results within the time period is included. Magnesium 1.7 1.6 - 2.6 mg/dL [facility] Specimen Blood - Line, Venous Performing Organization Address [facility] Phone Number [address] [address] [phone] [place] [address] * ECG 12 lead (06/23/2018 11:14 PM CDT) Narrative Performed At Ventricular Rate 70 BPM [facility] Atrial Rate 70 BPM P-R Interval 262 ms QRS Duration 86 ms Q-T Interval 434 ms QTC Calculation(Bazett) 468 ms P [place] 77 degrees R [place] -24 degrees T [place] 60 degrees Sinus rhythm with 1st degree [...] 434 ms QTC Calculation(Bazett) 468 ms P [place] 77 degrees R [place] -24 degrees T [place] 60 degrees Sinus rhythm with 1st degree A-V block Poor R wave progression Cannot rule out Possible Anterior infarct , age undetermined Prolonged QT Abnormal ECG When compared with ECG of 23-JUN-2018 23:07, Sinus rhythm with first degree AV block has replaced complete heart block Confirmed by Daniela MITTAL BASANT ([id number]) on 06/24/2018 10:52:11 AM Performing Organization Address City/State/Zipcode Phone Number [facility] M[facility] * CT brain without IV contrast (06/23/2018 9:45 PM CDT) Narrative Performed At FINAL REPORT [facility] [facility], BRAIN, WITHOUT CONTRAST INDICATION: headache TECHNIQUE: [...] MD Report Verified Date/Time:06/23/2018 22:03:44 Reading Location: [facility] B1 C013Y CT Body Reading Room [...] Report Verified Date/Time: 06/23/2018 22:03:44 Reading Location: [facility] B1 C013Y CT Body Reading Room Performing Organization Address City/State/Zipcode Phone Number [facility] * CT chest without IV contrast (06/23/2018 9:45 PM CDT) Narrative Performed At FINAL REPORT [facility] of the Chest, abdomen and pelvis [...] MD Report Verified Date/Time:06/23/2018 22:41:25 Reading Location: [facility] B1 C013W Consult Reading Room Procedure [...] Report Verified Date/Time: 06/23/2018 22:41:25 Reading Location: [facility] B1 C013W Consult Reading Room Performing Organization Address City/State/Zipcode Phone Number [employer] * CT abdomen/pelvis without iv contrast (06/23/2018 9:45 PM CDT) Narrative Performed At FINAL REPORT [facility] of the Chest, abdomen and pelvis [...] MD Report Verified Date/Time:06/23/2018 22:41:25 Reading Location: [facility] B1 C013W Consult Reading Room Procedure [...] Report Verified Date/Time: 06/23/2018 22:41:25 Reading Location: [facility] C013W Consult Reading Room Performing Organization Address City/State/Zipcode Phone Number [facility] R[facility] * TSH/Free T4 If Indicated (06/23/2018 8:55 PM CDT) TSH 2.21 0.35 - 4.94 uIU/mL [facility] Specimen Blood Performing Organization Address City/State/Zipcode Phone Number [facility] [address] [place] [address] [facility] * Comprehensive metabolic panel (06/23/2018 8:55 PM CDT) Protein, Total 6.5 6.0 - 8.3 gm/dL [facility] Albumin 3.7 3.5 - 5.0 g/dL [facility] Alkaline Phosphatase 57 40 - 150 U/L [facility] Total Bilirubin 0.3 0.2 - 1.2 mg/dL [facility] Sodium 144 136 - 145 meq/L [facility] Potassium 3.3 (L) 3.5 - 5.1 meq/L [facility] Chloride 103 98 - 107 meq/L [facility] CO2 29 22 - 29 meq/L [facility] BUN 42 (H) 7 - 21 mg/dL [facility] Creatinine 2.40 (H) 0.57 - 1.25 mg/dL [facility] Glucose 135 (H) 70 - 105 mg/dL [facility] Calcium 8.2 (L) 8.4 - 10.2 mg/dL [facility] AST 20 5 - 34 U/L [facility] ALT 14 6 - 55 U/L [facility] EGFR 19Comment: ESTIMATED GFR IS mL/min/1.73 sq m [facility] NOT ACCURATE CREATININE [facility] CLEARANCE IN PREDICTING GLOMERULAR FILTRATION RATE. ESTIMATED GFR IS NOT APPLICABLE FOR DIALYSIS PATIENTS. Specimen Blood Performing Organization Address City/State/Zipcode Phone Number [facility] [address] [place], [place] [phone] [facility] after 09/03/2017 Insurance Payer Benefit Subscriber ID Type Phone Address Plan / Group MEDICARE MEDICARE A xxxxxxxxxxx Medicare B BLUE CROSS/BLUE SHIELD BCBS xxxxxxxxxxxx PPO [phone] [address] [place] [address] [place] Advance Directives For more information, please contact: [facility] [address] [place], [place] [phone] Date Inactivated Comments Code Status Date Activated 06/25/2018 9:33 PM Full Code 06/23/2018 6:53 PM This code status was determined by: Patient 06/23/2018 6:53 PM Full Code 06/23/2018 5:18 PM This code status was determined by: Patient 03/10/2017 10:05 PM Full Code 02/28/2017 5:40 AM This code status was determined by: Patient
[2018-09-04] MEDS ORDERED: ARICEPT5 MG PO (05:01)
[2018-09-04] MEDS ORDERED: ELIQUIS PO (05:01)
[2018-09-04] MEDS ORDERED: ZOFRAN4 MG SL (05:08)
[2018-09-04] MEDS ORDERED: MELATONIN 3 MG TAB PO PRN (05:30)
[2018-09-04] MEDS ORDERED: CLONIDINE HCL 0.1 MG TAB PO PRN (05:30)
[2018-09-04] MEDS ORDERED: NITROGLYCERIN 0.3 MG SL PRN (05:30)
[2018-09-04] MEDS ORDERED: ONDANSETRON HCL 4 MG ORAL DISINTEGRATING TAB SL PRN (05:30)
[2018-09-04] MEDS: THYROID 60 MG TAB PO SCH (06:51)
[2018-09-04 07:50] VITALS: BP 160/70
[2018-09-04] MEDS ORDERED: FUROSEMIDE INJ 10 MG/ML 2 ML VIAL IV ONE (08:45)
[2018-09-04] MEDS: ASPIRIN 81 MG ENTERIC COATED PO SCH (09:00)
[2018-09-04] MEDS: APIXAB 2.5 MG TABLET PO SCH ×2 (09:00→17:00)
[2018-09-04] MEDS: ALLOPURINOL 100 MG TAB PO SCH (09:00)
[2018-09-04] MEDS: CALCITRIOL 0.25 MCG CAP PO SCH (09:00)
[2018-09-04] MEDS ORDERED: HYDRALAZINE HCL 20 MG/ML VIAL IV PRN (09:00)
[2018-09-04] MEDS: AMLODIPINE BESYLATE 10 MG TAB PO SCH (09:00)
[2018-09-04] MEDS: NON-FORMULARY MEDICATION (Ubiquinol 100 MG) PO SCH (09:00)
[2018-09-04] MEDS: METOPROLOL SUCCINATE 50 MG TAB XL PO SCH (09:00)
[2018-09-04] MEDS: CALCIUM CARBONATE 500 MG CHEWABLE TABS PO SCH ×2 (09:00→17:00)
[2018-09-04] MEDS ORDERED: NON-FORMULARY MEDICATION (Ubiquinol 100 MG) PO SCH (09:00)
[2018-09-04] MEDS ORDERED: ASPIRIN 81 MG ENTERIC COATED PO SCH (09:00)
[2018-09-04] MEDS: SPIRONOLACTONE 25 MG TAB PO SCH (09:00)
[2018-09-04] MEDS: BUMETANIDE 1 MG TAB PO SCH ×2 (09:00→17:00)
[2018-09-04 09:10] VITALS: BP 160/70
[2018-09-04] MEDS: FERROUS SULFATE 325 MG TAB PO SCH ×2 (09:49→17:22)
[2018-09-04] MEDS: PANTOPRAZOLE SOD 40 MG TABEC PO SCH (09:49)
[2018-09-04] MEDS: RANOLAZINE 500 MG TABSR PO SCH ×2 (09:49→17:23)
[2018-09-04] MEDS: ASCORBIC ACID 500 MG TAB PO SCH ×2 (09:50→17:00)
[2018-09-04 10:21] LABS: INR 1.07; PROTHROMBIN TIME 14.9 seconds (11.9-14.5)
[2018-09-04 10:22] LABS: CREATINE KINASE MB 1.8 ng/mL (0-5.0)
[2018-09-04 11:00] VITALS: BP 153/67
--- NOTE | 2018-09-04 13:55 | Diagnostic Imaging Report ---
ADDENDUM #1 ADDENDUM: The left sided pleural effusion is moderate in size on ultrasound, and smaller compared to the prior large right pleural effusion. Signed by: Dr. 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 Srinivasan Elizabeth Pre-operative diagnosis: Large bilateral pleural effusions Post-operative diagnosis: Resolution of right pleural effusion status post thoracentesis. Local sedation: 10 cc of 1% subcutaneous lidocaine Estimated blood loss: Minimal Implants: None TECHNIQUE/FINDINGS: Informed consent was obtained from the patient and documented in the medical record. The patient was positioned in the upright position. The right back was prepped and draped in standard sterile fashion. 1% lidocaine was infiltrated into the skin and subcutaneous tissues for local anesthesia. Preliminary ultrasound demonstrated large bilateral pleural effusions. A clear target to the right pleural effusion was identified. Then under sonographic guidance, a 5 Fr catheter was advanced into the right pleural space. The catheter was advanced off the needle and connected to vacuum bottle with subsequent evacuation of 1050 cc of serous fluid. Post procedural ultrasound demonstrated no significant residual effusion. The catheter was removed and a sterile, occlusive dressing was applied. The patient tolerated the procedure well. IMPRESSION: Ultrasound-guided right thoracentesis with evacuation of 1050 cc of serous fluid. Large left pleural effusion. Signed by: Dr. Srinivasan Elizabeth MD on 09/04/2018 1:51 PM
--- NOTE | 2018-09-04 13:55 | Diagnostic Imaging Report ---
ADDENDUM #1 ADDENDUM: The left sided pleural effusion is moderate in size on ultrasound, and smaller compared to the prior large right pleural effusion. Signed by: Dr. Srinivasan Elizabeth MD on 09/04/2018 2:20 PM ORIGINAL REPORT Procedure: Ultrasound-guided right thoracentesis unit operator: Dr. Srinivasan Elizabeth Pre-operative diagnosis: Large bilateral pleural effusions Post-operative diagnosis: Resolution of right pleural effusion status post thoracentesis. Local sedation: 10 cc of 1% subcutaneous lidocaine Estimated blood loss: Minimal Implants: None TECHNIQUE/FINDINGS: Informed consent was obtained from the patient and documented in the medical record. The patient was positioned in the upright position. The right back was prepped and draped in standard sterile fashion. 1% lidocaine was infiltrated into the skin and subcutaneous tissues for local anesthesia. Preliminary ultrasound demonstrated large bilateral pleural effusions. A clear target to the right pleural effusion was identified. Then under sonographic guidance, a 5 Fr catheter was advanced into the right pleural space. The catheter was advanced off the needle and connected to vacuum bottle with subsequent evacuation of 1050 cc of serous fluid. Post procedural ultrasound demonstrated no significant residual effusion. The catheter was removed and a sterile, occlusive dressing was applied. The patient tolerated the procedure well. IMPRESSION: Ultrasound-guided right thoracentesis with evacuation of 1050 cc of serous fluid. Large left pleural effusion. Signed by: Dr. Srinivasan Elizabeth MD on 09/04/2018 1:51 PM
[2018-09-04 14:16] LABS: GLUCOSE,BODY FLUID 134 mg/dL
--- NOTE | 2018-09-04 14:23 | Diagnostic Imaging Report ---
EXAM: CHEST XRAY POST PROCEDURE, PA and lateral INDICATION: Status post right thoracentesis. COMPARISON: Chest radiograph 09/04/18. FINDINGS: LINES/TUBES: None LUNGS: Emphysematous changes and improving right basilar atelectasis. PLEURA: Interval resolution of right sided pleural effusion. Small left pleural effusion persists. No evidence of pneumothorax. HEART AND MEDIASTINUM: Unchanged cardiomediastinal silhouette. BONES AND SOFT TISSUES: No acute findings. IMPRESSION: Status post right sided thoracentesis with interval resolution of pleural effusion. No evidence of pneumothorax. Small left pleural effusion persists. Signed by: Dr. Srinivasan Elizabeth MD on 09/04/2018 2:20 PM
[2018-09-04] MEDS: BALSAM PERU/CASTOR OIL 60 GM OINT...G. TP SCH (19:44)
[2018-09-04 20:00] VITALS: BP 142/66
[2018-09-04 20:53] LABS: CREATINE KINASE MB 1.7 ng/mL (0-5.0)
[2018-09-04] MEDS: DONEPEZIL HCL 5 MG TAB PO SCH (21:00)
[2018-09-04] MEDS: ATORVASTATIN 10 MG TAB PO SCH (21:00)
[2018-09-05] VITALS: BP 128/60
[2018-09-05] MEDS: ACETAMINOPHEN 325 MG TAB PO PRN ×2 (03:57→23:39)
[2018-09-05 04:00] VITALS: BP 135/64
[2018-09-05 05:43] LABS: BASOPHILS % 0.2 % (0.0-1.0); EOSINOPHILS # (AUTO) 0.2 (0.0-0.4); HEMATOCRIT 29.8 % (34.2-44.1); HEMOGLOBIN 9.5 g/dL (12.0-16.0); LYMPHOCYTES # (AUTO) 1.5 (1.0-3.2); LYMPHOCYTES % 14.1 % (18.0-39.1); MEAN CORPUSCULAR HEMOGLOBIN 29.2 pg (28-32); MEAN CORPUSCULAR HGB CONC 31.9 g/dL (31-35); MEAN CORPUSCULAR VOLUME 91.7 fL (81-99); MONOCYTES # (AUTO) 0.9 (0.2-0.8); MONOCYTES % 8.1 % (4.4-11.3); NEUTROPHILS # (AUTO) 8.1 (2.1-6.9); NEUTROPHILS % 75.2 % (38.7-80.0); PLATELET COUNT 375 x10e3/uL (140-360); RED BLOOD COUNT 3.25 x10e6/uL (3.6-5.1)
[2018-09-05 06:09] LABS: ANION GAP 18.3 mmol/L (8-16); CREATININE, SERUM 2.4 mg/dL (0.57-1.11); POTASSIUM 4.3 mmol/L (3.5-5.1)
[2018-09-05 06:27] LABS: CHOL/HDL RATIO 3.6 (3.0-3.6)
[2018-09-05 07:44] VITALS: BP 126/58
[2018-09-05] MEDS: PANTOPRAZOLE SOD 40 MG TABEC PO SCH (08:30)
[2018-09-05] MEDS: METOPROLOL SUCCINATE 50 MG TAB XL PO SCH (08:30)
[2018-09-05] MEDS: ALLOPURINOL 100 MG TAB PO SCH (08:30)
[2018-09-05] MEDS: BALSAM PERU/CASTOR OIL 60 GM OINT...G. TP SCH ×2 (08:30→20:37)
[2018-09-05] MEDS: THYROID 60 MG TAB PO SCH (08:30)
[2018-09-05] MEDS: CALCIUM CARBONATE 500 MG CHEWABLE TABS PO SCH ×2 (08:30→16:07)
[2018-09-05] MEDS: CALCITRIOL 0.25 MCG CAP PO SCH (08:30)
[2018-09-05] MEDS: APIXAB 2.5 MG TABLET PO SCH ×2 (08:30→16:05)
[2018-09-05] MEDS: ASPIRIN 81 MG ENTERIC COATED PO SCH (08:30)
[2018-09-05] MEDS: AMLODIPINE BESYLATE 10 MG TAB PO SCH (08:30)
[2018-09-05] MEDS: RANOLAZINE 500 MG TABSR PO SCH ×2 (08:30→16:07)
[2018-09-05] MEDS: SPIRONOLACTONE 25 MG TAB PO SCH (08:30)
[2018-09-05] MEDS: OYST-CAL-D 500MG TABLET PO SCH ×2 (08:30→16:06)
[2018-09-05] MEDS: FERROUS SULFATE 325 MG TAB PO SCH ×2 (08:30→16:05)
[2018-09-05] MEDS: ASCORBIC ACID 500 MG TAB PO SCH ×2 (08:30→16:07)
[2018-09-05] MEDS: BUMETANIDE 1 MG TAB PO SCH ×2 (08:30→16:05)
[2018-09-05] MEDS: NON-FORMULARY MEDICATION (Ubiquinol 100 MG) PO SCH (09:00)
[2018-09-05 11:32] VITALS: BP 127/79
--- NOTE | 2018-09-05 12:41 | Consultation ---
DATE OF CONSULTATION: CARDIOLOGY CONSULTATION REASON FOR CONSULTATION: Chest pain. CONSULTING PHYSICIAN: Dr. Savage. HISTORY OF PRESENT ILLNESS: Ms. Jean is an 82-year-old female who states that she came into the ER due to worsening shortness of breath and also chest pain for about a day and a half before she showed up to the ER. She also reports that she was recently admitted to [facility] with the same complaints and the same problems. She has a pertinent past medical history of thyroid cancer. She is status post right lung thoracentesis yesterday and states that this morning her symptoms and complaints have actually resolved. She remains to be a little bit short of breath; however; her chest pain has resolved at this moment. Denies any palpitations, dizziness, syncope, fever, chills, dysuria. PAST MEDICAL HISTORY: Thyroid cancer. PAST SURGICAL HISTORY: Hysterectomy, neck surgery, lumbar surgery, feet surgery, and thyroidectomy. SOCIAL HISTORY: Lives at home. She is a . Her daughter lives with her. Denies any illicit drug use. She denies any smoking or marijuana use or drinking. PHYSICAL EXAMINATION VITAL SIGNS: Temperature 98.9, pulse 62, respiratory rate 16, blood pressure 126/58, oxygen saturation 99% on 2 L nasal cannula. GENERAL: Alert and oriented x3, resting comfortably in bed, does not appear to be in any acute distress at this moment. LUNGS: Diminished breaths sounds posterior right lower lobe and upper lobe, otherwise clear to auscultation. CARDIOVASCULAR: Regular rate and rhythm. A 3/6 systolic ejection murmur present. No S3 or S4 auscultated. LOWER EXTREMITIES: No edema, 2+ pedal pulses. ABDOMEN: Soft, nontender. Normoactive bowel sounds. CARDIOVASCULAR MEDICATIONS 1. Spironolactone 12.5 mg p.o. daily. 2. Ranexa 500 mg p.o. b.i.d. 3. Metoprolol 50 p.o. daily. 4. Bumex 1 mg p.o. b.i.d. 5. Aspirin 81 p.o. daily. 6. Amlodipine 10 p.o. daily. 7. Apixaban 2.5 mg p.o. b.i.d. 8. Atorvastatin 10 mg p.o. nightly. 9. Hydralazine 10 mg q.4 hours IV p.r.n. for hypertension. 10. Clonidine 0.1 mg p.o. b.i.d. p.r.n. for hypertension. LABS: WBC 10.73, hemoglobin 9.5, hematocrit 29.8, platelets 375. Sodium 143, potassium 4.3, BUN 42, creatinine 2.40. Calcium 8.0. GFR 19. BNP 243, CK-MB 1.70, troponin 0.018. Triglycerides 138, total cholesterol 152, LDL 82, HDL 42. Chest x-ray from yesterday status post right-sided thoracentesis with interval resolution of the pleural effusion, no evidence of pneumothorax. Small left pleural effusion persists. IMPRESSION 1. Forgetfulness. 2. From chart review, atrial fibrillation. 3. Hypertension. 4. Kidney disease. 5. Pleural effusion requiring thoracentesis. 6. Valvular disease; moderate mitral stenosis and mild atrial stenosis with left ventricular hypertrophy, and preserved left ventricular ejection fraction. RECOMMENDATION: Continue the above-listed cardiac medications. No changes necessary from our standpoint. Patient remains to be stable and had a recent stress test completed at [facility] that is reported to be normal. Chest pain likely secondary to pleural effusion. Continue care with operations welder and monitor fluid reaccumulation. Patient is stable from a cardiac standpoint. We thank you Dr. Savage for this consultation. We will continue to follow this patient very closely. Dictated by: Lisa Hall NP Job#: [id number]
[2018-09-05 15:29] VITALS: BP 122/58
[2018-09-05 20:00] VITALS: BP 143/55
[2018-09-05] MEDS: DONEPEZIL HCL 5 MG TAB PO SCH (20:37)
[2018-09-05] MEDS: ATORVASTATIN 10 MG TAB PO SCH (20:37)
[2018-09-06] VITALS: BP 169/59
[2018-09-06 04:00] VITALS: BP 96/42
[2018-09-06 06:09] LABS: BASOPHILS % 0.4 % (0.0-1.0); EOSINOPHILS # (AUTO) 0.2 (0.0-0.4); HEMATOCRIT 32.2 % (34.2-44.1); HEMOGLOBIN 9.9 g/dL (12.0-16.0); LYMPHOCYTES # (AUTO) 1.4 (1.0-3.2); LYMPHOCYTES % 16.9 % (18.0-39.1); MEAN CORPUSCULAR HEMOGLOBIN 28.7 pg (28-32); MEAN CORPUSCULAR HGB CONC 30.7 g/dL (31-35); MEAN CORPUSCULAR VOLUME 93.3 fL (81-99); MONOCYTES # (AUTO) 0.7 (0.2-0.8); MONOCYTES % 8.6 % (4.4-11.3); NEUTROPHILS # (AUTO) 5.7 (2.1-6.9); NEUTROPHILS % 70.6 % (38.7-80.0); PLATELET COUNT 390 x10e3/uL (140-360); RED BLOOD COUNT 3.45 x10e6/uL (3.6-5.1); RED CELL DISTRIBUTION WIDTH 15.7 % (11.7-14.4)
[2018-09-06 06:27] LABS: ANION GAP 16.3 mmol/L (8-16); CALCIUM 8.1 mg/dL (8.4-10.2); CREATININE, SERUM 2.41 mg/dL (0.57-1.11); MAGNESIUM 2.1 MG/DL (1.3-2.1); POTASSIUM 4.3 mmol/L (3.5-5.1)
[2018-09-06 06:47] LABS: FERRITIN 162.16 ng/mL (4.63-204.00)
[2018-09-06 07:37] VITALS: BP 159/64
[2018-09-06] MEDS: PANTOPRAZOLE SOD 40 MG TABEC PO SCH (08:28)
[2018-09-06] MEDS: THYROID 60 MG TAB PO SCH (08:28)
[2018-09-06] MEDS: FERROUS SULFATE 325 MG TAB PO SCH ×3 (08:28→16:05)
[2018-09-06] MEDS: RANOLAZINE 500 MG TABSR PO SCH ×2 (08:29→16:05)
[2018-09-06] MEDS: AMLODIPINE BESYLATE 10 MG TAB PO SCH (08:29)
[2018-09-06] MEDS: OYST-CAL-D 500MG TABLET PO SCH ×2 (08:29→16:05)
[2018-09-06] MEDS: APIXAB 2.5 MG TABLET PO SCH ×2 (08:29→16:05)
[2018-09-06] MEDS: CALCIUM CARBONATE 500 MG CHEWABLE TABS PO SCH ×2 (08:29→16:05)
[2018-09-06] MEDS: NON-FORMULARY MEDICATION (Ubiquinol 100 MG) PO SCH (08:29)
[2018-09-06] MEDS: BUMETANIDE 1 MG TAB PO SCH ×2 (08:29→16:05)
[2018-09-06] MEDS: CALCITRIOL 0.25 MCG CAP PO SCH (08:29)
[2018-09-06] MEDS: SPIRONOLACTONE 25 MG TAB PO SCH (08:29)
[2018-09-06] MEDS: ASPIRIN 81 MG ENTERIC COATED PO SCH (08:29)
[2018-09-06] MEDS: METOPROLOL SUCCINATE 50 MG TAB XL PO SCH (08:29)
[2018-09-06] MEDS: BALSAM PERU/CASTOR OIL 60 GM OINT...G. TP SCH ×2 (08:29→20:32)
[2018-09-06] MEDS: ASCORBIC ACID 500 MG TAB PO SCH ×3 (08:29→16:06)
[2018-09-06] MEDS: ALLOPURINOL 100 MG TAB PO SCH (08:29)
[2018-09-06 11:06] VITALS: BP 121/50
--- NOTE | 2018-09-06 11:22 | Progress Note ---
DATE: CARDIOLOGY PROGRESS NOTE SUBJECTIVE: Patient is without any complaints this morning. She states that her chest pain is resolved and shortness of breath is much better today. She is not even utilizing her oxygen. OBJECTIVE VITAL SIGNS: Temperature 97.8, pulse 70, respiratory rate 21, blood pressure 159/64, oxygen saturation 100% on room air. GENERAL: Alert and oriented times 3, resting comfortably in bed. Does not appear to be in any acute distress. LUNGS: Diminished breath sounds right lower lobe, otherwise clear to auscultation. CARDIOVASCULAR: Regular rate and rhythm. A 3/6 systolic murmur present. No S3 or S4 auscultated. ABDOMEN: Soft, nontender. LOWER EXTREMITIES: No edema, 2+ pedal pulses. CARDIAC MEDICATIONS: Metoprolol 50 mg p.o. daily, Ranexa 500 mg p.o. b.i.d., spironolactone 12.5 mg p.o. daily, aspirin 81 p.o. daily, amlodipine 10 p.o. daily, apixaban 2.5 mg p.o. b.i.d. LABORATORY STUDIES: WBC 8.05, hemoglobin 9.9, hematocrit 32.2, platelets 390. Sodium 139, potassium 4.3, BUN 44, creatinine 2.41, BNP 185.1. TELEMETRY: Sinus rhythm. IMPRESSION 1. Forgetfulness. 2. Reported atrial fibrillation. 3. Hypertension. 4. Chronic kidney disease. 5. Pleural effusion requiring thoracentesis. 6. Valvular disease with moderate mitral stenosis and mild aortic stenosis with preserved left ventricular ejection fraction. RECOMMENDATIONS: Continue with the above-listed cardiac medications. Continue to monitor on telemetry. From a cardiac standpoint, this patient is stable. Reported normal stress test recently at [facility]. Monitor for worsening pleural effusion. We will continue to follow this patient. Dictated by Lisa Hall NP Job#: [id number] [place]
[2018-09-06 15:18] VITALS: BP 141/53
[2018-09-06] MEDS: DOCUSATE SODIUM 100 MG CAP PO SCH (16:05)
[2018-09-06 20:00] VITALS: BP 144/57
[2018-09-06] MEDS: DONEPEZIL HCL 5 MG TAB PO SCH (20:32)
[2018-09-06] MEDS: ATORVASTATIN 10 MG TAB PO SCH (20:32)
[2018-09-06] MEDS ORDERED: MELATONIN 3 MG TAB PO SCH (21:00)
[2018-09-07] VITALS (7 sets, daily range): BP systolic 144–168; BP diastolic 66–72
[2018-09-07] MEDS: ACETAMINOPHEN 325 MG TAB PO PRN (00:28)
[2018-09-07 03:54] LABS: BASOPHILS % 0.2 % (0.0-1.0); EOSINOPHILS # (AUTO) 0.2 (0.0-0.4); EOSINOPHILS % 1.8 % (0.0-6.0); HEMATOCRIT 33.4 % (34.2-44.1); HEMOGLOBIN 10.5 g/dL (12.0-16.0); LYMPHOCYTES # (AUTO) 0.9 (1.0-3.2); LYMPHOCYTES % 8.5 % (18.0-39.1); MEAN CORPUSCULAR HEMOGLOBIN 28.5 pg (28-32); MEAN CORPUSCULAR HGB CONC 31.4 g/dL (31-35); MEAN CORPUSCULAR VOLUME 90.8 fL (81-99); MONOCYTES # (AUTO) 0.8 (0.2-0.8); MONOCYTES % 7.6 % (4.4-11.3); NEUTROPHILS # (AUTO) 8.8 (2.1-6.9); NEUTROPHILS % 81.4 % (38.7-80.0); PLATELET COUNT 371 x10e3/uL (140-360); RED BLOOD COUNT 3.68 x10e6/uL (3.6-5.1); RED CELL DISTRIBUTION WIDTH 15.6 % (11.7-14.4)
[2018-09-07 04:16] LABS: ANION GAP 16.5 mmol/L (8-16); CALCIUM 8.6 mg/dL (8.4-10.2); CREATININE, SERUM 2.38 mg/dL (0.57-1.11); POTASSIUM 4.5 mmol/L (3.5-5.1)
[2018-09-07] MEDS: PANTOPRAZOLE SOD 40 MG TABEC PO SCH (07:30)
[2018-09-07] MEDS: THYROID 60 MG TAB PO SCH (07:30)
[2018-09-07] MEDS: FERROUS SULFATE 325 MG TAB PO SCH ×2 (08:00)
[2018-09-07] MEDS: DOCUSATE SODIUM 100 MG CAP PO SCH (09:00)
[2018-09-07] MEDS: METOPROLOL SUCCINATE 50 MG TAB XL PO SCH (09:00)
[2018-09-07] MEDS: SPIRONOLACTONE 25 MG TAB PO SCH (09:00)
[2018-09-07] MEDS: ALLOPURINOL 100 MG TAB PO SCH (09:00)
[2018-09-07] MEDS: ASPIRIN 81 MG ENTERIC COATED PO SCH (09:00)
[2018-09-07] MEDS: APIXAB 2.5 MG TABLET PO SCH ×2 (09:00→17:00)
[2018-09-07] MEDS: ASCORBIC ACID 500 MG TAB PO SCH ×2 (09:00)
[2018-09-07] MEDS: BUMETANIDE 1 MG TAB PO SCH ×2 (09:00→17:00)
[2018-09-07] MEDS: CALCIUM CARBONATE 500 MG CHEWABLE TABS PO SCH (09:00)
[2018-09-07] MEDS: CALCITRIOL 0.25 MCG CAP PO SCH (09:00)
[2018-09-07] MEDS: RANOLAZINE 500 MG TABSR PO SCH ×2 (09:00→17:30)
[2018-09-07] MEDS: AMLODIPINE BESYLATE 10 MG TAB PO SCH (09:00)
[2018-09-07] MEDS: NON-FORMULARY MEDICATION (Ubiquinol 100 MG) PO SCH (09:00)
[2018-09-07] MEDS: OYST-CAL-D 500MG TABLET PO SCH (09:00)
[2018-09-07] MEDS ORDERED: ASCORBIC ACID500 MG PO (09:09)
[2018-09-07] MEDS ORDERED: PROTONIX40 MG/ML PO (09:09)
[2018-09-07] MEDS ORDERED: COLACE100 M1 PO (09:09)
[2018-09-07] MEDS ORDERED: Calcium Carbonate PO (09:09)
[2018-09-07] MEDS: BALSAM PERU/CASTOR OIL 60 GM OINT...G. TP SCH (12:15)
--- NOTE | 2018-09-07 12:27 | Progress Note ---
DATE: CARDIOLOGY PROGRESS NOTE SUBJECTIVE: Patient feels better. No chest pain or shortness of breath. Scheduled for thoracentesis. OBJECTIVE VITAL SIGNS: Temperature 97.5, heart rate 66, respirations 14, blood pressure 147/68, oxygen saturation 100% on 2 liters nasal cannula. GENERAL: A well-appearing, elderly woman lying comfortably in bed in no apparent distress. LUNGS: Diminished breath sounds at bilateral bases. ABDOMEN: Soft, nontender. CARDIOVASCULAR: Regular rate and rhythm. EXTREMITIES: No edema. TELEMETRY MONITORING: Normal sinus rhythm. CARDIOVASCULAR MEDICATIONS: Reviewed. IMPRESSION 1. Abnormal electrocardiogram. 2. Hypertension. 3. Chronic kidney disease. 4. Pleural effusions. 5. Moderate mitral stenosis. 6. Mild aortic stenosis. RECOMMENDATIONS: The patient is hemodynamically stable. Continue current cardiovascular medications. Thoracentesis is scheduled. Her chest pain has resolved, and she had a recent stress test at [facility] in May which was normal, showing no ischemia or scars. Job#: [id number]
--- NOTE | 2018-09-07 12:55 | Diagnostic Imaging Report ---
PROCEDURE:US CHEST (INCL MEDIASTINUM) COMPARISON:None. INDICATIONS:PLEURAL EFFUSION FINDINGS:There are small bilateral pleural effusions. CONCLUSION:Small bilateral pleural effusions. Tej Thrasher D.O. Dictated by: Tej Thrasher D.O. on 09/07/2018 at 13:05 Electronically approved by: Tej Thrasher D.O. on 09/07/2018 at 13:05
--- NOTE | 2018-09-07 15:31 | Diagnostic Imaging Report ---
EXAM: CHEST XRAY POST PROCEDURE, AP Portable DATE: 09/07/2018 2:55 PM Time stamp on exam: 3:06 PM INDICATION: Status post left thoracentesis COMPARISON: 09/04/2018 FINDINGS: LINES/TUBES: None LUNGS: No consolidations or edema. PLEURA: No pneumothorax on the left. Small right pleural effusion again noted. HEART AND MEDIASTINUM: Normal size and contour. BONES AND SOFT TISSUES: No acute findings. IMPRESSION: 1. No evidence of a pneumothorax. 2. Small right pleural effusion. Signed by: Dr. Tej Thrasher DO on 09/07/2018 3:27 PM
--- NOTE | 2018-09-07 16:09 | Diagnostic Imaging Report ---
PROCEDURE: ULTRASOUND GUIDED THORACENTESIS COMPARISON: [facility], US, US CHEST (INCL MEDIASTINUM), 09/07/2018, 10:58. INDICATIONS:PLEURAL EFFUSION LEFT CHEST FINDINGS: After informed consent was obtained, the patient was placed in the sitting position and preliminary ultrasound of the posterior chest identified a safe route into the left pleural effusion. The overlying skin was prepped and draped in usual sterile fashion. Lidocaine 1% was used for local anesthesia. Under ultrasound guidance, a 5 [place] sheathed centesis needle was advanced into the pleural fluid and 350 cc were aspirated. The patient tolerated the procedure well and there were no immediate post-procedural complications. A post-thoracentesis chest radiograph will be obtained. CONCLUSION: Uncomplicated ultrasound-guided left thoracentesis with removal of 350 cc. Tej Thrasher D.O. Dictated by: Tej Thrasher D.O. on 09/07/2018 at 16:19 Electronically approved by: Tej Thrasher D.O. on 09/07/2018 at 16:19
--- NOTE | 2018-09-07 16:09 | Diagnostic Imaging Report ---
PROCEDURE: ULTRASOUND GUIDED THORACENTESIS COMPARISON: [facility], US, US CHEST (INCL MEDIASTINUM), 09/07/2018, 10:58. INDICATIONS:PLEURAL EFFUSION LEFT CHEST FINDINGS: After informed consent was obtained, the patient was placed in the sitting position and preliminary ultrasound of the posterior chest identified a safe route into the left pleural effusion. The overlying skin was prepped and draped in usual sterile fashion. Lidocaine 1% was used for local anesthesia. Under ultrasound guidance, a 5 [place] sheathed centesis needle was advanced into the pleural fluid and 350 cc were aspirated. The patient tolerated the procedure well and there were no immediate post-procedural complications. A post-thoracentesis chest radiograph will be obtained. CONCLUSION: Uncomplicated ultrasound-guided left thoracentesis with removal of 350 cc. Tej Thrasher D.O. Dictated by: Tej Thrasher D.O. on 09/07/2018 at 16:19 Electronically approved by: Tej Thrasher D.O. on 09/07/2018 at 16:19
--- NOTE | 2018-09-07 17:49 | Discharge Summary ---
ADMISSION DIAGNOSES 1. Chest pain, rule out acute coronary syndrome. 2. Hypertension. 3. Hyperlipidemia. 4. Atrial fibrillation. 5. Ilcwm-de-ynbsgxb diastolic congestive heart failure. 6. Gout. 7. Dementia. 8. Insomnia. 9. Chronic kidney disease 4. 10. Hyponatremia. 11. Right pleural effusion status post thoracentesis. 12. Left pleural effusion status post thoracentesis. DISCHARGE DIAGNOSES 1. Chest pain, rule out acute coronary syndrome. 2. Hypertension. 3. Hyperlipidemia. 4. Atrial fibrillation. 5. Zrgpy-ob-hjthhgg diastolic congestive heart failure. 6. Gout. 7. Dementia. 8. Insomnia. 9. Chronic kidney disease 4. 10. Hyponatremia. 11. Right pleural effusion status post thoracentesis. 12. Left pleural effusion status post thoracentesis. HISTORY: Patient has a history of hyperlipidemia, hypothyroidism, CKD-4, AFib, SVT, hypertension, mitral valve stenosis, aortic stenosis, chronic diastolic CHF, gout, GERD, dementia. SURGICAL HISTORY: Appendectomy, hysterectomy, back surgery, radical neck dissection, right heel spur removal. FAMILY HISTORY: Patient's mother has cancer. SOCIAL HISTORY: Noncontributory. HOSPITAL COURSE: Pfotfe[age]ne[age]-old female complains of central chest tightness that has been intermittent since yesterday while at rest. The pain does not radiate. Pain is improved with nitroglycerin and worsened by nothing. Patient denies any associated symptoms. On admission patient had an EKG that was sinus rhythm with PACs. Troponins were negative x3. Chest x-ray showed a moderate right effusion, trace left effusion. Echo showed an EF of 60% to 65%. Cardiology was consulted. Patient had a thoracentesis on the right on September 04 with 1050 mL of serous fluid drained. The pleural fluid culture was negative. Patient then had a left thoracentesis on September 07, 2018, with 350 mL pulled. Patient will discharge home with family and continue home medicines. She will follow up with primary care in 1 to 2 weeks. Patient and daughter understand discharge instructions and agree to plan. Vital signs stable, patient afebrile. Dictated by: Maria Luz Sullivan NP RANDA SALVADOR MD Job#: [id number] EV
== END 2018-09-07 18:09 | disposition home or self-care (01) ==
LOC: ER 03:02 → ERHOLD 04:56 → IMCU 06:04
PROVIDERS: ADMIT Internal Medicine; ATTEND Internal Medicine
DX: R07.89 Other chest pain (principal); J90 Pleural effusion, not elsewhere classified; I13.0 Hypertensive heart and chronic kidney disease with heart failure and stage 1 through stage 4 chronic kidney disease, or unspecified chronic kidney disease; I50.33 Acute on chronic diastolic (congestive) heart failure; N18.4 Chronic kidney disease, stage 4 (severe); E78.5 Hyperlipidemia, unspecified; I48.91 Unspecified atrial fibrillation; F03.90 Unspecified dementia, unspecified severity, without behavioral disturbance, psychotic disturbance, mood disturbance, and anxiety; M10.9 Gout, unspecified; G47.00 Insomnia, unspecified; E87.1 Hypo-osmolality and hyponatremia; K21.9 Gastro-esophageal reflux disease without esophagitis; I08.0 Rheumatic disorders of both mitral and aortic valves; I47.1 Supraventricular tachycardia; I49.1 Atrial premature depolarization; Z85.850 Personal history of malignant neoplasm of thyroid; E89.0 Postprocedural hypothyroidism; I31.3 Pericardial effusion (noninflammatory); E83.51 Hypocalcemia; D64.9 Anemia, unspecified; Z79.02 Long term (current) use of antithrombotics/antiplatelets; Z79.82 Long term (current) use of aspirin; Z88.1 Allergy status to other antibiotic agents; Z88.5 Allergy status to narcotic agent; Z88.8 Allergy status to other drugs, medicaments and biological substances
CPT/HCPCS: 32555 ×2; 36415 ×4; 71045 ×3; 74470 ×2; 76604; 80048 ×3; 80053; 80061; 82550; 82553; 82607; 82728; 82746; 82945; 83540; 83615; 83735 ×3; 83880 ×4; 84466; 84484; 85025 ×4; 85610; 85730; 87070; 87205; 93005; 93306; 97116; 97139; 97161; 97530; 99284; G0378 ×4; G8978; G8979; G8980; J1940; S0164 ×3

== ENCOUNTER 2018-11-28 01:06 | Inpatient (IN) | payer MEDICARE, BC ==
[~2018-11-28] VITALS: Ht 162.6 cm; Wt 85.7 kg
[2018-11-28] VITALS (20 sets, daily range): BP systolic 98–153; BP diastolic 42–67
[~2018-11-28 01:06] MED LIST changes: +COLACE100 M1 PO; +ELIQUIS PO; +ZOFRAN4 MG SL
--- OUTSIDE RECORDS SUMMARY | 2018-11-28 01:09 | XMS REPORT | Clinical Summary ---
Author Author FÉLIX [facility] Address Unknown Phone Unavailable Care Team Providers Care Reheater Name Role Phone Sharpless PCP Allergies Comments [...] 06/23/2018 Orders Only General Internal Medicine after 11/27/2017 Social History Date Tobacco Use Types Packs/Day [...] ms QTC Calculatio n(Bazett) 468 ms P Rohwer 77 degrees R Rohwer -24 degrees T Rohwer 60 degrees Sinus rhythm with 1st degree [...] ms QTC Calculatio n(Bazett) 0 ms R Rohwer 0 degrees T Rohwer 0 degrees No QRS complexes found, no [...] Routine 06/23/2018 DIFFERENTIAL 8:55 PM CDT after 11/27/2017 Results * RHYTHM STRIP - SCAN (06/26/2018 2:40 PM CDT) Narrative Performed At * ECHOCARDIOGRAM REPORT - SCAN (06/25/2018 9:00 AM CDT) Narrative Performed At * CBC with platelet count + automated diff (06/25/2018 6:24 AM CDT) Only the most recent of 3 results within the time period is included. WBC 8.2 3.5 - 10.5 K/L [facility] RBC 3.22 (L) 3.93 - 5.22 M/L [facility] Hemoglobin 9.6 (L) 11.2 - 15.7 GM/DL [facility] Hematocrit 30.9 (L) 34.1 - 44.9 % [facility] MCV 96.0 (H) 79.4 - 94.8 fL [facility] MCH 29.8 25.6 - 32.2 pg [facility] MCHC 31.1 (L) 32.2 - 35.5 GM/DL [facility] RDW 16.8 (H) 11.7 - 14.4 % [facility] Platelets 208 150 - 450 K/CU MM [facility] MPV 11.1 9.4 - 12.3 fL [facility] nRBC 0 0 - 0 /100 WBC [facility] % Neutros 65 % [facility] % Lymphs 22 % [facility] % Monos 10 % [facility] % Eos 2 % [facility] % Baso 0 % [facility] # Neutros 5.34 1.56 - 6.13 K/L [facility] # Lymphs 1.82 1.18 - 3.74 K/L [facility] # Monos 0.84 (H) 0.24 - 0.36 K/L [facility] # Eos 0.19 0.04 - 0.36 K/L [facility] # Baso 0.02 0.01 - 0.08 K/L [facility] Immature 0 0 - 1 % Granulocytes-Relative [facility] Specimen Blood - Arm, Right Performing Organization Address City/[facility]/Zipcode Phone Number [facility] [address] [place] [address] [facility] * Basic Metabolic Panel (06/25/2018 6:24 AM CDT) Only the most recent of 2 results within the time period is included. Sodium 142 136 - 145 meq/L [facility] Potassium 3.0 (L) 3.5 - 5.1 meq/L [facility] Chloride 103 98 - 107 meq/L [facility] CO2 29 22 - 29 meq/L [facility] BUN 34 (H) 7 - 21 mg/dL [facility] Creatinine 1.87 (H) 0.57 - 1.25 mg/dL [facility] Glucose 157 (H) 70 - 105 mg/dL [facility] Calcium 7.5 (L) 8.4 - 10.2 mg/dL [facility] EGFR 26Comment: ESTIMATED GFR IS mL/min/1.73 sq m NOT ACCURATE CREATININE [facility] CLEARANCE IN PREDICTING GLOMERULAR FILTRATION RATE. ESTIMATED GFR IS NOT APPLICABLE FOR DIALYSIS PATIENTS. Specimen Blood - Arm, Right Performing Organization Address City/[facility]/Zipcode Phone Number [place] [phone] [place] [address] [facility] * 2D Echo W/Doppler(CW/PW/Color) (06/24/2018 1:48 PM CDT) Ejection Fraction [facility] Narrative Performed At Transthoracic Echocardiography Report (TTE) [facility] Demographics [facility] Patient NameSALSER, PATITO PANTOJADate of Study 06/24/2018 Visit [id number] Unknown Room Number 1455 Number Date of 1935Referring SG CARRILLO Physician Age 82 year(s)Range [employer] Serena Rodríguez [facility] Claudia Lujan MD FellowAlexandTONY Johnson Procedure Type of Study TTE procedure:2DECHO W DOPPLER(CW/PW/COLOR) (EJ) Indications:Acute Chest Pain/ Suspected CAD. Clinical History DEMENTIA;CANCER;HLD;MVP;SUPRA VENT TACHY HGB 9.9 HCT 31.5 % Height: 64 inches Weight: 50.35 kg (111 lbs) BSA: 1.52 m^2 BMI: 19.05 kg/m^2 HR: 67 bpm BP: 155/66 mmHg Summary The left ventricle is chamber size (by vol index) is normal. Jajo-tu-gtimwiec concentric LV hypertrophy. All of the LV [...] chamber size (by vol index) is normal. Zpok-ct-cafftesp concentric LV hypertrophy. All of the LV [...] is approximately 45 mmHg. Pulmonic Valve Mild MT. AortaAortic root size (Sinus of Valsalva diameter) [...] of Study 06/24/2018 Gender Female Visit Number [id number] Race Unknown Room Number 1455 Number Date of 1935 Referring SG CARRILLO Physician Age 82 year(s) Range [employer] Serena Rodríguez [facility] Interpreting David Lujan MD Fellow TONY [...] chamber size (by vol index) is normal. Dxnv-ai-igexjwdb concentric LV hypertrophy. All of the LV [...] chamber size (by vol index) is normal. Xyzq-qc-mernymdk concentric LV hypertrophy. All of the LV [...] is approximately 45 mmHg. Pulmonic Valve Mild MT. Aorta Aortic root size (Sinus of Valsalva [...] Gradient: 43.2 mmHg Performing Organization Address [facility] Phone Number [facility] * XR chest 1 view portable / bedside (06/24/2018 7:00 AM CDT) Narrative Performed At FINAL REPORT ON24 CLINICAL HISTORY: sob TECHNIQUE: 1 view of the chest. COMPARISON: 02/27/2017 IMPRESSION: There are no focal infiltrates or effusions. The cardiomediastinal silhouette is magnified by technique. The visualized bones are intact. Signed: Tristan Su MD Report Verified Date/Time:06/24/2018 08:03:40 Reading Location: [facility] Radiology Reading Room Procedure Note Interface, External Ris In - 06/24/2018 8:05 AM CDT FINAL REPORT CLINICAL HISTORY: sob TECHNIQUE: 1 view of the chest. COMPARISON: 02/27/2017 IMPRESSION: There are no focal infiltrates or effusions. The cardiomediastinal silhouette is magnified by technique. The visualized bones are intact. Signed: Tristan Su MD Report Verified Date/Time: 06/24/2018 08:03:40 Reading Location: [facility] Radiology Reading Room Performing Organization Address [facility]/State/Zipcode Phone Number [facility] * Troponin I (06/24/2018 3:25 AM CDT) Only the most recent of 2 results within the time period is included. Troponin I 0.07 (H) 0.00 - 0.03 ng/mL [facility] Specimen Blood - Arm, Right Narrative Performed At Troponin I (TnI) levels must be interpreted in the context of the presenting symptoms and the clinical findings. Elevated TnI levels indicate myocardial [facility] damage, but are not specific for ischemic heart disease. Elevated TnI levels are seen in patients with other cardiac conditions (including myocarditis and congestive heart failure), and slight TnI elevations occur in patients with other conditions, including sepsis, renal failure, acidosis, acute neurological disease, and persistent tachyarrhythmia. Performing Organization Address [facility]ley Hospitalcode Phone Number [place] [phone] * Phosphorus (06/24/2018 2:12 AM CDT) Only the most recent of 2 results within the time period is included. Phosphorus 5.2 (H) 2.3 - 4.7 mg/dL [facility] Specimen Blood - Line, Venous Performing Organization Address [facility] [address] [phone] * Magnesium (06/24/2018 2:12 AM CDT) Only the most recent of 2 results within the time period is included. Magnesium 1.7 1.6 - 2.6 mg/dL [facility] Specimen Blood - Line, Venous Performing Organization Address [facility] Phone Number [address] [address] [phone] [place] [address] * ECG 12 lead (06/23/2018 11:14 PM CDT) Narrative Performed At Ventricular Rate 70 BPM [facility] MUSE Atrial Rate 70 BPM P-R Interval 262 ms QRS Duration 86 ms Q-T Interval 434 ms QTC Calculation(Bazett) 468 ms P Rohwer 77 degrees R Rohwer -24 degrees T Rohwer 60 degrees Sinus rhythm with 1st degree [...] 434 ms QTC Calculation(Bazett) 468 ms P Rohwer 77 degrees R Rohwer -24 degrees T Rohwer 60 degrees Sinus rhythm with 1st degree A-V block Poor R wave progression Cannot rule out Possible Anterior infarct , age undetermined Prolonged QT Abnormal ECG When compared with ECG of 23-JUN-2018 23:07, Sinus rhythm with first degree AV block has replaced complete heart block Confirmed by Daniela MITTAL BASANT ([id number]) on 06/24/2018 10:52:11 AM Performing Organization Address City/State/Zipcode Phone Number [employer] [facility] * CT brain without IV contrast (06/23/2018 9:45 PM CDT) Narrative Performed At FINAL REPORT [employer] CT, BRAIN, WITHOUT CONTRAST INDICATION: headache TECHNIQUE: [...] MD Report Verified Date/Time:06/23/2018 22:03:44 Reading Location: [facility] B1 C013Y CT Body Reading Room [...] is recommended for further characterization. Signed: JR Maclolm Robert MD Report Verified Date/Time: 06/23/2018 22:03:44 Reading Location: [facility] B1 C013Y CT Body Reading Room Performing Organization Address City/State/Zipcode Phone Number [facility] * CT chest without IV contrast (06/23/2018 9:45 PM CDT) Narrative Performed At FINAL REPORT [employer] CT of the Chest, abdomen and pelvis [...] MD Report Verified Date/Time:06/23/2018 22:41:25 Reading Location: [facility] B1 C013W Consult Reading Room Procedure [...] Report Verified Date/Time: 06/23/2018 22:41:25 Reading Location: [facility] B1 C013W Consult Reading Room Performing Organization Address City/State/Zipcode Phone Number [employer] * CT abdomen/pelvis without iv contrast (06/23/2018 9:45 PM CDT) Narrative Performed At FINAL REPORT [facility] [employer] [facility] CT of the Chest, abdomen and pelvis [...] MD Report Verified Date/Time:06/23/2018 22:41:25 Reading Location: [facility] B1 C013W Consult Reading Room Procedure [...] Report Verified Date/Time: 06/23/2018 22:41:25 Reading Location: [facility] C013W Consult Reading Room Performing Organization Address City/State/Zipcode Phone Number [facility] * TSH/Free T4 If Indicated (06/23/2018 8:55 PM CDT) TSH 2.21 0.35 - 4.94 uIU/mL [facility] Specimen Blood Performing Organization Address City/State/Zipcode Phone Number [facility] [address] [place] [address] [facility] * Comprehensive metabolic panel (06/23/2018 8:55 PM CDT) Protein, Total 6.5 6.0 - 8.3 gm/dL [facility] Albumin 3.7 3.5 - 5.0 g/dL [facility] Alkaline Phosphatase 57 40 - 150 U/L [facility] Total Bilirubin 0.3 0.2 - 1.2 mg/dL [facility] Sodium 144 136 - 145 meq/L [facility] Potassium 3.3 (L) 3.5 - 5.1 meq/L [facility] Chloride 103 98 - 107 meq/L [facility] CO2 29 22 - 29 meq/L [facility] BUN 42 (H) 7 - 21 mg/dL [facility] Creatinine 2.40 (H) 0.57 - 1.25 mg/dL [facility] Glucose 135 (H) 70 - 105 mg/dL [facility] Calcium 8.2 (L) 8.4 - 10.2 mg/dL [facility] AST 20 5 - 34 U/L [facility] ALT 14 6 - 55 U/L [facility] EGFR 19Comment: ESTIMATED GFR IS mL/min/1.73 sq m NOT ACCURATE CREATININE [facility] CLEARANCE IN PREDICTING GLOMERULAR FILTRATION RATE. ESTIMATED GFR IS NOT APPLICABLE FOR DIALYSIS PATIENTS. Specimen Blood Performing Organization Address City/State/Zipcode Phone Number [facility] [address] [place], [place] [phone] [facility] after 11/27/2017 Insurance Payer Benefit Subscriber ID Type Phone Address Plan / Group MEDICARE MEDICARE A xxxxxxxxxxx Medicare B BLUE CROSS/BLUE SHIELD BCBS xxxxxxxxxxxx PPO [phone] [address] [place] [address] [place] Advance Directives For more information, please contact: [facility] [address] [place], [place] [phone] Date Inactivated Comments Code Status Date Activated 06/25/2018 9:33 PM Full Code 06/23/2018 6:53 PM This code status was determined by: Patient 06/23/2018 6:53 PM Full Code 06/23/2018 5:18 PM This code status was determined by: Patient 03/10/2017 10:05 PM Full Code 02/28/2017 5:40 AM This code status was determined by: Patient
[2018-11-28] MEDS ORDERED: ACETAMINOPHEN 325 MG TAB PO ONE (01:45)
[2018-11-28 02:14] LABS: PROTHROMBIN TIME 13.7 seconds (11.9-14.5)
--- NOTE | 2018-11-28 02:14 | NUR ---
RT NOTIFIED FOR [place].
[2018-11-28] MEDS ORDERED: ALBUTEROL/IPRATROPIUM 3 ML NEB NEB ONE (02:15)
[2018-11-28 02:17] LABS: PARTIAL THROMBOPLASTIN TIME 40.5 seconds (23.8-35.5)
[2018-11-28 02:29] LABS: INFLUENZAE A&B ANTIGEN (RAPID) POSITIVE FLU A (NEGATIVE)
--- NOTE | 2018-11-28 02:29 | Diagnostic Imaging Report ---
EXAMINATION: CHEST SINGLE (PORTABLE) COMPARISON: Chest x-ray 09/07/2018 INDICATION: Shortness of breath, cough ^fever, cough ^[id number] ^0202 ^Y DISCUSSION: Frontal view of the chest obtained at 0152 hours. HEART AND MEDIASTINUM: The cardiomediastinal silhouette is unremarkable. LINES: None. LUNGS: Diffusely hyperinflated suggestive of COPD. New right infrahilar airspace opacity. No interstitial edema. PLEURA: Blunting of the right lateral costophrenic angle is stable. No pneumothorax. BONES AND SOFT TISSUES: Extensive costochondral calcifications are redemonstrated. Stable degenerative changes of the spine. No new osseous findings. The soft tissues are normal. IMPRESSION: 1. Right infrahilar airspace opacity is suggestive of pneumonia. Recommend follow-up with PA and lateral chest x-ray in 8-10 weeks to document interval change/resolution. 2. Stable small right pleural effusion. Signed by: Dr. Lo Nguyen MD on 11/28/2018 2:26 AM
[2018-11-28] MEDS ORDERED: LEVOFLOXACIN 500MG/D5W 100ML 100 ML IV STA (02:33)
[2018-11-28 02:36] LABS: STREPTOCOCCUS GRP A ANTIGEN NEGATIVE (NEGATIVE)
[2018-11-28 02:36] LABS: BASOPHILS % 0.3 % (0.0-1.0); EOSINOPHILS % 0.1 % (0.0-6.0); HEMATOCRIT 33.8 % (34.2-44.1); HEMOGLOBIN 10.4 g/dL (12.0-16.0); LYMPHOCYTES # (AUTO) 0.7 (1.0-3.2); LYMPHOCYTES % 9.3 % (18.0-39.1); MEAN CORPUSCULAR HEMOGLOBIN 27.9 pg (28-32); MEAN CORPUSCULAR HGB CONC 30.8 g/dL (31-35); MEAN CORPUSCULAR VOLUME 90.6 fL (81-99); MONOCYTES # (AUTO) 0.4 (0.2-0.8); MONOCYTES % 5.7 % (4.4-11.3); NEUTROPHILS # (AUTO) 6.3 (2.1-6.9); NEUTROPHILS % 83.3 % (38.7-80.0); PLATELET COUNT 252 x10e3/uL (140-360); RED BLOOD COUNT 3.73 x10e6/uL (3.6-5.1)
[2018-11-28] MEDS ORDERED: OSELTAMIVIR PHOSPHATE 75 MG CAP PO ONE (02:45)
[2018-11-28 03:08] LABS: ALBUMIN 3.1 g/dL (3.5-5.0); ALBUMIN/GLOBULIN RATIO 0.8 (0.8-2.0); ANION GAP 19.2 mmol/L (8-16); CREATININE, SERUM 2.42 mg/dL (0.57-1.11); POTASSIUM 4.2 mmol/L (3.5-5.1)
[2018-11-28] MEDS ORDERED: COQ-10100 MG PO (03:12)
[2018-11-28] MEDS ORDERED: CALTRATE 600 W1 EACH (03:12)
[2018-11-28] MEDS ORDERED: ACETAMINOPHEN325 M1 PO (03:12)
[2018-11-28] MEDS ORDERED: QUETIAPINE FUMA25 MG PO (03:12)
[2018-11-28 03:21] LABS: CALCIUM 6.9 mg/dL (8.4-10.2)
[2018-11-28] MEDS ORDERED: CALCIUM CHLORIDE 10% 1.36 MEQ/ML 10ML SYR IV STA (03:22)
[2018-11-28] MEDS ORDERED: LEVOFLOXACIN 500MG/D5W 100ML IV SCH (03:30)
[2018-11-28] MEDS ORDERED: SODIUM CHLORIDE FLUSH 10 ML SYR INJ PRN (03:30)
[2018-11-28] MEDS ORDERED: CLONIDINE HCL 0.1 MG TAB PO PRN (03:30)
--- OUTSIDE RECORDS SUMMARY | 2018-11-28 03:33 | XMS REPORT | Clinical Summary ---
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 WBC 8.2 3.5 - 10.5 K/L [facility] RBC 3.22 (L) 3.93 - 5.22 M/L [facility] Hemoglobin 9.6 (L) 11.2 - 15.7 GM/DL [facility] Hematocrit 30.9 (L) 34.1 - 44.9 % [facility] MCV 96.0 (H) 79.4 - 94.8 fL [facility] MCH 29.8 25.6 - 32.2 pg [facility] MCHC 31.1 (L) 32.2 - 35.5 GM/DL [facility] RDW 16.8 (H) 11.7 - 14.4 % [facility] Platelets 208 150 - 450 K/CU MM [facility] MPV 11.1 9.4 - 12.3 fL [facility] nRBC 0 0 - 0 /100 WBC [facility] % Neutros 65 % [facility] % Lymphs 22 % [facility] % Monos 10 % [facility] % Eos 2 % [facility] % Baso 0 % [facility] # Neutros 5.34 1.56 - 6.13 K/L [facility] # Lymphs 1.82 1.18 - 3.74 K/L [facility] # Monos 0.84 (H) 0.24 - 0.36 K/L [facility] # Eos 0.19 0.04 - 0.36 K/L [facility] # Baso 0.02 0.01 - 0.08 K/L [facility] Immature 0 0 - 1 % [facility] Granulocytes-Relative [facility] Specimen Blood - Arm, Right Performing Organization Address City/[facility]/Zipcode Phone Number [facility] [address] [place] [address] [facility] * Basic Metabolic Panel (06/25/2018 6:24 AM CDT) Only the most recent of 2 results within the time period is included. Sodium 142 136 - 145 meq/L [facility] Potassium 3.0 (L) 3.5 - 5.1 meq/L [facility] Chloride 103 98 - 107 meq/L [facility] CO2 29 22 - 29 meq/L [facility] BUN 34 (H) 7 - 21 mg/dL [facility] Creatinine 1.87 (H) 0.57 - 1.25 mg/dL [facility] Glucose 157 (H) 70 - 105 mg/dL [facility] Calcium 7.5 (L) 8.4 - 10.2 mg/dL [facility] EGFR 26Comment: ESTIMATED GFR IS mL/min/1.73 sq m [facility] NOT ACCURATE CREATININE [facility] CLEARANCE IN PREDICTING GLOMERULAR FILTRATION RATE. ESTIMATED GFR IS NOT APPLICABLE FOR DIALYSIS PATIENTS. Specimen Blood - Arm, Right Performing Organization Address City/[facility]/Zipcode Phone Number [place] [phone] [place] [address] [facility] * 2D Echo W/Doppler(CW/PW/Color) (06/24/2018 1:48 PM CDT) Ejection Fraction [facility] ECHO HEARTLAB [facility] Narrative Performed At Transthoracic Echocardiography Report (TTE) [facility] ECHO HEARTLAB Demographics [facility] Patient NameSALSER, PATITO PANTOJADate of Study 06/24/2018 Visit [id number] Unknown Room Number 1455 Number Date of 1935Referring SG CARRILLO 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 Clinical History DEMENTIA;CANCER;HLD;MVP;SUPRA VENT TACHY HGB 9.9 HCT 31.5 % Height: 64 inches Weight: 50.35 kg (111 lbs) BSA: 1.52 m^2 BMI: 19.05 kg/m^2 HR: 67 bpm BP: 155/66 mmHg Summary The left ventricle is chamber size (by vol index) is normal. Fjbg-my-byychwvu concentric LV hypertrophy. All of the LV [...] chamber size (by vol index) is normal. Bmqt-fb-azptebvb concentric LV hypertrophy. 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 Lfut-uv-kgvromkf concentric LV hypertrophy. All of the LV [...] chamber size (by vol index) is normal. Ztex-xf-xumtngos concentric LV hypertrophy. All of the LV [...] TR Gradient: 43.2 mmHg Performing Organization Address [facility] Phone Number [facility] ECHO HEARTLAB MKCKESSON CPACS * XR chest 1 view portable / bedside (06/24/2018 7:00 AM CDT) Narrative Performed At FINAL REPORT [employer] CLINICAL HISTORY: sob TECHNIQUE: 1 view of the chest. COMPARISON: 02/27/2017 IMPRESSION: There are no focal infiltrates or effusions. The cardiomediastinal silhouette is magnified by technique. The visualized bones are intact. Signed: Tristan Su MD Report Verified Date/Time:06/24/2018 08:03:40 Reading Location: [facility] Radiology Reading Room Procedure Note Interface, External Ris In - 06/24/2018 8:05 AM CDT FINAL REPORT CLINICAL HISTORY: sob TECHNIQUE: 1 view of the chest. COMPARISON: 02/27/2017 IMPRESSION: There are no focal infiltrates or effusions. The cardiomediastinal silhouette is magnified by technique. The visualized bones are intact. Signed: Tristan Su MD Report Verified Date/Time: 06/24/2018 08:03:40 Reading Location: [facility] Radiology Reading Room Performing Organization Address [facility]/State/Zipcode Phone Number [facility] * Troponin I (06/24/2018 3:25 AM CDT) Only the most recent of 2 results within the time period is included. Troponin I 0.07 (H) 0.00 - 0.03 ng/mL [facility] Specimen Blood - Arm, Right Narrative Performed At Troponin I (TnI) levels must be interpreted in the context of the presenting [facility] symptoms and the clinical findings. Elevated TnI levels indicate myocardial [facility] damage, but are not specific for ischemic heart disease. Elevated TnI levels are seen in patients with other cardiac conditions (including myocarditis and congestive heart failure), and slight TnI elevations occur in patients with other conditions, including sepsis, renal failure, acidosis, acute neurological disease, and persistent tachyarrhythmia. Performing Organization Address [facility] Cent[facility] Phone Number [place] [phone] * Phosphorus (06/24/2018 2:12 AM CDT) Only the most recent of 2 results within the time period is included. Phosphorus 5.2 (H) 2.3 - 4.7 mg/dL [facility] Specimen Blood - Line, Venous Performing Organization Address [facility] [place] [address] [phone] * Magnesium (06/24/2018 2:12 AM CDT) Only the most recent of 2 results within the time period is included. Magnesium 1.7 1.6 - 2.6 mg/dL [facility] Specimen Blood - Line, Venous Performing Organization Address [facility] Phone Number [address] [address] [phone] [place] [address] * ECG 12 lead (06/23/2018 11:14 PM CDT) Narrative Performed At Ventricular Rate 70 BPM [facility] Atrial Rate 70 BPM P-R Interval 262 ms QRS Duration 86 ms Q-T Interval 434 ms QTC Calculation(Bazett) 468 ms P Mccracken 77 degrees R Mccracken -24 degrees T Mccracken 60 degrees Sinus rhythm with 1st degree [...] 434 ms QTC Calculation(Bazett) 468 ms P Mccracken 77 degrees R Mccracken -24 degrees T Mccracken 60 degrees Sinus rhythm with 1st degree A-V block Poor R wave progression Cannot rule out Possible Anterior infarct , age undetermined Prolonged QT Abnormal ECG When compared with ECG of 23-JUN-2018 23:07, Sinus rhythm with first degree AV block has replaced complete heart block Confirmed by Daniela MITTAL BASANT ([id number]) on 06/24/2018 10:52:11 AM Performing Organization Address City/State/Zipcode Phone Number [employer] [facility] * CT brain without IV contrast (06/23/2018 9:45 PM CDT) Narrative Performed At FINAL REPORT [facility] CT, BRAIN, WITHOUT CONTRAST INDICATION: headache TECHNIQUE: [...] MD Report Verified Date/Time:06/23/2018 22:03:44 Reading Location: [facility] B1 C013Y CT Body Reading Room Procedure [...] Report Verified Date/Time: 06/23/2018 22:03:44 Reading Location: [facility] B1 C013Y CT Body Reading Room Performing Organization Address City/State/Zipcode Phone Number [facility] * CT chest without IV contrast (06/23/2018 9:45 PM CDT) Narrative Performed At FINAL REPORT [facility] CT of the Chest, abdomen and pelvis [...] MD Report Verified Date/Time:06/23/2018 22:41:25 Reading Location: [facility] B1 C013W Consult Reading Room Procedure Note [...] Report Verified Date/Time: 06/23/2018 22:41:25 Reading Location: [facility] B1 C013W Consult Reading Room Performing Organization Address City/State/Zipcode Phone Number [facility] * CT abdomen/pelvis without iv contrast (06/23/2018 9:45 PM CDT) Narrative Performed At FINAL REPORT [facility] CT of the Chest, abdomen and pelvis [...] MD Report Verified Date/Time:06/23/2018 22:41:25 Reading Location: [facility] B1 C013W Consult Reading Room Procedure Note [...] Report Verified Date/Time: 06/23/2018 22:41:25 Reading Location: [facility] C013W Consult Reading Room Performing Organization Address City/State/Zipcode Phone Number [facility] * TSH/Free T4 If Indicated (06/23/2018 8:55 PM CDT) TSH 2.21 0.35 - 4.94 uIU/mL [facility] Specimen Blood Performing Organization Address City/State/Zipcode Phone Number [facility] [address] [place] [address] [facility] * Comprehensive metabolic panel (06/23/2018 8:55 PM CDT) Protein, Total 6.5 6.0 - 8.3 gm/dL [facility] Albumin 3.7 3.5 - 5.0 g/dL [facility] Alkaline Phosphatase 57 40 - 150 U/L [facility] Total Bilirubin 0.3 0.2 - 1.2 mg/dL [facility] Sodium 144 136 - 145 meq/L [facility] Potassium 3.3 (L) 3.5 - 5.1 meq/L [facility] Chloride 103 98 - 107 meq/L [facility] CO2 29 22 - 29 meq/L [facility] BUN 42 (H) 7 - 21 mg/dL [facility] Creatinine 2.40 (H) 0.57 - 1.25 mg/dL [facility] Glucose 135 (H) 70 - 105 mg/dL [facility] Calcium 8.2 (L) 8.4 - 10.2 mg/dL [facility] AST 20 5 - 34 U/L [facility] ALT 14 6 - 55 U/L [facility] EGFR 19Comment: ESTIMATED GFR IS mL/min/1.73 sq m [facility] NOT ACCURATE CREATININE [facility] CLEARANCE IN PREDICTING GLOMERULAR FILTRATION RATE. ESTIMATED GFR IS NOT APPLICABLE FOR DIALYSIS PATIENTS. Specimen Blood Performing Organization Address City/State/Zipcode Phone Number [facility] [address] [place], [place] [id number] [facility] after 11/27/2017 Insurance Payer Benefit Subscriber ID Type Phone Address Plan / Group MEDICARE MEDICARE A xxxxxxxxxxx Medicare B BLUE CROSS/BLUE SHIELD BCBS xxxxxxxxxxxx PPO [phone] [address] [place] [address] [place] Advance Directives For more information, please contact: [facility] [address] [place], [place] [phone] Date Inactivated Comments Code Status Date Activated 06/25/2018 9:33 PM Full Code 06/23/2018 6:53 PM This code status was determined by: Patient 06/23/2018 6:53 PM Full Code 06/23/2018 5:18 PM This code status was determined by: Patient 03/10/2017 10:05 PM Full Code 02/28/2017 5:40 AM This code status was determined by: Patient
[2018-11-28] MEDS ORDERED: SODIUM CHLORIDE 0.9% 50ML 50 ML IV ONE (03:45)
[2018-11-28] MEDS ORDERED: ACETAMINOPHEN 325 MG TAB PO PRN (03:45)
[2018-11-28] MEDS: ALBUTEROL SULF 0.083% NEB SOLN 3 ML NEB NEB SCH ×6 (03:50→22:26)
[2018-11-28 05:24] LABS: CREATINE KINASE 334 IU/L (29-168)
[2018-11-28] MEDS ORDERED: VITAMIN D350000 UNIT PO (05:28)
[2018-11-28] MEDS ORDERED: VITAMIN C500 M1 PO (05:32)
[2018-11-28] MEDS ORDERED: [UNRECOGNIZED DRUG - OTHER] PO (05:32)
--- NOTE | 2018-11-28 06:03 | NUR ---
PATIENT RECEIVED FROM EMERGENCY DEPARTMENT PER STRETCHER AT 0435. SHE'S ALERT AND ORIENTED TO SELF AND PLACE, SHE DENIES PAIN. LUNGS SOUND CONGESTED, NON PRODUCTIVE COUGH NOTED. SCRATCHES WITH REDNESS TO THE LEFT ARM, REDNESS TO THE SACRUM AND THE AMY-AREA. PATIENT INCONTINENT OF URINE, SHE'S KEPT CLEAN AND DRY. DROPLET PRECAUTION IMPLEMENTED DUE TO PATIENT DIAGNOSIS OF INFLUENZA. THE PATIENT'S DAUGHTER IS IN THE ROOM, THE WAS EDUCATED ON THE IMPORTANCE OF WEARING THE MASK WHILE IN THE ROOM WITH HER MOTHER BUT SHE REFUSED TO PUT IT ON. NEGATIVE RETOUCHER WAS MADE AWARE THAT THE PATIENT'S DAUGHTER REFUSED TO USE THE ISOLATION MASK.
[2018-11-28] MEDS: IPRATROPIUM BROMIDE 0.02% 2.5 ML NEB NEB SCH ×5 (06:15→22:26)
[2018-11-28] MEDS ORDERED: FUROSEMIDE INJ 10 MG/ML 4 ML VIAL ONE (06:26)
[2018-11-28] MEDS ORDERED: ONDANSETRON HCL INJ 2MG/ML 2ML 2 MG/ML VIAL ONE (06:33)
[2018-11-28 06:38] LABS: COLOR,URINE YELLOW (YELLOW)
[2018-11-28 06:39] LABS: BILIRUBIN,URINE NEGATIVE (NEGATIVE); CLARITY,URINE HAZY (CLEAR); KETONES,URINE NEGATIVE (NEGATIVE); LEUKOCYTE ESTERASE ,URINE NEGATIVE (NEGATIVE); NITRITE,URINE NEGATIVE (NEGATIVE); PROTEIN,URINE DIPSTICK 2+ (NEGATIVE); URINE UROBILINOGEN 0.2 mg/dL (0.2 - 1)
[2018-11-28 06:41] LABS: AMORPHOUS SEDIMENT,URINE FEW (FEW); BACTERIA,URINE FEW /HPF; EPITHELIAL CELLS,URINE FEW /LPF; RBC,URINE 0-5 /HPF (0-5)
--- NOTE | 2018-11-28 06:47 | NUR ---
AT 0620 PRIMARY NURSE WENT IN THE ROOM TO OFFER THE PATIENT DAUGHTER PILLOW WHEN THE PATIENT STATED "I CAN'T BREATH." THE PATIENT BECAME VERY RESTLESS, TRYING TO STAND AND VERY UNSTEADY ON HER GAIT AND ALSO HER SKIN WAS CLAMMY. RAID RESPONSE WAS CALLED. THE TEAM CAME IN, JENNIFER MASK WAS APPLIED TO THE PATIENT, EKG WAS PERFORMED, ZOFRAN AND LASIX WAS ADMINISTERED ORDERED. PATIENT WAS PLACED ON BI-PAP ORDER. REPORT WAS CALL AND GIVEN TO THE RECEIVING NURSE IN ICU, PATIENT TRANSPORTED TO ICU AT 0644.
--- NOTE | 2018-11-28 07:00 | NUR ---
Pt came at 0647 on Nonrebreather mask in high [place] position, placed on Bipap 12/6 FiO2 100% RR 16. Pt AOx2, anxious, states that she cannot breathe, BBS coarse rales in all lobes, bowel sounds active, pulses bounding x4 ext, BLE edema 1+. Sacral stage II noted, placed on R side. 2 scabbed skin tears noted on R FA. Encouraged pt to breathe, remained in High [place]. Tele reading ST with 1st degree AVB.
--- NOTE | 2018-11-28 07:20 | NUR ---
DR SALVADOR'S PRIZE JACKER ON THE UNIT, SHE WAS MADE AWARE OF THE PATIENT CHANGE IN CONDITION AND THAT SHE WAS TRANSFERRED TO ICU WITH BI-PAP.
[2018-11-28] MEDS ORDERED: CALCIUM GLUCONATE 10% INJ 9.3 MEQ in SODIUM CHLORIDE 0.9% 100 ML 100 ML IV ONE (07:45)
[2018-11-28] MEDS ORDERED: ONDANSETRON HCL INJ 2MG/ML 2ML 2 MG/ML VIAL IV ONE (08:30)
[2018-11-28] MEDS ORDERED: FUROSEMIDE INJ 10 MG/ML 4 ML VIAL IV ONE (09:00)
[2018-11-28] MEDS: AMLODIPINE BESYLATE 10 MG TAB PO SCH (09:00)
[2018-11-28] MEDS: THYROID 60 MG TAB PO SCH ×2 (09:28→09:36)
[2018-11-28] MEDS: GUAIFENESIN 600MG/DEXTROMETHORPHAN 30MG TABSR PO SCH ×2 (09:28→17:28)
[2018-11-28] MEDS: ASPIRIN 81 MG ENTERIC COATED PO SCH (09:28)
[2018-11-28] MEDS: CALCIUM CARBONATE 500 MG CHEWABLE TABS PO SCH ×2 (09:28→17:00)
[2018-11-28] MEDS: ALLOPURINOL 100 MG TAB PO SCH (09:28)
[2018-11-28] MEDS: FERROUS SULFATE 325 MG TAB PO SCH ×2 (09:30→17:28)
[2018-11-28] MEDS: DONEPEZIL HCL 5 MG TAB PO SCH (09:35)
[2018-11-28] MEDS: APIXAB 2.5 MG TABLET PO SCH ×2 (09:35→17:28)
[2018-11-28 09:46] LABS: ABG HCO3 20 mmol/L (23-28); ABG PCO2 36 mmHg (41-51); ABG PH 7.34 (7.31-7.41); ABG PO2 64 mmHg (80-105)
[2018-11-28 09:51] LABS: ANION GAP 17.2 mmol/L (8-16); CALCIUM 7.4 mg/dL (8.4-10.2); CREATININE, SERUM 2.3 mg/dL (0.57-1.11); POTASSIUM 4.2 mmol/L (3.5-5.1)
[2018-11-28] MEDS: SPIRONOLACTONE 25 MG TAB PO SCH (10:10)
[2018-11-28] MEDS: METOPROLOL SUCCINATE 50 MG TAB XL PO SCH (10:10)
[2018-11-28] MEDS: BUMETANIDE 1 MG TAB PO SCH ×2 (10:10→17:28)
[2018-11-28 10:11] LABS: CREATINE KINASE MB 1.3 ng/mL (0-5.0)
--- NOTE | 2018-11-28 10:52 | Diagnostic Imaging Report ---
EXAM: CT Chest WITHOUT contrast INDICATION: ^Dyspnea COMPARISON: Chest x-ray 11/28/2018 TECHNIQUE: Chest was scanned utilizing a multidetector helical scanner from the lung apex through the level of the adrenal glands without administration of IV contrast. Absence of intravenous contrast decreases sensitivity for detection of lymphadenopathy and vascular pathology. Coronal and sagittal reformations were obtained. Routine protocol was performed. IV CONTRAST: None COMPLICATIONS: None RADIATION DOSE: Total DLP: 339.55 mGy*cm Estimated effective dose: (DLP x 0.014 x size factor) mSv CTDIvol has been reviewed. It is below the limits set by the Radiation Protocol Committee (RPC). Dose modulation, iterative reconstruction, and/or weight based adjustment of the mA/kV was utilized to reduce the radiation dose to as low as reasonably achievable. FINDINGS: LINES/ TUBES: None. LUNGS AND AIRWAYS: Bilateral lower lobe compressive atelectasis. Bilateral peribronchial thickening. Scattered groundglass opacities bilaterally predominantly in the lung bases. Consolidations in both lower lobes. PLEURA: Small to moderate bilateral pleural effusions. HEART AND MEDIASTINUM: The thyroid gland is normal. No mediastinal, hilar or axillary lymphadenopathy. The heart is normal in size. There is a small pericardial effusion. There are significant atherosclerotic calcifications in the aorta and coronary arteries. UPPER ABDOMEN: Severe vascular calcifications. BONES: Diffuse bony sclerosis. SOFT TISSUES: Unremarkable. IMPRESSION: 1. Findings consistent with multifocal pneumonia. Possible aspiration in both lower lobes. 2. Small bilateral pleural effusions. 3. Diffuse sclerosis of the bones, which can be seen in hyperparathyroidism. Signed by: Dr. Simón Fajardo M.D. on 11/28/2018 10:48 AM
[2018-11-28] MEDS ORDERED: METHYLPREDNISOLONE SOD SUCC 40 MG/ML VIAL 1ML IV ONE (12:00)
--- NOTE | 2018-11-28 12:08 | Consultation ---
DATE OF CONSULTATION: Pulmonary Critical Care Consultation CHIEF COMPLAINT: Dyspnea and cough. HISTORY OF PRESENT ILLNESS: The patient is an 82-year-old woman. She was hospitalized at [facility] in August with chest pain as well as hfcfe-cf-byitzgz diastolic heart failure, moderate aortic stenosis and moderate mitral stenosis. The patient also has a history of stage 4 to 5 chronic kidney disease. She stays at home with her family. She noticed worsening dyspnea and congestion over several days. She had more difficulty breathing. She had some cough and fever. She came to the ER and was found to have influenza. She was given some Tamiflu and some IV fluids. She was subsequently admitted to the floor. She had more difficulty breathing and was placed on BiPAP. She was then transferred down to the intensive care unit. She reports some improvement, but still has dyspnea. PAST SURGICAL HISTORY: 1. Status post hysterectomy. 2. Status post appendectomy. 3. Status post thyroid surgery. PAST MEDICAL HISTORY: 1. Atrial fibrillation. 2. Aortic valve disease and mitral valve disease. 3. Chronic kidney disease, stage 4. 4. Organic brain syndrome. ALLERGIES: THE PATIENT IS ALLERGIC TO PENICILLIN WELL CLARITHROMYCIN. FAMILY HISTORY: Family history is noncontributory. SOCIAL HISTORY: The patient is not an active smoker. She is not a drinker. She lives with her family. REVIEW OF SYSTEMS: She did have some fevers. There is no headache. She is not having any neck pain. She has no chest pain. She is having dyspnea and congestion. She has no abdominal pain. There is no nausea or vomiting. She is not having any leg edema. PHYSICAL EXAMINATION: VITAL SIGNS: The patient is afebrile. Blood pressure 134/67, and the saturation 100% on a BiPAP. The patient's pulse is 100 and respiratory rate is 20 to 24. HEENT: Shows no facial swelling or erythema. Nasal mucosa is normal. Oropharynx normal. LYMPHATIC: Shows no submandibular, cervical, or supraclavicular adenopathy. CARDIAC: Reveals an irregularly irregular rhythm with normal S1 and S2. There are no murmurs or rubs. LUNGS: Auscultation of lungs shows decreased breath sounds at the bases. There is no wheezing. ABDOMEN: Soft and nontender. There is no rebound or guarding. EXTREMITIES: Shows no leg edema or calf tenderness. There is some atrophy in the extremities. NEUROLOGIC: There are no focal neurological abnormalities. RADIOGRAPHIC DATA: Chest x-ray shows a hyperinflated lung bazan bilaterally. There is some right infrahilar infiltrate as well as a small right pleural effusion. LABORATORY DATA: BUN to creatinine ratio is 45 to 2.42 and the other electrolytes are normal except for carbon dioxide of 19. Hemoglobin is 10.4 and a platelet count of 252. White blood cell count is normal. IMPRESSION: 1. Influenza A with associated pneumonitis and sepsis, present on admission. 2. Ojfna-om-vprizey respiratory failure. 3. Moderate protein-calorie malnutrition. 4. Metabolic encephalopathy. 5. Chronic renal failure, stage 4 to 5. 6. Mitral valve disease. 7. Aortic valve disease. PLAN: 1. The patient will be continued on Tamiflu along with Levaquin. 2. CT scan of the chest. 3. ABG. 4. Solu-Medrol, low dose x1. 5. Continue BiPAP. 6. Case discussed with the patient, family and nursing staff. Tariq Morelos MD [facility] /[id number]
[2018-11-28] MEDS: ONDANSETRON HCL 4 MG ORAL DISINTEGRATING TAB SL PRN (12:10)
[2018-11-28] MEDS ORDERED: VANCOMYCIN 1GM/NS 250 ML 250 ML IV ONE (14:30)
[2018-11-28] MEDS: OSELTAMIVIR PHOSPHATE 75 MG CAP PO SCH (17:28)
[2018-11-28 17:47] LABS: CREATINE KINASE MB 1.6 ng/mL (0-5.0)
--- NOTE | 2018-11-28 19:00 | NUR ---
Report received. Assumed care. Assessment done. See interventions. O2 per HFNC @ 5L. IV saline locked. Daughter at bedside. Questions answered.
--- NOTE | 2018-11-28 20:14 | Consultation ---
DATE OF CONSULTATION: Nephrology Consultation Note REASON FOR CONSULTATION: Totuq-nj-mstqhpt kidney disease. HISTORY OF PRESENT ILLNESS: This is an 82-year-old female with complaints of dry cough, shortness of breath, dyspnea on exertion that began about a week ago, presents to the ED with worsening symptoms of shortness of breath and dyspnea on exertion. The patient reports that she had been very sick over the last one week with subjective fever. Denies any nausea, vomiting, or any dehydration. Nephrology was consulted for underlying acute kidney injury versus CKD. In reviewing her history at this facility, the patient's creatinine even back in May 2018 was found to be 3.1, then downtrended on that discharge to be 2.3. Even in June, her creatinine was found to be 2. The patient is basically close to her baseline even from last year. Currently, creatinine is 2.3. The patient is making good urine output with no other issues. She was found to be flu positive. The patient is seen and evaluated at bedside on the medical floor. She is doing well with no other issues at this time. Last night, she was admitted, had a rapid response due to worsening shortness of breath and was given some diuretics. She denies any history of any chronic kidney disease. Denies any NSAIDs, herbal supplements, or anything dpyb-rpq-ylosnld. REVIEW OF SYSTEMS: Pertinent positives: Cough, congestion, dyspnea on exertion, orthopnea, shortness of breath. Pertinent negatives: Denies any chest pain, palpitation, nausea, vomiting, diarrhea, dysuria, hematuria, frequency, urgency, lightheadedness, dizziness, abdominal pain, headaches, or any other complaints. The rest of the 14-point review of systems are reviewed with the patient and are negative. ALLERGIES: CEFUROXIME, CLARITHROMYCIN, CODEINE, DILTIAZEM, HYDRALAZINE, ISOSORBIDE, LEVOTHYROXINE, LISINOPRIL, MORPHINE, PENICILLIN, PREDNISONE, HOME MEDICATIONS: Ascorbic acid 500 mg p.o. b.i.d., calcium carbonate, cholecalciferol, nitroglycerin, allopurinol 100 mg daily, 10 mg daily, aspirin 81 mg daily, atorvastatin 10 mg daily, Bumex 1 mg b.i.d., clonidine 0.1 mg b.i.d., Aricept 5 mg daily, iron tablets extended release daily, 24 mg at bedtime, Aldactone 12.5 mg daily, Eliquis 2.5 mg b.i.d. PAST MEDICAL HISTORY: 1. Hypothyroidism. 2. Has a history of atrial fibrillation, on anticoagulation. 3. Hypertension. 4. Hyperlipidemia. 5. Chronic diastolic heart failure. 6. Gout. 7. Dementia. 8. Insomnia. 9. CKD stage 4. 10. Hypothyroidism. 11. Mitral valve stenosis. 12. Aortic stenosis. 13. History of SVT. 14. GERD. PAST SURGICAL HISTORY: 1. Right heel spur removal. 2. Appendectomy. 3. Hysterectomy. 4. Back surgery. 5. Radical neck dissection. FAMILY HISTORY: There is cancer on the mother's side. SOCIAL HISTORY: No drugs or alcohol. Does not smoke. She has good support. LAB FINDINGS: Show white count is 7.3, hemoglobin , platelets are 252. Coagulation; PT 13, INR 1, PTT 30.5. Chemistry; sodium 139, potassium 4.2, chloride 106, bicarb 20, anion gap is 13, BUN is , creatinine is 2.3. Trending her creatinine, the patient is at her baseline. GFR 20, glucose is 247. LFTs are normal. Troponins were negative. BNP 729, albumin was 3.1. Urinalysis negative. Serology flu positive. Microbiology; blood, urine, throat cultures are all pending. IMAGING STUDIES: CT of the chest; there is finding consistent with multifocal pneumonia and possible aspiration in both lower lobes. Chest x-ray, right infrahilar airspace opacity suggestive of pneumonia. PHYSICAL EXAMINATION: VITAL SIGNS: Temperature is 97.5, pulse 83, respirations rate is 18, blood pressure 120/50, pulse ox 100% on 8 L nasal cannula. GENERAL: Not in acute distress. Alert and oriented x3. Cooperative on exam. HEENT: Head is normocephalic, atraumatic. Eyes, pupils are equal and reactive to light bilaterally. Extraocular movements are intact. No evidence of erythema or exudates in the posterior pharynx. Has poor dentition. NECK: Supple. Good range of motion throughout. PULMONARY: Clear to auscultation bilaterally. No wheezing, rales, or rhonchi. No crackles appreciated. CARDIOVASCULAR: Positive S1 and S2. No murmurs, rubs or gallop appreciated. ABDOMEN: Soft, nondistended, nontender to palpation. Bowel sounds present. MUSCULOSKELETAL: Strength is 5/5 throughout. NEUROLOGIC: Cranial nerves II through XII are grossly intact. PSYCHIATRIC: Normal affect and mood. EXTREMITIES: No edema. Good range of motion throughout. IMPRESSION: 1. Chronic kidney disease, stage 4 at baseline. 2. Respiratory distress secondary to multifocal pneumonia. 3. Influenza A with flu positive. 4. Metabolic acidosis secondary to chronic kidney disease. PLAN: At this time, the patient was given Levaquin for underlying pneumonia. All renally dosed. I will go ahead and give her a dose of vancomycin to consider MRSA pneumonia and must rule that out with . She is on Tamiflu. From a renal standpoint, creatinine is at baseline. I reviewed trend from over the last one year and it seems like that she is actually at her baseline. Rest of electrolytes are stable. I will get a renal ultrasound on Friday as there is no tech today to get this done. Medications were reviewed and all seem to be renally dosed appropriate. She is on Bumex to help with some diuresis as she does have some edema on examination. Otherwise, we will continue to monitor very closely. Thank you so much for this consultation. We will continue to follow with you. MD SANTOS Garcia/WILLIAM /[id number]
--- NOTE | 2018-11-28 20:19 | Consultation ---
DATE OF CONSULTATION: 11/28/2018 Cardiology Consultation REASON FOR CONSULTATION: Atrial fibrillation and CHF. HISTORY OF PRESENT ILLNESS: This is an 82-year-old woman with history of supraventricular tachycardia, hypertension, hyperlipidemia, moderate aortic and mitral stenosis, chronic kidney disease stage 4, and thyroid cancer status post thyroidectomy, who presents with complaints of shortness of breath and cough. The patient's daughter reports that she was ill with what she thought was an upper respiratory infection approximately two weeks ago. Two to three days prior to admission, the patient began to develop cough and shortness of breath as well. Her shortness of breath worsened yesterday and the patient was noted to be increasingly weak. The daughter therefore brought the patient in to the ER for further evaluation. She was diagnosed with influenza A and started on Tamiflu and fluids. The patient subsequently developed worsening dyspnea, for which she was placed on BiPAP and transferred to the ICU. The patient otherwise denies chest pain, palpitations, orthopnea, or PND. However, daughter indicates that the patient has been sleeping in her recliner for the last week. REVIEW OF SYSTEMS: Negative as per HPI. PAST MEDICAL HISTORY: 1. History of supraventricular tachycardia. 2. Hypertension. 3. Hyperlipidemia. 4. Moderate aortic and mitral stenosis. 5. History of thyroid cancer, status post radical neck dissection and radiation therapy. 6. Chronic kidney disease, stage 4 to 5. PAST SURGICAL HISTORY: 1. Radical neck dissection. 2. Hysterectomy. 3. Thyroidectomy. 4. Back surgery. 5. Lumbar laminectomy. 6. Tonsillectomy. SOCIAL HISTORY: No tobacco, alcohol, or illicit drugs. FAMILY HISTORY: Pertinent for father who of myocardial infarction at the age of 93. ALLERGIES: PLEASE SEE EMR. MEDICATIONS: Please see medication list. PHYSICAL EXAMINATION: VITAL SIGNS: Temperature 97.7 degrees, pulse 66, respiratory rate 16, blood pressure 113/59, oxygen saturation 97% on 8 L nasal cannula. GENERAL: Elderly woman, frail, no acute distress. HEENT: Normocephalic, atraumatic. Pupils are equal. No scleral icterus. NECK: Supple. No thyromegaly or cervical lymphadenopathy. No carotid bruits. LUNGS: Clear to auscultation bilaterally. No wheezes or crackles. CARDIOVASCULAR: Normal rate. Regular rhythm. 3/6 systolic murmur. ABDOMEN: Soft, nontender. EXTREMITIES: No edema. NEUROLOGIC: Nonfocal exam. LABORATORY DATA: Influenza A-positive. Sodium 139, potassium 4.2, chloride 106, CO2 20, BUN 44, creatinine 2.3. BNP 730. WBC 7.6, hemoglobin 10.4, hematocrit 33.8, platelets 252. Chest x-ray, right infrahilar airspace opacity, suggestive of pneumonia. Recommend follow up PA and lateral chest x-ray in 10 weeks. Document interval change/resolution. Stable small right pleural effusion. CT chest, findings consistent with multifocal pneumonia, possible aspiration in both lower lobes. Small bilateral pleural effusions. Diffuse sclerosis of the bones, which can be seen in hyperparathyroidism. Telemetry, normal sinus rhythm. An episode of what appears to be second-degree AV block type 1. EKG, normal sinus rhythm with PACs. Left anterior fascicular block, septal infarct, age undetermined. IMPRESSION: 1. Influenza A with associated pneumonia and sepsis. 2. Mkruv-ig-zcgmxqh respiratory failure. 3. Frequent PACs. 4. Episode of second-degree AV block type 1. 5. Moderate aortic and mitral stenosis. 6. Chronic kidney disease, stage 4 to 5. 7. Hypertension, hyperlipidemia. 8. History of thyroid cancer, status post radical neck dissection and radiation therapy. RECOMMENDATIONS: Monitor patient on telemetry. Continue current cardiac medications. The patient had previously declined a pacemaker placement for symptomatic bradycardia. If further episodes of bradycardia are noted, we will revisit this with the patient. Continue home cardiac medications. Antibiotics per Pulmonary given finding of multifocal pneumonia on CT chest. Given patient's comorbid condition and frailty, recommend consider medical therapy for patient's cardiac conditions. Thank you for this consult. We will continue to follow. Valentina Goldman MD [facility]/MODL /[id number]
[2018-11-28] MEDS ORDERED: QUETIAPINE FUMARATE 25 MG TAB PO SCH (21:00)
[2018-11-28] MEDS: ATORVASTATIN 10 MG TAB PO SCH (21:14)
[2018-11-28] MEDS: BALSAM PERU/CASTOR OIL 60 GM OINT...G. TP SCH (21:14)
[2018-11-29] VITALS (17 sets, daily range): BP systolic 100–142; BP diastolic 45–82
[2018-11-29] MEDS: ALBUTEROL SULF 0.083% NEB SOLN 3 ML NEB NEB SCH ×5 (03:00→19:30)
[2018-11-29] MEDS: LEVOFLOXACIN 500MG/D5W 100ML 100 ML IV SCH (03:06)
[2018-11-29] MEDS ORDERED: SODIUM CHLORIDE 0.9% 250ML 250 ML ONE (03:11)
[2018-11-29] MEDS ORDERED: LEVOFLOXACIN 500MG/D5W 100ML IV SCH (03:30)
[2018-11-29 05:14] LABS: EOSINOPHILS # (AUTO) 0.1 (0.0-0.4); EOSINOPHILS % 1.7 % (0.0-6.0); HEMATOCRIT 26.9 % (34.2-44.1); HEMOGLOBIN 8.2 g/dL (12.0-16.0); LYMPHOCYTES # (AUTO) 0.8 (1.0-3.2); LYMPHOCYTES % 11.6 % (18.0-39.1); MEAN CORPUSCULAR HEMOGLOBIN 27.3 pg (28-32); MEAN CORPUSCULAR HGB CONC 30.5 g/dL (31-35); MEAN CORPUSCULAR VOLUME 89.7 fL (81-99); MONOCYTES # (AUTO) 0.3 (0.2-0.8); MONOCYTES % 4.8 % (4.4-11.3); NEUTROPHILS # (AUTO) 5.4 (2.1-6.9); NEUTROPHILS % 81.6 % (38.7-80.0); PLATELET COUNT 197 x10e3/uL (140-360); RED CELL DISTRIBUTION WIDTH 16.5 % (11.7-14.4)
[2018-11-29 05:43] LABS: ALBUMIN 2.4 g/dL (3.5-5.0); ALBUMIN/GLOBULIN RATIO 0.7 (0.8-2.0); ANION GAP 16.1 mmol/L (8-16); CREATININE, SERUM 2.51 mg/dL (0.57-1.11); POTASSIUM 5.1 mmol/L (3.5-5.1)
[2018-11-29] MEDS ORDERED: THYROID 60 MG TAB PO SCH (06:00)
[2018-11-29 06:02] LABS: CALCIUM 6.7 mg/dL (8.4-10.2)
[2018-11-29] MEDS: THYROID 60 MG TAB PO SCH (06:09)
[2018-11-29 06:30] LABS: FREE T4 (FREE THYROXINE) 0.69 ng/dL (0.9-1.8); THYROID STIMULATING HORMONE 0.165 uIU/mL (0.350-4.940)
[2018-11-29] MEDS: IPRATROPIUM BROMIDE 0.02% 2.5 ML NEB NEB SCH ×3 (07:08→19:30)
[2018-11-29] MEDS: ONDANSETRON HCL 4 MG ORAL DISINTEGRATING TAB SL PRN (07:46)
[2018-11-29] MEDS: FERROUS SULFATE 325 MG TAB PO SCH ×2 (08:33→17:20)
[2018-11-29] MEDS: SPIRONOLACTONE 25 MG TAB PO SCH (08:34)
[2018-11-29] MEDS: DONEPEZIL HCL 5 MG TAB PO SCH (08:35)
[2018-11-29] MEDS: ASPIRIN 81 MG ENTERIC COATED PO SCH (08:35)
[2018-11-29] MEDS: BUMETANIDE 1 MG TAB PO SCH ×2 (08:36→17:20)
[2018-11-29] MEDS: GUAIFENESIN 600MG/DEXTROMETHORPHAN 30MG TABSR PO SCH ×2 (08:37→17:20)
[2018-11-29] MEDS: APIXAB 2.5 MG TABLET PO SCH ×2 (08:37→17:20)
[2018-11-29] MEDS: OSELTAMIVIR PHOSPHATE 75 MG CAP PO SCH ×2 (08:38→17:20)
[2018-11-29] MEDS: AMLODIPINE BESYLATE 10 MG TAB PO SCH (08:38)
[2018-11-29] MEDS: METOPROLOL SUCCINATE 50 MG TAB XL PO SCH (08:39)
[2018-11-29] MEDS: ALLOPURINOL 100 MG TAB PO SCH (08:40)
[2018-11-29] MEDS: CALCIUM CARBONATE 500 MG CHEWABLE TABS PO SCH ×3 (08:40→17:00)
[2018-11-29] MEDS: BALSAM PERU/CASTOR OIL 60 GM OINT...G. TP SCH ×2 (08:40→17:00)
[2018-11-29] MEDS ORDERED: CALCIUM CARBONATE 500 MG CHEWABLE TABS PO SCH (11:45)
--- NOTE | 2018-11-29 12:47 | NUR ---
Nutrition Intervention Note RD Recommendation(s) for Physician: Continue fluid restriction as needed and diet as ordered Plan of Care: RD following, monitoring for tolerance and adequacy Nutrition reason for involvement: Nutrition Risk Trigger-MST RD Assessment Initial encounter with patient. Daughter was present. Per review of multiple previous visits, pt has had wt gain and wt loss. Loss of lean body mass in upper and lower extremities noted, loss of functional mobility, Lost top dentures, but denies chewing or swallowing difficulty, + Nausea, normal BM, Poor Po intake [employer]. Pt does not like commercial beverages such as Ensure because she feels they are too sweet. Encouraged Po intake. Pt can feed herself Principal Problems/Diagnoses: hypocalcemia, Influenza, Pneumonia PMH: Atrial fibrillation, CKD stage 4, organic brain syndrome, Aortic/mitral valve disease IVF: None GI: soft, non-tender Skin: intact Labs: (11/29/2018) lab results reviewed Meds: (11/29/2018) MAR reviewed Malnutrition Evaluation (11/29/2018) The patient meets criteria for unspecified SEVERE protein-calorie malnutrition. <50% of estimated energy requirements for >1 month Weight loss: >20% in 1 year (Chronic) Fat loss: Severe, Muscle loss: Severe Supporting Evidence: Fluid accumulation: None Functional Status: measurably reduced Diet Education Needs Assessment: Diet education not indicated Ht:64 Wt:113lbs BMI:19.4kg/m2 IBW:120lbs Estimated Nutritional Needs: 1284 - 1540 kcals at 25-30 kcals/kg/bw 51-77g of protein/kg/bw 1L fluid restriction Nutrition Prescription (Diet Order):Cardiac with a 1L fluid restriction Food Allergies: No known food allergies Diet Adequacy: Meeting fluid needs, Not meeting calorie needs, Not meeting protein needs Tolerance: Tolerating PO Nutrition Care Level: Moderate Nutrition Diagnosis: Malnutrition related to chronic illness as evidenced by involuntary wt loss and loss of lean body mass. Goal:Patient will meet 75-100% of estimated needs by follow up Progress: Not Progressing Interventions: General healthful diet Monitoring/Evaluation: Total energy intake, Total protein intake, Weight change Nima Kessler RD, LD, CNSC
--- NOTE | 2018-11-29 13:32 | Progress Note ---
DATE: 11/29/2018 Renal Progress Note SUBJECTIVE: The patient is doing much better today on our examination. She is alert and oriented x3 at baseline. OBJECTIVE: VITAL SIGNS: Temperature 98.1, pulse 67, respiratory rate is 16, blood pressure 111/47, and pulse ox 98% on 4 L nasal cannula. GENERAL: In no acute distress, alert and oriented x3, cooperative on examination. HEENT: Head is normocephalic and atraumatic. Eyes; pupils are equal, round, and reactive to light bilaterally. Extraocular movements are intact bilaterally. No evidence of erythema or exudates in the posterior pharynx. Has poor dentition. NECK: Supple. Good range of motion throughout. PULMONARY: Clear to auscultation bilaterally. No wheezing, no rales, no rhonchi, no crackles appreciated. CARDIOVASCULAR: Positive S1 and S2. No murmur or gallop appreciated. ABDOMEN: Soft, nondistended, and nontender to palpation. Bowel sounds are present. MUSCULOSKELETAL: NEUROLOGIC: . Cranial nerves II through XII are grossly intact. PSYCHIATRIC: Normal affect and mood . EXTREMITIES: No edema. Good range of motion throughout. LABORATORY DATA: White count 6.6, hemoglobin 8.2, hematocrit is 26.9, platelets of 197. Chemistry: Sodium 136, potassium 5.1, chloride 104, bicarb 21, anion gap of 53, BUN is 52, creatinine is 2.5, GFR is 18. Glucose 154, calcium . LFTs were normal. Troponins were negative. BNP , albumin is 2.4. IMPRESSION: 1. Chronic kidney disease, stage 4. 2. Respiratory distress secondary to multifocal pneumonia. 3. Influenza A with flu positive. 4. Metabolic acidosis secondary to chronic kidney disease. 5. Hypocalcemia, corrected . PLAN: At this time, ultrasound. Give Tums 500 mg p.o. b.i.d. x2 doses in the morning with stable. Continue diureses as well. We will continue to monitor very closely. Overall, the patient is stable. MD SANTOS Garcia/WILLIAM /[id number]
--- NOTE | 2018-11-29 14:41 | NUR ---
transferred pt to room after calling report. family with pt at all times. tele on. tolerates well.
--- NOTE | 2018-11-29 14:44 | NUR ---
RECD PT FROM ICU VIA BED AAOX3,DENIES PAIN,O2 5L NC IN PLACE,TELE #17 SR 68,DTV BY [id number]
--- NOTE | 2018-11-29 16:45 | NUR ---
PT ASSISTED UP TO BR VOIDED WITHOUT DIFFICULTY,O2 5L HIGH ANDREE IN PLACE,DENIES PAIN
--- NOTE | 2018-11-29 17:49 | Progress Note ---
DATE: Pulmonary Progress Note SUBJECTIVE: The patient feels better than yesterday. She has less coughing and less congestion. OBJECTIVE: VITAL SIGNS: The saturation is 97% on 4 L and the respiratory rate is 16. Pulse is 62. The blood pressure is 109/60. HEENT: Shows no facial swelling or erythema. The nasal mucosa is normal. The oropharynx is normal. LYMPHATIC: Shows no submandibular, cervical or supraclavicular adenopathy. CARDIAC: Reveals a regular rate and rhythm with a normal S1 and S2. There are no murmurs or rubs. LUNGS: Auscultation of lungs reveals a few wheezes in both lung bazan. ABDOMEN: Soft and nontender. There is no rebound or guarding. EXTREMITIES: Show no leg edema or calf tenderness. IMPRESSION: 1. Aspiration pneumonia with sepsis present on admission. 2. Influenza A with associated pneumonitis. 3. Moderate protein calorie malnutrition. 4. Chronic renal failure stage 4. 5. Mitral valve disease. 6. Aortic valve disease. PLAN: 1. Continue Tamiflu. 2. Continue antibiotics. 3. Continue oxygen. 4. Speech evaluation for swallowing function is pending. 5. Continue to monitor blood counts and laboratory values. Tariq Morelos MD [facility]/MODL /[id number]
--- NOTE | 2018-11-29 20:04 | NUR ---
RECEIVED PT IN BED AOX1 .CHEST CONGESTED .NOTED WHEEZING ALL LOBES .RT AC 20 G S/L .HELPED THE PT TO THE RESTROOM.CONTINUE TO MONITOR
--- NOTE | 2018-11-29 20:24 | Progress Note ---
DATE: 11/29/2018 Cardiology Progress Note SUBJECTIVE: The patient denies chest pain or shortness of breath. OBJECTIVE: VITAL SIGNS: Temperature 98 degrees, pulse 64, respiratory rate 21, blood pressure 112/55, and oxygen saturation 93% on 3 liters nasal cannula. GENERAL: Elderly woman, frail, no acute distress. LUNGS: Clear to auscultation bilaterally. No wheezes or crackles. CARDIOVASCULAR: Normal rate, regular rhythm, 3/6 systolic murmur. ABDOMEN: Soft, nontender. EXTREMITIES: No edema. CARDIAC MEDICATIONS: 1. Apixaban 2.5 mg p.o. b.i.d. 2. Bumex 1 mg p.o. b.i.d. 3. Metoprolol succinate 50 mg p.o. daily. 4. Amlodipine 10 mg p.o. daily. 5. Aspirin 81 mg p.o. daily. 6. Spironolactone 12.5 mg p.o. daily. 7. Atorvastatin 10 mg p.o. q.h.s. 8. Thyroid 120 mg p.o. daily. LABORATORY DATA: WBC 6.62, hemoglobin 8.2, hematocrit 26.9, and platelets 197. Sodium 136, potassium 5.1, chloride 104, CO2 of 21, BUN 52, and creatinine 2.51. BNP 1090. TSH 0.165 and free T4 of 0.69. Telemetry, normal sinus rhythm. IMPRESSION: 1. Influenza A with associated pneumonia and sepsis. 2. Acute on chronic respiratory failure. 3. Frequent premature atrial contractions. 4. Episode of second-degree atrioventricular block type I noted on telemetry. 5. Moderate aortic and mitral stenosis. 6. Chronic kidney disease, stage 4 to 5. 7. Hypertension. 8. Hyperlipidemia. 9. History of thyroid cancer, status post radical neck dissection and radiation therapy. RECOMMENDATIONS: Monitor the patient on telemetry. No further arrhythmias have been noted. Continue current cardiac medication. Antibiotics per Pulmonary given the finding of multifocal pneumonia on CT chest. Continue Tamiflu. Continue supportive care. Thank you for this consult. We will continue to follow. Valentina Goldman MD [facility]/MODL /[id number]
[2018-11-29] MEDS: ATORVASTATIN 10 MG TAB PO SCH (21:08)
[2018-11-29] MEDS: QUETIAPINE FUMARATE 25 MG TAB PO SCH (21:08)
[2018-11-30] VITALS (8 sets, daily range): BP systolic 115–174; BP diastolic 56–76
[2018-11-30] MEDS: IPRATROPIUM BROMIDE 0.02% 2.5 ML NEB NEB SCH ×4 (00:10→19:42)
[2018-11-30] MEDS: ALBUTEROL SULF 0.083% NEB SOLN 3 ML NEB NEB SCH ×6 (00:10→19:42)
[2018-11-30] MEDS: LEVOFLOXACIN 500MG/D5W 100ML 100 ML IV SCH (03:30)
[2018-11-30 05:28] LABS: BASOPHILS % 0.1 % (0.0-1.0); HEMATOCRIT 29.6 % (34.2-44.1); HEMOGLOBIN 9.2 g/dL (12.0-16.0); LYMPHOCYTES # (AUTO) 1.2 (1.0-3.2); LYMPHOCYTES % 10.2 % (18.0-39.1); MEAN CORPUSCULAR HGB CONC 31.1 g/dL (31-35); MONOCYTES # (AUTO) 0.8 (0.2-0.8); MONOCYTES % 6.9 % (4.4-11.3); NEUTROPHILS # (AUTO) 9.5 (2.1-6.9); NEUTROPHILS % 81.9 % (38.7-80.0); PLATELET COUNT 281 x10e3/uL (140-360); RED BLOOD COUNT 3.29 x10e6/uL (3.6-5.1); RED CELL DISTRIBUTION WIDTH 16.4 % (11.7-14.4)
[2018-11-30] MEDS ORDERED: SODIUM CHLORIDE 0.9% 250ML 250 ML ONE (05:34)
[2018-11-30 05:46] LABS: ALBUMIN 2.5 g/dL (3.5-5.0); ALBUMIN/GLOBULIN RATIO 0.7 (0.8-2.0); CREATININE, SERUM 2.5 mg/dL (0.57-1.11)
[2018-11-30 06:00] LABS: CALCIUM 6.8 mg/dL (8.4-10.2)
[2018-11-30] MEDS: THYROID 60 MG TAB PO SCH (06:09)
--- NOTE | 2018-11-30 07:47 | NUR ---
PT RESTING AND DENIES PAIN .CALL KENNEDY WITH IN REACH ,REPORT GIVEN TO THE ONCOMING NURSE
[2018-11-30] MEDS: CALCIUM CARBONATE 500 MG CHEWABLE TABS PO SCH (09:00)
[2018-11-30] MEDS: GUAIFENESIN 600MG/DEXTROMETHORPHAN 30MG TABSR PO SCH (09:34)
[2018-11-30] MEDS: APIXAB 2.5 MG TABLET PO SCH ×2 (09:34→17:54)
[2018-11-30] MEDS ORDERED: CALCIUM CARBON600 MG (09:34)
[2018-11-30] MEDS: DONEPEZIL HCL 5 MG TAB PO SCH (09:34)
[2018-11-30] MEDS: BUMETANIDE 1 MG TAB PO SCH ×2 (09:34→17:55)
[2018-11-30] MEDS: ASPIRIN 81 MG ENTERIC COATED PO SCH (09:34)
[2018-11-30] MEDS: SPIRONOLACTONE 25 MG TAB PO SCH (09:34)
[2018-11-30] MEDS: FERROUS SULFATE 325 MG TAB PO SCH ×2 (09:34→17:54)
[2018-11-30] MEDS: AMLODIPINE BESYLATE 10 MG TAB PO SCH (09:35)
[2018-11-30] MEDS: OSELTAMIVIR PHOSPHATE 75 MG CAP PO SCH ×2 (09:35→17:54)
[2018-11-30] MEDS: BALSAM PERU/CASTOR OIL 60 GM OINT...G. TP SCH ×2 (09:36→16:04)
[2018-11-30] MEDS: METOPROLOL SUCCINATE 50 MG TAB XL PO SCH (09:36)
[2018-11-30] MEDS: ALLOPURINOL 100 MG TAB PO SCH (09:36)
[2018-11-30] MEDS ORDERED: CALCIUM GLUCONATE 10% INJ 9.3 MEQ in SODIUM CHLORIDE 0.9% 100 ML 100 ML IV ONE (09:45)
[2018-11-30] MEDS: NIFEDIPINE CR 30 MG TAB PO SCH (10:26)
[2018-11-30] MEDS ORDERED: PROMETHAZINE 12.5MG/ NACL 0.9% 12.5 MG/50 ML BAG IV PRN (10:30)
--- NOTE | 2018-11-30 10:42 | NUR ---
CASE MANAGEMENT INITIAL ASSESSMENT Urogynecology Physician to bedside to discuss plan of care with patient/family. CM/SW role and care transitions discussed. Anticipated discharge plan discussed along with duration of care. CM/SW discussed patients right to make decisions in care. CM/SW work hours given. Patient lives: W [place] [facility] STORY HOME Admit/Transfer: Hospital/ER visits since last admit: NONE POA/Emergency contact: TONY / DAUGHTER Current/Previous Home Health: PT HAS [facility], BUT HAD NOT STARTED HER PHYSICAL THERAPY YET. PCP/Follow-up Care: [facility] Current/Previous DME: WC, WALKER, CANE, GLUCOMETER Other Services: NONE. GOES TO [employer] FOR ACTIVITIES Employment Status: RETIRED; IND W ADL'S Areas of Concerns: PT IS SHAKING; HANDS AND JAW Referral Needs: WILL NEED UPDATE SENT TO [facility] Education Needs: NONE IMM/TRAYLOR given and signed (if applicable): IMM LETTER GIVEN AND SIGNED BY DAUGHTER. COPY TO CHART AND COPY TO PT. Goal for discharge: RETURN HOME SAFELY. CM/SW left business card at the bedside with contact information. Name and number was also written on the patients whiteboard. Patient verbalized understanding of discussion. CM will follow-up with ongoing discharge and transition of care needs.
[2018-11-30] MEDS ORDERED: CALCIUM CARBONATE 500 MG CHEWABLE TABS PO SCH (10:45)
--- NOTE | 2018-11-30 12:46 | NUR ---
WOUND CARE CONSULTATION - INITIAL EVALUATION Patient admitted from home to ER with cough, fever, chills and congestion. HX: Chest pain, Snwtz-pl-Oafolvc diastolic heart failure, moderate aortic stenosis, and moderate mitral stenosis, Stage 4 to 5 CKD. LABS: WBC11.59 HGB9.2 HCT29.6 NEUT% 81.9 ALB2.5 [id number] Wound Care consulted for evaluation of Sacrum. PATIENT VISIT: - Pleasant 82-year-old female with Daughter at Bedside. - Patient OOB today to chair with assistance. SOB on exertion.O2 via nasal cannula. - Josué Score 18 - Visco Mattress in place. - Moderate PUP active. - Diapered - Blanchable erythema noted to mid gluteal fold. Daughter voices patient has been having diarrhea. - Unable to tell when she has bowel movements - Left Ischial - Blanchable erythema. ( Patient had just been out of bed prior to visit ) - Bilateral Heels - Blanchable Erythema. - Seen by dietary for malnutrition IMPRESSION: - No pressure ulcers identified - Blanchable redness to perirectal/ mid gluteal fold due to incontinence. - Blanchable Erythema to Bilateral Heels RECOMMENDATION: - Urmila-Rectal/ Mid Gluteal Fold - Incontinence Related Dermatitis: - Wash area with mild soap and water and pat dry thoroughly - Apply Lantiseptic Cream 12Hrs and PRN Soiling. - Sacral Area -Venelex and Allevyn Foam Dressing Daily - Alternating Pressure Air Mattress - Turn and Reposition q2h - Bilateral Heel Protectors/ Offload Heels with Pillows while in bed. Thank you for consulting with Wound Care. Addendum: 11/30/18 at 1306 by Michele Lindsay RN Amended: Links added.
[2018-11-30] MEDS: LANOLIN 4.5 OZ OINT TP SCH (13:15)
--- NOTE | 2018-11-30 13:19 | Progress Note ---
DATE: Cardiology Progress Note SUBJECTIVE: The patient is weak. Daughter feels that she is "shaky." The patient denies any cardiovascular symptoms. OBJECTIVE: VITAL SIGNS: Temperature is 97.6, heart rate 74, respirations are 20, blood pressure is 156/70, and oxygen saturation is 92% on 6 liters nasal cannula. GENERAL: She is an elderly woman, lying in bed, in no apparent distress. LUNGS: Clear to auscultation. ABDOMEN: Soft and nontender. CARDIOVASCULAR: Regular rate and rhythm, 3/6 systolic murmur. EXTREMITIES: No edema. CARDIOVASCULAR MEDICATIONS: Reviewed. LABORATORY DATA: Reviewed. Hemoglobin 9.2 and white cell count is 11.59. Creatinine is 2.5. Calcium 6.8. IMPRESSION: 1. Influenza A with associated pneumonia and sepsis. 2. Inrbz-gi-griayqc respiratory failure. 3. Premature atrial complexes. 4. One episode of second-degree atrioventricular block Wenckebach noted on telemetry. 5. Moderate aortic and mitral stenosis. 6. Chronic kidney disease. RECOMMENDATIONS: Continue to monitor the patient on telemetry. The patient had premature atrial complexes noted on telemetry. No significant arrhythmias were found. Continue all current cardiovascular medications. Continue infectious treatment per primary team. DO RAFIA Mccray/MODL /[id number]
--- NOTE | 2018-11-30 14:04 | Progress Note ---
DATE: 11/30/2018 SUBJECTIVE: The patient is doing well today. She does complain of some nausea for which Phenergan has been ordered. Now, the daughter reports that she has some tremors, which I do not see that event on examination. OBJECTIVE: VITAL SIGNS: Temperature 97.1, pulse 64, respiratory rate 20, blood pressure 127/79, pulse ox 95% on nasal cannula. GENERAL: Not in acute distress. Alert and oriented x3. Cooperative on examination. HEENT: Head is normocephalic, atraumatic. Eyes, pupils equal, round, reactive to light. Extraocular is intact. NECK: Supple. Good range of motion throughout. No evidence of erythema or exudates in the posterior pharynx. Has poor dentition. PULMONARY: Clear to auscultation bilaterally. No wheezing, no rales, no rhonchi, no crackles appreciated. CARDIOVASCULAR: Positive S1 and S2. No murmurs, rubs, or gallops appreciated. ABDOMEN: Soft, nondistended, and nontender to palpation. Bowel sounds are present. MUSCULOSKELETAL: Strength is 5/5 throughout. NEUROLOGIC: Cranial nerves II through XII are grossly intact. . PSYCHIATRIC: Normal affect and mood. EXTREMITIES: No edema. Good range of motion throughout. LABORATORY DATA: Lab findings show chemistry, sodium 132, potassium 4.4, chloride is 105, bicarb is 17, anion gap of 15, BUN is 16, creatinine is 2.4, glucose is 112. IMPRESSION: 1. Chronic kidney disease, stage IV at baseline. 2. Respiratory distress secondary to multifocal pneumonia. 3. Influenza A, flu positive. 4. Metabolic acidosis secondary to chronic kidney disease, stage 4. 5. Hypocalcemia, likely secondary to hyperparathyroidism. PLAN: At this time, we will add Phenergan due to the patient having nausea. We will give 2 more doses of Tums as well. The rest of her electrolytes and chemistry are stable within range with her underlying CKD. No further workup is needed. We will continue to monitor very closely. MD SANTOS Garcia/WILLIAM /[id number]
--- NOTE | 2018-11-30 14:14 | Diagnostic Imaging Report ---
EXAM: Modified barium swallow with Speech Pathologist INDICATION: ^Aspiration Pneumonia ^20181130 ^1200 COMPARISON: None available. RADIATION DOSE: Fluoroscopy Time: 2.1 min Dose (Kerma) Area Product: 2.87 Gycm2 Air Kerma (AK) value has been reviewed. It is below the limits set by the Radiation Protocol Committee (RPC) committee. FINDINGS: See impression IMPRESSION: No evidence of penetration or aspiration. Please see speech pathology report for detailed description and recommendations. Signed by: Dr. Liban Meza M.D. on 11/30/2018 2:10 PM
--- NOTE | 2018-11-30 15:19 | Diagnostic Imaging Report ---
Examination: Single AP view of the chest. COMPARISON: CT chest without contrast 11/28/2018 INDICATION: Pneumonia DISCUSSION: New left perihilar consolidation. Stable bilateral lower lobe consolidations with small associated pleural effusion. Stable cardiomediastinal contour. No acute osseous abnormality. Contrast material opacifies the stomach related to modified barium swallow performed 11/30/2018. Refer to CT scan of the chest without contrast 11/28/2018 for further description. IMPRESSION: Worsening multifocal pneumonia with new left perihilar consolidation. Signed by: Dr. Liban Meza M.D. on 11/30/2018 3:16 PM
--- NOTE | 2018-11-30 17:29 | NUR ---
PATIENT ASSISTED IN CHAIR BY PCT - PATIENT WILL SIT UP TO EAT DINNER. CALL LIGHT IS WITHIN REACH OF PATIENT- PATIENT INFORMED TO CALL FOR ASSISTANCE.
--- NOTE | 2018-11-30 17:35 | Progress Note ---
DATE: Pulmonary Progress Note SUBJECTIVE: The patient was transferred out of the Intensive Care Unit yesterday. She still has some dyspnea and fatigue. Her oxygen was increased. PHYSICAL EXAMINATION: VITAL SIGNS: The patient is afebrile. The blood pressure is 156/70 and the pulse is 73. Saturation is 92%. HEENT: Shows no facial swelling or erythema. CARDIAC: Reveals regular rate and rhythm with a normal S1 and S2. CHEST: Auscultation of lungs reveals clear breath sounds bilaterally. There is no wheezing. ABDOMEN: Soft and nontender. There is no rebound or guarding. EXTREMITIES: Show no leg edema or calf tenderness. There is no cyanosis or clubbing. SKIN: Shows no rashes. NEUROLOGIC: Shows no focal abnormalities. LABORATORY DATA: White blood cell count is 11.6 and the hemoglobin is 9.2. The platelet count is 281. The BUN to creatinine ratio is 59:2.5 and bicarbonate is 17. IMPRESSION: 1. Influenza with associated pneumonitis. 2. Moderate protein-calorie malnutrition. 3. Chronic renal failure, stage 4. 4. Mitral valve disease. 5. Aortic valve disease. PLAN: 1. Continue Tamiflu and antibiotics. 2. Wean oxygen. 3. Repeat chest x-ray. 4. Complete nephrology evaluation. Tariq Morelos MD [facility]/W[place]IAM /[id number]
[2018-11-30] MEDS: SODIUM BICARBONATE 650 MG TAB PO SCH (17:54)
[2018-11-30] MEDS: BENZONATATE 100 MG CAP PO SCH (17:54)
--- NOTE | 2018-11-30 19:32 | NUR ---
PATIENT IS SITTING IN THE CHAIR- EATING FROM HER DINNER TRAY. PATIENT REMAINS IN STABLE CONDITION WITH NO S/S OF RESPIRATORY DISTRESS. NO PAIN INDICATED. 02 AND TELEMETRY APPLIED. DAUGHTER PRESENT IN ROOM. CALL LIGHT IS WITHIN REACH, PATIENT INSTRUCTED TO CALL FOR ASSISTANCE NEEDED. BEDSIDE REPORT COMPLETED WITH ONCOMING NURSE.
--- NOTE | 2018-11-30 20:43 | NUR ---
RECEIVED PT IN BED SITTING ON THE CHAIR .FAMILY AT THE BEDSIDE .NO ACUTE DISTRESS NOTED .CONTINUE TO MONITOR
[2018-11-30] MEDS: ATORVASTATIN 10 MG TAB PO SCH (21:49)
[2018-11-30] MEDS: QUETIAPINE FUMARATE 25 MG TAB PO SCH (21:49)
--- NOTE | 2018-11-30 23:58 | Diagnostic Imaging Report ---
EXAMINATION: Head CT without contrast. HISTORY:Altered mental status. COMPARISON:CT brain from 06/01/2018. TECHNIQUE: Multidetector axial images were obtained from the foramen magnum to the vertex without contrast. The images were reconstructed using brain and bone algorithms. Thin section brain images were reformatted into coronal and sagittal planes. Dose modulation, iterative reconstruction, and/or weight based adjustment of the mA/kV was utilized to reduce the radiation dose to as low as reasonably achievable. Intravenous contrast: None IMAGE QUALITY: Acceptable. FINDINGS: Skull/scalp: No lytic or blastic. lesions. No surgical changes. Parenchyma: Interval development of new cortical-based hypodensity in the inferior aspect of right cerebellar hemisphere with regional mass effect with sulcal effacement represents evolving acute or subacute vascular insult in PICA territory. Nonspecific bilateral frontoparietal patchy white matter hypodensity are likely related to small vessel ischemic changes. Unchanged old lacunar infarct in the anterior aspect of right thalamus and left rhodes radiata. No acute hemorrhage or mass. Arteries: No density suggestive of thrombosis. Atherosclerotic calcification in bilateral carotid siphon. Dural sinuses: No abnormal density suggestive of thrombosis. Ventricles: Mild compensated dilatation due to volume loss. No hydrocephalus. Extra-axial spaces: No abnormal density. Brain volume: Generalized age-related cerebral volume loss. Craniocervical junction: No mass, Chiari malformation, or basilar invagination. Sella: No mass. Paranasal/mastoid sinuses: Mild mucosal thickening in right maxillary sinus. Partial and near complete opacification and sclerosis of left mastoid air cells. IMPRESSION: 1. New cortical-based hypodensity in right cerebellar hemisphere represents evolving acute or subacute vascular insult in PICA territory. 2. Mild supratentorial white matter microvascular ischemic changes and chronic lacunar infarcts as detailed above. 3. Generalized age-related cerebral volume loss. Signed by: Dr. Krystal Wray M.D. on 11/30/2018 11:55 PM
[2018-12-01] VITALS (11 sets, daily range): BP systolic 110–153; BP diastolic 53–71
[2018-12-01] MEDS: ALBUTEROL SULF 0.083% NEB SOLN 3 ML NEB NEB SCH ×6 (00:05→19:27)
[2018-12-01] MEDS: IPRATROPIUM BROMIDE 0.02% 2.5 ML NEB NEB SCH ×4 (00:05→19:27)
[2018-12-01] MEDS: LANOLIN 4.5 OZ OINT TP SCH ×2 (01:15→12:15)
[2018-12-01] MEDS: LEVOFLOXACIN 500MG/D5W 100ML 100 ML IV SCH (03:30)
[2018-12-01 03:56] LABS: BASOPHILS % 0.1 % (0.0-1.0); HEMATOCRIT 26.4 % (34.2-44.1); HEMOGLOBIN 8.5 g/dL (12.0-16.0); LYMPHOCYTES # (AUTO) 0.9 (1.0-3.2); MEAN CORPUSCULAR HEMOGLOBIN 28.1 pg (28-32); MEAN CORPUSCULAR HGB CONC 32.2 g/dL (31-35); MEAN CORPUSCULAR VOLUME 87.4 fL (81-99); MONOCYTES # (AUTO) 0.8 (0.2-0.8); MONOCYTES % 6.9 % (4.4-11.3); NEUTROPHILS # (AUTO) 9.7 (2.1-6.9); PLATELET COUNT 264 x10e3/uL (140-360); RED BLOOD COUNT 3.02 x10e6/uL (3.6-5.1); RED CELL DISTRIBUTION WIDTH 16.3 % (11.7-14.4)
[2018-12-01 04:11] LABS: ANION GAP 19.5 mmol/L (8-16); CREATININE, SERUM 2.82 mg/dL (0.57-1.11); MAGNESIUM 1.7 MG/DL (1.3-2.1); POTASSIUM 4.5 mmol/L (3.5-5.1)
[2018-12-01 04:24] LABS: CALCIUM 6.7 mg/dL (8.4-10.2)
[2018-12-01] MEDS: THYROID 60 MG TAB PO SCH (06:02)
--- NOTE | 2018-12-01 07:35 | NUR ---
PT HAD A FALL AT 2200.NO INJURY NOTED NOTIFIED JUDI CONROY .CT OF THE BRAIN ORDERED AND DONE .FAMILY AND AND DOCTOR NOTIFIED IRS AND PHYSICAL ASSESSMENT DONE .NEURO CHECK X2 IN PROGRESS PT RESTING FAMILY AT THE BEDSIDE .REPORT GIVEN TO THE ONCOMING NURSE
--- NOTE | 2018-12-01 07:59 | NUR ---
NOTIFIED NOAM CONROY ABOUT THE CALCIUM 6.7 .GOT THE ORDER TO GIVE CALCIUM GLUCONATE 3.0 GM IV
[2018-12-01] MEDS ORDERED: CALCIUM GLUCONATE 10% INJ 13.95 MEQ in SODIUM CHLORIDE 0.9% 100 ML 100 ML IV ONE (08:00)
[2018-12-01] MEDS: FERROUS SULFATE 325 MG TAB PO SCH ×2 (09:00→17:56)
[2018-12-01] MEDS: NIFEDIPINE CR 30 MG TAB PO SCH (09:01)
[2018-12-01] MEDS: SODIUM BICARBONATE 650 MG TAB PO SCH ×2 (09:01→17:58)
[2018-12-01] MEDS: METOPROLOL SUCCINATE 50 MG TAB XL PO SCH (09:01)
[2018-12-01] MEDS: OSELTAMIVIR PHOSPHATE 75 MG CAP PO SCH ×2 (09:01→17:58)
[2018-12-01] MEDS: BENZONATATE 100 MG CAP PO SCH ×2 (09:01→17:58)
[2018-12-01] MEDS: ASPIRIN 81 MG ENTERIC COATED PO SCH (09:01)
[2018-12-01] MEDS: BUMETANIDE 1 MG TAB PO SCH ×2 (09:01→17:56)
[2018-12-01] MEDS: APIXAB 2.5 MG TABLET PO SCH ×2 (09:01→17:56)
[2018-12-01] MEDS: ALLOPURINOL 100 MG TAB PO SCH (09:01)
[2018-12-01] MEDS: DONEPEZIL HCL 5 MG TAB PO SCH (09:01)
[2018-12-01] MEDS: NON-FORMULARY MEDICATION (Ubidecarenone (Coq-10) 100 MG) PO SCH (09:03)
[2018-12-01] MEDS: BALSAM PERU/CASTOR OIL 60 GM OINT...G. TP SCH ×2 (09:32→17:58)
--- NOTE | 2018-12-01 13:30 | Progress Note ---
DATE: Nephrology Progress Note SUBJECTIVE: The patient is doing well, sitting in chair today with no complaints. OBJECTIVE: VITAL SIGNS: Temperature 97.5, pulse 81, respiratory rate is 22, blood pressure 114/55, and pulse ox 100%. She is doing good on room air. GENERAL: In no acute distress. Alert and oriented x3. Cooperative on examination. HEENT: Head is normocephalic and atraumatic. Eyes, pupils equal, round, and reactive to light bilaterally. Extraocular movements are intact bilaterally. No evidence of erythema or exudates in the posterior pharynx. Has poor dentition. NECK: Supple. Good range of motion throughout. PULMONARY: Clear to auscultation bilaterally. No wheezing, no rales, no rhonchi, and no crackles appreciated. CARDIOVASCULAR: Positive S1 and S2. No murmurs, rubs, or gallops appreciated. ABDOMEN: Soft, nondistended, and nontender to palpation. Bowel sounds are present. MUSCULOSKELETAL: Strength is 5/5 throughout . NEUROLOGIC: Cranial nerves II through XII are grossly intact . PSYCHIATRIC: Normal affect and mood. EXTREMITIES: No edema. Good range of motion throughout. LABORATORY DATA: Lab findings show a white count of 11.5, hemoglobin 8.5, hematocrit 26, and platelets 264. Chemistry: Sodium 136, potassium 4.5, chloride 101, bicarb 20, anion gap of 19, BUN 63, and creatinine 2.8 slightly above normal likely due to dehydration. Glucose 336. Calcium 6.7. Magnesium 1.7. IMPRESSION: 1. 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 2. Multifocal pneumonia. 3. Influenza A, flu positive. 4. Metabolic acidosis secondary to chronic kidney disease. 5. Hypocalcemia secondary hyperparathyroidism. PLAN: At this time, her kidney function dehydration, but electrolytes are stable. No further workup needed. Continue with sodium bicarb tabs. The patient is using her own calcium carbonate tab. She does not want to use the ones in the hospital, with the nursing staff. Making good urine output. No other changes. Renal ultrasound is pending. MD SANTOS Garcia/WILLIAM /[id number]
--- NOTE | 2018-12-01 14:32 | Diagnostic Imaging Report ---
Examination: Single AP view of the chest. COMPARISON: November 30, 2018 INDICATION: Shortness of breath, weakness DISCUSSION: Lines/tubes: None. Lungs: Left midlung consolidation and bilateral lower lobe consolidations. Pleura: Small effusions. Heart and mediastinum: The heart and the mediastinum are unremarkable. Bones and soft tissues: No acute bony abnormalities. IMPRESSION: Stable left midlung and bilateral lower lobe consolidations and small effusions. Signed by: Dr. Fabián Cevallos M.D. on 12/01/2018 1:57 PM
--- NOTE | 2018-12-01 14:32 | Diagnostic Imaging Report ---
Renal ultrasound dated 12/01/2018. History: Renal insufficiency. Discussion: Transverse and longitudinal images of the kidneys were obtained demonstrating small kidneys with increased echogenicity. There is no evidence of hydronephrosis, mass or renal calculus. The right kidney measures 9.3 x 2.9 x 3.6 cm with a maximal cortical thickness of 1.1 cm. The left kidney measures 6.0 x 3.0 x 3.4 cm with barely discernible cortex. The urinary bladder is unremarkable with bilateral urinary jets present. There is no evidence of free fluid. IMPRESSION: Small bilateral kidneys with increased echogenicity. Signed by: Dr. Tej Thrasher DO on 12/01/2018 1:16 PM
[2018-12-01 17:41] LABS: ANION GAP 18.5 mmol/L (8-16); CALCIUM 7.9 mg/dL (8.4-10.2); CREATININE, SERUM 2.79 mg/dL (0.57-1.11); POTASSIUM 4.5 mmol/L (3.5-5.1)
--- NOTE | 2018-12-01 19:26 | NUR ---
PATIENT IS IN STABLE CONDITION WITH NO S/S OF RESPIRATORY DISTRESS. NO PAIN VOICED. O2 APPLIED. DIAPER APPLIED. CALL LIGHT IS WITHIN REACH, INSTRUCTED TO CALL FOR ASSISTANCE NEEDED. DAUGHTER PRESENT IN ROOM. REPORT GIVEN TO ONCOMING NURSE.
[2018-12-01] MEDS: ATORVASTATIN 10 MG TAB PO SCH (21:00)
[2018-12-01] MEDS: QUETIAPINE FUMARATE 25 MG TAB PO SCH (21:00)
--- NOTE | 2018-12-01 23:54 | NUR ---
RECEIVED PT IN BED .DR GODINEZ IN THE ROOM EVALUATING THE PT .DENIES PAIN NOTED WHEEZING ON AUSCULTATION OF THE LUNG .FAMILY AT THE BEDSIDE.CALL KENNEDY WITH IN REACH
--- NOTE | 2018-12-01 23:57 | NUR ---
PT HAS TEM GIVEN TYLENOL 650 .CONTINUE TO MONITOR
[2018-12-02] VITALS (7 sets, daily range): BP systolic 104–134; BP diastolic 54–70
[2018-12-02] MEDS: LANOLIN 4.5 OZ OINT TP SCH ×2 (00:05→13:15)
[2018-12-02] MEDS: IPRATROPIUM BROMIDE 0.02% 2.5 ML NEB NEB SCH ×4 (00:05→19:55)
[2018-12-02] MEDS: ALBUTEROL SULF 0.083% NEB SOLN 3 ML NEB NEB SCH ×7 (00:05→23:37)
--- NOTE | 2018-12-02 02:13 | Consultation ---
DATE OF CONSULTATION: 12/01/2018 NEUROLOGY CONSULT NOTE HISTORY OF PRESENT ILLNESS: Ms. Jean is an 83-year-old woman with an extensive past medical history, admitted to the [facility] on November 28, 2018, with influenza type A and pneumonia. On November 30, 2018, the patient was found on the floor of her hospital room, status post fall. A CT of the brain without contrast was ordered for evaluation, status post fall. Ms. Jean was found to have an eocxa-mg-nvipbpqj ischemia in the right inferior cerebellar hemisphere. A Neurology consultation was requested for recommendations regarding further evaluation and treatment of stroke. Ms. Jean does not report a visual field cut or other disturbance, dysarthria, aphasia, facial weakness, hemiparesis, or hemihypesthesia. Ms. Jean does report mild dizziness, which is further described as a lightheaded sensation as well as impairment of balance and gait. However, she attributed these to her underlying infectious illness. Ms. Jean has been noted to be confused intermittently throughout her hospitalization. Once again, this was contributed to the patient's underlying infectious illness. Ms. Jean endorses compliance with her home medications, including Eliquis 2.5 mg by mouth twice daily, which she is taking for atrial fibrillation. REVIEW OF SYSTEMS: Fever, shortness of breath, productive cough, confusion, status post fall, tremulousness, and impairment of balance and gait. Otherwise, a 12-point review of systems is negative. PAST MEDICAL HISTORY: Hypertension, hyperlipidemia, coronary artery disease, atrial fibrillation, thyroid disease, CKD, stage 4-5, and dementia. PAST SURGICAL HISTORY: Appendectomy, hysterectomy, thyroid surgery, right heel spur removal, and lumbar spine surgery. PAST HOSPITALIZATIONS: Surgeries/procedures as listed, child , multiple other prior hospitalizations. FAMILY MEDICAL HISTORY: Ms. Jean's father is from coronary artery disease with myocardial infarction. Her mother from cancer. There is no other significant family medical history reported. SOCIAL HISTORY: Ms. Jean is . She lives with her family. The patient is retired. There is no reported current or prior tobacco, alcohol, or recreational drug use. HOME MEDICATIONS: Reviewed. Please see the list of home medications available in the electronic medical record. HOSPITAL MEDICATIONS: Reviewed. Please see the list of hospital medications available in the electronic medical record. ALLERGIES: CEFPODOXIME, CLARITHROMYCIN, CODEINE, DILTIAZEM, HYDRALAZINE, LEVOTHYROXINE, LISINOPRIL, MORPHINE, PENICILLIN, AND PREDNISONE. NO KNOWN DRUG ALLERGIES. NO KNOWN ALLERGIES TO LATEX. NO KNOWN ALLERGIES TO IODINE OR OTHER CONTRAST MATERIALS. PHYSICAL EXAMINATION: VITAL SIGNS: Height 64 inches, weight 107 pounds, and BMI 18.4 kg/m2. Blood pressure 115/55 mmHg, pulse 89 beats per minute, respiratory rate 17 breaths per minute, and oxygen saturation 94% on 6 L by nasal cannula. GENERAL: The patient is awake and alert, does not appear distressed. Thin. HEENT: Normocephalic and atraumatic. Pupils are equal, round, and reactive to light. Moist mucous membranes. NECK: Supple. No appreciable thyromegaly. No appreciable carotid bruits. CARDIOVASCULAR: S1, S2, regular rate and rhythm. No murmurs, rubs, or gallops. RESPIRATORY: Inspiratory and expiratory wheezing as well as coarse rhonchi are ausculted bilaterally. There is decreased air flow at the bases bilaterally. EXTREMITIES: The skin is warm and dry. No clubbing, cyanosis, or edema. The posterior tibial and dorsalis pedis pulses are 1+ and symmetric. SKIN: No rashes or lesions. NEUROLOGIC: Memory/Attention: The patient is awake and alert, oriented to person, place (hospital, city, state), time (day of the week and month), and moderately to situation. Cranial Nerves: Cranial nerve I - not tested. Cranial nerves II, III, IV and - pupils are equal and round, reactive briskly to light (from 4 mm to 2 mm). Extraocular movements intact. No nystagmus. Cranial nerve V - sensation to light touch is intact in the bilateral V1 through V3 distributions. Strength in the temporalis and mastoidal muscles is within normal limits. Cranial nerves VII - the face is symmetric, as are all facial movements. Strength is within normal limits. Cranial nerve VIII - hearing is diminished to finger rub bilaterally. Cranial nerves IX, X - the soft palate elevates equally and symmetrically. Cranial nerve XI - normal strength to the bilateral sternocleidomastoid and trapezius muscles. Cranial nerve XII - the tongue protrudes to midline and moves symmetrically from side to side. Strength: Bulk is normal. Strength is 5/5 in the bilateral deltoids, biceps, triceps, wrist flexors and extensors, finger flexors and extensors, intrinsic hand muscles, hip flexors, knee flexors and extensors, ankle dorsiflexion and plantarflexion, and intrinsic foot muscles. Tone is normal. DTRs: Deep tendon reflexes are 2+ and symmetric at the triceps, biceps, brachioradialis, and patellas. Deep tendon reflexes are absent and symmetric at the achilles. Plantar responses are flexor bilaterally. Sensation: Sensation is intact to light touch in both arms and both legs. Cerebellar: Rwhxwy-anmt-qhfauc and heel-archer movements are intact without dysmetria or other impairment, except as follows: There is very mild impairment of heel-archer movements in the right leg. Gait: Deferred. Speech: Spontaneous speech is mildly dysarthric without aphasia. Repetition is intact. Involuntary movements: The patient appears tremulous. Pronator drift: None. LABORATORY DATA: The most recent basic metabolic panel is significant for an anion gap of 18.5, BUN of 67, creatinine of 2.79, estimated GFR of 16, and calcium of 7.9. A liver function panel collected on November 30, 2018, reveals a total protein of 6.2, albumin of 2.5, and globulin of 3.7. Creatine kinase 334, 303, and 248. CK-MB 1.90, 1.30, and 1.60. Troponin I less than 0.05, 0.052, and 0.040. Lactic acid 16.6. B- natriuretic peptide 729.2, 1090.5, 956.4, and 1290.0. The most recent CBC with differential and platelets reveals an elevated white blood cell count of 11.52 with a left shift with 84.0% neutrophils, 8.0% lymphocytes, 6.9% monocytes, 0.0% eosinophils, and 0.1% basophils. The hemoglobin and hematocrit are 8.5 and 26.4, respectively. The platelet count is 264. PT 13.7, INR 1.00, and PTT 40.5. An arterial blood gas drawn on November 28, 2018, revealed a pH of 7.34, pCO2 of 36, pO2 of 64, bicarbonate of 20, O2 saturation of 91.0, base excess of -6.0, and FiO2 of 35. Urinalysis collected on November 28, 2018, revealed hazy urine with 2+ protein, trace blood, 6-10 white blood cells, and 1- 5 coarse granular casts. Influenza types A and B antigen, positive flu A. Urine legionella antigen negative. Group A Streptococcus screen negative. A throat culture collected on November 28, 2018, revealed usual upper respiratory catherine. Blood cultures collected on November 28, 2018, revealed no growth at 72 hours. A urine culture collected on November 28, 2018, revealed mixed catherine and MRSA screen on November 28, 2018, was negative. DIAGNOSTIC STUDIES: Electrocardiogram on 11/28/2018: Atrial fibrillation with rapid ventricular response at 104 beats per minute. Left anterior fascicular block. Chest x-ray on 11/28/2018: 1. Right infrahilar airspace opacity is suggestive of pneumonia. Recommend followup with PA and lateral chest x-ray in 8-10 weeks to document interval change/resolution. 2. Stable small right pleural effusion. Chest CT on 11/28/2018: 1. Findings consistent with multifocal pneumonia. Possible aspiration in both lower lobes. 2. Small bilateral pleural effusions. 3. Diffuse sclerosis of the bones, which can be seen in hyperparathyroidism. Echocardiogram on 11/28/2018: Ejection fraction 60%. Trace pericardial effusion. Left atrial enlargement. Mild aortic stenosis. Tenbmaox-qh-zhjcmz mitral stenosis. Modified barium swallow on 11/30/2018: No evidence of penetration or aspiration. Please see Speech pathology report for detailed description and recommendations. Chest x-ray on 11/30/2018: Worsening multifocal pneumonia with new left perihilar consolidation. Brain CT on 11/30/2018: Xxtye-ye-yyrzaupb ischemic stroke in the right inferior cerebellar hemisphere. Remote lacunar infarcts in the anterior aspect of the right thalamus and left rhodes radiata. Diffuse cerebral atrophy with compensatory dilation of the ventricles. Findings compatible with ifxl-be-hivphhad chronic small vessel ischemic disease. Renal ultrasound on 12/01/2018: Small bilateral kidneys with increased echogenicity. Chest x-ray on 12/01/2018: Stable left midlung and bilateral lower lobe consolidations and small effusions. ASSESSMENT/PLAN: Ms. Jean is an 83-year-old woman with past medical history as detailed, admitted to [facility] on November 28, 2018, with influenza type A and pneumonia, who was subsequently found to have a subacute ischemic stroke in the right inferior cerebellar hemisphere on CT of the brain without contrast. The patient has undergone a thorough neurological examination with findings detailed above. The patient's laboratory data and other diagnostic studies have been reviewed and are documented above. RECOMMENDATIONS: Are as follows: 1. A lipid panel and hemoglobin A1c will be ordered to complete stroke evaluation. 2. Continue Eliquis 2.5 mg by mouth twice daily for stroke prophylaxis. 3. The patient's blood pressure may be normalized. Her goal blood pressure is less than 140/90 mmHg prior to discharge. Continue the patient's home antihypertensive medications. Monitor vital signs per unit protocol. 4. The patient's goal total cholesterol is less than 200 with a LDL of less than 70. Followup the results of lipid panel. In the interim, the patient's home medication of atorvastatin 10 mg by mouth at bedtime daily may be continued. 5. The patient's goal hemoglobin A1c is less than 7.0. Followup the results of the hemoglobin A1c. Tight glycemic control is recommended while the patient is in hospital. 6. Continue with speech and physical therapy treatments. 7. Gastrointestinal prophylaxis with Pepcid 20 mg by mouth twice daily with meals. Deep venous thrombosis prophylaxis with Eliquis 2.5 mg by mouth twice daily. 8. Metabolic encephalopathy: Multifactorial. Secondary to influenza type A, pneumonia, chronic kidney disease, underlying dementia, and delirium. Continue Tamiflu and intravenous antibiotics for influenza type A and pneumonia. For chronic kidney disease, treatment with be deferred to Nephrology. For dementia, continue the patient's home medications of donepezil 5 mg by mouth at bedtime daily. Limit the use of sedative/hypnotic and pain medications, as these will alter the patient's sensorium. Utilize environmental cues to limit the occurrence of delirium. 9. Tremulousness: The patient's daughter was informed that tremulousness affecting the patient's hands and arms is a known side effect of nebulized treatments, especially albuterol. 10. Defer treatment of the remaining medical comorbidities to the primary and other services following the patient. Thank you for this consultation. I will continue to follow the patient while she remains in the hospital. TIME SPENT: 70 minutes. Catrachita Rivrea MD [facility]/WILLIAM /[id number] RAVINDER
[2018-12-02] MEDS: LEVOFLOXACIN 500MG/D5W 100ML 100 ML IV SCH (03:30)
[2018-12-02 04:52] LABS: BASOPHILS % 0.1 % (0.0-1.0); EOSINOPHILS % 0.3 % (0.0-6.0); HEMATOCRIT 25.6 % (34.2-44.1); HEMOGLOBIN 8.1 g/dL (12.0-16.0); LYMPHOCYTES # (AUTO) 1.3 (1.0-3.2); LYMPHOCYTES % 12.6 % (18.0-39.1); MEAN CORPUSCULAR HEMOGLOBIN 27.8 pg (28-32); MEAN CORPUSCULAR HGB CONC 31.6 g/dL (31-35); MONOCYTES # (AUTO) 0.9 (0.2-0.8); MONOCYTES % 8.9 % (4.4-11.3); NEUTROPHILS # (AUTO) 7.8 (2.1-6.9); NEUTROPHILS % 76.5 % (38.7-80.0); PLATELET COUNT 266 x10e3/uL (140-360); RED BLOOD COUNT 2.91 x10e6/uL (3.6-5.1); RED CELL DISTRIBUTION WIDTH 16.6 % (11.7-14.4)
[2018-12-02 05:12] LABS: ANION GAP 16.3 mmol/L (8-16); CALCIUM 7.6 mg/dL (8.4-10.2); CREATININE, SERUM 2.8 mg/dL (0.57-1.11); MAGNESIUM 1.8 MG/DL (1.3-2.1); POTASSIUM 4.3 mmol/L (3.5-5.1)
[2018-12-02] MEDS: THYROID 60 MG TAB PO SCH (06:00)
--- NOTE | 2018-12-02 07:25 | NUR ---
REPORT GIVEN TO THE ONCOMING NURSE
[2018-12-02] MEDS: NON-FORMULARY MEDICATION (Ubidecarenone (Coq-10) 100 MG) PO SCH (09:00)
[2018-12-02] MEDS: FAMOTIDINE 20 MG TAB PO SCH ×2 (09:17→17:19)
[2018-12-02] MEDS: ASPIRIN 81 MG ENTERIC COATED PO SCH (09:17)
[2018-12-02] MEDS: FERROUS SULFATE 325 MG TAB PO SCH ×2 (09:17→17:19)
[2018-12-02] MEDS: DONEPEZIL HCL 5 MG TAB PO SCH (09:17)
[2018-12-02] MEDS: SODIUM BICARBONATE 650 MG TAB PO SCH ×2 (09:19→17:19)
[2018-12-02] MEDS: OSELTAMIVIR PHOSPHATE 75 MG CAP PO SCH ×2 (09:19→17:19)
[2018-12-02] MEDS: BENZONATATE 100 MG CAP PO SCH ×2 (09:19→17:19)
[2018-12-02] MEDS: BUMETANIDE 1 MG TAB PO SCH ×2 (09:19→17:19)
[2018-12-02] MEDS: NIFEDIPINE CR 30 MG TAB PO SCH (09:19)
[2018-12-02] MEDS: APIXAB 2.5 MG TABLET PO SCH ×2 (09:19→17:19)
[2018-12-02] MEDS: METOPROLOL SUCCINATE 50 MG TAB XL PO SCH (09:20)
[2018-12-02] MEDS: BALSAM PERU/CASTOR OIL 60 GM OINT...G. TP SCH ×2 (09:20→17:19)
[2018-12-02] MEDS: ALLOPURINOL 100 MG TAB PO SCH (09:20)
[2018-12-02] MEDS ORDERED: FUROSEMIDE INJ 10 MG/ML 2 ML VIAL IV ONE (10:00)
[2018-12-02] MEDS: GUAIFENESIN 600 MG TAB PO SCH ×2 (12:32→17:20)
--- NOTE | 2018-12-02 13:45 | Progress Note ---
DATE: 12/02/2018 Nephrology Progress Note SUBJECTIVE: The patient is doing well today with no complaints. She is still at baseline with no changes. PHYSICAL EXAMINATION: VITAL SIGNS: Temperature 98.6, pulse 95, respiratory rate 20, blood pressure 109/64, pulse ox 97%. GENERAL: Not in acute distress, alert and oriented x3. Cooperative on examination. HEENT: Head is normocephalic, atraumatic. Eyes, pupils equal, round, reactive to light bilaterally. Extraocular movements intact bilaterally. NECK: Supple. Good range of motion throughout. No evidence of erythema or exudates in the posterior pharynx. Has poor dentition. PULMONARY: Clear to auscultation bilaterally. No wheezing, no rales, no rhonchi, no crackles appreciated. CARDIOVASCULAR: Positive S1 and S2. No murmurs, rubs, or gallops appreciated. ABDOMEN: Soft, nondistended, and nontender to palpation. Bowel sounds are present. MUSCULOSKELETAL: Strength is 5/5 throughout. Denies any numbness NEUROLOGIC: Cranial nerves II through XII are grossly intact. . PSYCHIATRIC: Normal affect and mood. EXTREMITIES: No edema. Good range of motion throughout. LABORATORY DATA: Labs show white count 10.0, hemoglobin 8.1, hematocrit 25.6, and platelets of 266. Chemistry; sodium 138, potassium 4.3, chloride 101, bicarb 23, anion gap is 16, BUN 66, creatinine is 2.8, and glucose 94. IMPRESSION: 1. Chronic kidney disease, stage 4-5, at baseline. 2. Multifocal pneumonia. 3. Influenza A, flu positive. 4. Metabolic acidosis secondary to chronic kidney disease. 5. Hypocalcemia secondary to hyperparathyroidism. PLAN: At this time, labs are stable. Creatinine is at baseline with no changes. Good urine output. Her electrolytes are stable as well. She is still on calcium carbonate tabs that she uses on her own. She refuses the hospital calcium carbonate. We will get a.m. labs and monitor closely. MD SANTOS Garcia/WILLIAM /[id number]
--- NOTE | 2018-12-02 16:46 | NUR ---
Nutrition Intervention Note RD Recommendation(s) for Physician: -Rec liberalizing diet to regular to promote PO intake -Discontinued Ensure as pt was not drinking them -Continue fluids restriction -Consider appetite stimulant if PO continues to be <50% -Assist with feeding as needed Plan of Care: RD following, monitoring for tolerance and adequacy Nutrition reason for involvement: Follow up RD Assessment 12/02 Pt was discussed during AM rounds. + flu. +PNA. Currently on IV abx and lasix. Worsening renal function. Visited pt in the room. No family on bedside; unable to obtain hx from pt due to AMS. Per RN Nubia, pt has had poor appetite with ~40% meal intake. Tolerated current diet texture but not drinking Ensure. Pt required feeding assistance. Liberalized her diet to regular, hoping to increase PO intake. If PO intake continued to be poor, please consider appetite stimulant or EN. Will continue to monitor and follow. 11/29 - Initial encounter with patient. Daughter was present. Per review of multiple previous visits, pt has had wt gain and wt loss. 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 Pt does not like commercial beverages such as Ensure because she feels they are too sweet. Encouraged Po intake. Pt can feed herself Principal Problems/Diagnoses: hypocalcemia, Influenza, Pneumonia PMH: Atrial fibrillation, CKD stage 4, organic brain syndrome, Aortic/mitral valve disease GI: soft, non-tender, LBM 2/5 Skin: No pressure wound per wound care Labs: (12/02) BUN 66 H, creatinine 2.80 H, Ca 7.6 L (11/29/2018) lab results reviewed Meds: Na bicarb, eliquis, pepcid, abx Malnutrition Evaluation (11/29/2018) The patient meets criteria for unspecified SEVERE protein-calorie malnutrition. <50% of estimated energy requirements for >1 month Weight loss: >20% in 1 year (Chronic) Fat loss: Severe, Muscle loss: Severe Supporting Evidence: Fluid accumulation: None Functional Status: measurably reduced Diet Education Needs Assessment: Diet education not indicated Ht:64 Wt:113lbs; 111lb BMI:19.4kg/m2 IBW:120lbs Estimated Nutritional Needs: 1284 - 1540 kcals at 25-30 kcals/kg/bw 51-77g of protein/kg/bw 1L fluid restriction Nutrition Prescription (Diet Order): Cardiac with a 1L fluid restriction Food Allergies: No known food allergies Diet Adequacy: Meeting fluid needs, Not meeting calorie needs, Not meeting protein needs Tolerance: Tolerating PO Nutrition Care Level: Moderate Nutrition Diagnosis: Malnutrition related to chronic illness as evidenced by involuntary wt loss and loss of lean body mass. Goal:Patient will meet 75-100% of estimated needs by follow up Progress: Not Progressing Interventions: General healthful diet Monitoring/Evaluation: Total energy intake, Total protein intake, Weight change Miriam Griffin, MS, RD, LD
--- NOTE | 2018-12-02 17:00 | Progress Note ---
DATE: SUBJECTIVE: The patient is slightly more animated than yesterday. She is not complaining of fever. She has some congestion and some cough. OBJECTIVE: VITAL SIGNS: The blood pressure is 113/54 and the saturation is 99% on 6 L. The pulse is 85 and the respiratory rate is 22. HEENT: Shows no facial swelling or erythema. The nasal mucosa is normal. LYMPHATIC: Shows no submandibular, cervical, or supraclavicular adenopathy. CARDIAC: Reveals regular rate and rhythm with normal S1 and S2. There are no murmurs or rubs. LUNGS: Auscultation of lungs reveals rhonchorous breath sounds bilaterally. There is no wheezing. ABDOMEN: Soft, nontender. There is no rebound or guarding. LABORATORY DATA: White blood cell count is 10.2 and the hemoglobin is 8.1. The platelet count is 266. BUN to creatinine ratio is 66 to 2.8. IMPRESSION: 1. Influenza with associated pneumonitis. 2. Aspiration pneumonia. 3. Chronic renal failure, stage 4. 4. Mitral valve disease. 5. Aortic valve disease. PLAN: 1. Continue antibiotics. 2. Wean oxygen. 3. Physical therapy. Tariq Morelos MD [facility]/ARIELLAL /[id number]
[2018-12-02] MEDS: CLINDAMYCIN 300MG 50 ML IV SCH (18:23)
--- NOTE | 2018-12-02 19:21 | NUR ---
Received report from previous nurse. Patient in no pain or distress. call light within reach.
[2018-12-02] MEDS: ATORVASTATIN 10 MG TAB PO SCH (22:02)
[2018-12-02] MEDS: QUETIAPINE FUMARATE 25 MG TAB PO SCH (22:02)
[2018-12-03] VITALS (9 sets, daily range): BP systolic 98–151; BP diastolic 59–74
[2018-12-03] MEDS: GUAIFENESIN 600 MG TAB PO SCH ×5 (00:09→23:40)
[2018-12-03] MEDS: CLINDAMYCIN 300MG 50 ML IV SCH ×5 (00:09→23:33)
[2018-12-03] MEDS: LANOLIN 4.5 OZ OINT TP SCH ×2 (01:15→14:37)
[2018-12-03] MEDS: IPRATROPIUM BROMIDE 0.02% 2.5 ML NEB NEB SCH ×4 (03:20→19:47)
[2018-12-03] MEDS: ALBUTEROL SULF 0.083% NEB SOLN 3 ML NEB NEB SCH ×6 (03:20→23:00)
[2018-12-03] MEDS: LEVOFLOXACIN 500MG/D5W 100ML 100 ML IV SCH (04:20)
[2018-12-03] MEDS: THYROID 60 MG TAB PO SCH (06:40)
--- NOTE | 2018-12-03 07:10 | NUR ---
Gave report to oncoming nurse. No pain or distress. call light within reach.
[2018-12-03] MEDS: NON-FORMULARY MEDICATION (Ubidecarenone (Coq-10) 100 MG) PO SCH (09:00)
[2018-12-03] MEDS: SODIUM BICARBONATE 650 MG TAB PO SCH ×2 (09:05→17:29)
[2018-12-03] MEDS: FERROUS SULFATE 325 MG TAB PO SCH ×2 (09:05→17:29)
[2018-12-03] MEDS: ASPIRIN 81 MG ENTERIC COATED PO SCH (09:05)
[2018-12-03] MEDS: APIXAB 2.5 MG TABLET PO SCH ×2 (09:05→17:29)
[2018-12-03] MEDS: OSELTAMIVIR PHOSPHATE 75 MG CAP PO SCH (09:05)
[2018-12-03] MEDS: FAMOTIDINE 20 MG TAB PO SCH ×2 (09:05→17:28)
[2018-12-03] MEDS: DONEPEZIL HCL 5 MG TAB PO SCH (09:05)
[2018-12-03] MEDS: BUMETANIDE 1 MG TAB PO SCH ×2 (09:05→17:29)
[2018-12-03] MEDS: ALLOPURINOL 100 MG TAB PO SCH (09:06)
[2018-12-03] MEDS: BENZONATATE 100 MG CAP PO SCH ×2 (09:06→17:29)
[2018-12-03] MEDS: METOPROLOL SUCCINATE 50 MG TAB XL PO SCH (09:14)
[2018-12-03] MEDS: NIFEDIPINE CR 30 MG TAB PO SCH (09:14)
[2018-12-03] MEDS: BALSAM PERU/CASTOR OIL 60 GM OINT...G. TP SCH ×2 (09:18→17:30)
--- NOTE | 2018-12-03 11:19 | Progress Note ---
DATE: Pulmonary Critical Care Progress Note SUBJECTIVE: The patient remains on a nasal cannula. She has minimal congestion. She is eating. She reports having stood up yesterday with physical therapy. PHYSICAL EXAMINATION: VITAL SIGNS: The patient is afebrile. The blood pressure is 118/60 and heart rate is 104. Saturation is 92% on 4 L. HEENT: Shows no facial swelling or erythema. Nasal mucosa is normal. The oropharynx is normal. LYMPHATIC: Shows no submandibular, cervical, or supraclavicular adenopathy. CARDIAC: Reveals regular rate and rhythm with normal S1 and S2. There are no murmurs or rubs heard. LUNGS: Auscultation of lungs shows clear breath sounds bilaterally. There is no wheezing. ABDOMEN: Soft and nontender. There is no rebound or guarding. EXTREMITIES: Shows no leg edema or calf tenderness. There is no cyanosis or clubbing. SKIN: Shows no rashes. NEUROLOGIC: Shows no focal abnormalities. LABORATORY DATA: White blood cell count is 10.2 and hemoglobin is 8.1. The platelet count is 266. BUN to creatinine ratio is 66 to 2.8. The other electrolytes are within normal limits. Chest x-ray from the 5th shows stable mid lung and bilateral lower lobe consolidations with small effusions. IMPRESSION: 1. Influenza with associated pneumonitis. 2. Aspiration pneumonia. 3. Chronic renal failure, stage 4. 4. Mitral valve disease. 5. Aortic valve disease. PLAN: 1. Continue antibiotics. 2. Wean oxygen. 3. Physical therapy. 4. Discussed disposition with Maria Luz Sullivan NP and Dr. Rand. Tariq Morelos MD [facility] /[id number]
--- NOTE | 2018-12-03 12:44 | NUR ---
ORDERS FOR LTAC EVAL PT UNABLE TO GIVE CONSENT CALLED DTR TONY JAQUEZ AT [phone] SHE STATES SHE SPOKE WITH DR SALVADOR LAST NIGHT AND UNDERSTANDS WHY HER MOTHER NEEDS LTAC CHOICE LETTER OBTAINED OVER PHONE AND PLACED ON CHART NOTIFIED ABDULLAHI WITH [facility] OF CONSULT PT'S DAUGHTER ADIMATE THAT PT NOT BE TRANSFERED UNTIL FRIDAY DUE TO "MY BUSY SCHEDULE", INSIST THAT SHE BE HERE FOR TRANSFER ALSO STATES SHE DOES NOT WANT HER MOTHER TRANSFERED UNTIL HER "LUNGS ARE CHECKED OUT" BECAUSE SHE WAS HAVING DIFFICULTY BREATHING LAST NIGHT RELAYED THIS INFORMATION TO NOAM CARVER N/P WITH DR SALVADOR AND ASKED HER TO CALL PT'S DAUGHTER TO DISCUSS PT'S CONDITION
--- NOTE | 2018-12-03 14:14 | Progress Note ---
DATE: Nephrology Progress Note SUBJECTIVE: The patient is doing well today with no complaints. PHYSICAL EXAMINATION: VITAL SIGNS: Temperature 98.3, pulse 103, respiratory rate 22, blood pressure 115/50. GENERAL: Not in acute distress, alert and oriented x3. Cooperative on examination. HEENT: Head is normocephalic, atraumatic. Eyes, pupils equal, round, reactive to light bilaterally. Extraocular movements intact bilaterally. NECK: Supple. Good range of motion throughout. No evidence of erythema or exudates in the posterior pharynx. Has poor dentition. PULMONARY: Clear to auscultation bilaterally. No wheezing, no rales, no rhonchi, no crackles appreciated. CARDIOVASCULAR: Positive S1 and S2. No murmurs, rubs, or gallops appreciated. ABDOMEN: Soft, nondistended, and nontender to palpation. Bowel sounds are present. MUSCULOSKELETAL: Strength is 5/5 throughout. Denies any numbness NEUROLOGIC: Cranial nerves II through XII are grossly intact. . PSYCHIATRIC: Normal affect and mood. EXTREMITIES: No edema. Good range of motion throughout. MICROBIOLOGY: None. LABORATORY DATA: CBC, none. Chemistry, none. IMPRESSION: 1. Chronic kidney disease, stage 4-5, at baseline. 2. Multifocal pneumonia. 3. Influenza A, flu positive. 4. Metabolic acidosis secondary to chronic kidney disease. 5. Hypocalcemia secondary to hyperparathyroidism. PLAN: At this time, . There are no labs today, which I will go ahead and order for tomorrow. Continue with her home calcium supplements. Monitor urine, labs and chemistries closely. MD SANTOS Garcia/WILLIAM /[id number]
[2018-12-03] MEDS ORDERED: PROMETHAZINE HCL (IM) 25 MG/ML VIAL ONE (15:40)
--- NOTE | 2018-12-03 19:55 | NUR ---
Received change of shift report from AM nurse. Rounds completed.
[2018-12-03] MEDS: QUETIAPINE FUMARATE 25 MG TAB PO SCH (21:00)
[2018-12-03] MEDS: ATORVASTATIN 10 MG TAB PO SCH (21:00)
[2018-12-04] VITALS (7 sets, daily range): BP systolic 111–139; BP diastolic 58–74
--- NOTE | 2018-12-04 | NUR ---
Patient in bed with daughter at bedside. Patient slightly agitated. Incourage patient to stay in bed. Bed alarm on and SR up x2. Patient repositioned in bed. Dressing to sacrum dry and intact. Tele 17 A-FIB. O2 at 5L n/c. Pt on 1L fluid restriction. 20G to right FA HL
[2018-12-04] MEDS: IPRATROPIUM BROMIDE 0.02% 2.5 ML NEB NEB SCH ×3 (01:00→13:00)
[2018-12-04] MEDS: LANOLIN 4.5 OZ OINT TP SCH ×2 (01:15→13:03)
[2018-12-04] MEDS: ALBUTEROL SULF 0.083% NEB SOLN 3 ML NEB NEB SCH ×4 (03:00→15:00)
[2018-12-04] MEDS: LEVOFLOXACIN 500MG/D5W 100ML 100 ML IV SCH (03:30)
[2018-12-04] MEDS: THYROID 60 MG TAB PO SCH (05:12)
[2018-12-04] MEDS: GUAIFENESIN 600 MG TAB PO SCH ×3 (05:12→18:24)
[2018-12-04] MEDS: CLINDAMYCIN 300MG 50 ML IV SCH ×3 (05:12→18:00)
[2018-12-04 06:01] LABS: BASOPHILS % 0.2 % (0.0-1.0); EOSINOPHILS # (AUTO) 0.1 (0.0-0.4); EOSINOPHILS % 1.1 % (0.0-6.0); HEMATOCRIT 25.4 % (34.2-44.1); HEMOGLOBIN 8.1 g/dL (12.0-16.0); LYMPHOCYTES # (AUTO) 0.9 (1.0-3.2); LYMPHOCYTES % 8.9 % (18.0-39.1); MEAN CORPUSCULAR HEMOGLOBIN 27.6 pg (28-32); MEAN CORPUSCULAR HGB CONC 31.9 g/dL (31-35); MEAN CORPUSCULAR VOLUME 86.7 fL (81-99); MONOCYTES # (AUTO) 0.9 (0.2-0.8); MONOCYTES % 9.1 % (4.4-11.3); NEUTROPHILS % 79.4 % (38.7-80.0); PLATELET COUNT 431 x10e3/uL (140-360); RED BLOOD COUNT 2.93 x10e6/uL (3.6-5.1); RED CELL DISTRIBUTION WIDTH 16.6 % (11.7-14.4)
--- NOTE | 2018-12-04 06:15 | NUR ---
Patient resting quitly at this time. No noted pain or discomfort noted. Continue monitor.
[2018-12-04 06:16] LABS: ANION GAP 18.6 mmol/L (8-16); CREATININE, SERUM 2.54 mg/dL (0.57-1.11); POTASSIUM 3.6 mmol/L (3.5-5.1)
--- NOTE | 2018-12-04 07:01 | Diagnostic Imaging Report ---
Examination: Single AP view of the chest. COMPARISON: 12/01/2018 INDICATION: Follow-up pneumonia DISCUSSION: Lines/tubes: None. Lungs: Left midlung consolidation and bilateral lower lobe consolidations. Pleura: Small effusions. Heart and mediastinum: The heart and the mediastinum are unremarkable. Bones and soft tissues: No acute bony abnormalities. Degenerative changes in the thoracic spine. IMPRESSION: Stable left midlung and bilateral lower lobe consolidations and small effusions. Signed by: DR. Enrique Espana MD on 12/04/2018 6:58 AM
[2018-12-04] MEDS: SODIUM BICARBONATE 650 MG TAB PO SCH ×2 (08:35→18:24)
[2018-12-04] MEDS: NIFEDIPINE CR 30 MG TAB PO SCH (08:35)
[2018-12-04] MEDS: APIXAB 2.5 MG TABLET PO SCH ×2 (08:35→18:24)
[2018-12-04] MEDS: FAMOTIDINE 20 MG TAB PO SCH ×2 (08:35→18:24)
[2018-12-04] MEDS: FERROUS SULFATE 325 MG TAB PO SCH ×2 (08:35→18:24)
[2018-12-04] MEDS: ASPIRIN 81 MG ENTERIC COATED PO SCH (08:35)
[2018-12-04] MEDS: DONEPEZIL HCL 5 MG TAB PO SCH (08:35)
[2018-12-04] MEDS: BUMETANIDE 1 MG TAB PO SCH ×2 (08:35→18:24)
[2018-12-04] MEDS: NON-FORMULARY MEDICATION (Ubidecarenone (Coq-10) 100 MG) PO SCH (08:35)
[2018-12-04] MEDS: METOPROLOL SUCCINATE 50 MG TAB XL PO SCH (08:35)
[2018-12-04] MEDS: BENZONATATE 100 MG CAP PO SCH ×2 (08:36→18:24)
[2018-12-04] MEDS: ALLOPURINOL 100 MG TAB PO SCH (08:36)
[2018-12-04] MEDS: BALSAM PERU/CASTOR OIL 60 GM OINT...G. TP SCH ×2 (08:36→18:24)
--- NOTE | 2018-12-04 14:22 | NUR ---
SPOKE WITH PT'S DTR TONY JAQUEZ [phone] AND EXPLAINED THAT HER MOTHER HAS A DISCHARGE ORDER TO GO TO [facility] DC ORDER ON CHART CALLED ABDULLAHI FOR ROOM NUMBER PT'S DAUGHTER STATES THAT SHE WANTS TO BE HERE WHEN PT IS TRANSFERED AND CAN ONLY BE HER BETWEEN 2:45 AND 3:30 TODAY GASATERIA ATTENDANT TO CALL FOR AMBULANCE [employer] OFFICER AT 3 PM TODAY
[2018-12-04] MEDS ORDERED: LORAZEPAM INJ 2 MG/ML VIAL IV PRN (16:00)
[2018-12-04] MEDS ORDERED: LORAZEPAM2 MG/1 M1 IV (16:15)
[2018-12-04] MEDS ORDERED: VENELEX OINTMEN60 GM TP (16:15)
[2018-12-04] MEDS ORDERED: NIFEDIPINE ER30 M1 PO (16:15)
[2018-12-04] MEDS ORDERED: Lanolin TP (16:15)
[2018-12-04] MEDS ORDERED: SODIUM BICARBO650 MG PO (16:15)
[2018-12-04] MEDS ORDERED: Sodium Chloride Flush INJ (16:15)
[2018-12-04] MEDS ORDERED: Apixab PO (16:15)
[2018-12-04] MEDS ORDERED: ACETAMINOPHEN325 M1 PO (16:15)
[2018-12-04] MEDS ORDERED: ALBUTEROL2.5 MG/3 M NEB (16:15)
[2018-12-04] MEDS ORDERED: IPRATROPIU0.2 MG/1 M NEB (16:15)
[2018-12-04] MEDS ORDERED: TESSALON PERLE100 MG PO (16:15)
[2018-12-04] MEDS ORDERED: PROMETHAZI25 MG/1 M2 IV (16:15)
[2018-12-04] MEDS ORDERED: MUCINEX600 MG PO (16:15)
[2018-12-04] MEDS ORDERED: ARMOUR THYROID60 MG PO (16:15)
[2018-12-04] MEDS ORDERED: FAMOTIDINE20 MG PO (16:15)
--- NOTE | 2018-12-04 19:06 | Progress Note ---
DATE: 12/04/2018 Pulmonary Critical Care Progress Note SUBJECTIVE: The patient still has some cough. Overall, her dyspnea is improved. She has no fevers. PHYSICAL EXAMINATION: VITAL SIGNS: The patient is afebrile. The blood pressure is 121/68 and the saturation is 100% on 4 L. HEENT: Shows no facial swelling or erythema. The nasal mucosa is normal. The oropharynx is normal. LYMPHATIC: Shows no submandibular, cervical, or supraclavicular adenopathy. CARDIAC: Reveals regular rate and rhythm with normal S1 and S2. There are no murmurs or rubs. LUNGS: Auscultation of lungs reveals a few crackles at both bases. ABDOMEN: Soft, nontender. There is no rebound or guarding. EXTREMITIES: Show no leg edema or calf tenderness. IMPRESSION: 1. Influenza with associated pneumonitis. 2. Chronic renal failure stage 4. 3. Mitral valve disease. 4. Aortic valve disease. PLAN: 1. Continue antibiotics. 2. Wean oxygen. 3. Physical therapy. 4. Continue to monitor chest x-ray. 5. Continue current cardiac regimen. 6. The patient is scheduled to go to [place] today. Tariq Morelos MD [facility]/ARIELLAL /[id number]
--- NOTE | 2018-12-04 19:26 | NUR ---
PATIENT RESTING IN BED-IN STABLE CONDITION WITH NO S/S OF RESPIRATORY DISTRESS. NO PAIN VOICED. TELEMETRY AND O2 APPLIED. REPORT CALLED TO ANIBAL ELDRIDGE AT [facility] AT 1900. PATIENT TRANSFERRING TO [facility] ROOM 306. DIAPER APPLIED. BED ALARM ON. CALL LIGHT IS WITHIN REACH, INSTRUCTED TO CALL FOR ASSISTANCE NEEDED. REPORT GIVEN TO ONCOMING NURSE.
--- NOTE | 2018-12-04 19:31 | NUR ---
Received change of shift report from AM nurse. Rounds completed.
--- NOTE | 2018-12-04 20:36 | NUR ---
Patient is D/C to [facility]. Ambulance her eto pick patient up. IV intact for continue TX.
--- NOTE | 2018-12-05 18:07 | Discharge Summary ---
PERTINENT HISTORY AND PHYSICAL FINDINGS: The patient was admitted on 11/28/2018, and is an 83-year-old female, who complained of dry cough and shortness of breath with dyspnea on exertion over the week prior to admission. Daughter indicated that the patient had been "sick." As the week progressed, the daughter noticed worsening shortness of breath and labored breathing, nothing improved, and she was brought in for evaluation. PAST MEDICAL HISTORY: Significant for hypertension, hyperlipidemia, atrial fibrillation, chronic diastolic congestive heart failure, gout, dementia, insomnia, chronic kidney disease stage 4, hypothyroidism, mitral valve stenosis, aortic stenosis, GERD, and SVT. FAMILY HISTORY: She has a family history of cancer in her mother. PHYSICAL EXAMINATION: On admission, temperature 98.4. Other vital signs included blood pressure 134/67, heart rate 100, respiratory rate 32, and oxygen saturation of 100%. Rhonchi was noted on physical exam and the patient was on BiPAP 12/6. ADMITTING DIAGNOSES: Include: 1. Respiratory failure. 2. Pneumonia with sepsis, present on admission. 3. Influenza A. 4. Acute on chronic diastolic congestive heart failure. 5. Gout. 6. Dementia. 7. Hypertension. 8. Hyperlipidemia. 9. Atrial fibrillation. 10. Chronic kidney disease, stage 4. 11. Sacral decubitus ulcer on the sacrum, stage 2. DISCHARGE DIAGNOSES: Include: 1. Respiratory failure. 2. Pneumonia with sepsis. 3. Influenza A. 4. Acute on chronic diastolic congestive heart failure. 5. Hypertension. 6. Chronic kidney disease, stage 4. 7. Hypocalcemia. 8. Status post fall on 11/30/2018. 9. Stage I sacral decubitus ulcer. CONSULTING PHYSICIANS: Include Dr. Catrachita Rivera with Neurology, Dr. Tariq Morelos with Pulmonology, Dr. Kevin Rand with Nephrology, Dr. Heriberto Fountain with Cardiology. PERTINENT DIAGNOSTICS AND LABS: On admission, WBC 7.6, hemoglobin 10.4, hematocrit 33.8, platelets 252. ABG on admission showed pH 7.34, pCO2 36, pO2 64, HCO3 20, oxygen saturation 91%, base excess -6 on FiO2 of 35%. BUN 44, creatinine 2.3, GFR 20, calcium 7.4. Urinalysis negative for UTI, positive for influenza A. Urine Legionella antigen negative. Group A strep was negative. Chest x-ray showed right infrahilar airspace opacities suggestive of pneumonia and a stable small right pleural effusion. CT of the chest showed findings consistent with multifocal pneumonia, possible aspiration in both lower lobes, small bilateral pleural effusions. Modified barium swallow was completed on November 30, which showed no evidence of penetration or aspiration. A brain CT was completed on November 30 after the fall, which showed according to the interpreting radiologist new cortical based hypodensity in the right cerebellar hemisphere representing evolving acute or subacute vascular insult in PICA territory, mild supratentorial white matter microvascular ischemic changes and chronic lacunar infarcts, general age related cerebral volume loss. Renal ultrasound done on December 01 showed small bilateral kidneys with increased echogenicity. Echocardiogram completed on November 28 showed an estimated ejection fraction of 60%. EKG on November 28 showed atrial fibrillation with RVR, ventricular rate of 104 beats per minute. HOSPITAL COURSE: The patient was given DuoNebs, Levaquin antibiotic, supplemental oxygen, Mucinex. She has weaned off BiPAP successfully. She is currently on 4 L of oxygen via cannula. She continues to have coarse lung sounds, rhonchi with sonorous wheezing. She remains on fluid restriction 1 L per day. Tamiflu was used for the influenza A. She successfully completed this treatment. Bumex and Aldactone were used for the congestive heart failure. She remained on allopurinol for gout. She was on Norvasc, metoprolol, clonidine, Bumex, and Aldactone for hypertension. Aricept and Seroquel for dementia. Os-Jarred with vitamin D for the hypocalcemia. Norvasc was changed to nifedipine. Neurology followed the patient after the fall. IV clindamycin was added on December 02. Our services had many conversations with the patient's daughter and she continues to ask the same questions, often does not believe what she has told. Case Management has spoken with the administration at [facility] and the patient will be on the focused family list. The patient ambulated with physical therapy. Per documentation, did not appear short of breath at that time. 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 Tamiflu was completed on December 03. Followup labs completed today showed WBC count of 10.03, hemoglobin 8.1, hematocrit 25.4, platelets 431. BUN 57, creatinine 2.54, GFR 18, calcium 7.0. B-type natriuretic peptide 934.6. Chest x-ray done today shows stable left midlung and bilateral lower lobe consolidations and small effusions. We have expressed to the daughter that chest x-ray may not clear for 4 to 6 weeks. The patient will transfer to [facility] today. Continue regular diet subjectively. She has complaints with mild sore throat, short of breath at times, and some nausea. Otherwise, review of systems within limits. No major changes in physical examination. Medications as per medication reconciliation. Activity level as tolerated. The patient will have physical therapy evaluation and treatment upon arrival or at least within the next 1 to 2 days. Continue all current consults at [facility]. Dictated by Trevor Rivas NP MD [facility]/ARIELLAL /[id number]
== END 2018-12-04 20:42 | DRG 871 ==
LOC: ER 01:06 → ERHOLD 03:31 → MED/SURG2 05:34 → ICU 07:23 → MED/SURG3 11-29 14:39
PROVIDERS: ADMIT Internal Medicine; ATTEND Internal Medicine
PROC: 5A09357 Assistance with Respiratory Ventilation, Less than 24 Consecutive Hours, Continuous Positive Airway Pressure (ICD-10-PCS; principal; 2018-11-28)
DX: A41.9 Sepsis, unspecified organism (principal); J10.08 Influenza due to other identified influenza virus with other specified pneumonia; J96.00 Acute respiratory failure, unspecified whether with hypoxia or hypercapnia; I50.33 Acute on chronic diastolic (congestive) heart failure; J15.9 Unspecified bacterial pneumonia; J96.20 Acute and chronic respiratory failure, unspecified whether with hypoxia or hypercapnia; G93.41 Metabolic encephalopathy; I63.541 Cerebral infarction due to unspecified occlusion or stenosis of right cerebellar artery; N39.0 Urinary tract infection, site not specified; I13.0 Hypertensive heart and chronic kidney disease with heart failure and stage 1 through stage 4 chronic kidney disease, or unspecified chronic kidney disease; N18.4 Chronic kidney disease, stage 4 (severe); E44.0 Moderate protein-calorie malnutrition; E87.2 Acidosis; N25.81 Secondary hyperparathyroidism of renal origin; R65.20 Severe sepsis without septic shock; I48.91 Unspecified atrial fibrillation; F03.90 Unspecified dementia, unspecified severity, without behavioral disturbance, psychotic disturbance, mood disturbance, and anxiety; Z85.850 Personal history of malignant neoplasm of thyroid; E83.51 Hypocalcemia; E03.9 Hypothyroidism, unspecified; I08.0 Rheumatic disorders of both mitral and aortic valves; L89.152 Pressure ulcer of sacral region, stage 2; E78.5 Hyperlipidemia, unspecified; M10.9 Gout, unspecified; I49.1 Atrial premature depolarization; I44.0 Atrioventricular block, first degree; W19.XXXA Unspecified fall, initial encounter; Y92.230 Patient room in hospital as the place of occurrence of the external cause
CPT/HCPCS: 36415; 36600; 70450; 71045; 71250; 74230; 76770; 80048; 80053; 80061; 81001; 82306; 82550; 82553; 82805; 82948; 83036; 83518; 83605; 83735; 83880; 83970; 84439; 84443; 84484; 85025; 85610; 85730; 87040; 87070; 87081; 87086; 87400; 87449; 93005; 93306; 94640; 94660; 97139; 99284; J0610; J1940; J1956; J2060; J2405; J2550; J2920; J3370; J7050

== ENCOUNTER 2019-01-18 19:55 | Emergency (ER) | payer BC, MEDICARE ==
[~2019-01-18] VITALS: Ht 162.6 cm; Wt 85.7 kg
[~2019-01-18 19:55] MED LIST changes: +ACETAMINOPHEN325 M1 PO; +ALBUTEROL2.5 MG/3 M NEB; +Apixab PO; +CALCIUM CARBON600 MG; +CALTRATE 600 W1 EACH; +FAMOTIDINE20 MG PO; +IPRATROPIU0.2 MG/1 M NEB; +LORAZEPAM2 MG/1 M1 IV; +Lanolin TP; +MUCINEX600 MG PO; +NIFEDIPINE ER30 M1 PO; +PROMETHAZI25 MG/1 M2 IV; +QUETIAPINE FUMA25 MG PO; +SODIUM BICARBO650 MG PO; +Sodium Chloride Flush INJ; +TESSALON PERLE100 MG PO; +VENELEX OINTMEN60 GM TP; +VITAMIN C500 M1 PO; +VITAMIN D350000 UNIT PO; +[UNRECOGNIZED DRUG - OTHER] PO
--- OUTSIDE RECORDS SUMMARY | 2019-01-18 19:57 | XMS REPORT | Clinical Summary ---
Author Author FÉLIX [facility] Address Unknown Phone Unavailable Care Team Providers Care Software Development Manager Name Role Phone Sharpless PCP Allergies Comments [...] 06/23/2018 Orders Only General Internal Medicine after 01/17/2018 Social History Date Tobacco Use Types Packs/Day [...] ms QTC Calculatio n(Bazett) 468 ms P [place] 77 degrees R [place] -24 degrees T [place] 60 degrees Sinus rhythm with 1st degree [...] ms QTC Calculatio n(Bazett) 0 ms R [place] 0 degrees T [place] 0 degrees No QRS complexes found, no [...] Routine 06/23/2018 DIFFERENTIAL 8:55 PM CDT after 01/17/2018 Results * RHYTHM STRIP - SCAN (06/26/2018 2:40 PM CDT) Narrative Performed At * ECHOCARDIOGRAM REPORT - SCAN (06/25/2018 9:00 AM CDT) Narrative Performed At * CBC with platelet count + automated diff (06/25/2018 6:24 AM CDT) Only the most recent of 3 results within the time period is included. WBC 8.2 3.5 - 10.5 K/L [facility] RBC 3.22 (L) 3.93 - 5.22 M/L [facility] Hemoglobin 9.6 (L) 11.2 - 15.7 GM/DL [facility] Hematocrit 30.9 (L) 34.1 - 44.9 % [facility] MCV 96.0 (H) 79.4 - 94.8 fL [facility] MCH 29.8 25.6 - 32.2 pg [facility] MCHC 31.1 (L) 32.2 - 35.5 GM/DL [facility] RDW 16.8 (H) 11.7 - 14.4 % [facility] Platelets 208 150 - 450 K/CU MM [facility] MPV 11.1 9.4 - 12.3 fL [facility] nRBC 0 0 - 0 /100 WBC [facility] % Neutros 65 % [facility] % Lymphs 22 % [facility] % Monos 10 % [facility] % Eos 2 % [facility] % Baso 0 % [facility] # Neutros 5.34 1.56 - 6.13 K/L [facility] # Lymphs 1.82 1.18 - 3.74 K/L [facility] # Monos 0.84 (H) 0.24 - 0.36 K/L [facility] # Eos 0.19 0.04 - 0.36 K/L [facility] # Baso 0.02 0.01 - 0.08 K/L [facility] Immature 0 0 - 1 % [facility] Granulocytes-Relative [facility] Specimen Blood Performing Organization Address City/State/Zipcode Phone Number [facility] [address] [place] [address] [facility] * Basic Metabolic Panel (06/25/2018 6:24 AM CDT) Only the most recent of 2 results within the time period is included. Sodium 142 136 - 145 meq/L [facility] Potassium 3.0 (L) 3.5 - 5.1 meq/L [facility] Chloride 103 98 - 107 meq/L [facility] CO2 29 22 - 29 meq/L [facility] BUN 34 (H) 7 - 21 mg/dL [facility] Creatinine 1.87 (H) 0.57 - 1.25 mg/dL [facility] Glucose 157 (H) 70 - 105 mg/dL [facility] Calcium 7.5 (L) 8.4 - 10.2 mg/dL [facility] EGFR 26Comment: ESTIMATED GFR IS mL/min/1.73 sq m [facility] NOT ACCURATE CREATININE [facility] CLEARANCE IN PREDICTING GLOMERULAR FILTRATION RATE. ESTIMATED GFR IS NOT APPLICABLE FOR DIALYSIS PATIENTS. Specimen Blood Performing Organization Address City/State/Zipcode Phone Number [place] [phone] [place] [address] [facility] * 2D Echo W/Doppler(CW/PW/Color) (06/24/2018 1:48 PM CDT) Ejection Fraction [facility] ECHO [facility]ART[facility] Specimen Narrative Performed At Transthoracic Echocardiography Report (TTE) [facility] ECHO [facility]ART[facility] Demographics [facility] Patient NameSALSER, PATITO KITDate of Study 06/24/2018 Visit [id number] Unknown Room Number 1455 Number Date of 1935Referring SG CARRILLO Physician Age 82 year(s)Cardiac Cath Lab Radiology Technologist Serena Rodríguez [facility] Claudia Townsend Physician MD Le FellowAlexaTONY Jackson Procedure Type of Study TTE procedure:2DECHO W DOPPLER(CW/PW/COLOR) (EJ) Indications:Acute Chest Pain/ Suspected CAD. Clinical History DEMENTIA;CANCER;HLD;MVP;SUPRA VENT TACHY HGB 9.9 HCT 31.5 % Height: 64 inches Weight: 50.35 kg (111 lbs) BSA: 1.52 m^2 BMI: 19.05 kg/m^2 HR: 67 bpm BP: 155/66 mmHg Summary The left ventricle is chamber size (by vol index) is normal. Hhir-ry-hudcosgj concentric LV hypertrophy. All of the LV [...] chamber size (by vol index) is normal. Stso-yf-oacitlag concentric LV hypertrophy. All of the LV [...] is approximately 45 mmHg. Pulmonic Valve Mild MN. AortaAortic root size (Sinus of Valsalva diameter) [...] of Study 06/24/2018 Gender Female Visit Number [id number] Race Unknown Room Number 1455 Number Date of 1935 Referring SG CARRILLO Physician Age 82 year(s) Cardiac Cath Lab Radiology Technologist Serena Rodríguez [facility] Interpreting David Lujan MD Fellow [...] chamber size (by vol index) is normal. Nvhs-ba-lsarxdza concentric LV hypertrophy. All of the LV [...] chamber size (by vol index) is normal. Awpu-ar-wfpaoxch concentric LV hypertrophy. All of the LV segments contract normally . LVEF by Awllace's method of disk assessment is normal (>60%) [...] is approximately 45 mmHg. Pulmonic Valve Mild MN. Aorta Aortic root size (Sinus of Valsalva [...] TR Gradient: 43.2 mmHg Performing Organization Address [facility] Phone Number [facility] ECHO HEARTLAB MKCKESSON CPACS * XR chest 1 view portable / bedside (06/24/2018 7:00 AM CDT) Specimen Narrative Performed At FINAL REPORT [employer] CLINICAL HISTORY: sob TECHNIQUE: 1 view of the chest. COMPARISON: 02/27/2017 IMPRESSION: There are no focal infiltrates or effusions. The cardiomediastinal silhouette is magnified by technique. The visualized bones are intact. Signed: Tristan Su MD Report Verified Date/Time:06/24/2018 08:03:40 Reading Location: [facility] Radiology Reading Room Procedure Note Interface, External Ris In - 06/24/2018 8:05 AM CDT FINAL REPORT CLINICAL HISTORY: sob TECHNIQUE: 1 view of the chest. COMPARISON: 02/27/2017 IMPRESSION: There are no focal infiltrates or effusions. The cardiomediastinal silhouette is magnified by technique. The visualized bones are intact. Signed: Tristan Su MD Report Verified Date/Time: 06/24/2018 08:03:40 Reading Location: [facility] Radiology Reading Room Performing Organization Address [facility] Phone Number GE RIS * Troponin I (06/24/2018 3:25 AM CDT) Only the most recent of 2 results within the time period is included. Troponin I 0.07 (H) 0.00 - 0.03 ng/mL [facility] Specimen Blood Narrative Performed At Troponin I (TnI) levels must be interpreted in the context of the presenting [facility] symptoms and the clinical findings. Elevated TnI levels indicate myocardial [facility] damage, but are not specific for ischemic heart disease. Elevated TnI levels are seen in patients with other cardiac conditions (including myocarditis and congestive heart failure), and slight TnI elevations occur in patients with other conditions, including sepsis, renal failure, acidosis, acute neurological disease, and persistent tachyarrhythmia. Performing Organization Address City/[facility] Phone Number [place] [phone] * Phosphorus (06/24/2018 2:12 AM CDT) Only the most recent of 2 results within the time period is included. Phosphorus 5.2 (H) 2.3 - 4.7 mg/dL [facility] Specimen Blood Performing Organization Address [facility] [place] [address] [phone] * Magnesium (06/24/2018 2:12 AM CDT) Only the most recent of 2 results within the time period is included. Magnesium 1.7 1.6 - 2.6 mg/dL [facility] Specimen Blood Performing Organization Address [facility] Phone Number [address] [address] [facility] * ECG 12 lead (06/23/2018 11:14 PM CDT) Specimen Narrative Performed At Ventricular Rate 70 BPM GE MUSE Atrial Rate 70 BPM P-R Interval 262 ms QRS Duration 86 ms Q-T Interval 434 ms QTC Calculation(Bazett) 468 ms P [place] 77 degrees R [place] -24 degrees T [place] 60 degrees Sinus rhythm with 1st degree [...] 434 ms QTC Calculation(Bazett) 468 ms P [place] 77 degrees R [place] -24 degrees T [place] 60 degrees Sinus rhythm with 1st degree A-V block Poor R wave progression Cannot rule out Possible Anterior infarct , age undetermined Prolonged QT Abnormal ECG When compared with ECG of 23-JUN-2018 23:07, Sinus rhythm with first degree AV block has replaced complete heart block Confirmed by Daniela MITTAL BASANT ([id number]) on 06/24/2018 10:52:11 AM Performing Organization Address City/State/Zipcode Phone Number [employer] * CT brain without IV contrast (06/23/2018 9:45 PM CDT) Specimen Narrative Performed At FINAL REPORT [employer] CT, BRAIN, WITHOUT CONTRAST INDICATION: headache TECHNIQUE: [...] is recommended for further characterization. Signed: JR Gold, Ham VELASQUEZ Report Verified Date/Time:06/23/2018 22:03:44 Reading Location: [facility] C0Y CT Body Reading Room Procedure Note Interface, [...] Report Verified Date/Time: 06/23/2018 22:03:44 Reading Location: [facility] B1 C013Y CT Body Reading Room Performing Organization Address City/State/Zipcode Phone Number [facility] * CT chest without IV contrast (06/23/2018 9:45 PM CDT) Specimen Narrative Performed At FINAL REPORT [facility] CT of the Chest, abdomen and pelvis [...] MD Report Verified Date/Time:06/23/2018 22:41:25 Reading Location: [facility] B1 C013W Consult Reading Room Procedure Note [...] Report Verified Date/Time: 06/23/2018 22:41:25 Reading Location: [facility] B1 C013W Consult Reading Room Performing Organization Address City/State/Zipcode Phone Number [employer] * CT abdomen/pelvis without iv contrast (06/23/2018 9:45 PM CDT) Specimen Narrative Performed At FINAL REPORT [employer] CT of the Chest, abdomen and pelvis [...] MD Report Verified Date/Time:06/23/2018 22:41:25 Reading Location: [facility] B1 C013W Consult Reading Room Procedure Note [...] Report Verified Date/Time: 06/23/2018 22:41:25 Reading Location: [facility] B1 C013W Consult Reading Room Performing Organization Address City/State/Zipcode Phone Number GE RIS * TSH/Free T4 If Indicated (06/23/2018 8:55 PM CDT) TSH 2.21 0.35 - 4.94 uIU/mL [facility] Specimen Blood Performing Organization Address City/State/Zipcode Phone Number [facility] [address] [place] [address] [facility] * Comprehensive metabolic panel (06/23/2018 8:55 PM CDT) Protein, Total 6.5 6.0 - 8.3 gm/dL [facility] Albumin 3.7 3.5 - 5.0 g/dL [facility] Alkaline Phosphatase 57 40 - 150 U/L [facility] Total Bilirubin 0.3 0.2 - 1.2 mg/dL [facility] Sodium 144 136 - 145 meq/L [facility] Potassium 3.3 (L) 3.5 - 5.1 meq/L [facility] Chloride 103 98 - 107 meq/L [facility] CO2 29 22 - 29 meq/L [facility] BUN 42 (H) 7 - 21 mg/dL [facility] Creatinine 2.40 (H) 0.57 - 1.25 mg/dL [facility] Glucose 135 (H) 70 - 105 mg/dL [facility] Calcium 8.2 (L) 8.4 - 10.2 mg/dL [facility] AST 20 5 - 34 U/L [facility] ALT 14 6 - 55 U/L [facility] EGFR 19Comment: ESTIMATED GFR IS mL/min/1.73 sq m [facility] NOT ACCURATE CREATININE [facility] CLEARANCE IN PREDICTING GLOMERULAR FILTRATION RATE. ESTIMATED GFR IS NOT APPLICABLE FOR DIALYSIS PATIENTS. Specimen Blood Performing Organization Address City/State/Zipcode Phone Number [facility]ÉLIX [facility]ALLSent[facility] Technologies[facility] [address] [place], [place] [phone] [facility] after 01/17/2018 Insurance Payer Benefit Subscriber ID Type Phone Address Plan / Group MEDICARE MEDICARE A xxxxxxxxxxx Medicare B BLUE CROSS/BLUE SHIELD BCBS xxxxxxxxxxxx PPO [phone] [address] [place] [address] [place] Advance Directives For more information, please contact: F[facility]LIX [facility] [address] [place], [place] [phone] Date Inactivated Comments Code Status Date Activated 06/25/2018 9:33 PM Full Code 06/23/2018 6:53 PM This code status was determined by: Patient 06/23/2018 6:53 PM Full Code 06/23/2018 5:18 PM This code status was determined by: Patient 03/10/2017 10:05 PM Full Code 02/28/2017 5:40 AM This code status was determined by: Patient
--- OUTSIDE RECORDS SUMMARY | 2019-01-18 19:57 | XMS REPORT | Continuity of Care Document ---
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 Platelet 191 K/CMM 133 - 450 08/25/2014 [facility] HEMATOLOGY Hgb 11.5 g/dL 12.0 - 16.0 08/25/2014 [facility] HEMATOLOGY RBC 4.26 M/CMM 4.20 - 5.40 08/25/2014 [facility] WBC 13.0 K/CMM 3.7 - 10.4 08/25/2014 [facility] MCH 27.0 pg 27.0 - 31.0 08/25/2014 [facility] MCHC 30.5 g/dL 32.0 - 36.0 08/25/2014 [facility] HEMATOLOGY Hct 37.7 % 36.0 - 48.0 08/25/2014 [facility] MCV 88.5 fL 80.0 - 98.0 08/25/2014 [facility] URINE AND STOOL UA Urobilinogen <=1.0 mg/dL 0.1 - 1.0 08/25/2014 [facility] URINE AND STOOL UA Color Ltyellow 08/25/2014 [facility] URINE AND STOOL UA Bacteria Occasional /HPF None Seen /HPF 08/25/2014 [facility] URINE AND STOOL UA RBC 1 /HPF 0 - 2 08/25/2014 [facility] URINE AND STOOL UA Spec Grav 1.010 <=1.030 08/25/2014 [facility] URINE AND STOOL UA pH 6.0 5.0 - 8.0 08/25/2014 [facility] URINE AND STOOL UA Turbidity Slight *ABN* (08/24/14 11:22 PM) Clear 08/25/2014 [facility] URINE AND STOOL UA Protein 30 mg/dL Negative mg/dL 08/25/2014 [facility] URINE AND STOOL UA WBC 1 /HPF 0 - 5 08/25/2014 [facility] URINE AND STOOL UA Sq Epi Occasional /LPF Few /LPF 08/25/2014 [facility] URINE AND STOOL UA Leuk Est Negative (08/24/14 11:22 PM) Negative 08/25/2014 [facility] URINE AND STOOL UA Nitrite Negative (08/24/14 11:22 PM) Negative 08/25/2014 [facility] URINE AND STOOL UA Ketones Negative mg/dL Negative mg/dL 08/25/2014 [facility] URINE AND STOOL UA Bili Negative *NA* (08/24/14 11:22 PM) Negative 08/25/2014 [facility] URINE AND STOOL UA Glucose Negative mg/dL Negative mg/dL 08/25/2014 [facility] URINE AND STOOL UA Blood Small *ABN* (08/24/14 11:22 PM) Negative 08/25/2014 [facility] Vital Signs Vital Sign Value Date Comments Source Systolic (mm Hg) 131 05/31/2018 [facility] Diastolic (mm Hg) 76 05/31/2018 [facility] Respitory Rate 18 05/31/2018 [facility] Heart Rate 67 05/31/2018 [facility] Systolic (mm Hg) 129 05/31/2018 [facility] Diastolic (mm Hg) 75 05/31/2018 [facility] Heart Rate 76 05/31/2018 [facility] Respitory Rate 18 05/31/2018 [facility] Temperature Oral (F) 97.8 F 05/31/2018 [facility] Respitory Rate 16 05/31/2018 [facility] Heart Rate 71 05/31/2018 [facility] Systolic (mm Hg) 178 05/31/2018 [facility] Diastolic (mm Hg) 71 05/31/2018 [facility] Temperature Oral (F) 98.1 F 05/31/2018 [facility] Temperature Oral (F) 98.6 F 05/31/2018 [facility] BMI Calculated 20.73 05/30/2018 [facility] Height 162.56 cm 05/30/2018 [facility] Weight 54.773 05/30/2018 [facility] Weight 63.636 05/30/2018 [facility] BMI Calculated 22.64 05/30/2018 [facility] Height 167.64 cm 05/30/2018 [facility] Weight 63.636 05/30/2018 [facility] Heart Rate 88 08/25/2014 [facility] Diastolic (mm Hg) 68 08/25/2014 [facility] Respitory Rate 18 08/25/2014 [facility] Temperature Oral (F) 98.0 F 08/25/2014 [facility] Systolic (mm Hg) 172 08/25/2014 [facility] Systolic (mm Hg) 181 08/25/2014 [facility] Diastolic (mm Hg) 58 08/25/2014 [facility] Heart Rate 90 08/25/2014 [facility] Respitory Rate 20 08/25/2014 [facility] Weight 61.364 08/25/2014 [facility] Height 162.56 cm 08/25/2014 [facility] BMI Calculated 23.22 08/25/2014 [facility] Heart Rate 72 08/25/2014 [facility] Systolic (mm Hg) 184 08/25/2014 [facility] Temperature Oral (F) 97.5 F 08/25/2014 [facility] Diastolic (mm Hg) 72 08/25/2014 [facility] Respitory Rate 20 08/25/2014 [facility] Encounters Location Location Details Encounter Type Encounter Number Reason For Visit Attending Provider ADM Date DC Date Status Source [facility] [id number] Obed Banerjee 08/25/2014 08/25/2014 [facility] Outpatient [id number] David Rubalcava 07/11/2017 07/12/2017 [facility] Observation [id number] Johnnie Duran 05/30/2018 06/01/2018 [facility] Procedures Procedure Code Date Perfomer Comments Source Appendectomy [id number] [facility] Hysterectomy [id number] [facility]
--- OUTSIDE RECORDS SUMMARY | 2019-01-18 19:58 | XMS REPORT | Summary of Care ---
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, or unspecified chronic kidney disease (Final) - Chronic kidney disease, unspecified (Final) - Chronic kidney disease, stage 4 (severe) (Final) - Supraventricular tachycardia (Final) - Nonrheumatic mitral (valve) prolapse (Final) - Unspecified dementia without behavioral disturbance (Final) - 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 (Final) - Discharge Disposition: Home or Self Care Attending Physician: Johnnie Duran MD Admitting Physician: Johnnie Duran MD Vital Signs 1 2 3 Most recent to oldest [Reference Range]: 162.56 cm (05/30/18 5:26 AM) 167.64 cm (05/30/18 4:39 AM) Height 97.8 DegF (05/31/18 7:39 AM) 98.1 DegF (05/31/18 4:07 AM) 98.6 DegF (05/31/18 12:05 AM) Temperature Oral [96.4-99.1 DegF] 131/76 mmHg (05/31/18 3:36 PM) 129/75 mmHg (05/31/18 11:22 AM) 178/71 mmHg *HI* (05/31/18 7:39 AM) Blood Pressure [90-140/60-90 mmHg] 18 BRMIN (05/31/18 3:36 PM) 18 BRMIN (05/31/18 11:22 AM) 16 BRMIN (05/31/18 7:39 AM) Respiratory Rate [14-20 BRMIN] 67 bpm (05/31/18 3:36 PM) 76 bpm (05/31/18 11:22 AM) 71 bpm (05/31/18 7:39 AM) Peripheral Pulse Rate [60-100 bpm] 54.773 kg (05/30/18 5:26 AM) 63.636 kg (05/30/18 4:39 AM) 63.636 kg (05/30/18 12:01 AM) Weight 20.73 m2 (05/30/18 5:26 AM) 22.64 m2 (05/30/18 4:39 AM) Body Mass Index Problem List Condition Effective Dates Status Health Status Informant Appendectomy(Confirm Active ed) CRF - Chronic renal Active failure(Confirmed) Dementia(Confirmed) Active HTN Active (hypertension)(Confi rmed) HTN - Active Hypertension(Confirm ed) Hypocalcemia(Confirm Active ed) Hysterectomy(Confirm Active ed) Thyroidectomy(Confir Active med) Allergies, Adverse Reactions, Alerts Substance Reaction Severity Status codeine Active diltiazem Active penicillin Active morphine Active lisinopril Active Vantin Active Biaxin Biaxin Active Cartia XT Active Medications allopurinol 100 mg, 1 tab, Route: PO, Drug form: TAB, Daily, Dosing Weight 54.773, kg, Start date: 05/31/18 9:00:00 CDT, Duration: 30 day, Stop date: 06/29/18 9:00:00 CDT Notes: (Same as: Zyloprim) Start Date: 05/31/18 Stop Date: 05/31/18 Status: Discontinued allopurinol 100 mg oral tablet 100 mg=1 tab, PO, Daily, # 90 tab, 1 Refill(s) Start Date: 05/30/18 Status: Ordered amLODIPine 10 mg, Route: PO, Drug form: TAB, QPM, Dosing Weight 54.773, kg, Start date: 10/16 17:00:00 CDT, Duration: 30 day, Stop date: 06/28/18 17:00:00 CDT Start Date: 05/30/18 Stop Date: 05/30/18 Status: Canceled [place] Thyroid 90 mg, 3 tab, Route: PO, Drug form: TAB, Before Breakfast, Dosing Weight 54.773, kg, Start date: 05/31/18 7:30:00 CDT, Duration: 30 day, Stop date: 06/29/18 7:3 0:00 CDT Notes: (Same As: Heaven Mendez, S-P-T) Start Date: 05/31/18 Stop Date: 05/31/18 Status: Discontinued aspirin 324 mg, 4 tab, Route: CHEW, Drug form: CHEWTAB, ONCE, Dosing Weight 63.636, kg, Priority: STAT, Start date: 05/30/18 1:06:00 CDT, Stop date: 05/30/18 1:06:00 CD T Notes: Take with food. Start Date: 05/30/18 Stop Date: 05/30/18 Status: Completed atenolol 50 mg, 1 tab, Route: PO, Drug form: TAB, QPM, Dosing Weight 54.773, kg, Start da te: 05/30/18 17:00:00 CDT, Duration: 30 day, Stop date: 06/28/18 17:00:00 CDT Notes: (Same As:Tenormin) Start Date: 05/30/18 Stop Date: 05/30/18 Status: Canceled atorvastatin 10 mg, 1 tab, Route: PO, Drug form: TAB, Bedtime, Dosing Weight 54.773, kg, Star t date: 05/30/18 21:00:00 CDT, Duration: 30 day, Stop date: 06/28/18 21:00:00 CD T Notes: (Same As: Lipitor) Start Date: 05/30/18 Stop Date: 05/31/18 Status: Discontinued atorvastatin 10 mg oral tablet 10 mg=1 tab, PO, Bedtime, # 30 tab, 0 Refill(s) Start Date: 05/30/18 Status: Ordered calcitriol 0.5 microgram, 2 cap, Route: PO, Drug form: CAP, Daily, Dosing Weight 54.773, kg , Start date: 05/31/18 9:00:00 CDT, Duration: 30 day, Stop date: 06/29/18 9:00:0 0 CDT Notes: (Same As: Rocaltrol) Start Date: 05/31/18 Stop Date: 05/30/18 Status: Canceled calcitriol 0.25 microgram, 1 cap, Route: PO, Drug form: CAP, Q12H, Dosing Weight 54.773, kg , Start date: 05/30/18 21:00:00 CDT, Duration: 30 day, Stop date: 06/29/18 9:00: 00 CDT Notes: (Same As: Rocaltrol) Start Date: 05/30/18 Stop Date: 05/31/18 Status: Discontinued calcitriol 0.25 mcg oral capsule 0.25 microgram=1 cap, PO, Q12H, 0 Refill(s) Start Date: 05/30/18 Status: Ordered calcium carbonate 1,000 mg, 2 tab, Route: CHEW, Drug form: CHEWTAB, TID, Dosing Weight 54.773, kg, Start date: 05/30/18 17:00:00 CDT, Duration: 30 day, Stop date: 06/29/18 13:00: 00 CDT Notes: (Same As: Ankita)Calcium Carbonate 500 at=754 mg elemental calcium Dose=_ mg calcium carbonate ( mg elemental calcium) Start Date: 05/30/18 Stop Date: 05/31/18 Status: Discontinued calcium carbonate 1,000 mg, PO, TID, with meals, 0 Refill(s) Start Date: 05/30/18 Status: Ordered cloNIDine 0.1 mg oral tablet 0.1 mg, 1 tab, Route: PO, Drug form: TAB, TID, Dosing Weight 54.773, kg, PRN Verena vated BP, Start date: 05/30/18 13:15:00 CDT, Duration: 30 day, Stop date: 13:14:00 CDT Notes: (Same As: Catapres) Start Date: 05/30/18 Stop Date: 05/30/18 Status: Discontinued cloNIDine 0.1 mg oral tablet 0.1 mg, 1 tab, Route: PO, Drug form: TAB, Q4H, Dosing Weight 54.773, kg, PRN Verena vated BP, Start date: 05/30/18 16:35:00 CDT, Duration: 30 day, Stop date: 16:34:00 CDT Notes: (Same As: Catapres) Start Date: 05/30/18 Stop Date: 05/31/18 Status: Discontinued cloNIDine 0.1 mg oral tablet 0.1 mg=1 tab, PO, Q4H, PRN Elevated BP, 0 Refill(s) Start Date: 05/30/18 Status: Ordered CoQ10 300 mg, PO, Daily, 0 Refill(s) Start Date: 05/30/18 Status: Ordered Diovan 320 mg, Route: PO, Drug form: TAB, Daily, Dosing Weight 54.773, kg, Start date: 05/31/18 9:00:00 CDT, Duration: 30 day, Stop date: 06/29/18 9:00:00 CDT Start Date: 05/31/18 Stop Date: 05/30/18 Status: Canceled furosemide 20 mg oral tablet 20 mg, 1 tab, Route: PO, Drug form: TAB, Q72H, Dosing Weight 54.773, kg, PRN Cecil ma, Start date: 05/30/18 13:15:00 CDT, Duration: 30 day, Stop date: 06/29/18 13: 14:00 CDT Notes: (Same as: Lasix) May cause GI upset. Give with food or milk. Start Date: 05/30/18 Stop Date: 05/30/18 Status: Discontinued furosemide 20 mg oral tablet 20 mg=1 tab, PO, Daily, 0 Refill(s) Start Date: 05/30/18 Status: Ordered furosemide 20 mg oral tablet 20 mg, 1 tab, Route: PO, Drug form: TAB, Daily, Dosing Weight 54.773, kg, Start date: 05/31/18 9:00:00 CDT, Duration: 30 day, Stop date: 06/29/18 9:00:00 CDT Start Date: 05/31/18 Stop Date: 05/30/18 Status: Canceled Heparin - one time bolus for DVT/PE 5,100 unit, 5.1 mL, Route: IVP, Drug form: INJ, ONCE, Dosing Weight 63.636, kg, Priority: STAT, Start date: 05/30/18 3:19:00 CDT, Stop date: 05/30/18 3:19:00 CD T Start Date: 05/30/18 Stop Date: 05/30/18 Status: Completed Heparin 40 unit/kg Bolus (Heparin Dosing Weight) Route: IVP, PRN, 2,200 unit, 2.2 mL, Drug form: INJ, PRN, Heparin Protocol, Star t date: 05/30/18 3:19:00 CDT Stop date: 06/29/18 3:18:00 CDT, 30 day Start Date: 05/30/18 Stop Date: 05/31/18 Status: Discontinued Heparin 80 unit/kg Bolus (Heparin Dosing Weight) Route: IVP, PRN, 4,400 unit, 4.4 mL, Drug form: INJ, PRN, Heparin Protocol, Star t date: 05/30/18 3:19:00 CDT Stop date: 06/29/18 3:18:00 CDT, 30 day Start Date: 05/30/18 Stop Date: 05/31/18 Status: Discontinued heparin additive 25,000 unit [18 unit/kg/hr] + Premix Diluent Dextrose 5% 500 mL 500 mL, Rate: 19.72 ml/hr, Infuse over: 25.4 hr, Route: IV, Dosing Weight 54.77 kg, Total Volume: 500 mL, Start date: 05/30/18 3:19:00 CDT, Duration: 30 day, St op date: 06/29/18 3:18:00 CDT, 1.58, m2 Start Date: 05/30/18 Stop Date: 05/31/18 Status: Discontinued hydrocortisone 10 mg, 1 tab, Route: PO, Drug form: TAB, Daily, Dosing Weight 54.773, kg, Start date: 05/31/18 9:00:00 CDT, Duration: 30 day, Stop date: 06/29/18 9:00:00 CDT Notes: (Same as: Cortef) Take with food. Start Date: 05/31/18 Stop Date: 05/31/18 Status: Discontinued imipramine 50 mg, 2 tab, Route: PO, Drug form: TAB, QPM, Dosing Weight 54.773, kg, Start da te: 05/30/18 17:00:00 CDT, Duration: 30 day, Stop date: 06/28/18 17:00:00 CDT Notes: (Same as: Tofranil) Start Date: 05/30/18 Stop Date: 05/31/18 Status: Discontinued Lasix 20 mg, 1 tab, Route: PO, Drug form: TAB, QSun, Start date: 05/31/18 9:00:00 CDT, Duration: 30 day, Stop date: 06/28/18 9:00:00 CDT Notes: (Same as: Lasix) May cause GI upset. Give with food or milk. Start Date: 05/31/18 Stop Date: 05/31/18 Status: Discontinued Lasix 20 mg, 1 tab, Route: PO, Drug form: TAB, QThu, Start date: 06/04/18 9:00:00 CDT, Duration: 30 day, Stop date: 07/02/18 9:00:00 CDT Notes: (Same as: Lasix) May cause GI upset. Give with food or milk. Start Date: 06/04/18 Stop Date: 05/31/18 Status: Canceled Lasix 20 mg, 1 tab, Route: PO, Drug form: TAB, Q-M-W-F, Start date: 06/01/18 9:00:00 C DT, Duration: 30 day, Stop date: 06/29/18 9:00:00 CDT Notes: (Same as: Lasix) May cause GI upset. Give with food or milk. Start Date: 06/01/18 Stop Date: 05/31/18 Status: Canceled melatonin 10 mg, PO, Bedtime, PRN as needed for sleep, 0 Refill(s) Start Date: 05/30/18 Status: Ordered melatonin 9 mg, 3 tab, Route: PO, Drug form: TAB, Bedtime, PRN Sleep, Start date: 05/30/18 16:50:00 CDT, Duration: 30 day, Stop date: 06/29/18 16:49:00 CDT Notes: (Same as: Melatonin) Start Date: 05/30/18 Stop Date: 05/31/18 Status: Discontinued melatonin 10 mg, Route: PO, Bedtime, Dosing Weight 54.773, kg, PRN Sleep, Start date: 10/16 16:35:00 CDT, Duration: 30 day, Stop date: 06/29/18 16:34:00 CDT Start Date: 05/30/18 Stop Date: 05/30/18 Status: Discontinued metoprolol 50 mg oral tablet, extended release 50 mg=1 tab, PO, Daily, # 30 tab, 0 Refill(s) Start Date: 05/30/18 Status: Ordered metoprolol extended release 50 mg, 1 tab, Route: PO, Drug form: ERTAB, Daily, Start date: 05/31/18 9:00:00 C DT, Duration: 30 day, Stop date: 06/29/18 9:00:00 CDT Notes: (Same as: Toprol XL) May split tab, but do not crush. Start Date: 05/31/18 Stop Date: 05/31/18 Status: Discontinued nitroglycerin SL Tab 0.4 mg, 1 tab, Route: SL, Drug form: TAB, Q5Min, Dosing Weight 63.636, kg, PRN C hest Pain, Start date: 05/30/18 4:40:00 CDT, Duration: 3 doses or times, Stop da te: Limited # of times Notes: (Same as:Nitroquick, Nitrostat)"Do Not Crush" Sublingual tablet Start Date: 05/30/18 Stop Date: 05/31/18 Status: Discontinued ondansetron 4 mg, 1 tab, Route: PO, Drug form: TAB, Q8H, Dosing Weight 63.636, kg, PRN Nause a & Vomiting, Start date: 05/30/18 4:40:00 CDT, Duration: 30 day, Stop date: 06/29/18 4:39:00 CDT Notes: (Same as: Zofran) Start Date: 05/30/18 Stop Date: 05/31/18 Status: Discontinued pravastatin 40 mg, 2 tab, Route: PO, Drug form: TAB, QPM, Dosing Weight 54.773, kg, Start da te: 05/30/18 17:00:00 CDT, Duration: 30 day, Stop date: 06/28/18 17:00:00 CDT Notes: (Same as: Pravachol) Start Date: 05/30/18 Stop Date: 05/30/18 Status: Canceled Ranexa 500 mg oral tablet, extended release 500 mg, 1 tab, Route: PO, Drug form: TAB, Q12H, Dosing Weight 54.773, kg, Start date: 05/30/18 21:00:00 CDT, Duration: 30 day, Stop date: 06/29/18 9:00:00 CDT Notes: Same as Ranexa"Do Not Crush" Start Date: 05/30/18 Stop Date: 05/31/18 Status: Discontinued Ranexa 500 mg oral tablet, extended release 500 mg=1 tab, PO, Q12H, # 60 tab, 0 Refill(s) Start Date: 05/30/18 Status: Ordered Saline Flush 0.9% 10 ml, Route: IVP, Drug Form: INJ, Dosing Weight 63.636, kg, Q12H, Start date: 0 05/30/18 9:00:00 CDT, Duration: 30 day, Stop date: 06/28/18 21:00:00 CDT Notes: (Same as: BD Posiflush) Start Date: 05/30/18 Stop Date: 05/31/18 Status: Discontinued Saline Flush 0.9% 10 ml, Route: IVP, Drug Form: INJ, Dosing Weight 63.636, kg, PRN, PRN Line Flush , Start date: 05/30/18 4:40:00 CDT, Duration: 30 day, Stop date: 06/29/18 4:39:0 0 CDT Notes: (Same as: BD Posiflush) Start Date: 05/30/18 Stop Date: 05/31/18 Status: Discontinued Saline Flush 0.9% 10 mL, Route: IVP, Drug Form: INJ, Dosing Weight 63.636, kg, PRN, PRN Line Flush , Start date: 05/30/18 1:07:00 CDT, Duration: 30 day, Stop date: 06/29/18 1:06:0 0 CDT Notes: (Same as: BD Posiflush) Start Date: 05/30/18 Stop Date: 05/31/18 Status: Discontinued tramadol 50 mg oral tablet 50 mg=1 tab, PO, Q12H, PRN Pain Score 1-5, 0 Refill(s) Start Date: 05/30/18 Status: Ordered tramadol 50 mg oral tablet 50 mg, 1 tab, Route: PO, Drug form: TAB, Q12H, Dosing Weight 54.773, kg, PRN Missael n Score 1-5, Start date: 05/30/18 16:35:00 CDT, Duration: 30 day, Stop date: 10/16 16:34:00 CDT Notes: Not to exceed 400mg/day. (Same As: Ultram) Start Date: 05/30/18 Stop Date: 05/31/18 Status: Discontinued Vitamin D3 50,000 IntlUnit, 1 cap, Route: PO, Drug form: CAP, QSun, Dosing Weight 54.773, k g, Start date: 05/31/18 9:00:00 CDT, Duration: 30 day, Stop date: 06/28/18 9:00: 00 CDT Notes: (Same as: Vitamin D3-50) Start Date: 05/31/18 Stop Date: 05/31/18 Status: Discontinued Vitamin D3 50,000 IntlUnit, PO, QSun, 0 Refill(s) Start Date: 05/30/18 Status: Ordered Results ELECTROLYTES 1 2 3 Most recent to oldest [Reference Range]: 140 mEq/L (05/30/18 1:30 AM) Sodium Lvl [135-145 mEq/L] 3.7 mEq/L (05/30/18 1:30 AM) Potassium Lvl [3.5-5.1 mEq/L] 98 mEq/L (05/30/18 1:30 AM) Chloride Lvl [95-109 mEq/L] 38 mEq/L *HI* (05/30/18 1:30 AM) CO2 [24-32 mEq/L] 7.7 mEq/L *LOW* (05/30/18 1:30 AM) AGAP [10.0-20.0 mEq/L] CHEM PANEL 1 2 3 Most recent to oldest [Reference Range]: 2.38 mg/dL *HI* (05/30/18 1:30 AM) Creatinine Lvl [0.50-1.40 mg/dL] 19 mL/min/1.73m2 1 *NA* (05/30/18 1:30 AM) eGFR 37 mg/dL *HI* (05/30/18 1:30 AM) BUN [7-22 mg/dL] 16 (05/30/18 1:30 AM) B/C Ratio [6-25] 169 mg/dL *HI* (05/30/18 1:30 AM) Glucose Lvl [70-99 mg/dL] 7.2 g/dL (05/30/18 1:30 AM) Total Protein [6.4-8.4 g/dL] 3.1 g/dL *LOW* (05/30/18 1:30 AM) Albumin Lvl [3.5-5.0 g/dL] 4.1 g/dL (05/30/18 1:30 AM) Globulin [2.7-4.2 g/dL] 0.8 (05/30/18 1:30 AM) A/G Ratio [0.7-1.6] 11.8 mg/dL *HI* (05/30/18 1:30 AM) Calcium Lvl [8.5-10.5 mg/dL] 22 unit/L (05/30/18 1:30 AM) ALT [0-65 unit/L] 28 unit/L (05/30/18 1:30 AM) AST [0-37 unit/L] 85 unit/L (05/30/18 1:30 AM) Alk Phos [39-136 unit/L] 0.3 mg/dL (05/30/18 1:30 AM) Bili Total [0.2-1.3 mg/dL] 1Result Comment: The eGFR is calculated using [...] from the National Kid[employer] Education Program ( NKDEP) which additionally recommends that when the eGFR is used in patients with extremes of body mass index for purposes of drug dosing, the eGFR should be mul tiplied by the estimated BMI. CARDIAC ENZYMES 1 2 3 Most recent to oldest [Reference Range]: 120 unit/L (05/30/18 1:30 AM) Total CK [12-191 unit/L] 0.13 ng/mL (05/30/18 12:02 PM) 0.16 ng/mL (05/30/18 6:34 AM) 0.12 ng/mL (05/30/18 1:30 AM) Troponin-I [0.00-0.40 ng/mL] 659 pg/mL *HI* (05/30/18 1:30 AM) BNP [<=100 pg/mL] HEMATOLOGY 1 2 3 Most recent to oldest [Reference Range]: 9.5 K/CMM (05/31/18 5:05 AM) 12.5 K/CMM *HI* (05/30/18 1:30 AM) WBC [3.7-10.4 K/CMM] 3.54 M/CMM *LOW* (05/31/18 5:05 AM) 3.79 M/CMM *LOW* (05/30/18 1:30 AM) RBC [4.20-5.40 M/CMM] 10.3 g/dL *LOW* (05/31/18 5:05 AM) 10.9 g/dL *LOW* (05/30/18 1:30 AM) Hgb [12.0-16.0 g/dL] 30.6 % *LOW* (05/31/18 5:05 AM) 33.1 % *LOW* (05/30/18 1:30 AM) Hct [36.0-48.0 %] 86.4 fL (05/31/18 5:05 AM) 87.3 fL (05/30/18 1:30 AM) MCV [80.0-98.0 fL] 29.0 pg (05/31/18 5:05 AM) 28.8 pg (05/30/18 1:30 AM) MCH [27.0-31.0 pg] 33.6 g/dL (05/31/18 5:05 AM) 32.9 g/dL (05/30/18 1:30 AM) MCHC [32.0-36.0 g/dL] 17.3 % *HI* (05/31/18 5:05 AM) 17.0 % *HI* (05/30/18 1:30 AM) RDW [11.5-14.5 %] 8.5 fL (05/31/18 5:05 AM) 8.0 fL (05/30/18 1:30 AM) MPV [7.4-10.4 fL] 345 K/CMM (05/31/18 5:05 AM) 437 K/CMM (05/30/18 1:30 AM) Platelet [133-450 K/CMM] 60.8 % (05/31/18 5:05 AM) 77.6 % *HI* (05/30/18 1:30 AM) Segs [45.0-75.0 %] 25.2 % (05/31/18 5:05 AM) 13.3 % *LOW* (05/30/18 1:30 AM) Lymphocytes [20.0-40.0 %] 8.7 % (05/31/18 5:05 AM) 6.5 % (05/30/18 1:30 AM) Monocytes [2.0-12.0 %] 4.8 % *HI* (05/31/18 5:05 AM) 1.6 % (05/30/18 1:30 AM) Eosinophils [0.0-4.0 %] 0.5 % (05/31/18 5:05 AM) 1.0 % (05/30/18 1:30 AM) Basophils [0.0-1.0 %] 5.8 K/CMM (05/31/18 5:05 AM) 9.7 K/CMM *HI* (05/30/18 1:30 AM) Neutrophils # [1.5-8.1 K/CMM] 2.4 K/CMM (05/31/18 5:05 AM) 1.7 K/CMM (05/30/18 1:30 AM) Lymphocytes # [1.0-5.5 K/CMM] 0.8 K/CMM (05/31/18 5:05 AM) 0.8 K/CMM (05/30/18 1:30 AM) Monocytes # [0.0-0.8 K/CMM] 0.5 K/CMM (05/31/18 5:05 AM) 0.2 K/CMM (05/30/18 1:30 AM) Eosinophils # [0.0-0.5 K/CMM] 0.1 K/CMM (05/30/18 1:30 AM) Basophils # [0.0-0.2 K/CMM] 13.5 seconds (05/30/18 1:30 AM) PT [12.0-14.7 seconds] 1.03 (05/30/18 1:30 AM) INR [0.85-1.17] 1.66 ug/mL FEU *NA* (05/30/18 1:30 AM) D-Dimer 62.4 seconds *HI* (05/31/18 12:01 PM) 65.0 seconds *HI* (05/31/18 5:05 AM) 123.7 seconds 1 *CRIT* (05/30/18 9:55 PM) PTT [22.9-35.8 seconds] 1Result Comment: Critical Result(s) called to Anthony at 05/30/2018 22:23 by [email or web address]. Read back OK. Immunizations No data available for this section Procedures Procedure Date Related Diagnosis Body Site Status Appendectomy Completed Hysterectomy Completed Social History Social History Type Response Alcohol Past Smoking Status Never smoker; Exposure to Tobacco Smoke None; Cigarette Smoking Last 365 Days No; Reg Smoking Cessation Counseling No entered on: 05/30/18 Assessment and Plan No data available for this section
--- NOTE | 2019-01-18 21:35 | Diagnostic Imaging Report ---
ADDENDUM #1 The acute T1 nondisplaced fracture is not involving the posterior elements, and there is no posterior retropulsion into the spinal canal. Signed by: Dr. Micheline Dunlap M.D. on 01/18/2019 10:05 PM ORIGINAL REPORT EXAMINATION: Head and cervical spine CT without contrast. HISTORY: Status post fall, head trauma, head and neck pain COMPARISON: Head CT 11/30/2018 and cervical spine from 06/01/2018 TECHNIQUE: Multidetector axial images were obtained without contrast from the foramen magnum to the vertex and through the cervical spine. The images were reconstructed using brain and bone algorithms. Thin section brain images were reformatted into coronal and sagittal planes. Dose modulation, iterative reconstruction, and/or weight based adjustment of the mA/kV was utilized to reduce the radiation dose to as low as reasonably achievable. HEAD CT FINDINGS: Skull/difficult/: No lytic or blastic lesions. No fractures. 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 Unchanged chronic lacunar infarct in the anterior right thalamus and left rhodes radiata. Stable mild chronic microvascular ischemic changes No mass, hemorrhage or CT evidence of acute vascular insult. Brain volume: Normal for age. Ventricles: No hydrocephalus or displacement. Arteries: No density suggestive of thrombus. Dural sinuses: No abnormal density. Extra-axial spaces: Approximately 1 cm maximum thickness bilateral frontoparietal convexities hypodense subdural collections/hygromas with minimal local mass effect, no midline shift or herniation. These were not seen on prior study. Foramen magnum: No mass, Chiari malformation, or basilar invagination. Sella: No obvious mass. Paranasal/mastoid sinuses: Imaged portions unremarkable. CERVICAL SPINE CT FINDINGS: Alignment:Normal alignment and lordosis. Soft tissues: Normal. Vertebrae: - Acute nondisplaced oblique fracture line through the anterior superior endplate of T1 extending posteriorly without involving the cortex of the vertebral body or posterior elements. -Anterior bridging osteophyte from C4 to T1 is again noted, discontiguous osteophytes are now seen at C4 and C5 with well corticated margins. Degenerative changes: Degenerative changes: Anterior bridging osteophyte from C4 to T1. C1-C2: Degenerative changes without stenosis. C2-C3: Facet arthrosis without stenosis. Fusion of the posterior elements. C3-C4: Facet arthrosis mainly on the left without stenosis C4-C5: Uncovertebral and facet arthrosis without stenosis C5-C6: Uncovertebral and facet arthrosis, minimal foraminal narrowing C6-C7: Uncovertebral and facet arthrosis without significant stenoses. C7-T1: Facet arthrosis without stenosis. Incidental findings: Nonspecific opacification of the mastoid air cells and middle ear on the left and partially the right mastoid air cells with air-fluid levels. IMPRESSION: Head CT: 1. No acute postraumatic intracranial hemorrhage. 2. Stable mild chronic microvascular ischemic changes and chronic infarcts. 3. Small bilateral frontoparietal subdural hygromas, new since prior head CT of 11/30/2018. Cervical spine CT: 1. Acute nondisplaced oblique fracture line through the superior endplate of T1 with sparing of the posterior cortex and posterior elements. 2. Chronic degenerative changes as described. Note: Acute post traumatic spinal cord, vascular or ligamentous injury cannot adequately be assessed with CT. The findings were described with the ER physician Dr. Dr. Queen on 01/18/2019 at 9:20 PM Signed by: Dr. Micheline Dunlap M.D. on 01/18/2019 9:32 PM
--- NOTE | 2019-01-18 22:56 | Diagnostic Imaging Report ---
Examination: Single AP view of the chest. COMPARISON: 12/04/2018 INDICATION: Fall. T1 fracture. DISCUSSION: Lines/tubes: None. Lungs: The lungs are clear. No consolidation. Pleura: No pleural effusion or pneumothorax. Heart and mediastinum: The heart and the mediastinum are unremarkable. Bones and soft tissues: Known T1 fracture is not identified with this exam.Degenerative changes in the thoracic spine. IMPRESSION: No acute thoracic abnormality. Known T1 fracture is not identified with this exam. Signed by: Dr. Michelle Rodriguez M.D. on 01/18/2019 10:53 PM
--- NOTE | 2019-01-18 23:34 | Diagnostic Imaging Report ---
PELVIS AP 1-2 VIEWS - 3 views HISTORY: Pain status post fall. COMPARISON: None available. FINDINGS: Bones: Overlying artifact. No acute displaced fracture. Abnormal oblique linear lucency through the left sacral wing laterally. Joints: Degenerative changes of the bilateral hip and SI joints. Soft tissues: Greater trochanteric and iliac crest enthesopathy bilaterally. Phleboliths. Vascular calcifications. IMPRESSION: Possible nondisplaced fracture of the left hemisacrum. Consider CT pelvis for further evaluation. Signed by: Dr. Michelle Rodriguez M.D. on 01/18/2019 11:31 PM
--- NOTE | 2019-01-18 23:55 | Diagnostic Imaging Report ---
Thoracic Spine - 4 view(s) HISTORY: Pain status post fall. COMPARISON: None FINDINGS: Superimposed structures and attenuation partially limit bone detail. The alignment is normal. No displaced fracture or compression deformity is identified. Multilevel spondylosis of the lumbar spine. Vascular calcifications. IMPRESSION: No acute radiographic abnormality. T1 fracture identified on CT examination performed earlier on the same day is not visualized with this examination. Signed by: Dr. Michelle Rodriguez M.D. on 01/18/2019 11:51 PM
== END 2019-01-19 01:20 | disposition home or self-care (01) ==
LOC: ER 19:55
DX: M54.6 Pain in thoracic spine (principal); S22.010A Wedge compression fracture of first thoracic vertebra, initial encounter for closed fracture; S00.83XA Contusion of other part of head, initial encounter; M54.2 Cervicalgia; W18.30XA Fall on same level, unspecified, initial encounter; Y92.128 Other place in nursing home as the place of occurrence of the external cause
CPT/HCPCS: 70450; 71045; 72072; 72125; 72170; 99283

== ENCOUNTER 2019-02-22 00:43 | Emergency (ER) | payer MEDICARE, BC ==
[~2019-02-22] VITALS: Ht 162.6 cm; Wt 85.7 kg
--- OUTSIDE RECORDS SUMMARY | 2019-02-22 00:46 | XMS REPORT | Clinical Summary ---
Author Author F[facility]LIX [facility] Address Unknown Phone Unavailable Care Team Providers Care Human Factors Specialist Name Role Phone Sharpless PCP Allergies Comments [...] 06/23/2018 Orders Only General Internal Medicine after 02/21/2018 Social History Date Tobacco Use Types Packs/Day [...] ms QTC Calculatio n(Bazett) 468 ms P Union 77 degrees R Union -24 degrees T Union 60 degrees Sinus rhythm with 1st degree [...] ms QTC Calculatio n(Bazett) 0 ms R Union 0 degrees T Union 0 degrees No QRS complexes found, no [...] Routine 06/23/2018 DIFFERENTIAL 8:55 PM CDT after 02/21/2018 Results * RHYTHM STRIP - SCAN (06/26/2018 2:40 PM CDT) Narrative Performed At * ECHOCARDIOGRAM REPORT - SCAN (06/25/2018 9:00 AM CDT) Narrative Performed At * CBC with platelet count + automated diff (06/25/2018 6:24 AM CDT) Only the most recent of 3 results within the time period is included. WBC 8.2 3.5 - 10.5 K/L [facility] RBC 3.22 (L) 3.93 - 5.22 M/L [facility] Hemoglobin 9.6 (L) 11.2 - 15.7 GM/DL [facility] Hematocrit 30.9 (L) 34.1 - 44.9 % [facility] MCV 96.0 (H) 79.4 - 94.8 fL [facility] MCH 29.8 25.6 - 32.2 pg [facility] MCHC 31.1 (L) 32.2 - 35.5 GM/DL [facility] RDW 16.8 (H) 11.7 - 14.4 % [facility] Platelets 208 150 - 450 K/CU MM [facility] MPV 11.1 9.4 - 12.3 fL [facility] nRBC 0 0 - 0 /100 WBC [facility] % Neutros 65 % [facility] % Lymphs 22 % [facility] % Monos 10 % [facility] % Eos 2 % [facility] % Baso 0 % [facility] # Neutros 5.34 1.56 - 6.13 K/L [facility] # Lymphs 1.82 1.18 - 3.74 K/L [facility] # Monos 0.84 (H) 0.24 - 0.36 K/L [facility] # Eos 0.19 0.04 - 0.36 K/L [facility] # Baso 0.02 0.01 - 0.08 K/L [facility] Immature 0 0 - 1 % [facility] Granulocytes-Relative [facility] Specimen Blood Performing Organization Address City/State/Zipcode Phone Number [facility] [address] [place] [address] [facility] * Basic Metabolic Panel (06/25/2018 6:24 AM CDT) Only the most recent of 2 results within the time period is included. Sodium 142 136 - 145 meq/L [facility] Potassium 3.0 (L) 3.5 - 5.1 meq/L [facility] Chloride 103 98 - 107 meq/L [facility] CO2 29 22 - 29 meq/L [facility] BUN 34 (H) 7 - 21 mg/dL [facility] Creatinine 1.87 (H) 0.57 - 1.25 mg/dL [facility] Glucose 157 (H) 70 - 105 mg/dL [facility] Calcium 7.5 (L) 8.4 - 10.2 mg/dL [facility] EGFR 26Comment: ESTIMATED GFR IS mL/min/1.73 sq m [facility] NOT ACCURATE CREATININE [facility] CLEARANCE IN PREDICTING GLOMERULAR FILTRATION RATE. ESTIMATED GFR IS NOT APPLICABLE FOR DIALYSIS PATIENTS. Specimen Blood Performing Organization Address City/State/Zipcode Phone Number [place] [phone] [place] [address] [facility] * 2D Echo W/Doppler(CW/PW/Color) (06/24/2018 1:48 PM CDT) Ejection Fraction [facility] ECHO [facility]ART[facility] Specimen Narrative Performed At Transthoracic Echocardiography Report (TTE) [facility] ECHO [facility]ART[facility] Demographics [facility] Patient NameSALSER, PATITO KITDate of Study 06/24/2018 Visit [id number] Unknown Room Number 1455 Number Date of 1935Referring SG CARRILLO 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 Clinical History DEMENTIA;CANCER;HLD;MVP;SUPRA VENT TACHY HGB 9.9 HCT 31.5 % Height: 64 inches Weight: 50.35 kg (111 lbs) BSA: 1.52 m^2 BMI: 19.05 kg/m^2 HR: 67 bpm BP: 155/66 mmHg Summary The left ventricle is chamber size (by vol index) is normal. Koul-yn-fipnyyoi concentric LV hypertrophy. All of the LV [...] chamber size (by vol index) is normal. Zsrm-xu-ipxpqaoo concentric LV hypertrophy. All of the LV [...] is approximately 45 mmHg. Pulmonic Valve Mild WI. 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 Zckz-ag-tyqzchdl concentric LV hypertrophy. All of the LV [...] chamber size (by vol index) is normal. Gvwn-lb-tjkhiade concentric LV hypertrophy. All of the LV [...] is approximately 45 mmHg. Pulmonic Valve Mild WI. Aorta Aortic root size (Sinus of Valsalva [...] 43.2 mmHg Performing Organization Address [facility] Phone Number [facility] ECHO HEARTLAB [facility] * XR chest 1 view portable / bedside (06/24/2018 7:00 AM CDT) Specimen Narrative Performed At FINAL REPORT [facility] CLINICAL HISTORY: sob TECHNIQUE: 1 view of the chest. COMPARISON: 02/27/2017 IMPRESSION: There are no focal infiltrates or effusions. The cardiomediastinal silhouette is magnified by technique. The visualized bones are intact. Signed: rTistan Su MD Report Verified Date/Time:06/24/2018 08:03:40 Reading Location: [facility] Radiology Reading Room Procedure Note Interface, External Ris In - 06/24/2018 8:05 AM CDT FINAL REPORT CLINICAL HISTORY: sob TECHNIQUE: 1 view of the chest. COMPARISON: 02/27/2017 IMPRESSION: There are no focal infiltrates or effusions. The cardiomediastinal silhouette is magnified by technique. The visualized bones are intact. Signed: Tristan Su MD Report Verified Date/Time: 06/24/2018 08:03:40 Reading Location: [facility] Radiology Reading Room Performing Organization Address [facility] Phone Number GE RIS * Troponin I (06/24/2018 3:25 AM CDT) Only the most recent of 2 results within the time period is included. Troponin I 0.07 (H) 0.00 - 0.03 ng/mL [facility] Specimen Blood Narrative Performed At Troponin I (TnI) levels must be interpreted in the context of the presenting [facility] symptoms and the clinical findings. [...] disease, and persistent tachyarrhythmia. Performing Organization Address City/[facility] Phone Number [place] [phone] * Phosphorus (06/24/2018 2:12 AM CDT) Only the most recent of 2 results within the time period is included. Phosphorus 5.2 (H) 2.3 - 4.7 mg/dL [facility] Specimen Blood Performing Organization Address [facility] [place] [address] [phone] * Magnesium (06/24/2018 2:12 AM CDT) Only the most recent of 2 results within the time period is included. Magnesium 1.7 1.6 - 2.6 mg/dL [facility] Specimen Blood Performing Organization Address [facility] Phone Number [address] [address] [facility] * ECG 12 lead (06/23/2018 11:14 PM CDT) Specimen Narrative Performed At Ventricular Rate 70 BPM GE MUSE Atrial Rate 70 BPM P-R Interval 262 ms QRS Duration 86 ms Q-T Interval 434 ms QTC Calculation(Bazett) 468 ms P Union 77 degrees R Union -24 degrees T Union 60 degrees Sinus rhythm with 1st degree [...] 434 ms QTC Calculation(Bazett) 468 ms P Union 77 degrees R Union -24 degrees T Union 60 degrees Sinus rhythm with 1st degree A-V block Poor R wave progression Cannot rule out Possible Anterior infarct , age undetermined Prolonged QT Abnormal ECG When compared with ECG of 23-JUN-2018 23:07, Sinus rhythm with first degree AV block has replaced complete heart block Confirmed by Daniela MITTAL BASANT ([id number]) on 06/24/2018 10:52:11 AM Performing Organization Address City/State/Zipcode Phone Number [facility] * CT brain without IV contrast (06/23/2018 9:45 PM CDT) Specimen Narrative Performed At FINAL REPORT Behalf CT, BRAIN, WITHOUT CONTRAST INDICATION: headache TECHNIQUE: [...] VELASQUEZ Report Verified Date/Time:06/23/2018 22:03:44 Reading Location: [facility] C0Y CT Body Reading Room [...] 22:03:44 Reading Location: [facility] B1 C013Y CT Body Reading Room Performing Organization Address City/State/Zipcode Phone Number [facility] * CT chest without IV contrast (06/23/2018 9:45 PM CDT) Specimen Narrative Performed At FINAL REPORT [facility] CT of the Chest, abdomen and pelvis [...] 22:41:25 Reading Location: [facility] B1 C013W Consult Reading Room Procedure Note [...] 22:41:25 Reading Location: [facility] B1 C013W Consult Reading Room Performing Organization Address City/State/Zipcode Phone Number [facility] * CT abdomen/pelvis without iv contrast (06/23/2018 9:45 PM CDT) Specimen Narrative Performed At FINAL REPORT [facility] CT of the Chest, abdomen and pelvis [...] 22:41:25 Reading Location: [facility] B1 C013W Consult Reading Room Procedure Note [...] 22:41:25 Reading Location: [facility] B1 C013W Consult Reading Room Performing Organization Address City/State/Zipcode Phone Number GE RIS * TSH/Free T4 If Indicated (06/23/2018 8:55 PM CDT) TSH 2.21 0.35 - 4.94 uIU/mL [facility] Specimen Blood Performing Organization Address City/State/Zipcode Phone Number [facility] [address] [place] [address] [facility] * Comprehensive metabolic panel (06/23/2018 8:55 PM CDT) Protein, Total 6.5 6.0 - 8.3 gm/dL [facility] Albumin 3.7 3.5 - 5.0 g/dL [facility] Alkaline Phosphatase 57 40 - 150 U/L [facility] Total Bilirubin 0.3 0.2 - 1.2 mg/dL [facility] Sodium 144 136 - 145 meq/L [facility] Potassium 3.3 (L) 3.5 - 5.1 meq/L [facility] Chloride 103 98 - 107 meq/L [facility] CO2 29 22 - 29 meq/L [facility] BUN 42 (H) 7 - 21 mg/dL [facility] Creatinine 2.40 (H) 0.57 - 1.25 mg/dL [facility] Glucose 135 (H) 70 - 105 mg/dL [facility] Calcium 8.2 (L) 8.4 - 10.2 mg/dL [facility] AST 20 5 - 34 U/L [facility] ALT 14 6 - 55 U/L [facility] EGFR 19Comment: ESTIMATED GFR IS mL/min/1.73 sq m [facility] NOT ACCURATE CREATININE [facility] CLEARANCE IN PREDICTING GLOMERULAR FILTRATION RATE. ESTIMATED GFR IS NOT APPLICABLE FOR DIALYSIS PATIENTS. Specimen Blood Performing Organization Address City/State/Zipcode Phone Number [facility] [address] [place], [place] [phone] [facility] after 02/21/2018 Insurance Payer Benefit Subscriber ID Type Phone Address Plan / Group MEDICARE MEDICARE A xxxxxxxxxxx Medicare B BLUE CROSS/BLUE SHIELD BCBS xxxxxxxxxxxx PPO [phone] [address] [place] [address] [place] Advance Directives For more information, please contact: [facility] [address] [place], [place] [phone] Date Inactivated Comments Code Status Date Activated 06/25/2018 9:33 PM Full Code 06/23/2018 6:53 PM This code status was determined by: Patient 06/23/2018 6:53 PM Full Code 06/23/2018 5:18 PM This code status was determined by: Patient 03/10/2017 10:05 PM Full Code 02/28/2017 5:40 AM This code status was determined by: Patient
--- NOTE | 2019-02-22 01:52 | Diagnostic Imaging Report ---
Examination: CT head without contrast Clinical Indication: Fall with head injury. Technique: Transaxial noncontrast images from the skull base through the vertex were obtained. Sagittal and coronal reformatted images were done. Dose modulation, iterative reconstruction, and/or weight based adjustment of the mA/kV was utilized to reduce the radiation dose to as low as reasonably achievable. Comparison: Head CT dated 01/18/2018. Findings: Scalp: No abnormalities. Bones: Intact. No fractures. No blastic or lytic lesions. Brain sulci: Appropriate for patient's age. Ventricles: Normal in size and configuration. No hydrocephalus. . Extra-axial space: There are bifrontal and biparietal convexity 1cm thick chronic subdural hematomas with new small acute hemorrhage in the left inferior frontal convexity. Parenchyma: Again demonstrated is a cortical based chronic infarct of the inferomedial right cerebellum. Chronic lacunar infarcts are again seen in the anterior right thalamus and left rhodes radiata. Again demonstrated are confluent areas of low-attenuation within subcortical and periventricular white matter, nonspecific, but could represent microvascular ischemic disease. No masses, hemorrhage, or acute cortical based vascular insults. Suprasellar region: No abnormalities. Craniocervical junction: The foramen magnum is patent. No Chiari one malformation. Incidental findings: Atherosclerotic calcification of the cavernous and supraclinoid internal carotid and V4 segments of the bilateral vertebral arteries. Impression: 1. New small acute hemorrhage in the left inferior frontal convexity superimposed on already existing chronic bilateral frontoparietal subdural collections when compared to prior head CT dated 01/18/2019. No midline shift, herniation or regional mass effect. 2. Chronic infarcts and chronic microvascular ischemic change remain unchanged. Signed by: Dr. Bryanna Metcalf M.D. on 02/22/2019 1:49 AM
--- NOTE | 2019-02-22 02:01 | Diagnostic Imaging Report ---
Examination: CT CERVICAL SPINE WO HISTORY:Neck injury and pain after fall. COMPARISON:Cervical spine CT dated 01/18/2019. TECHNIQUE: Multidetector helical axial images were obtained without contrast from the foramen magnum to T1. Coronal and sagittal reformatted images were done. Bone and soft tissue windows were evaluated. Dose modulation, iterative reconstruction, and/or weight based adjustment of the mA/kV was utilized to reduce the radiation dose to as low as reasonably achievable. FINDINGS: Alignment:Normal alignment and lordosis. Vertebrae: Normal height and density. No acute fracture, infection or neoplasm. Chronic nondisplaced fracture of the left facet of C3-C4. Interval healing of T1 vertebral body fracture without height loss. Caliber of spinal canal: Developmentally normal. Posterior fossa and craniocervical junction: Foramen magnum patent. No Chiari 1 malformation. Soft tissues: Atherosclerotic calcification of the bilateral carotid bifurcations. Degenerative changes: Anterior bridging osteophytes of the cervical spine. No disc bulge/ herniation or canal stenosis. IMPRESSION: 1. No acute fracture. 2. Interval healing of T1 vertebral body fracture without height loss. 3. Chronic nondisplaced fracture of the left facet of C3-C4. Signed by: Dr. Bryanna Metcalf M.D. on 02/22/2019 1:58 AM
--- NOTE | 2019-02-22 02:11 | Diagnostic Imaging Report ---
Pelvis CPT code: 29482 Indication: Fall ^s/p fall ^[id number] ^[id number] ^Y Technique: A.P. view of the pelvis Comparison: Pelvis x-ray 01/18/2019 Findings: A tube overlies the mid pelvis. A suspected fracture of the left sacral ala on previous exam is not as conspicuous. SI joints are patent and symmetric in appearance. No evidence of acute fracture or dislocation of the hips. No acute fractures of the pelvis. There are enthesophytes of the iliac wings, greater trochanters, and acetabula. The hips are intact and normally aligned. There are mild degenerative changes of the lower lumbar spine. Vascular calcifications are present throughout. IMPRESSION: 1. No acute traumatic pathology. 2. Nondisplaced fracture of the left sacroiliac is not as apparent and may correspond to healing. Signed by: Dr. Lo Nguyen MD on 02/22/2019 2:07 AM
--- NOTE | 2019-02-22 02:14 | Diagnostic Imaging Report ---
Thoracic spine complete CPT code: 65214 Indication: Fall Technique: A.P. and lateral views of thoracic spine obtained Comparison: Thoracic spine x-rays 01/18/2019 Findings: Alignment maintained on AP view. No vertebral body compression. There are bridging osteophytes throughout. No compression or subluxation suggested on lateral views. Cervicothoracic junction is not well demonstrated due to overlapping soft tissue and osseous structures. Diffuse aortic calcifications and calcifications of the tracheobronchial tree. IMPRESSION: No acute traumatic pathology. Stable degenerative changes. Signed by: Dr. Lo Nguyen MD on 02/22/2019 2:11 AM
--- NOTE | 2019-02-22 02:19 | Diagnostic Imaging Report ---
EXAMINATION: CHEST SINGLE (PORTABLE) COMPARISON: Chest x-ray 01/18/2019 INDICATION: Fall ^s/p fall ^[id number] ^0135 ^Y DISCUSSION: Frontal view of the chest obtained at 0135 hours. HEART AND MEDIASTINUM: The heart is mildly enlarged LINES: None. LUNGS: Lung volumes are low. Patchy airspace opacities in the left lung. PLEURA: There is blunting of the lateral costophrenic angles. No pneumothorax BONES AND SOFT TISSUES: Nondisplaced fractures of the right seventh and eighth ribs without evidence of healing. Left rib fractures are intact. There are heavy costochondral calcifications. There are degenerative changes of the shoulders and acromioclavicular joints. Degenerative changes of the spine are stable. The soft tissues are normal. IMPRESSION: Fractures of the right seventh and eighth ribs. Small bilateral pleural effusions. No pneumothorax. Mild cardiomegaly. Patchy airspace opacities in the left lung may represent atelectasis or infiltrate. Signed by: Dr. Lo Nguyen MD on 02/22/2019 2:16 AM
--- NOTE | 2019-02-22 02:44 | NUR ---
TRANSFER INITIATED FOR SUBDURAL BRAIN BLEED. PHONE NUMBER [phone].
--- NOTE | 2019-02-22 02:45 | NUR ---
blood work initiated, 20g right ac first attempt, intact and patent, asked dr kidd if he wanted an ekg done, dr kidd stated no, luther rn next to this nurse.
--- NOTE | 2019-02-22 02:53 | NUR ---
SPOKE WITH ANIBAL LÓPEZ FROM [facility] FOR CONTACT INFORMATION, NEXT OF KIN. TONY JAQUEZ PHONE NUMBER [phone]. DR. HUERTA SPOKE WITH TONY JAQUEZ AND INFORMED OF DIAGNOSIS AND TRANSFER. VERBALIZED UNDERSTANDING.
[2019-02-22 02:58] LABS: BASOPHILS % 0.2 % (0.0-1.0); EOSINOPHILS % 0.3 % (0.0-6.0); HEMATOCRIT 31.5 % (34.2-44.1); HEMOGLOBIN 9.9 g/dL (12.0-16.0); LYMPHOCYTES # (AUTO) 0.9 (1.0-3.2); LYMPHOCYTES % 5.7 % (18.0-39.1); MEAN CORPUSCULAR HEMOGLOBIN 30.2 pg (28-32); MEAN CORPUSCULAR HGB CONC 31.4 g/dL (31-35); MONOCYTES # (AUTO) 0.8 (0.2-0.8); MONOCYTES % 5.1 % (4.4-11.3); NEUTROPHILS # (AUTO) 13.6 (2.1-6.9); NEUTROPHILS % 88.2 % (38.7-80.0); PLATELET COUNT 330 x10e3/uL (140-360); RED BLOOD COUNT 3.28 x10e6/uL (3.6-5.1); RED CELL DISTRIBUTION WIDTH 15.9 % (11.7-14.4)
--- NOTE | 2019-02-22 03:02 | NUR ---
patient is in baseline neurological status, pupils are equal and reactive, no visible trauma noted to head, patients neurological status has not changed since arrival to [facility]
[2019-02-22 03:07] LABS: INR 0.92; PROTHROMBIN TIME 12.8 seconds (11.9-14.5)
[2019-02-22 03:08] LABS: PARTIAL THROMBOPLASTIN TIME 32.8 seconds (23.8-35.5)
--- NOTE | 2019-02-22 03:16 | NUR ---
report was called to dereck stahl at [phone], patient going to [address] [place] [address] 5 [address] 14 neuro-icu.
[2019-02-22 03:21] LABS: ALBUMIN 3.3 g/dL (3.5-5.0); ALBUMIN/GLOBULIN RATIO 0.9 (0.8-2.0); ANION GAP 15.4 mmol/L (8-16); CREATININE, SERUM 2.53 mg/dL (0.57-1.11); POTASSIUM 4.4 mmol/L (3.5-5.1)
--- NOTE | 2019-02-22 03:22 | NUR ---
spoke to hanny in dispatch with [facility], eta 30 min for arrival, dr kidd informed of eta, he is aware and is ok with ground travel
[2019-02-22 04:31] VITALS: BP 145/59
== END 2019-02-22 04:36 | disposition short-term general hospital (02) ==
LOC: ER 00:43
DX: S06.5X9A Traumatic subdural hemorrhage with loss of consciousness of unspecified duration, initial encounter (principal); S22.41XA Multiple fractures of ribs, right side, initial encounter for closed fracture; W01.0XXA Fall on same level from slipping, tripping and stumbling without subsequent striking against object, initial encounter; Z91.81 History of falling; Y93.01 Activity, walking, marching and hiking; Y92.129 Unspecified place in nursing home as the place of occurrence of the external cause; I11.0 Hypertensive heart disease with heart failure; I50.9 Heart failure, unspecified; I48.91 Unspecified atrial fibrillation; E03.9 Hypothyroidism, unspecified; F03.90 Unspecified dementia, unspecified severity, without behavioral disturbance, psychotic disturbance, mood disturbance, and anxiety; Z82.49 Family history of ischemic heart disease and other diseases of the circulatory system; Z88.1 Allergy status to other antibiotic agents; Z88.5 Allergy status to narcotic agent; Z88.0 Allergy status to penicillin; Z88.8 Allergy status to other drugs, medicaments and biological substances
CPT/HCPCS: 36415; 70450; 71045; 72070; 72125; 72170; 80053; 85025; 85610; 85730; 99284